=== PATIENT | female | born 1935 | race Caucasian/White ===

== ENCOUNTER 2016-10-17 11:52 | Inpatient (IN) | payer OTHER, MEDICARE ==
[2016-10-18] MEDS ORDERED: FLUTICASONE NASAL 120 SPRAYS/16 GM MDI NS PRN (14:14)
[2016-10-18] MEDS ORDERED: NON-FORMULARY NEW DRUG (Cyanocobalamin (Vitamin B-12) [Vitamin B-12] 1,000 MCG) INJ SCH (14:15)
[2016-10-18] MEDS: ONDANSETRON DISINTEGRATING 4 MG TAB PO PRN ×2 (16:17→21:10)
--- NOTE | 2016-10-18 16:28 | GHP ---
[f rep st] HISTORY AND PHYSICAL POST ADMISSION PHYSICIAN EVALUATION AND REHABILITATION TREATMENT PLAN DATE OF ADMISSION: 10/18/2016 Referring Physician: Rola Leal MD TIME OF EVALUATION: 1430. REFERRING FACILITY: [facility]. CONSULTING PHYSICIANS: She was seen in consultation by neurologist, Krystian Greene. REHABILITATION DIAGNOSIS: Debility status post right MCA, cerebrovascular accident. IMPAIRMENT GROUP: 1.1. ETIOLOGIC DIAGNOSIS: Left body involvement (right brain). DATE OF ONSET: 10/13/2016. HISTORY OF PRESENT ILLNESS: The patient was taken to [facility] on October 13 with slurred speech, aphasia, a left facial droop and a dense left hemiplegia. She had a CT of the head and neck which showed a right MCA M2 branch thrombus with collateral flow. She was medically stabilized there. Symptoms had been present for too long for her to be a candidate for thrombolysis. Per the patient and her 's request, she transferred to [facility] for continued care. At [facility], a head CT was done which showed a multifocal ischemic infarction in the right middle cerebral artery territory. she had the stroke while she had reversal of anticoagulation for the purposes of a colonoscopy. She initially had a dense left upper extremity hemiplegia and a pronounced right gaze preference as well as dysphagia and dysarthria. These have all improved. She now is able to have some movement at the left upper extremity, though not in the fingers of the hand, and her speech and gaze preference have improved considerably. She reports that she was walking in the acute care hospital. STUDIES AND LABS IN THE HOSPITAL: A basic metabolic profile was overall within normal limits on October 14, though she had a low creatinine of 0.5, and a low calcium of 8.10. Lipid panel on 10/15/2016 showed elevated triglycerides of 125 and elevated LDL at 128 and a total cholesterol of 204. Liver function tests done on 10/17/2016 were overall within normal limits, but for a slightly low albumin of 3.1. Hemoglobin A1c was 5.7 and a CBC without differential was overall within normal limits, but for a slightly high red cell distribution width of 21.4 with the upper limit of normal being 15.2. Head CT showed multifocal ischemic infarction in the right middle cerebral territory. PRECAUTIONS: She is a fall risk. She is an aspiration risk. ACTIVE COMORBIDITIES: She has the tier 3 comorbidity of hemiparesis and she has a tier 2 morbidity of dysphagia. Otherwise, she has no tier 1, tier 2 or tier 3 comorbidities. PAST MEDICAL HISTORY: 1. Thyroid cancer status post radiation. 2. 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 3. 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 4. Atrial fibrillation. 5. DVT in the setting of inguinal hematoma. 6. Breast cancer. 7. Glaucoma. 8. Hypertension. 9. Restless legs syndrome treated with ropinirole. PAST SURGICAL HISTORY: She has had pacemaker placement. PRE-HOSPITAL MEDICATIONS: I do not have a complete list. ADMISSION MEDICATIONS: 1. Acetaminophen 650 mg SC q.4 hours p.r.n. 2. Aspirin 325 mg p.o. daily. 3. Atorvastatin 10 mg p.o. daily. 4. Budesonide 2 puffs twice daily. 5. Cholecalciferol 4000 units p.o. daily. 6. Enoxaparin 40 mg subcutaneous daily. 7. Famotidine 20 mg twice daily. 8. Fluticasone one spray each naris daily p.r.n. congestion. 9. Levothyroxine 112 mcg p.o. daily. 10. Metoprolol succinate 25 mg p.o. daily. 11. Ondansetron 4 mg p.o. q.4 hours p.r.n. 12. Timolol. 0.5% 1 drop in each eye daily. 13. Vitamin D 1000 mcg IM Q 30 days. ALLERGIES: 1. Amlodipine. 2. Epinephrine which caused racing heart rate. 3. Piperacillin and tazobactam which caused hives. 4. Erythromycin, moxifloxacin, niacin which caused a rash. 5. Omeprazole, vancomycin and hallucinations on opioid antagonist. FAMILY HISTORY: Noncontributory. PSYCHOSOCIAL HISTORY: The patient lives with her . [place] [address] [place] approximately 3 months ago. She has a remote history of tobacco smoking. She is not an alcohol user. REVIEW OF SYSTEMS: She denies pain. She did have some neck pain but that has resolved. She reports some visual difficulties and says that she has macular degeneration and also was due for a cataract procedure. She denies cough or dyspnea. She feels somewhat thirsty. She denies nausea, vomiting, constipation or diarrhea. She denies dysuria or urinary frequency. She has weakness of the left upper extremity. She is not aware of loss of sensation. She reports she has been walking and that her left lower extremity is a little bit weaker than the right, but has minimal weakness. Otherwise, a 10-point review of systems is negative. PHYSICAL EXAM: VITAL SIGNS: Blood pressure is 148/98, heart rate is 69, respiratory rate is 16, oxygen saturation is 95% on room air. Temperature is 36.5 degrees centigrade. Her weight in the acute care hospital was 52.2, with a body mass index of 19.7. GENERAL: This is a well-nourished, well-developed, thin elderly woman who appears her chronologic age. Cooperative, and in no acute distress lying in bed. HEENT: Extraocular movements are intact, though she appears to have a right gaze preference and possibly to lose track of the examiner's finger in her left visual field. Pupils are equal, round and reactive to light. Mucous membranes are somewhat dry. Airway is not crowded. Dentition is in good condition. There are no oropharyngeal mucosal lesions noted. NECK: Supple. HEART: Regular rate and rhythm with no murmurs, rubs or gallops. LUNGS: Clear to auscultation bilaterally. ABDOMEN: Soft, nontender, nondistended with normoactive bowel sounds and no hepatosplenomegaly. EXTREMITIES: There is no cyanosis, clubbing or edema. Radial and dorsalis pedis pulses are 2+ bilaterally. NECK: Supple. HEART: There is a regular rate and rhythm with no murmurs, rubs or gallops. LUNGS: Clear to auscultation bilaterally. ABDOMEN: Soft, nontender, nondistended with normoactive bowel sounds and no hepatosplenomegaly. NEUROLOGIC: Cranial nerves 2-10 are grossly intact with the exception as mentioned above. She is alert and oriented x3. Her left upper extremity has 3/5 strength at the shoulder, elbow and wrist but minimal movement at the fingers. Otherwise, her strength appears to be 5+ overall. She arises to seated from supine with no assistance. Sensation is grossly intact to light touch. However, she has extinction of touch on the left to double simultaneous stimulation of her arms. Babinski's is indeterminate bilaterally. CURRENT LEVEL OF FUNCTION PER THE PREADMISSION SCREEN: Regarding diet, feeding and swallowing, she was on a dysphagia 1 diet with nectar thick liquids. Medications were crushed in applesauce. She was noted to have moderate dysphagia. For grooming, she required assistance. For bathing, she required assistance. For dressing, she required total assistance. For toileting, she required assistance. Bladder was continent. Bowel continent. Bed mobility was accomplished with contact guard. Transfers were accomplished with minimal assistance and voice cuing to encourage proper left hand placement during transitions. She used a right alma walker. Balance required contact guard to minimal assistance. Endurance was noted to be fair. Regarding gait, she was able to ambulate 150 feet with minimal to moderate assistance and voice cuing. For communication, she was noted to have dysarthria. Regarding cognition, she was noted to have slow processing. IMPRESSION: Mrs. Castro Castañeda is an 81-year-old woman who suffered a right M2 branch MCA cerebrovascular accident on 10/13/2016. Duration prior to presentation at the hospital was too long for thrombolysis. She was medically stabilized at [facility] and then transferred to [facility] per the patient and her 's preference. There, a head CT showed a multifocal right hemispheric cerebrovascular accident. Her anticoagulation for atrial fibrillation had been reversed for several days prior to the stroke because of the need for a colonoscopy. Given the size and extent of the stroke, full anticoagulation is currently being withheld. She is being treated with DVT prophylaxis with enoxaparin and stroke prophylaxis with aspirin. The plan per Neurology is to continue this anti-platelet/ anticoagulant regimen for 2 weeks following a stroke or through October 28, 2016. She also has hypertension and is being allowed permissive hypertension and blood pressure is within the appropriate range for permissive hypertension. She also has dyslipidemia and was begun on a statin. She is appropriate for inpatient rehabilitation, needing comprehensive services to optimize mobility, activities of daily living, swallowing and communication. She will need close nursing care due to fall risk, risk to her skin from relative immobility, bowel and bladder management and medication education. Additionally, she will require close medical care for comorbidities including risk for DVT versus risk for hemorrhage, hypertension, hypothyroidism and her other comorbidities. Her goal is to return home with family support and outpatient services for a safe discharge. It is anticipated that she will achieve independence with eating, bed mobility and grooming, modified independence for transfers and minimal assistance for bathing and dressing. It is hoped that she will ambulate for household distances using a quad cane with close supervision and that she will tolerate least restrictive diet. She will have therapy with physical therapy, occupational therapy, and speech and language pathology for 60 minutes per day for each discipline on 5-7 days of the week. Her expected duration of stay is 14-21 days. It is anticipated that upon discharge, she will continue to benefit from home health services, including nursing, speech and language pathology, a home health aide, occupational therapy and physical therapy. ASSESSMENT AND PLAN BY PROBLEM LIST: 1. Cerebrovascular accident in the right M2 distribution of the middle cerebral artery with left upper extremity hemiparesis, dysarthria, dysphagia and left hemineglect. Physical and occupational therapy to optimize mobility and activities of daily living. Permissive hypertension for the first 10 days after her stroke or through October 24, 2016. Anticoagulation only with aspirin through October 28 and then consideration of full anticoagulation. Will start fluoxetine per the FLAME trial to enhance neuro recovery in the setting of hemiplegic stroke. 2. Atrial fibrillation status post pacemaker placement. Anticoagulation as above. Continue metoprolol for rate control. 3. Dyslipidemia: She was begun on atorvastatin at low dose. This will be titrated as it is tolerated. 4. Hypothyroidism due to treatment of thyroid cancer. Continue levothyroxine. 5. Metastatic pulmonary nodules of thyroid cancer status post chest radiation with radiation pneumonitis: She is treated with budesonide/formoterol which will be continued. She will use oxygen as needed. 6. Restless legs syndrome: Continue ropinirole. 7. Insomnia in the hospital: It is hoped that she will sleep better in the less disruptive environment of the rehabilitation unit. If not, discussion will be initiated with the patient regarding medication approaches to improve sleep. 8. Glaucoma and cataracts: These may complicate therapy in terms of left hemineglect and possible visual processing issues. Continue eyedrops for glaucoma. 9. History of DVT: She is at elevated risk due to her age and relative immobility and history of cancer. She will be monitored for any signs or symptoms and if she does develop a DVT, then the risk of intracerebral hemorrhage versus benefit of treatment of DVT will be considered once again. /[id number]/MODL MTDD
[2016-10-18] MEDS ORDERED: BUDESONIDE/FORMOTEROL 160/4.5 60 PUFFS/MDI IH SCH (21:00)
[2016-10-18] MEDS ORDERED: TAFLUPROST EACHEYE SCH ×2 (21:00)
[2016-10-18] MEDS: BUDESONIDE/FORMOTEROL 160/4.5 60 PUFFS/MDI IH SCH (21:09)
[2016-10-18] MEDS: FAMOTIDINE 20 MG TAB PO SCH (21:10)
[2016-10-18] MEDS: Tafluprost/Pf [Zioptan 0.0015% Eye Drops] EACHEYE SCH (21:24)
[2016-10-18] MEDS: ACETAMINOPHEN 650 MG SUPP PR PRN (22:17)
[2016-10-19] MEDS: LEVOTHYROXINE 112 MCG TAB PO SCH (04:45)
[2016-10-19] MEDS: ACETAMINOPHEN 650 MG SUPP PR PRN ×2 (04:46→18:45)
[2016-10-19] MEDS: ONDANSETRON DISINTEGRATING 4 MG TAB PO PRN ×3 (04:47→14:19)
[2016-10-19] MEDS: CHOLECALCIFEROL VIT D3 2,000 UNITS TAB/CAP PO SCH (08:41)
[2016-10-19] MEDS: FLUoxetine 10 MG CAP PO SCH (08:47)
[2016-10-19] MEDS: METOPROLOL SUCCINATE XR 25 MG TAB PO SCH (08:53)
[2016-10-19] MEDS: FAMOTIDINE 20 MG TAB PO SCH ×2 (08:53→20:04)
[2016-10-19] MEDS ORDERED: TIMOLOL 0.5% 15 ML OPHT.BTL EACHEYE SCH (09:00)
[2016-10-19] MEDS ORDERED: ATORVASTATIN CALCIUM 10 MG TAB PO SCH (09:00)
[2016-10-19] MEDS ORDERED: Herbals/Supplements -Info Only PO SCH (09:00)
[2016-10-19] MEDS ORDERED: ASPIRIN 325 MG TAB PO SCH (09:00)
--- NOTE | 2016-10-19 09:50 | SOAPPROG ---
SOAP Progress Note Assessment/Plan: Assessment: 1. Cerebrovascular accident in the right M2 distribution of the middle cerebral artery with left upper extremity hemiparesis, dysarthria, dysphagia and left hemineglect. Physical and occupational therapy to optimize mobility and activities of daily living. Permissive hypertension for the first 10 days after her stroke or through October 24, 2016. Anticoagulation only with aspirin through October 28 and then consideration of full anticoagulation. Will start fluoxetine per the FLAME trial to enhance neuro recovery in the setting of hemiplegic stroke. 2. Atrial fibrillation status post pacemaker placement. Anticoagulation as above. Continue metoprolol for rate control. 3. Dyslipidemia: She was begun on atorvastatin at low dose. This will be titrated as it is tolerated. 4. Hypothyroidism due to treatment of thyroid cancer. Continue levothyroxine. 5. Metastatic pulmonary nodules of thyroid cancer status post chest radiation with radiation pneumonitis: She is treated with budesonide/formoterol which will be continued. She will use oxygen as needed. 6. Restless legs syndrome: Continue ropinirole. 7. Insomnia in the hospital: It is hoped that she will sleep better in the less disruptive environment of the rehabilitation unit. If not, discussion will be initiated with the patient regarding medication approaches to improve sleep. 8. Glaucoma and cataracts: These may complicate therapy in terms of left hemineglect and possible visual processing issues. Continue eyedrops for glaucoma. 9. History of DVT: She is at elevated risk due to her age and relative immobility and history of cancer. She will be monitored for any signs or symptoms and if she does develop a DVT, then the risk of intracerebral hemorrhage versus benefit of treatment of DVT will be considered once again. 10/19/16 09:50 Objective: Vital Signs Temp Pulse Resp BP Pulse Ox 36.9 C 70 18 142/92 H 95 10/18/16 20:00 10/19/16 08:53 10/18/16 20:00 10/19/16 08:53 10/18/16 20:00 10/18/16 10/19/16 10/20/16 05:59 05:59 05:59 Intake Total 160 Balance 160 ICD10 Worksheet Patient Problems: Problems Problem Status Diagnosed Chronic Disease Mgmt/Transitional Care Acute GI bleed Acute Hemoptysis Acute Melena Acute Radiation pneumonitis Acute Recurrent thyroid cancer Acute Status post cardiac pacemaker procedure Acute Afib - Atrial fibrillation Active Acute anterior epistaxis Acute CHF (congestive heart failure) Acute Pleural effusion Acute
[2016-10-19] MEDS: ENOXAPARIN 40 MG/0.4 ML SYR SC SCH (10:47)
[2016-10-19] MEDS: TIMOLOL 0.5% 15 ML OPHT.BTL EACHEYE SCH (10:49)
[2016-10-19] MEDS: BUDESONIDE/FORMOTEROL 160/4.5 60 PUFFS/MDI IH SCH ×2 (10:52→20:05)
--- NOTE | 2016-10-19 10:56 | SOAPPROG ---
SOAP Progress Note Assessment/Plan: Assessment: * Cerebrovascular accident in the right M2 distribution of the middle cerebral artery with left upper extremity hemiparesis, dysarthria, dysphagia and left hemineglect. Physical and occupational therapy to optimize mobility and activities of daily living. Permissive hypertension for the first 10 days after her stroke or through October 24, 2016. Anticoagulation only with aspirin through October 28 and then consideration of full anticoagulation. Started fluoxetine 10 mg QD per the FLAME trial to enhance neuro recovery in the setting of hemiplegic stroke. * Atrial fibrillation status post pacemaker placement. Anticoagulation as above. Continue metoprolol for rate control. * Dyslipidemia: She was begun on atorvastatin at low dose. This will be titrated as it is tolerated. * Hypothyroidism due to treatment of thyroid cancer. Continue levothyroxine. * Metastatic pulmonary nodules of thyroid cancer status post chest radiation with radiation pneumonitis: She is treated with budesonide/formoterol which will be continued. No O2 requirement. * Restless legs syndrome: D/C SCDs. Continue ropinirole; increase dose from 0.125 mg QHS to 0.25 mg starting 10/19/16. * Insomnia: D/C SCDs and increase ropinirole as abvoe. Continue to monitor. * Glaucoma and cataracts: These may complicate therapy in terms of left hemineglect and possible visual processing issues. Continue eyedrops for glaucoma. * History of DVT: She is at elevated risk due to her age, relative immobility and history of cancer. No S/Sx DVT currently. Encourage mobilization. 10/19/16 10:56 Subjective: C/O feeling spacey this morning. Did not sleep well; SCDs activated RLS symptoms. Nurse notes thrush in mouth. She says she rinses mouth well after using steroid inhaler but sometimes gets thrush anyway. Objective: Vital Signs Temp Pulse Resp BP Pulse Ox 36.9 C 70 18 142/92 H 95 10/18/16 20:00 10/19/16 08:53 10/18/16 20:00 10/19/16 08:53 10/18/16 20:00 10/18/16 10/19/16 10/20/16 05:59 05:59 05:59 Intake Total 160 Balance 160 Physical Exam - Physical Exam General Appearance: WD/WN, alert, no apparent distress Respiratory: normal breath sounds, No crackles, No rhonchi, No wheezing Cardiac/Chest: regular rate, rhythm, No edema Abdomen: normal bowel sounds, non-tender, soft, No distended Neuro/Psych: alert, normal mood/affect, oriented x 3, motor weakness (LUE) ICD10 Worksheet Patient Problems: Problems Problem Status Diagnosed Chronic Disease Mgmt/Transitional Care Acute GI bleed Acute Hemoptysis Acute Melena Acute Radiation pneumonitis Acute Recurrent thyroid cancer Acute Status post cardiac pacemaker procedure Acute Afib - Atrial fibrillation Active Acute anterior epistaxis Acute CHF (congestive heart failure) Acute Pleural effusion Acute
--- NOTE | 2016-10-19 11:37 | PDOREHIP ---
Admission [facility] - Admission - 3 Day Assessment Period Admission Date/Day 1: 10/18/16 Day 2: 10/19/16 Day 3: 10/20/16 - Active Diagnoses Comorbidities and Co-existing Conditions at Admission: 30105. None of the Above - Skin Conditions Unhealed Pressure Ulcer (1 or more/Stage 1 or >)-Admission: 0. No
[2016-10-19] MEDS: NYSTATIN SUSP 500000 UNIT/5 ML UDCUP PO SCH ×3 (14:20→20:05)
[2016-10-19] MEDS ORDERED: LORazepam 0.5 MG TAB PO PRN (19:48)
[2016-10-19] MEDS: Tafluprost/Pf [Zioptan 0.0015% Eye Drops] EACHEYE SCH (20:05)
[2016-10-20] MEDS: LEVOTHYROXINE 112 MCG TAB PO SCH (06:25)
[2016-10-20] MEDS: NYSTATIN SUSP 500000 UNIT/5 ML UDCUP PO SCH ×4 (06:25→21:29)
[2016-10-20] MEDS: ONDANSETRON DISINTEGRATING 4 MG TAB PO PRN ×2 (06:25→21:31)
[2016-10-20] MEDS: BUDESONIDE/FORMOTEROL 160/4.5 60 PUFFS/MDI IH SCH ×2 (09:08→21:31)
[2016-10-20] MEDS: CHOLECALCIFEROL VIT D3 2,000 UNITS TAB/CAP PO SCH (09:08)
[2016-10-20] MEDS: ENOXAPARIN 40 MG/0.4 ML SYR SC SCH (09:10)
[2016-10-20] MEDS: FAMOTIDINE 20 MG TAB PO SCH ×2 (09:10→21:30)
[2016-10-20] MEDS: ATORVASTATIN CALCIUM 10 MG TAB PO SCH (09:13)
[2016-10-20] MEDS: TIMOLOL 0.5% 15 ML OPHT.BTL EACHEYE SCH (09:13)
[2016-10-20] MEDS: ASPIRIN 325 MG TAB PO SCH (09:13)
--- NOTE | 2016-10-20 10:13 | SOAPPROG ---
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 Physical and occupational therapy to optimize mobility and activities of daily living. Permissive hypertension for the first 10 days after her stroke or through October 24, 2016. Anticoagulation only with aspirin through October 28 and then consideration of full anticoagulation. Started fluoxetine 10 mg QD on 10/19/16 per the FLAME trial to enhance neuro recovery in the setting of hemiplegic stroke; d/c 10/20/16 as she did not tolerate a low dose.. * Dysphagia: continue ROASTER HELPER. DD1, nectar thick liquids. Encourage hydration. * Cognitive impairment: dysexecutive per ROASTER HELPER, c/w stimulus-bound responses per nurse. Continue ROASTER HELPER. * Restless legs syndrome: D/C SCDs. Continue ropinirole; increase dose from 0.125 mg QHS to 0.25 mg starting 10/19/16. * Insomnia: D/C SCDs and increase ropinirole as above. Slept well overnight - 10/20; had lorazepam.. * Anxiety: discussed adverse effects of lorazepam; changed to lower dosing 0.25 - 0.5 mg rather than 0.5 mg Q 6 hr PRN. Encourage to not use. * Neck pain: chronic recurrent. Modalities per OT & PT. Hot and cold packs PRN. Massage therapy consult. * Atrial fibrillation status post pacemaker placement. Anticoagulation as above. Continue metoprolol for rate control. Change to tartrate from succinate as meds need to be crushed. * DVT prophylaxis with enoxaparin. Chronic stable issues: * Dyslipidemia: She was begun on atorvastatin at low dose. This will be titrated as it is tolerated. * Hypothyroidism due to treatment of thyroid cancer. Continue levothyroxine. * Metastatic pulmonary nodules of thyroid cancer status post chest radiation with radiation pneumonitis: She is treated with budesonide/formoterol which will be continued. No O2 requirement. * Glaucoma and cataracts: These may complicate therapy in terms of left hemineglect and possible visual processing issues. Continue eyedrops for glaucoma. * History of DVT: She is at elevated risk due to her age, relative immobility and history of cancer. No S/Sx DVT currently. Encourage mobilization. 10/20/16 10:13 Subjective: Asked for lorazepam last night for anxiety; Rx'd 0.5 mg. Slept very well. Feels more unsteady on feet this morning. Says fluoxetine made her feel dizzy all day yesterday. Has heck pain on L from exercises with L arm. No f/c, cough , dyspnea, urinary frequency, dysuria. Nurse notes that she's persevferative and stimulus bound, persistently answering questions directed at another patient during breakfast. Objective: Vital Signs Temp Pulse Resp BP Pulse Ox 36.9 C 70 16 125/83 H 94 10/20/16 06:23 10/20/16 06:23 10/20/16 06:23 10/20/16 06:23 10/20/16 06:23 10/19/16 10/20/16 10/21/16 05:59 05:59 05:59 Intake Total 160 530 Output Total 100 100 Balance 160 430 -100 Physical Exam - Physical Exam General Appearance: WD/WN, alert, no apparent distress, thin Respiratory: normal breath sounds, No crackles, No rhonchi, No wheezing Cardiac/Chest: regular rate, rhythm, No edema Skin: normal color, warm/dry Neuro/Psych: alert, normal mood/affect, oriented x 3, motor weakness (LUE with ataxia and slow movement; able to operate wheelchair brake on L but needed assistance to find it. Arises from wheelchair with assistance; needs CGA for standing balance.) ICD10 Worksheet Patient Problems: Problems Problem Status Diagnosed Chronic Disease Mgmt/Transitional Care Acute GI bleed Acute Hemoptysis Acute Melena Acute Radiation pneumonitis Acute Recurrent thyroid cancer Acute Status post cardiac pacemaker procedure Acute Afib - Atrial fibrillation Active Acute anterior epistaxis Acute CHF (congestive heart failure) Acute Pleural effusion Acute
[2016-10-20] MEDS: METOPROLOL TARTRATE 25 MG TAB PO SCH ×2 (10:14→21:30)
[2016-10-20] MEDS: FLUoxetine 10 MG CAP PO SCH (10:21)
[2016-10-20] MEDS: METOPROLOL SUCCINATE XR 25 MG TAB PO SCH (10:22)
[2016-10-20] MEDS ORDERED: METOPROLOL TARTRATE 25 MG TAB PO SCH (21:00)
[2016-10-20] MEDS: LORazepam 0.5 MG TAB PO PRN (21:29)
[2016-10-20] MEDS: Tafluprost/Pf [Zioptan 0.0015% Eye Drops] EACHEYE SCH (21:32)
[2016-10-21] MEDS: LEVOTHYROXINE 112 MCG TAB PO SCH (06:25)
[2016-10-21] MEDS: NYSTATIN SUSP 500000 UNIT/5 ML UDCUP PO SCH ×4 (06:25→21:19)
[2016-10-21] MEDS: ONDANSETRON DISINTEGRATING 4 MG TAB PO PRN ×4 (06:25→21:22)
[2016-10-21] MEDS: METOPROLOL TARTRATE 25 MG TAB PO SCH ×2 (09:03→21:20)
[2016-10-21] MEDS: BUDESONIDE/FORMOTEROL 160/4.5 60 PUFFS/MDI IH SCH ×2 (09:03→21:19)
[2016-10-21] MEDS: TIMOLOL 0.5% 15 ML OPHT.BTL EACHEYE SCH (09:03)
[2016-10-21] MEDS: CHOLECALCIFEROL VIT D3 2,000 UNITS TAB/CAP PO SCH (09:03)
[2016-10-21] MEDS: ENOXAPARIN 40 MG/0.4 ML SYR SC SCH (09:03)
[2016-10-21] MEDS: FAMOTIDINE 20 MG TAB PO SCH ×2 (09:04→21:19)
[2016-10-21] MEDS: ATORVASTATIN CALCIUM 10 MG TAB PO SCH (09:34)
[2016-10-21] MEDS: ASPIRIN 325 MG TAB PO SCH (09:34)
--- NOTE | 2016-10-21 14:13 | SOAPPROG ---
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 Functionally improving; walked 200' today 10/21/16. Continue PT & OT to optimize mobility and activities of daily living. Permissive hypertension for the first 10 days after her stroke or through October 24, 2016. Anticoagulation only with aspirin through October 28 and then consideration of full anticoagulation. Started fluoxetine 10 mg QD on 10/19/16 per the FLAME trial to enhance neuro recovery in the setting of hemiplegic stroke; d/c 10/20/16 as she did not tolerate a low dose.. * Dysphagia: continue DIRECTOR ENTERPRISE DATA ARCHITECTURE. DD1, nectar thick liquids. Encourage hydration. * Cognitive impairment: dysexecutive per DIRECTOR ENTERPRISE DATA ARCHITECTURE, c/w stimulus-bound responses per nurse. Continue DIRECTOR ENTERPRISE DATA ARCHITECTURE. * Restless legs syndrome: D/C SCDs. Continue ropinirole; increase dose from 0.125 mg QHS to 0.25 mg starting 10/19/16. * Insomnia: D/C SCDs and increase ropinirole as above. Slept well overnight - 10/20; had lorazepam 0.5 mg; took again 0.25 mg at HS 10/20/16. * Anxiety: discussed adverse effects of lorazepam; changed to lower dosing 0.25 - 0.5 mg rather than 0.5 mg Q 6 hr PRN. Encourage to not use. * Neck pain: chronic recurrent. Modalities per OT & PT. Hot and cold packs PRN. Massage therapy consult. * Atrial fibrillation status post pacemaker placement. Anticoagulation as above. Continue metoprolol for rate control. Change to tartrate from succinate as meds need to be crushed. * DVT prophylaxis with enoxaparin. Chronic stable issues: * Dyslipidemia: She was begun on atorvastatin at low dose. This will be titrated as it is tolerated. * Hypothyroidism due to treatment of thyroid cancer. Continue levothyroxine. * Metastatic pulmonary nodules of thyroid cancer status post chest radiation with radiation pneumonitis: She is treated with budesonide/formoterol which will be continued. No O2 requirement. * Glaucoma and cataracts: These may complicate therapy in terms of left hemineglect and possible visual processing issues. Continue eyedrops for glaucoma. * History of DVT: She is at elevated risk due to her age, relative immobility and history of cancer. No S/Sx DVT currently. Encourage mobilization. 10/21/16 14:13 Subjective: C/O stomach cramps this morning. No n/v/c/d, eationg meals. Improved somewhat after bowel movement. Slept well; RLS symptoms did not interfere. Has continued return of function to L hand but feels disappointed in herself at times. Denies depression. Objective: Vital Signs Temp Pulse Resp BP Pulse Ox 36.2 C 69 18 119/79 95 10/21/16 06:28 10/21/16 09:03 10/21/16 06:28 10/21/16 09:03 10/21/16 06:28 10/20/16 10/21/16 10/22/16 05:59 05:59 05:59 Intake Total 530 720 Output Total 100 600 Balance 430 120 Physical Exam - Physical Exam General Appearance: WD/WN, alert, no apparent distress, thin Respiratory: normal breath sounds, No crackles, No rhonchi, No wheezing Cardiac/Chest: regular rate, rhythm, No edema Skin: normal color, warm/dry Neuro/Psych: alert, normal mood/affect, oriented x 3, motor weakness (Ataxic L hand) ICD10 Worksheet Patient Problems: Problems Problem Status Diagnosed Chronic Disease Mgmt/Transitional Care Acute GI bleed Acute Hemoptysis Acute Melena Acute Radiation pneumonitis Acute Recurrent thyroid cancer Acute Status post cardiac pacemaker procedure Acute Afib - Atrial fibrillation Active Acute anterior epistaxis Acute CHF (congestive heart failure) Acute Pleural effusion Acute
[2016-10-21] MEDS: Tafluprost/Pf [Zioptan 0.0015% Eye Drops] EACHEYE SCH (21:15)
[2016-10-21] MEDS: LORazepam 0.5 MG TAB PO PRN (21:21)
[2016-10-22] MEDS: LEVOTHYROXINE 112 MCG TAB PO SCH (06:02)
[2016-10-22] MEDS: NYSTATIN SUSP 500000 UNIT/5 ML UDCUP PO SCH ×4 (06:02→20:02)
[2016-10-22] MEDS: ONDANSETRON DISINTEGRATING 4 MG TAB PO PRN (06:02)
[2016-10-22] MEDS: TIMOLOL 0.5% 15 ML OPHT.BTL EACHEYE SCH (09:02)
[2016-10-22] MEDS: ASPIRIN 325 MG TAB PO SCH (09:03)
[2016-10-22] MEDS: BUDESONIDE/FORMOTEROL 160/4.5 60 PUFFS/MDI IH SCH ×2 (09:03→20:01)
[2016-10-22] MEDS: ENOXAPARIN 40 MG/0.4 ML SYR SC SCH (09:03)
[2016-10-22] MEDS: CHOLECALCIFEROL VIT D3 2,000 UNITS TAB/CAP PO SCH (09:04)
[2016-10-22] MEDS: METOPROLOL TARTRATE 25 MG TAB PO SCH ×2 (09:04→20:02)
[2016-10-22] MEDS: ATORVASTATIN CALCIUM 10 MG TAB PO SCH (09:04)
[2016-10-22] MEDS: FAMOTIDINE 20 MG TAB PO SCH ×2 (09:04→20:02)
--- NOTE | 2016-10-22 10:00 | SOAPPROG ---
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 Initial FIM 75 on 10/22/16. Functionally improving; walked 200' on 10/21/16, hand-held assist. CGA - min A for mobility and ADLs. Cues to attend to L. Gets fatigued. Continue PT & OT to optimize mobility and activities of daily living. Permissive hypertension for the first 10 days after her stroke or through October 24, 2016. Anticoagulation only with aspirin through October 28 and then consideration of full anticoagulation. Started fluoxetine 10 mg QD on 10/19/16 per the FLAME trial to enhance neuro recovery in the setting of hemiplegic stroke; d/c 10/20/16 as she did not tolerate a low dose.. * Dysphagia: continue JUNCTION MAKER. DD1, nectar thick liquids. Encourage hydration. * Cognitive impairment: dysexecutive per JUNCTION MAKER, c/w stimulus-bound responses per nurse. Continue JUNCTION MAKER. * Lightheadedness: she says BP needs to stay considerably higher than 112/72. expressed concern to nurse re iron level. BMP 10/22/16 c/w dehydration. Will hydrate with 1 L NS with 20 mEq/L KCl. Hold IV if it interferes with sleep. * Restless legs syndrome: D/C SCDs. Continue ropinirole; increase dose from 0.125 mg QHS to 0.25 mg starting 10/19/16. * Insomnia: D/C SCDs and increase ropinirole as above. Slept well overnight - 10/20; had lorazepam 0.5 mg; took again 0.25 mg at HS 10/20/16 & . Trial of melatonin 10/22/16. * Anxiety: discussed adverse effects of lorazepam; changed to lower dosing 0.25 - 0.5 mg rather than 0.5 mg Q 6 hr PRN. Encourage to not use. * Neck pain: chronic recurrent. Modalities per OT & PT. Hot and cold packs PRN. Massage therapy consult. * Atrial fibrillation status post pacemaker placement. Anticoagulation as above. Continue metoprolol for rate control. Change to tartrate from succinate as meds need to be crushed. * DVT prophylaxis with enoxaparin. Chronic stable issues: * Dyslipidemia: She was begun on atorvastatin at low dose. This will be titrated as it is tolerated. * Hypothyroidism due to treatment of thyroid cancer. Continue levothyroxine. * Metastatic pulmonary nodules of thyroid cancer status post chest radiation with radiation pneumonitis: She is treated with budesonide/formoterol which will be continued. No O2 requirement. * Glaucoma and cataracts: These may complicate therapy in terms of left hemineglect and possible visual processing issues. Continue eyedrops for glaucoma. * History of DVT: She is at elevated risk due to her age, relative immobility and history of cancer. No S/Sx DVT currently. Encourage mobilization. Attended staffing, 15 min. D/W case mgmt, nursing, rv technician, PT, OT, JUNCTION MAKER. Lives in multi-level home; has good family support. Tentative discharge date of 11/08/16 set. 10/22/16 17:14 Subjective: C/O feeling dizzy after breakfast, and nurse found low BP of 112 systolic. Awoke feeling good. Went back to bed and feels better. No vertigo. Denies dyspnea; has coughing and sneezing. No f/c, no UTI Sx. Objective: Vital Signs Temp Pulse Resp BP Pulse Ox 36.9 C 70 16 112/72 97 10/22/16 06:05 10/22/16 09:04 10/22/16 06:05 10/22/16 09:04 10/22/16 06:05 10/21/16 10/22/16 10/23/16 05:59 05:59 05:59 Intake Total 720 920 Output Total 600 Balance 120 920 - Time Spent With Patient Time Spent With Patient: Greater than 35 minutes floor time today, including more than 50% of time in coordination of care during staffing, and counseling patient. Physical Exam - Physical Exam General Appearance: WD/WN, alert, no apparent distress, thin Respiratory: normal breath sounds, No crackles, No rhonchi, No wheezing Cardiac/Chest: regular rate, rhythm, No edema Skin: normal color, warm/dry Neuro/Psych: alert, normal mood/affect, oriented x 3, motor weakness (LUE ataxia ) ICD10 Worksheet Patient Problems: Problems Problem Status Diagnosed Chronic Disease Mgmt/Transitional Care Acute GI bleed Acute Hemoptysis Acute Melena Acute Radiation pneumonitis Acute Recurrent thyroid cancer Acute Status post cardiac pacemaker procedure Acute Afib - Atrial fibrillation Active Acute anterior epistaxis Acute CHF (congestive heart failure) Acute Pleural effusion Acute
[2016-10-22 12:30] LABS: % IMMATURE GRANULYOCYTES 0.4 % (0.0-1.1); ABSOLUTE IMMATURE GRANULOCYTES 0.03 10^3/uL (0.00-0.10); ADD DIFF? NO; ADD MORPH? YES; ADD SCAN? NO; ATYPICAL LYMPHOCYTE FLAG 10 (0-99); FRAGMENT RBC FLAG 20 (0-99); HEMATOCRIT 45.9 % (38.0-47.0); HEMOGLOBIN 15.3 g/dL (12.6-16.3); LEFT SHIFT FLG 0 (0-99); LIPEMIA HEMOLYSIS FLAG 80 (0-99); MEAN CELL HEMOGLOBIN 29.6 pg (27.9-34.1); MEAN CELL HEMOGLOBIN CONCENTR. 33.3 g/dL (32.4-36.7); MEAN CELL VOLUME 88.8 fL (81.5-99.8); MEAN PLATELET VOLUME 10.8 fL (8.7-11.7); PLATELET CLUMPS FLAG 0 (0-99); PLATELET COUNT 273 10^3/uL (150-400); RED BLOOD CELL COUNT 5.17 10^6/uL (4.18-5.33)
[2016-10-22 12:41] LABS: RED CELL DISTRIBUTION WIDTH 20.2 % (11.5-15.2)
[2016-10-22 12:57] LABS: ANION GAP 14 mEq/L (8-16); CARBON DIOXIDE 26 mEq/l (22-31); CHLORIDE 102 mEq/L (97-110); CREATININE 0.7 mg/dL (0.6-1.0); GLOMERULAR FILTRATION RATE > 60; GLUCOSE 113 mg/dL (70-100); POTASSIUM 3.2 mEq/L (3.5-5.2); SODIUM 142 mEq/L (134-144)
[2016-10-22 13:06] LABS: % SATURATION 25 % (20-55); TOTAL IRON BINDING CAPACITY 326 ug/dL (260-490)
[2016-10-22 13:20] LABS: ELLIPTOCYTES 1+; MACROCYTES 1+; MICROCYTES 1+; PLATELET ESTIMATE ADEQUATE (ADEQ)
[2016-10-22] MEDS ORDERED: NS W/ 20 KCl/L 1,000 ML IV SCH (17:15)
[2016-10-22] MEDS: MELATONIN 3 MG TAB PO SCH (20:01)
[2016-10-22] MEDS: Tafluprost/Pf [Zioptan 0.0015% Eye Drops] EACHEYE SCH (21:05)
[2016-10-22] MEDS: LORazepam 0.5 MG TAB PO PRN (22:19)
[2016-10-23] MEDS: NYSTATIN SUSP 500000 UNIT/5 ML UDCUP PO SCH ×4 (06:01→20:24)
[2016-10-23] MEDS: LEVOTHYROXINE 112 MCG TAB PO SCH (06:01)
[2016-10-23] MEDS: TIMOLOL 0.5% 15 ML OPHT.BTL EACHEYE SCH (09:10)
[2016-10-23] MEDS: BUDESONIDE/FORMOTEROL 160/4.5 60 PUFFS/MDI IH SCH ×2 (09:10→20:29)
[2016-10-23] MEDS: ENOXAPARIN 40 MG/0.4 ML SYR SC SCH (09:10)
[2016-10-23] MEDS: FAMOTIDINE 20 MG TAB PO SCH ×2 (09:11→20:24)
[2016-10-23] MEDS: METOPROLOL TARTRATE 25 MG TAB PO SCH ×2 (09:11→20:25)
[2016-10-23] MEDS: ATORVASTATIN CALCIUM 10 MG TAB PO SCH (09:11)
[2016-10-23] MEDS: CHOLECALCIFEROL VIT D3 2,000 UNITS TAB/CAP PO SCH (09:11)
[2016-10-23] MEDS: ASPIRIN 325 MG TAB PO SCH (09:11)
--- NOTE | 2016-10-23 11:27 | SOAPPROG ---
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 Initial FIM 75 on 10/22/16. Functionally improving; walked 200' on 10/21/16, hand-held assist. CGA - min A for mobility and ADLs. Cues to attend to L. Gets fatigued. Continue PT & OT to optimize mobility and activities of daily living. Permissive hypertension for the first 10 days after her stroke or through October 24, 2016. Anticoagulation only with aspirin through October 28 and then consideration of full anticoagulation. Started fluoxetine 10 mg QD on 10/19/16 per the FLAME trial to enhance neuro recovery in the setting of hemiplegic stroke; d/c 10/20/16 as she did not tolerate a low dose.. * Dysphagia: continue FIBER TECHNOLOGIST. DD1, nectar thick liquids. Advanced to water protocol 10/23/16. Encourage hydration. * Cognitive impairment: dysexecutive per FIBER TECHNOLOGIST, c/w stimulus-bound responses per nurse. Continue FIBER TECHNOLOGIST. * Lightheadedness: she says BP needs to stay considerably higher than 112/72. BMP 10/22/16 c/w dehydration, and hypokalemia with K 3.2. Received 1 L NS with 20 mEq/L KCl. D/C IV for now and encourage PO hydration. Repeat IV fluids if she is symptomatic or if BP < 120/80. * Restless legs syndrome: D/C SCDs. Continue ropinirole; increase dose from 0.125 mg QHS to 0.25 mg starting 10/19/16. * Insomnia: D/C SCDs and increase ropinirole as above. Slept well overnight - 10/20; had lorazepam 0.5 mg; took again 0.25 mg at HS 10/20/16 & . Trial of melatonin 10/22/16. * Anxiety: discussed adverse effects of lorazepam; changed to lower dosing 0.25 - 0.5 mg rather than 0.5 mg Q 6 hr PRN. Encourage to not use. * Neck pain: chronic recurrent. Modalities per OT & PT. Hot and cold packs PRN. Massage therapy consult. * Atrial fibrillation status post pacemaker placement. Anticoagulation as above. Continue metoprolol for rate control. Change to tartrate from succinate as meds need to be crushed. * DVT prophylaxis with enoxaparin. Chronic stable issues: * Dyslipidemia: She was begun on atorvastatin at low dose. This will be titrated as it is tolerated. * Hypothyroidism due to treatment of thyroid cancer. Continue levothyroxine. * Metastatic pulmonary nodules of thyroid cancer status post chest radiation with radiation pneumonitis: She is treated with budesonide/formoterol which will be continued. No O2 requirement. * CHF, pleural effusion: asymptomatic. * Glaucoma and cataracts: These may complicate therapy in terms of left hemineglect and possible visual processing issues. Continue eyedrops for glaucoma. * History of DVT: She is at elevated risk due to her age, relative immobility and history of cancer. No S/Sx DVT currently. Encourage mobilization. Lives in multi-level home; has good family support. Tentative discharge date of 11/08/16 set. 10/23/16 11:25 Subjective: Feels better this morning after hydration overnight. Not lightheaded. Objective: Vital Signs Temp Pulse Resp BP Pulse Ox 36.9 C 70 18 147/85 H 96 10/23/16 08:00 10/23/16 09:11 10/23/16 08:00 10/23/16 09:11 10/23/16 08:00 Laboratory Results 10/22/16 11:10 10/22/16 11:10 10/22/16 10/23/16 10/24/16 05:59 05:59 05:59 Intake Total 920 450 200 Output Total 150 Balance 920 300 200 Physical Exam - Physical Exam General Appearance: WD/WN, alert, no apparent distress Respiratory: normal breath sounds, No crackles, No rhonchi, No wheezing Cardiac/Chest: regular rate, rhythm, No edema Neuro/Psych: alert, normal mood/affect, oriented x 3, abnormal gait (Ambulating BACK TUFTER with OT), other (Right gaze preference.) ICD10 Worksheet Patient Problems: Problems Problem Status Diagnosed Chronic Disease Mgmt/Transitional Care Acute GI bleed Acute Hemoptysis Acute Melena Acute Radiation pneumonitis Acute Recurrent thyroid cancer Acute Status post cardiac pacemaker procedure Acute Afib - Atrial fibrillation Active Acute anterior epistaxis Acute CHF (congestive heart failure) Acute Pleural effusion Acute
[2016-10-23] MEDS: MELATONIN 3 MG TAB PO SCH (20:24)
[2016-10-23] MEDS: Tafluprost/Pf [Zioptan 0.0015% Eye Drops] EACHEYE SCH (20:29)
[2016-10-23] MEDS: LORazepam 0.5 MG TAB PO PRN (22:00)
[2016-10-23] MEDS: ONDANSETRON DISINTEGRATING 4 MG TAB PO PRN (22:04)
[2016-10-24] MEDS: LEVOTHYROXINE 112 MCG TAB PO SCH (05:39)
[2016-10-24] MEDS: NYSTATIN SUSP 500000 UNIT/5 ML UDCUP PO SCH ×4 (05:39→20:41)
[2016-10-24] MEDS: CHOLECALCIFEROL VIT D3 2,000 UNITS TAB/CAP PO SCH (09:04)
[2016-10-24] MEDS: METOPROLOL TARTRATE 25 MG TAB PO SCH ×2 (09:04→20:41)
[2016-10-24] MEDS: ASPIRIN 325 MG TAB PO SCH (09:05)
[2016-10-24] MEDS: FAMOTIDINE 20 MG TAB PO SCH ×2 (09:05→20:41)
[2016-10-24] MEDS: ATORVASTATIN CALCIUM 10 MG TAB PO SCH (09:05)
[2016-10-24] MEDS: ENOXAPARIN 40 MG/0.4 ML SYR SC SCH (09:05)
[2016-10-24] MEDS: BUDESONIDE/FORMOTEROL 160/4.5 60 PUFFS/MDI IH SCH ×2 (09:06→20:46)
[2016-10-24] MEDS: TIMOLOL 0.5% 15 ML OPHT.BTL EACHEYE SCH (09:06)
--- NOTE | 2016-10-24 09:44 | SOAPPROG ---
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 Initial FIM 75 on 10/22/16. Functionally improving; walked 200' on 10/21/16, hand-held assist. CGA - min A for mobility and ADLs. Cues to attend to L. Gets fatigued. Continue PT & OT to optimize mobility and activities of daily living. Permissive hypertension for the first 10 days after her stroke or through October 24, 2016. Anticoagulation only with aspirin through October 28 and then consideration of full anticoagulation. Started fluoxetine 10 mg QD on 10/19/16 per the FLAME trial to enhance neuro recovery in the setting of hemiplegic stroke; d/c 10/20/16 as she did not tolerate a low dose.. * Dysphagia: continue CANDY CUTTER HAND. DD1, nectar thick liquids. Advanced to water protocol 10/23/16. Encourage hydration. Repeat VFSS today 10/24/16. * Cognitive impairment: dysexecutive per CANDY CUTTER HAND, c/w stimulus-bound responses per nurse. Continue CANDY CUTTER HAND. * Dental pain: cracked root per her report. D/W her dental office (Dr. Farnsworth [phone]): has been treated with amoxicillin in the past; should have extraction done. D/W on-call oral surgeon Dr. Leonard ([phone] cell; office): can extract a tooth while on warfarin as long as INR < 3. Could see in office to assess this week or Thursday 10/25 or 10/26. D/W social work; will try to arrange. Meanwhile moore tart amoxicillin 500 mg TID. * Lightheadedness: she says BP needs to stay considerably higher than 112/72. BMP 10/22/16 c/w dehydration, and hypokalemia with K 3.2. Received 1 L NS with 20 mEq/L KCl. D/C IV for now and encourage PO hydration. Repeat IV fluids if she is symptomatic or if BP < 120/80. * HTN: BP elevated now s/p IV hydration 10/22/16 - 10/23/16. Resume metoprolol 25 mg BID starting 10/24/16. * Restless legs syndrome: D/C SCDs. Continue ropinirole; increase dose from 0.125 mg QHS to 0.25 mg starting 10/19/16. * Insomnia: D/C SCDs and increase ropinirole as above. Slept well overnight - 10/20; had lorazepam 0.5 mg; took again 0.25 mg at HS 10/20/16 & . Trial of melatonin 10/22/16; conitnuing to use lorazepam 1.2 hr after melatonin last night 10/23/16. * Anxiety: discussed adverse effects of lorazepam; changed to lower dosing 0.25 - 0.5 mg rather than 0.5 mg Q 6 hr PRN. Encourage to not use. * Neck pain: chronic recurrent. Modalities per OT & PT. Hot and cold packs PRN. Massage therapy consult. * Atrial fibrillation status post pacemaker placement. Anticoagulation as above. Continue metoprolol for rate control. Change to tartrate from succinate as meds need to be crushed. * DVT prophylaxis with enoxaparin. Chronic stable issues: * Dyslipidemia: She was begun on atorvastatin at low dose. This will be titrated as it is tolerated. * Hypothyroidism due to treatment of thyroid cancer. Continue levothyroxine. * Metastatic pulmonary nodules of thyroid cancer status post chest radiation with radiation pneumonitis: She is treated with budesonide/formoterol which will be continued. No O2 requirement. * CHF, pleural effusion: asymptomatic. * Glaucoma and cataracts: These may complicate therapy in terms of left hemineglect and possible visual processing issues. Continue eyedrops for glaucoma. * History of DVT: She is at elevated risk due to her age, relative immobility and history of cancer. No S/Sx DVT currently. Encourage mobilization. Lives in multi-level home; has good family support. Tentative discharge date of 11/08/16 set. 10/24/16 13:40 10/24/16 13:43 Subjective: C/O pain R upper maxilla. Says she has a tooth with a broken root that was to be extracted but was not done due to bleeding issues. She was up multiple times to urinate overnight. Otherwise without urinary symptoms. Objective: Vital Signs Temp Pulse Resp BP Pulse Ox 36.7 C 74 16 155/85 H 95 10/24/16 06:46 10/24/16 06:46 10/24/16 06:46 10/24/16 06:46 10/24/16 06:46 Laboratory Results 10/22/16 11:10 10/22/16 11:10 10/23/16 10/24/16 10/25/16 05:59 05:59 05:59 Intake Total 450 920 Output Total 150 650 200 Balance 300 270 -200 Physical Exam - Physical Exam General Appearance: WD/WN, alert, no apparent distress EENT: other (No oral mucosallesions noted. Teeth appear to be in good condition.) Respiratory: normal breath sounds, No crackles, No rhonchi, No wheezing Cardiac/Chest: regular rate, rhythm, No edema Skin: normal color, warm/dry Neuro/Psych: alert, normal mood/affect, oriented x 3, abnormal real estate loan officer II-XII (Mild L facial droop), speech abnormalities (Mild dysarthria) ICD10 Worksheet Patient Problems: Problems Problem Status Diagnosed Chronic Disease Mgmt/Transitional Care Acute GI bleed Acute Hemoptysis Acute Melena Acute Radiation pneumonitis Acute Recurrent thyroid cancer Acute Status post cardiac pacemaker procedure Acute Afib - Atrial fibrillation Active Acute anterior epistaxis Acute CHF (congestive heart failure) Acute Pleural effusion Acute
[2016-10-24 12:31] LABS: COLOR YELLOW; LEUKOCYTE ESTERASE,URINE NEGATIVE (NEGATIVE); NITRITE,URINE NEGATIVE (NEGATIVE)
--- NOTE | 2016-10-24 14:21 | DX ---
Video Esophagram With Speech Therapy History: Dysphagia. Recent stroke. Technique: With the patient in the sitting lateral position, the speech therapist administered barium -coated puree, thick liquids, thin liquids, solid, and barium pill while video fluoroscopic monitorin g was performed. Fluoroscopy time: 3.8 minutes. 6.4 mGy Findings: Supraglottic penetration predominantly with thin liquids. No aspiration. Pooling in the kwan lecula, predominantly with solids and thick liquids. Poor pharyngeal motility. Probable presbyesophag us in the upper esophagus with poor peristalsis. C4-C5 and C5-C6 degenerative grade 1 anterolisthesis . Impression: 1. 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 2. Supraglottic penetration with thin liquids, without aspiration. 3. Probable presbyesophagus. 4. Please see speech therapist report and recommendations.
[2016-10-24] MEDS ORDERED: CYANO/VITAMIN B12 1000 MCG/ML VIAL IM SCH (15:00)
[2016-10-24] MEDS: ONDANSETRON DISINTEGRATING 4 MG TAB PO PRN (20:12)
[2016-10-24] MEDS: MELATONIN 3 MG TAB PO SCH (20:41)
[2016-10-24] MEDS: Tafluprost/Pf [Zioptan 0.0015% Eye Drops] EACHEYE SCH (20:41)
[2016-10-24] MEDS: ACETAMINOPHEN 325 MG TAB PO PRN (20:59)
[2016-10-25] MEDS: ACETAMINOPHEN 325 MG TAB PO PRN ×3 (00:52→20:19)
[2016-10-25] MEDS: ONDANSETRON DISINTEGRATING 4 MG TAB PO PRN ×3 (00:52→15:04)
[2016-10-25] MEDS: NYSTATIN SUSP 500000 UNIT/5 ML UDCUP PO SCH ×3 (04:51→18:04)
[2016-10-25] MEDS: LEVOTHYROXINE 112 MCG TAB PO SCH (04:52)
[2016-10-25] MEDS: ATORVASTATIN CALCIUM 10 MG TAB PO SCH (09:08)
[2016-10-25] MEDS: METOPROLOL TARTRATE 25 MG TAB PO SCH ×2 (09:08→20:50)
[2016-10-25] MEDS: CHOLECALCIFEROL VIT D3 2,000 UNITS TAB/CAP PO SCH (09:08)
[2016-10-25] MEDS: ASPIRIN 325 MG TAB PO SCH (09:08)
[2016-10-25] MEDS: FAMOTIDINE 20 MG TAB PO SCH (09:09)
[2016-10-25] MEDS: ENOXAPARIN 40 MG/0.4 ML SYR SC SCH (09:09)
[2016-10-25] MEDS: BUDESONIDE/FORMOTEROL 160/4.5 60 PUFFS/MDI IH SCH ×2 (09:29→20:22)
[2016-10-25] MEDS: TIMOLOL 0.5% 15 ML OPHT.BTL EACHEYE SCH (09:29)
--- NOTE | 2016-10-25 13:40 | SOAPPROG ---
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 Initial FIM 75 on 10/22/16. Functionally improving; walked 200' on 10/21/16, hand-held assist. CGA - min A for mobility and ADLs. Cues to attend to L. Gets fatigued. Continue PT & OT to optimize mobility and activities of daily living. Permissive hypertension for the first 10 days after her stroke or through October 24, 2016. Anticoagulation only with aspirin through October 28 and then consideration of full anticoagulation. Started fluoxetine 10 mg QD on 10/19/16 per the FLAME trial to enhance neuro recovery in the setting of hemiplegic stroke; d/c 10/20/16 as she did not tolerate a low dose.. * Dysphagia: continue RUG HOOKER. DD1, nectar thick liquids. Advanced to water protocol 10/23/16. Encourage hydration. Repeat VFSS today 10/24/16. * Cognitive impairment: dysexecutive per RUG HOOKER, c/w stimulus-bound responses per nurse. Continue RUG HOOKER. * Dental pain: cracked root per her report. D/W her dental office (Dr. Farnsworth [phone]): has been treated with amoxicillin in the past; should have extraction done. D/W on-call oral surgeon Dr. Leonard ([phone] cell; office): can extract a tooth while on warfarin as long as INR < 3. Family will plan for extraction after discharge. Meanwhile will start amoxicillin 500 mg TID. * Lightheadedness: she says BP needs to stay considerably higher than 112/72. BMP 10/22/16 c/w dehydration, and hypokalemia with K 3.2. Received 1 L NS with 20 mEq/L KCl. D/C IV for now and encourage PO hydration. Repeat IV fluids if she is symptomatic or if BP < 120/80. * HTN: BP elevated now s/p IV hydration 10/22/16 - 10/23/16. Resume metoprolol 25 mg BID starting 10/24/16. * Restless legs syndrome: D/C SCDs. Continue ropinirole; increase dose from 0.125 mg QHS to 0.25 mg starting 10/19/16. * Insomnia: D/C SCDs and increase ropinirole as above. Slept well overnight - 10/20; had lorazepam 0.5 mg; took again 0.25 mg at HS 10/20/16 & . Trial of melatonin 10/22/16; conitnuing to use lorazepam 1.2 hr after melatonin last night 10/23/16. * Anxiety: discussed adverse effects of lorazepam; changed to lower dosing 0.25 - 0.5 mg rather than 0.5 mg Q 6 hr PRN. Encourage to not use. * Neck pain: chronic recurrent. Modalities per OT & PT. Hot and cold packs PRN. Massage therapy consult. * Atrial fibrillation status post pacemaker placement. Anticoagulation as above. Continue metoprolol for rate control. Change to tartrate from succinate as meds need to be crushed. * DVT prophylaxis with enoxaparin. Chronic stable issues: * Dyslipidemia: She was begun on atorvastatin at low dose. This will be titrated as it is tolerated. * Hypothyroidism due to treatment of thyroid cancer. Continue levothyroxine. * Metastatic pulmonary nodules of thyroid cancer status post chest radiation with radiation pneumonitis: She is treated with budesonide/formoterol which will be continued. No O2 requirement. * CHF, pleural effusion: asymptomatic. * Glaucoma and cataracts: These may complicate therapy in terms of left hemineglect and possible visual processing issues. Continue eyedrops for glaucoma. * History of DVT: She is at elevated risk due to her age, relative immobility and history of cancer. No S/Sx DVT currently. Encourage mobilization. Lives in multi-level home; has good family support. Tentative discharge date of 11/08/16 set. 10/25/16 13:40 Subjective: COncerned that she may be getting a URI. No cough or dyspnea, f/c. Slept well after neckpain relieved by massage per OT and acetaminophen. Objective: Vital Signs Temp Pulse Resp BP Pulse Ox 36.5 C 70 16 140/82 H 93 10/25/16 05:35 10/25/16 05:35 10/25/16 05:35 10/25/16 05:35 10/25/16 05:35 Laboratory Results 10/22/16 11:10 10/22/16 11:10 10/24/16 10/25/16 10/26/16 05:59 05:59 05:59 Intake Total 920 660 400 Output Total 650 925 Balance 270 -265 400 Physical Exam - Physical Exam General Appearance: WD/WN, alert, no apparent distress Respiratory: No respiratory distress, No accessory muscle use Skin: normal color, warm/dry Neuro/Psych: alert, normal mood/affect, oriented x 3 ICD10 Worksheet Patient Problems: Problems Problem Status Diagnosed Chronic Disease Mgmt/Transitional Care Acute GI bleed Acute Hemoptysis Acute Melena Acute Radiation pneumonitis Acute Recurrent thyroid cancer Acute Status post cardiac pacemaker procedure Acute Afib - Atrial fibrillation Active Acute anterior epistaxis Acute CHF (congestive heart failure) Acute Pleural effusion Acute
[2016-10-25] MEDS ORDERED: BISACODYL 10 MG SUPP PR PRN (18:52)
[2016-10-25] MEDS: SENNOSIDES 1 TAB PO PRN (20:31)
[2016-10-25] MEDS: MELATONIN 3 MG TAB PO SCH (20:31)
[2016-10-25] MEDS: Tafluprost/Pf [Zioptan 0.0015% Eye Drops] EACHEYE SCH (20:37)
[2016-10-26] MEDS: LEVOTHYROXINE 112 MCG TAB PO SCH (04:11)
[2016-10-26] MEDS: ACETAMINOPHEN 325 MG TAB PO PRN ×2 (04:12→22:40)
[2016-10-26] MEDS: ONDANSETRON DISINTEGRATING 4 MG TAB PO PRN ×2 (04:18→22:44)
[2016-10-26] MEDS: ENOXAPARIN 40 MG/0.4 ML SYR SC SCH (07:54)
[2016-10-26] MEDS: METOPROLOL TARTRATE 25 MG TAB PO SCH ×2 (08:09→21:31)
[2016-10-26] MEDS: POLYETHYLENE GLYCOL 3350 17 GM PKT PO PRN (08:12)
[2016-10-26] MEDS: SENNOSIDES 1 TAB PO PRN ×2 (08:23→20:20)
[2016-10-26] MEDS: CHOLECALCIFEROL VIT D3 2,000 UNITS TAB/CAP PO SCH (08:23)
[2016-10-26] MEDS: FAMOTIDINE 20 MG TAB PO SCH (08:24)
[2016-10-26] MEDS: BUDESONIDE/FORMOTEROL 160/4.5 60 PUFFS/MDI IH SCH ×2 (10:00→22:47)
[2016-10-26] MEDS: TIMOLOL 0.5% 15 ML OPHT.BTL EACHEYE SCH (10:01)
[2016-10-26] MEDS: ASPIRIN 325 MG TAB PO SCH (10:47)
[2016-10-26] MEDS: ATORVASTATIN CALCIUM 10 MG TAB PO SCH (10:56)
[2016-10-26] MEDS ORDERED: NS W/ 20 KCl/L 1,000 ML IV SCH ×2 (12:00→14:45)
--- NOTE | 2016-10-26 12:05 | SOAPPROG ---
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 Initial FIM 75 on 10/22/16. Functionally improving; walked 200' on 10/21/16, hand-held assist. CGA - min A for mobility and ADLs. Cues to attend to L. Gets fatigued. Continue PT & OT to optimize mobility and activities of daily living. Permissive hypertension for the first 10 days after her stroke or through October 24, 2016. Anticoagulation only with aspirin through October 28 and then consideration of full anticoagulation. Started fluoxetine 10 mg QD on 10/19/16 per the FLAME trial to enhance neuro recovery in the setting of hemiplegic stroke; d/c 10/20/16 as she did not tolerate a low dose.. * Dysphagia: continue TOOL AND DIE REPAIR. DD1, honey thick liquids. Advanced to water protocol 10/23/16. Encourage hydration. Repeat VFSS 10/24/16. Initiated water protocol and e-stim. * Cognitive impairment: dysexecutive per TOOL AND DIE REPAIR, c/w stimulus-bound responses per nurse. Continue TOOL AND DIE REPAIR. * Dental pain: cracked root per her report. D/W her dental office (Dr. Farnsworth [phone]): has been treated with amoxicillin in the past; should have extraction done. D/W on-call oral surgeon Dr. Leonard ([phone] cell; office): can extract a tooth while on warfarin as long as INR < 3. Family will plan for extraction after discharge. Meanwhile will start amoxicillin 500 mg TID. * Lightheadedness again today 10/26/16: administer IV fluids again; check orthostatics and stat BMP, CBC; not lcinically c/w infection, cardiovascular decompensation or extension of CVA. BMP 10/22/16 c/w dehydration, and hypokalemia with K 3.2. Received 1 L NS with 20 mEq/L KCl. D/C IV for now and encourage PO hydration. Repeat IV fluids if she is symptomatic or if BP < 120/ 80. * HTN: BP elevated now s/p IV hydration 10/22/16 - 10/23/16. Resume metoprolol 25 mg BID starting 10/24/16. * Restless legs syndrome: D/C SCDs. Continue ropinirole; increase dose from 0.125 mg QHS to 0.25 mg starting 10/19/16. * Insomnia: D/C SCDs and increase ropinirole as above. Slept well overnight - 10/20; had lorazepam 0.5 mg; took again 0.25 mg at HS 10/20/16 & . Trial of melatonin 10/22/16; conitnuing to use lorazepam 1.2 hr after melatonin last night 10/23/16. * Anxiety: discussed adverse effects of lorazepam; changed to lower dosing 0.25 - 0.5 mg rather than 0.5 mg Q 6 hr PRN. Encourage to not use. * Neck pain: chronic recurrent. Modalities per OT & PT. Hot and cold packs PRN. Massage therapy consult. * Atrial fibrillation status post pacemaker placement. Anticoagulation as above. Continue metoprolol for rate control. Change to tartrate from succinate as meds need to be crushed. * DVT prophylaxis with enoxaparin. Chronic stable issues: * Dyslipidemia: She was begun on atorvastatin at low dose. This will be titrated as it is tolerated. * Hypothyroidism due to treatment of thyroid cancer. Continue levothyroxine. * Metastatic pulmonary nodules of thyroid cancer status post chest radiation with radiation pneumonitis: She is treated with budesonide/formoterol which will be continued. No O2 requirement. * CHF, pleural effusion: asymptomatic. * Glaucoma and cataracts: These may complicate therapy in terms of left hemineglect and possible visual processing issues. Continue eyedrops for glaucoma. * History of DVT: She is at elevated risk due to her age, relative immobility and history of cancer. No S/Sx DVT currently. Encourage mobilization. Lives in multi-level home; has good family support. Tentative discharge date of 11/08/16 set. 10/26/16 12:07 Subjective: C/O feeling lightheaded this morning. Not tolerating therapies; in bed after breakfast. Metoprolol not given this morning or yesterday evening. Denies. cough, dyspnea, URI Sx, N/V/d, dysuria, urinary frequency, f/c. Objective: Vital Signs Temp Pulse Resp BP Pulse Ox 36.6 C 70 16 109/68 93 10/26/16 04:28 10/26/16 11:06 10/26/16 04:28 10/26/16 11:06 10/26/16 11:06 Laboratory Results 10/22/16 11:10 10/22/16 11:10 10/25/16 10/26/16 10/27/16 05:59 05:59 05:59 Intake Total 660 640 Output Total 925 Balance -265 640 Physical Exam - Physical Exam General Appearance: WD/WN, alert, no apparent distress, thin EENT: pharynx normal, other (MMs moist) Respiratory: normal breath sounds, No crackles, No rhonchi, No wheezing Cardiac/Chest: regular rate, rhythm, No edema Abdomen: normal bowel sounds, non-tender, soft, No distended Skin: normal color, warm/dry Neuro/Psych: alert, normal mood/affect, oriented x 3, motor weakness (LUE) ICD10 Worksheet Patient Problems: Problems Problem Status Diagnosed Chronic Disease Mgmt/Transitional Care Acute GI bleed Acute Hemoptysis Acute Melena Acute Radiation pneumonitis Acute Recurrent thyroid cancer Acute Status post cardiac pacemaker procedure Acute Afib - Atrial fibrillation Active Acute anterior epistaxis Acute CHF (congestive heart failure) Acute Pleural effusion Acute
[2016-10-26 14:32] LABS: % IMMATURE GRANULYOCYTES 0.2 % (0.0-1.1); ABSOLUTE IMMATURE GRANULOCYTES 0.01 10^3/uL (0.00-0.10); ADD DIFF? NO; ADD MORPH? NO; ADD SCAN? NO; ATYPICAL LYMPHOCYTE FLAG 0 (0-99); FRAGMENT RBC FLAG 20 (0-99); HEMATOCRIT 46.9 % (38.0-47.0); HEMOGLOBIN 16.1 g/dL (12.6-16.3); LEFT SHIFT FLG 0 (0-99); LIPEMIA HEMOLYSIS FLAG 90 (0-99); MEAN CELL HEMOGLOBIN 29.8 pg (27.9-34.1); MEAN CELL HEMOGLOBIN CONCENTR. 34.3 g/dL (32.4-36.7); MEAN CELL VOLUME 86.9 fL (81.5-99.8); MEAN PLATELET VOLUME 10.3 fL (8.7-11.7); PLATELET CLUMPS FLAG 10 (0-99); PLATELET COUNT 277 10^3/uL (150-400); RED CELL DISTRIBUTION WIDTH 19.5 % (11.5-15.2)
[2016-10-26 14:48] LABS: ANION GAP 15 mEq/L (8-16); CALCIUM 9.1 mg/dL (8.5-10.4); CARBON DIOXIDE 25 mEq/l (22-31); CHLORIDE 100 mEq/L (97-110); CREATININE 0.7 mg/dL (0.6-1.0); GLOMERULAR FILTRATION RATE > 60; GLUCOSE 156 mg/dL (70-100); POTASSIUM 3.6 mEq/L (3.5-5.2); SODIUM 140 mEq/L (134-144)
[2016-10-26] MEDS: MELATONIN 3 MG TAB PO SCH (21:39)
[2016-10-26] MEDS: Tafluprost/Pf [Zioptan 0.0015% Eye Drops] EACHEYE SCH (21:52)
[2016-10-27] MEDS: LEVOTHYROXINE 112 MCG TAB PO SCH (06:08)
[2016-10-27] MEDS: BUDESONIDE/FORMOTEROL 160/4.5 60 PUFFS/MDI IH SCH ×2 (07:45→20:47)
[2016-10-27] MEDS: TIMOLOL 0.5% 15 ML OPHT.BTL EACHEYE SCH (07:46)
[2016-10-27] MEDS: POLYETHYLENE GLYCOL 3350 17 GM PKT PO PRN (08:39)
[2016-10-27] MEDS: CHOLECALCIFEROL VIT D3 2,000 UNITS TAB/CAP PO SCH (08:40)
[2016-10-27] MEDS: SENNOSIDES 1 TAB PO PRN (08:40)
[2016-10-27] MEDS: METOPROLOL TARTRATE 25 MG TAB PO SCH ×2 (08:40→20:29)
[2016-10-27] MEDS: FAMOTIDINE 20 MG TAB PO SCH (09:14)
[2016-10-27] MEDS: ENOXAPARIN 40 MG/0.4 ML SYR SC SCH (09:16)
--- NOTE | 2016-10-27 10:24 | SOAPPROG ---
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 Initial FIM 75 on 10/22/16. Functionally improving; walked 200' on 10/21/16, hand-held assist. CGA - min A for mobility and ADLs. Cues to attend to L. Gets fatigued. Continue PT & OT to optimize mobility and activities of daily living. Permissive hypertension for the first 10 days after her stroke or through October 24, 2016. Anticoagulation only with aspirin through October 28 and then consideration of full anticoagulation. Started fluoxetine 10 mg QD on 10/19/16 per the FLAME trial to enhance neuro recovery in the setting of hemiplegic stroke; d/c 10/20/16 as she did not tolerate a low dose.. * Dysphagia: continue LEASING PROPERTY MANAGER. DD1, honey thick liquids. Advanced to water protocol 10/23/16. Encourage hydration. Repeat VFSS 10/24/16. Initiated water protocol and e-stim. * Cognitive impairment: dysexecutive per LEASING PROPERTY MANAGER, c/w stimulus-bound responses per nurse. Continue LEASING PROPERTY MANAGER. * Dental pain: cracked root per her report. D/W her dental office (Dr. Farnsworth [phone]): has been treated with amoxicillin in the past; should have extraction done. D/W on-call oral surgeon Dr. eLonard ([phone] cell; office): can extract a tooth while on warfarin as long as INR < 3. Family will plan for extraction after discharge. Meanwhile will start amoxicillin 500 mg TID. * Lightheadedness again today 10/26/16: administer IV fluids again; check orthostatics and stat BMP, CBC; not lcinically c/w infection, cardiovascular decompensation or extension of CVA. BMP 10/22/16 c/w dehydration, and hypokalemia with K 3.2. Received 1 L NS with 20 mEq/L KCl. D/C IV for now and encourage PO hydration. Repeat IV fluids if she is symptomatic or if BP < 120/ 80. * HTN: BP elevated now s/p IV hydration 10/22/16 - 10/23/16. Resume metoprolol 25 mg BID starting 10/24/16. * Restless legs syndrome: D/C SCDs. Continue ropinirole; increase dose from 0.125 mg QHS to 0.25 mg starting 10/19/16. * Insomnia: D/C SCDs and increase ropinirole as above. Slept well overnight - 10/20; had lorazepam 0.5 mg; took again 0.25 mg at HS 10/20/16 & . Trial of melatonin 10/22/16; conitnuing to use lorazepam 1.2 hr after melatonin last night 10/23/16. * Anxiety: discussed adverse effects of lorazepam; changed to lower dosing 0.25 - 0.5 mg rather than 0.5 mg Q 6 hr PRN. Encourage to not use. * Neck pain: chronic recurrent. Modalities per OT & PT. Hot and cold packs PRN. Massage therapy consult. * Atrial fibrillation status post pacemaker placement. Anticoagulation as above. Continue metoprolol for rate control. Change to tartrate from succinate as meds need to be crushed. * DVT prophylaxis with enoxaparin. Chronic stable issues: * Dyslipidemia: She was begun on atorvastatin at low dose. This will be titrated as it is tolerated. * Hypothyroidism due to treatment of thyroid cancer. Continue levothyroxine. * Metastatic pulmonary nodules of thyroid cancer status post chest radiation with radiation pneumonitis: She is treated with budesonide/formoterol which will be continued. No O2 requirement. * CHF, pleural effusion: asymptomatic. * Glaucoma and cataracts: These may complicate therapy in terms of left hemineglect and possible visual processing issues. Continue eyedrops for glaucoma. * History of DVT: She is at elevated risk due to her age, relative immobility and history of cancer. No S/Sx DVT currently. Encourage mobilization. Lives in multi-level home; has good family support. Tentative discharge date of 11/08/16 set. 10/26/16 12:07 10/27/16 10:24 Subjective: Feels much better after IV hydration. Slept well, no cough/dyspnea, f/c, n/v/c/ d. Objective: Vital Signs Temp Pulse Resp BP Pulse Ox 37.1 C 69 16 161/91 H 97 10/27/16 06:50 10/27/16 09:40 10/27/16 06:50 10/27/16 09:40 10/27/16 08:37 Laboratory Results 10/26/16 13:15 10/26/16 13:15 10/26/16 10/27/16 10/28/16 05:59 05:59 05:59 Intake Total 640 1179 Output Total 1200 Balance 640 -21 Physical Exam - Physical Exam General Appearance: WD/WN, alert, no apparent distress, thin Respiratory: normal breath sounds, No crackles, No rhonchi, No wheezing Cardiac/Chest: regular rate, rhythm, JVD (3 cm above clavicle), No edema Skin: normal color, warm/dry Neuro/Psych: alert, normal mood/affect, oriented x 3 ICD10 Worksheet Patient Problems: Problems Problem Status Diagnosed Chronic Disease Mgmt/Transitional Care Acute GI bleed Acute Hemoptysis Acute Melena Acute Radiation pneumonitis Acute Recurrent thyroid cancer Acute Status post cardiac pacemaker procedure Acute Afib - Atrial fibrillation Active Acute anterior epistaxis Acute CHF (congestive heart failure) Acute Pleural effusion Acute
[2016-10-27] MEDS: ATORVASTATIN CALCIUM 10 MG TAB PO SCH (10:42)
[2016-10-27] MEDS: ASPIRIN 325 MG TAB PO SCH (10:42)
[2016-10-27] MEDS: MELATONIN 3 MG TAB PO SCH (20:31)
[2016-10-27] MEDS: ACETAMINOPHEN 325 MG TAB PO PRN (20:33)
[2016-10-27] MEDS: ONDANSETRON DISINTEGRATING 4 MG TAB PO PRN (20:44)
[2016-10-27] MEDS: Tafluprost/Pf [Zioptan 0.0015% Eye Drops] EACHEYE SCH (20:45)
[2016-10-28] MEDS: LORazepam 0.5 MG TAB PO PRN ×2 (05:02→23:13)
[2016-10-28] MEDS: METOPROLOL TARTRATE 25 MG TAB PO SCH ×3 (05:02→20:05)
[2016-10-28] MEDS: LEVOTHYROXINE 112 MCG TAB PO SCH (05:17)
[2016-10-28 09:42] LABS: ANION GAP 15 mEq/L (8-16); CALCIUM 8.5 mg/dL (8.5-10.4); CARBON DIOXIDE 27 mEq/l (22-31); CHLORIDE 102 mEq/L (97-110); CREATININE 0.5 mg/dL (0.6-1.0); GLOMERULAR FILTRATION RATE > 60; GLUCOSE 73 mg/dL (70-100); POTASSIUM 3.6 mEq/L (3.5-5.2); SODIUM 144 mEq/L (134-144)
[2016-10-28] MEDS: FAMOTIDINE 20 MG TAB PO SCH (09:45)
[2016-10-28] MEDS: CHOLECALCIFEROL VIT D3 2,000 UNITS TAB/CAP PO SCH (09:50)
[2016-10-28] MEDS: ASPIRIN 325 MG TAB PO SCH (09:52)
[2016-10-28] MEDS: ENOXAPARIN 40 MG/0.4 ML SYR SC SCH (09:52)
[2016-10-28] MEDS: ATORVASTATIN CALCIUM 10 MG TAB PO SCH (09:53)
[2016-10-28] MEDS: TIMOLOL 0.5% 15 ML OPHT.BTL EACHEYE SCH (09:57)
[2016-10-28] MEDS: BUDESONIDE/FORMOTEROL 160/4.5 60 PUFFS/MDI IH SCH ×2 (09:59→20:10)
[2016-10-28 10:36] LABS: INR 0.96 (0.83-1.16); PROTIME(PATIENT) 12.7 SEC (12.0-15.0)
--- NOTE | 2016-10-28 12:17 | SOAPPROG ---
SOAP Progress Note Assessment/Plan: Assessment: 81 yo F with AFib s/p embolic CVA 10/14/16 (while anticoagulation was reversed for colonoscopy) * Cerebrovascular accident in the right M2 distribution of the middle cerebral artery with left upper extremity hemiparesis, dysarthria, dysphagia and left hemineglect. Initial FIM 75 on 10/22/16. Functionally improving; walked 200' on 10/21/16, hand-held assist. CGA - min A for mobility and ADLs. Cues to attend to L. Gets fatigued. Continue PT & OT to optimize mobility and activities of daily living. Permissive hypertension for the first 10 days after her stroke or through October 24, 2016. Anticoagulation only with aspirin through October 28. INR < 1 this am. Warfarin to resume today. Started fluoxetine 10 mg QD on 10/19/16 per the FLAME trial to enhance neuro recovery in the setting of hemiplegic stroke; d/c 10/20/16 as she did not tolerate a low dose.. * Dysphagia: continue STORAGE AND BACKUP ADMINISTRATOR. DD1, honey thick liquids. Advanced to water protocol 10/23/16. Encourage hydration. Repeat VFSS 10/24/16. Initiated water protocol and e-stim. * Cognitive impairment: dysexecutive per STORAGE AND BACKUP ADMINISTRATOR, c/w stimulus-bound responses per nurse. Continue STORAGE AND BACKUP ADMINISTRATOR. * Dental pain: cracked root per her report. D/W her dental office (Dr. Farnsworth [phone]): has been treated with amoxicillin in the past; should have extraction done. D/W on-call oral surgeon Dr. Leonard ([phone] cell; [phone] office): can extract a tooth while on warfarin as long as INR < 3. Family will plan for extraction after discharge. Meanwhile will start amoxicillin 500 mg TID. * Lightheadedness; daily experience which she attributes to high or low BP. Orthostatic check 10/26 was negative. BMP 10/22/16 c/w dehydration, and hypokalemia with K 3.2. Received 1 L NS with 20 mEq/L KCl. Attempting to encourage PO hydration. Repeat IV fluids if she is symptomatic or if BP < 120/ 80. Could Ropinirole be contributing to lightheadedness? * HTN: BP variable. She feels best if SBP>120, <140. Resumed metoprolol 25 mg BID starting 10/24/16, but patient titrating smaller doses to keep better BP control. Will monitor. * Restless legs syndrome: D/C SCDs. Continue ropinirole; increase dose from 0.125 mg QHS to 0.25 mg starting 10/19/16. Could this be contributing to lightheadedness? * Insomnia: D/C SCDs and increase ropinirole as above. Slept well overnight - 10/20; had lorazepam 0.5 mg; took again 0.25 mg at HS 10/20/16 & . Trial of melatonin 10/22/16; conitnuing to use lorazepam 1.2 hr after melatonin last night 10/23/16. * Anxiety: discussed adverse effects of lorazepam; changed to lower dosing 0.25 - 0.5 mg rather than 0.5 mg Q 6 hr PRN. Encourage to not use. * Neck pain: chronic recurrent. Modalities per OT & PT. Hot and cold packs PRN. Massage therapy consult. * Atrial fibrillation status post pacemaker placement. Anticoagulation as above. Continue metoprolol for rate control. Change to tartrate from succinate as meds need to be crushed. * DVT prophylaxis with enoxaparin. Chronic stable issues: * Dyslipidemia: She was begun on atorvastatin at low dose. This will be titrated as it is tolerated. * Hypothyroidism due to treatment of thyroid cancer. Continue levothyroxine. * Metastatic pulmonary nodules of thyroid cancer status post chest radiation with radiation pneumonitis: She is treated with budesonide/formoterol which will be continued. No O2 requirement. * CHF, pleural effusion: asymptomatic. * Glaucoma and cataracts: These may complicate therapy in terms of left hemineglect and possible visual processing issues. Continue eyedrops for glaucoma. * History of DVT: She is at elevated risk due to her age, relative immobility and history of cancer. No S/Sx DVT currently. Encourage mobilization. Plan: Cont Dr Scruggs rehab treatment plan. Lives in multi-level home; has good family support. Tentative discharge date of 11/08/16 set. 10/28/16 12:00 10/28/16 12:20 Subjective: C/O lightheadedness, headache No F/C/CP/SOB/N/V/D Objective: Vital Signs Temp Pulse Resp BP Pulse Ox 36.7 C 71 16 126/74 H 91 L 10/28/16 08:00 10/28/16 09:45 10/28/16 08:00 10/28/16 09:45 10/28/16 08:00 Laboratory Results 10/26/16 13:15 10/28/16 05:15 10/27/16 10/28/16 10/29/16 05:59 05:59 05:59 Intake Total 1179 1070 Output Total 1200 800 Balance -21 270 PT 12.7 SEC (12.0-15.0) 10/28/16 05:15 INR 0.96 (0.83-1.16) 10/28/16 05:15 Physical Exam - Physical Exam General Appearance: alert, no apparent distress Neck: supple Respiratory: lungs clear Cardiac/Chest: irregularly irregular Abdomen: soft Skin: normal color, warm/dry Extremities: No pedal edema, No calf tenderness Neuro/Psych: other (no acute changes, mobility improving) ICD10 Worksheet Patient Problems: Problems Problem Status Diagnosed Chronic Disease [facility]/Transitional Care Acute GI bleed Acute Hemoptysis Acute Melena Acute Radiation pneumonitis Acute Recurrent thyroid cancer Acute Status post cardiac pacemaker procedure Acute Afib - Atrial fibrillation Active Acute anterior epistaxis Acute CHF (congestive heart failure) Acute Pleural effusion Acute
[2016-10-28] MEDS: ONDANSETRON DISINTEGRATING 4 MG TAB PO PRN (16:00)
[2016-10-28] MEDS: WARFARIN SODIUM 5 MG TAB PO SCH (16:32)
[2016-10-28] MEDS: ACETAMINOPHEN 325 MG TAB PO PRN ×2 (17:17→20:03)
[2016-10-28] MEDS: MELATONIN 3 MG TAB PO SCH (20:06)
[2016-10-28] MEDS: Tafluprost/Pf [Zioptan 0.0015% Eye Drops] EACHEYE SCH (20:13)
[2016-10-29] MEDS: LEVOTHYROXINE 112 MCG TAB PO SCH (05:33)
[2016-10-29] MEDS: ATORVASTATIN CALCIUM 10 MG TAB PO SCH (09:32)
[2016-10-29] MEDS: ASPIRIN 325 MG TAB PO SCH (09:33)
[2016-10-29] MEDS: CHOLECALCIFEROL VIT D3 2,000 UNITS TAB/CAP PO SCH (09:34)
[2016-10-29] MEDS: FAMOTIDINE 20 MG TAB PO SCH (09:36)
[2016-10-29] MEDS: METOPROLOL TARTRATE 25 MG TAB PO SCH ×4 (09:43→21:07)
[2016-10-29] MEDS: ENOXAPARIN 40 MG/0.4 ML SYR SC SCH (09:48)
[2016-10-29] MEDS: TIMOLOL 0.5% 15 ML OPHT.BTL EACHEYE SCH (09:53)
[2016-10-29] MEDS: BUDESONIDE/FORMOTEROL 160/4.5 60 PUFFS/MDI IH SCH ×2 (09:54→21:05)
--- NOTE | 2016-10-29 11:30 | SOAPPROG ---
SOAP Progress Note Assessment/Plan: Assessment: 81 yo F with AFib s/p embolic CVA 10/14/16 (while anticoagulation was reversed for colonoscopy) * Cerebrovascular accident in the right M2 distribution of the middle cerebral artery with left upper extremity hemiparesis, dysarthria, dysphagia and left hemineglect. Initial FIM 75 on 10/22/16, improved to 88 on 10/29/16. Functionally improving; walked 200' on 10/21/16, hand-held assist. CGA - min A for mobility and ADLs , which is 2/2 level of neglect, and poor visual spatial skills, and may be permanent need 2/2 level of challenge. Cues to attend to L. Gets fatigued. Continue PT & OT to optimize mobility and activities of daily living. Permissive hypertension for the first 10 days after her stroke or through October 24, 2016. Coumadin restarted October 28. check INR 3. Started fluoxetine 10 mg QD on 10/19/16 per the FLAME trial to enhance neuro recovery in the setting of hemiplegic stroke; d/c 10/20/16 as she did not tolerate a low dose.. * Dysphagia: continue VICE PRESIDENT PAYER. DD1, honey thick liquids. Advanced to water protocol 10/23/16. Encourage hydration. Repeat VFSS 10/24/16. Initiated water protocol and e-stim. * Cognitive impairment: dysexecutive per VICE PRESIDENT PAYER, c/w stimulus-bound responses per nurse. Continue VICE PRESIDENT PAYER. * Dental pain: cracked root per her report. D/W her dental office (Dr. Farnsworth [phone]): has been treated with amoxicillin in the past; should have extraction done. D/W on-call oral surgeon Dr. Leonard ([phone] cell; office): can extract a tooth while on warfarin as long as INR < 3. Family will plan for extraction after discharge. Meanwhile will start amoxicillin 500 mg TID. * Lightheadedness; daily experience which she attributes to high or low BP. Orthostatic check 10/26 was negative. Repeat IV fluids if she is symptomatic or if BP < 120/80. Could Ropinirole be contributing to lightheadedness; per pt report the BP issues have been long standing, precedded the start of Ropinirole (which has been beneficial for the RLS). * HTN: BP variable. She feels best if SBP>120, <140. Taking metoprolol 12.5 - 25 mg BID as patient is self-titrating smaller doses to keep better BP control. Will monitor. * Restless legs syndrome: D/C SCDs. Continue ropinirole; increase dose from 0.125 mg QHS to 0.25 mg starting 10/19/16. Could this be contributing to lightheadedness? * Insomnia: D/C SCDs and increase ropinirole as above. Slept well overnight - 10/20; had lorazepam 0.5 mg; took again 0.25 mg at HS 10/20/16 & . Trial of melatonin 10/22/16; conitnuing to use lorazepam 1.2 hr after melatonin last night 10/23/16. * Anxiety: Changed to lower dose fo Lorazepam 0.25 - 0.5 mg rather than 0.5 mg Q 6 hr PRN. Encourage to not use. * Neck pain: chronic recurrent. Modalities per OT & PT. Hot and cold packs PRN. Massage therapy consult. * Atrial fibrillation status post pacemaker placement. Anticoagulation as above. Currently in NSR. Continue metoprolol for rate control. Change to tartrate from succinate as meds need to be crushed. * DVT prophylaxis with enoxaparin. Chronic stable issues: * Dyslipidemia: She was begun on atorvastatin at low dose. This will be titrated as it is tolerated. * Hypothyroidism due to treatment of thyroid cancer. Continue levothyroxine. * Metastatic pulmonary nodules of thyroid cancer status post chest radiation with radiation pneumonitis: She is treated with budesonide/formoterol which will be continued. No O2 requirement. * CHF, pleural effusion: asymptomatic. * Glaucoma and cataracts: These may complicate therapy in terms of left hemineglect and possible visual processing issues. Continue eyedrops for glaucoma. * History of DVT: She is at elevated risk due to her age, relative immobility and history of cancer. No S/Sx DVT currently. Encourage mobilization. Plan: Cont Dr Scruggs rehab treatment plan. Lives in multi-level home; has good family support. Tentative discharge date of 11/08/16 set. See staffing note this same date 10/29/16 10/29/16 11:33 Subjective: Still very anxious regarding BP Therapy participation limited by autonomic/vestibular C/O's which are BP related. Not clear if symptoms worse since incring the Roliprinole No F/C/CP/SOB/N/V/D/C Objective: Vital Signs Temp Pulse Resp BP Pulse Ox 36.8 C 70 16 113/66 94 10/29/16 06:31 10/29/16 09:42 10/29/16 06:31 10/29/16 09:42 10/29/16 06:31 Laboratory Results 10/26/16 13:15 10/28/16 05:15 10/28/16 10/29/16 10/30/16 05:59 05:59 05:59 Intake Total 1070 850 Output Total 800 150 Balance 270 700 PT 12.7 SEC (12.0-15.0) 10/28/16 05:15 INR 0.96 (0.83-1.16) 10/28/16 05:15 Physical Exam - Physical Exam General Appearance: alert Neck: limited range of motion Respiratory: lungs clear Cardiac/Chest: regular rate, rhythm Skin: normal color, warm/dry, No rash Extremities: No pedal edema, No calf tenderness Neuro/Psych: alert, normal mood/affect, oriented x 3, motor weakness, sensory deficit, cognition abnormalities, other (no acute changes) ICD10 Worksheet Patient Problems: Problems Problem Status Diagnosed Chronic Disease Mgmt/Transitional Care Acute GI bleed Acute Hemoptysis Acute Melena Acute Radiation pneumonitis Acute Recurrent thyroid cancer Acute Status post cardiac pacemaker procedure Acute Afib - Atrial fibrillation Active Acute anterior epistaxis Acute CHF (congestive heart failure) Acute Pleural effusion Acute
[2016-10-29] MEDS: WARFARIN SODIUM 5 MG TAB PO SCH (16:27)
[2016-10-29] MEDS: MELATONIN 3 MG TAB PO SCH (21:05)
[2016-10-29] MEDS: Tafluprost/Pf [Zioptan 0.0015% Eye Drops] EACHEYE SCH (21:05)
[2016-10-29] MEDS: ONDANSETRON DISINTEGRATING 4 MG TAB PO PRN (21:10)
[2016-10-29] MEDS: ACETAMINOPHEN 325 MG TAB PO PRN (21:10)
[2016-10-29] MEDS: LORazepam 0.5 MG TAB PO PRN (21:15)
[2016-10-30] MEDS: LEVOTHYROXINE 112 MCG TAB PO SCH (06:23)
[2016-10-30] MEDS: CHOLECALCIFEROL VIT D3 2,000 UNITS TAB/CAP PO SCH (08:48)
[2016-10-30] MEDS: FAMOTIDINE 20 MG TAB PO SCH (08:48)
[2016-10-30] MEDS: ENOXAPARIN 40 MG/0.4 ML SYR SC SCH (08:48)
[2016-10-30] MEDS: METOPROLOL TARTRATE 25 MG TAB PO SCH ×2 (08:49→20:41)
[2016-10-30 09:22] LABS: INR 1.23 (0.83-1.16); PROTIME(PATIENT) 15.5 SEC (12.0-15.0)
[2016-10-30] MEDS: BUDESONIDE/FORMOTEROL 160/4.5 60 PUFFS/MDI IH SCH ×2 (10:09→20:43)
[2016-10-30] MEDS: ASPIRIN 325 MG TAB PO SCH (10:10)
[2016-10-30] MEDS: ATORVASTATIN CALCIUM 10 MG TAB PO SCH (10:10)
[2016-10-30] MEDS: TIMOLOL 0.5% 15 ML OPHT.BTL EACHEYE SCH (10:12)
--- NOTE | 2016-10-30 16:23 | SOAPPROG ---
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 Initial FIM 75 on 10/22/16. Functionally improving; walked 200' on 10/21/16, hand-held assist. CGA - min A for mobility and ADLs. Cues to attend to L. Gets fatigued. Continue PT & OT to optimize mobility and activities of daily living. Anticoagulation only with aspirin through October 28; initiated warfarin at home dose of 5 mg QD on 10/28/16. Started fluoxetine 10 mg QD on 10/19/16 per the FLAME trial to enhance neuro recovery in the setting of hemiplegic stroke; d/c 10/20/16 as she did not tolerate a low dose.. * Dysphagia: continue BIOMETRICS HEAD. DD1, advanced to nectar thick liquids. Advanced to water protocol 10/23/16. Encourage hydration. Repeat VFSS 10/24/16. Initiated water protocol and e-stim. * Cognitive impairment: dysexecutive per BIOMETRICS HEAD, c/w stimulus-bound responses per nurse. Continue BIOMETRICS HEAD. * Dental pain: cracked root per her report. D/W her dental office (Dr. Farnsworth [phone]): has been treated with amoxicillin in the past; should have extraction done. D/W on-call oral surgeon Dr. Leonard ([phone] cell; office): can extract a tooth while on warfarin as long as INR < 3. Family will plan for extraction after discharge. Paion improved with amoxicillin 500 mg TID for 5 days. * Hypotension and orthostatic symptoms resolved after IV hydration 10/26/16 - . Appears to be adequately hydrating PO subsequently. * HTN: metoprolol 12.5 mg BID, with additional 12.5 mg BID PRN systolic > 140. * Restless legs syndrome: D/C SCDs. Continue ropinirole; increase dose from 0.125 mg QHS to 0.25 mg starting 10/19/16. * Insomnia: D/C SCDs and increase ropinirole as above. Slept well overnight - 10/20; had lorazepam 0.5 mg; took again 0.25 mg at HS 10/20/16 & . Trial of melatonin 10/22/16; continuing to use lorazepam 1/2 hr after melatonin last night 10/23/16. * Anxiety: discussed adverse effects of lorazepam; changed to lower dosing 0.25 - 0.5 mg rather than 0.5 mg Q 6 hr PRN. Encourage to not use. * Neck pain: chronic recurrent. Modalities per OT & PT. Hot and cold packs PRN. Massage therapy consult. * Atrial fibrillation status post pacemaker placement. Anticoagulation as above. Continue metoprolol for rate control. Change to tartrate from succinate as meds need to be crushed. * DVT prophylaxis with enoxaparin. Chronic stable issues: * Dyslipidemia: She was begun on atorvastatin at low dose. This will be titrated as it is tolerated. * Hypothyroidism due to treatment of thyroid cancer. Continue levothyroxine. * Metastatic pulmonary nodules of thyroid cancer status post chest radiation with radiation pneumonitis: She is treated with budesonide/formoterol which will be continued. No O2 requirement. * CHF, pleural effusion: asymptomatic. * Glaucoma and cataracts: These may complicate therapy in terms of left hemineglect and possible visual processing issues. Continue eyedrops for glaucoma. * History of DVT: She is at elevated risk due to her age, relative immobility and history of cancer. No S/Sx DVT currently. Encourage mobilization. Lives in multi-level home; has good family support. Tentative discharge date of 11/08/16 set. 10/30/16 16:18 Subjective: No complaints. Feels good today. No lightheadedness. Says she coughs sometimes on the [place]. No SOB, f/c, n/v/c/d. Objective: Vital Signs Temp Pulse Resp BP Pulse Ox 36.7 C 70 16 127/76 H 95 10/30/16 07:30 10/30/16 08:49 10/30/16 08:00 10/30/16 08:49 10/30/16 08:00 Laboratory Results 10/26/16 13:15 10/28/16 05:15 0110/30/16 10/31/16 05:59 05:59 05:59 Intake Total 850 480 Output Total 150 Balance 700 480 PT 15.5 SEC (12.0-15.0) H 10/30/16 06:30 INR 1.23 (0.83-1.16) H 10/30/16 06:30 Physical Exam - Physical Exam General Appearance: WD/WN, alert, no apparent distress, thin Respiratory: normal breath sounds, No crackles, No rhonchi, No wheezing Cardiac/Chest: regular rate, rhythm, No edema Skin: normal color, warm/dry Neuro/Psych: alert, normal mood/affect, oriented x 3 ICD10 Worksheet Patient Problems: Problems Problem Status Diagnosed Chronic Disease Mgmt/Transitional Care Acute GI bleed Acute Hemoptysis Acute Melena Acute Radiation pneumonitis Acute Recurrent thyroid cancer Acute Status post cardiac pacemaker procedure Acute Afib - Atrial fibrillation Active Acute anterior epistaxis Acute CHF (congestive heart failure) Acute Pleural effusion Acute
[2016-10-30] MEDS: WARFARIN SODIUM 5 MG TAB PO SCH (16:31)
[2016-10-30] MEDS: LORazepam 0.5 MG TAB PO PRN (20:40)
[2016-10-30] MEDS: MELATONIN 3 MG TAB PO SCH (20:41)
[2016-10-30] MEDS: Tafluprost/Pf [Zioptan 0.0015% Eye Drops] EACHEYE SCH (20:42)
[2016-10-31] MEDS: LEVOTHYROXINE 112 MCG TAB PO SCH (05:50)
[2016-10-31] MEDS: BUDESONIDE/FORMOTEROL 160/4.5 60 PUFFS/MDI IH SCH ×2 (08:04→21:10)
[2016-10-31] MEDS: TIMOLOL 0.5% 15 ML OPHT.BTL EACHEYE SCH (08:04)
[2016-10-31] MEDS: ENOXAPARIN 40 MG/0.4 ML SYR SC SCH (08:07)
[2016-10-31] MEDS: CHOLECALCIFEROL VIT D3 2,000 UNITS TAB/CAP PO SCH (09:04)
[2016-10-31] MEDS: FAMOTIDINE 20 MG TAB PO SCH (09:04)
[2016-10-31] MEDS: METOPROLOL TARTRATE 25 MG TAB PO SCH ×2 (09:06→21:09)
--- NOTE | 2016-10-31 10:29 | SOAPPROG ---
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 Initial FIM 75 on 10/22/16. Functionally improving; walked 200' on 10/21/16, hand-held assist. CGA - min A for mobility and ADLs. Cues to attend to L. Gets fatigued. Continue PT & OT to optimize mobility and activities of daily living. Anticoagulation only with aspirin through October 28; initiated warfarin at home dose of 5 mg QD on 10/28/16. Started fluoxetine 10 mg QD on 10/19/16 per the FLAME trial to enhance neuro recovery in the setting of hemiplegic stroke; d/c 10/20/16 as she did not tolerate a low dose.. * Dysphagia: continue FITTER'S ASSISTANT. DD1, advanced to nectar thick liquids. Advanced to water protocol 10/23/16. Encourage hydration. Repeat VFSS 10/24/16. Initiated water protocol and e-stim. * Cognitive impairment: dysexecutive per FITTER'S ASSISTANT, c/w stimulus-bound responses per nurse. Continue FITTER'S ASSISTANT. * Dental pain: cracked root per her report. D/W her dental office (Dr. Farnsworth [phone]): has been treated with amoxicillin in the past; should have extraction done. D/W on-call oral surgeon Dr. Leonard ([phone] cell; [phone] office): can extract a tooth while on warfarin as long as INR < 3. Family will plan for extraction after discharge. Pain improved with amoxicillin 500 mg TID for 5 days. * Hypotension and orthostatic symptoms resolved after IV hydration 10/26/16 - . Appears to be adequately hydrating PO subsequently. * HTN: metoprolol 12.5 mg BID, with additional 12.5 mg BID PRN systolic > 140. * Restless legs syndrome: D/C SCDs. Continue ropinirole; increase dose from 0.125 mg QHS to 0.25 mg starting 10/19/16. * Insomnia: D/C SCDs and increase ropinirole as above. Slept well overnight - 10/20; had lorazepam 0.5 mg; took again 0.25 mg at HS 10/20/16 & . Trial of melatonin 10/22/16; continuing to use lorazepam 1/2 hr after melatonin last night 10/23/16. * Anxiety: discussed adverse effects of lorazepam; changed to lower dosing 0.25 - 0.5 mg rather than 0.5 mg Q 6 hr PRN. Encourage to not use. * Neck pain: chronic recurrent. Modalities per OT & PT. Hot and cold packs PRN. Massage therapy consult. * Atrial fibrillation status post pacemaker placement. Anticoagulation as above. Continue metoprolol for rate control. Change to tartrate from succinate as meds need to be crushed. * DVT prophylaxis with enoxaparin. Chronic stable issues: * Dyslipidemia: She was begun on atorvastatin at low dose. This will be titrated as it is tolerated. * Hypothyroidism due to treatment of thyroid cancer. Continue levothyroxine. * Metastatic pulmonary nodules of thyroid cancer status post chest radiation with radiation pneumonitis: She is treated with budesonide/formoterol which will be continued. No O2 requirement. * CHF, pleural effusion: asymptomatic. * Glaucoma and cataracts: These may complicate therapy in terms of left hemineglect and possible visual processing issues. Continue eyedrops for glaucoma. * History of DVT: She is at elevated risk due to her age, relative immobility and history of cancer. No S/Sx DVT currently. Encourage mobilization. Lives in multi-level home; has good family support. Tentative discharge date of 11/08/16 set. 10/31/16 10:29 Subjective: No complaints. Feels good today. Has not had return of lightheadedness. Says she's tolerating V-stim for swallowing. No f/c, dyspnea, cough, n/v/c/d. Objective: Vital Signs Temp Pulse Resp BP Pulse Ox 36.8 C 69 16 142/88 H 96 10/31/16 05:57 10/31/16 09:06 10/31/16 05:57 10/31/16 09:06 10/31/16 05:57 Laboratory Results 10/26/16 13:15 10/28/16 05:15 10/30/16 10/31/16 11/01/16 05:59 05:59 05:59 Intake Total 820 118 Output Total 250 Balance 570 118 PT 15.5 SEC (12.0-15.0) H 10/30/16 06:30 INR 1.23 (0.83-1.16) H 10/30/16 06:30 Physical Exam - Physical Exam General Appearance: WD/WN, alert, no apparent distress, thin Respiratory: No respiratory distress, No accessory muscle use Skin: normal color, warm/dry Neuro/Psych: alert, normal mood/affect, oriented x 3, No abnormal gait ICD10 Worksheet Patient Problems: Problems Problem Status Diagnosed Chronic Disease Mgmt/Transitional Care Acute GI bleed Acute Hemoptysis Acute Melena Acute Radiation pneumonitis Acute Recurrent thyroid cancer Acute Status post cardiac pacemaker procedure Acute Afib - Atrial fibrillation Active Acute anterior epistaxis Acute CHF (congestive heart failure) Acute Pleural effusion Acute
[2016-10-31] MEDS: ASPIRIN 325 MG TAB PO SCH (11:06)
[2016-10-31] MEDS: ATORVASTATIN CALCIUM 10 MG TAB PO SCH (11:06)
[2016-10-31] MEDS: WARFARIN SODIUM 5 MG TAB PO SCH (17:41)
[2016-10-31] MEDS: MELATONIN 3 MG TAB PO SCH (21:09)
[2016-10-31] MEDS: Tafluprost/Pf [Zioptan 0.0015% Eye Drops] EACHEYE SCH (21:45)
[2016-11-01] MEDS: LEVOTHYROXINE 112 MCG TAB PO SCH (05:24)
[2016-11-01] MEDS: ACETAMINOPHEN 325 MG TAB PO PRN ×3 (05:47→21:17)
[2016-11-01] MEDS: CHOLECALCIFEROL VIT D3 2,000 UNITS TAB/CAP PO SCH (08:28)
[2016-11-01] MEDS: METOPROLOL TARTRATE 25 MG TAB PO SCH ×2 (08:34→21:16)
[2016-11-01] MEDS: FAMOTIDINE 20 MG TAB PO SCH (08:35)
[2016-11-01] MEDS: ENOXAPARIN 40 MG/0.4 ML SYR SC SCH (09:06)
[2016-11-01] MEDS: BUDESONIDE/FORMOTEROL 160/4.5 60 PUFFS/MDI IH SCH ×2 (09:07→21:18)
[2016-11-01] MEDS: TIMOLOL 0.5% 15 ML OPHT.BTL EACHEYE SCH (09:08)
[2016-11-01 09:28] LABS: INR 1.49 (0.83-1.16)
[2016-11-01] MEDS: ASPIRIN 325 MG TAB PO SCH (10:19)
[2016-11-01] MEDS: ATORVASTATIN CALCIUM 10 MG TAB PO SCH (10:19)
--- NOTE | 2016-11-01 13:43 | SOAPPROG ---
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 Initial FIM 75 on 10/22/16. Functionally improving; walked 200' on 10/21/16, hand-held assist. CGA - min A for mobility and ADLs. Cues to attend to L. Gets fatigued. Continue PT & OT to optimize mobility and activities of daily living. Anticoagulation only with aspirin through October 28; initiated warfarin at home dose of 5 mg QD on 10/28/16; INR 1.49 on 11/01/16 so will increase warfaring to 7.5 mg Q saturday, and saturday and 5 mg on other days. Started fluoxetine 10 mg QD on 10/19/16 per the FLAME trial to enhance neuro recovery in the setting of hemiplegic stroke; d/c 10/20/16 as she did not tolerate a low dose.. * Dysphagia: continue ADMINISTRATIVE COORDINATOR. DD1, advanced to nectar thick liquids. Advanced to water protocol 10/23/16. Encourage hydration. Repeat VFSS 10/24/16. Initiated water protocol and e-stim. * Cognitive impairment: dysexecutive per ADMINISTRATIVE COORDINATOR, c/w stimulus-bound responses per nurse. Continue ADMINISTRATIVE COORDINATOR. * Dental pain: cracked root per her report. D/W her dental office (Dr. Farnsworth [phone]): has been treated with amoxicillin in the past; should have extraction done. D/W on-call oral surgeon Dr. Leonard ([phone] cell; office): can extract a tooth while on warfarin as long as INR < 3. Family will plan for extraction after discharge. Pain improved with amoxicillin 500 mg TID for 5 days. * Hypotension and orthostatic symptoms resolved after IV hydration 10/26/16 - . Appears to be adequately hydrating PO subsequently. * HTN: metoprolol 12.5 mg BID, with additional 12.5 mg BID PRN systolic > 140. * Restless legs syndrome: D/C SCDs. Continue ropinirole; increase dose from 0.125 mg QHS to 0.25 mg starting 10/19/16. * Insomnia: D/C SCDs and increase ropinirole as above. Slept well overnight - 10/20; had lorazepam 0.5 mg; took again 0.25 mg at HS 10/20/16 & . Trial of melatonin 10/22/16; continuing to use lorazepam 1/2 hr after melatonin last night 10/23/16. * Anxiety: discussed adverse effects of lorazepam; changed to lower dosing 0.25 - 0.5 mg rather than 0.5 mg Q 6 hr PRN. Encourage to not use. * Neck pain: chronic recurrent. Modalities per OT & PT. Hot and cold packs PRN. Massage therapy consult. * Atrial fibrillation status post pacemaker placement. Anticoagulation as above. Continue metoprolol for rate control. Change to tartrate from succinate as meds need to be crushed. * DVT prophylaxis with enoxaparin until therapeutic on warfarin. Chronic stable issues: * Dyslipidemia: She was begun on atorvastatin at low dose. This will be titrated as it is tolerated. * Hypothyroidism due to treatment of thyroid cancer. Continue levothyroxine. * Metastatic pulmonary nodules of thyroid cancer status post chest radiation with radiation pneumonitis: She is treated with budesonide/formoterol which will be continued. No O2 requirement. * CHF, pleural effusion: asymptomatic. * Glaucoma and cataracts: These may complicate therapy in terms of left hemineglect and possible visual processing issues. Continue eyedrops for glaucoma. * History of DVT: She is at elevated risk due to her age, relative immobility and history of cancer. No S/Sx DVT currently. Encourage mobilization. Lives in multi-level home; has good family support. Tentative discharge date of 11/08/16 set. 11/01/16 13:43 Subjective: No complaints. Sleeping well, not in pain. Use of L hand improving. Gets some burning in L eye with timolol drops; thinks it might have to do with e- stim for swallowing also affecting lower eyelid. Objective: Vital Signs Temp Pulse Resp BP Pulse Ox 36.7 C 70 16 147/80 H 90 L 11/01/16 05:39 11/01/16 08:34 11/01/16 05:39 11/01/16 08:34 11/01/16 05:39 Laboratory Results 10/26/16 13:15 10/28/16 05:15 10/31/16 11/01/16 11/02/16 05:59 05:59 05:59 Intake Total 820 1081 200 Output Total 250 900 Balance 570 181 200 PT 18.0 SEC (12.0-15.0) H 11/01/16 05:30 INR 1.49 (0.83-1.16) H 11/01/16 05:30 Physical Exam - Physical Exam General Appearance: WD/WN, alert, no apparent distress, thin EENT: other (no conjunctival erythema), No photophobia Respiratory: No respiratory distress, No accessory muscle use Skin: normal color, warm/dry Neuro/Psych: alert, normal mood/affect, oriented x 3 ICD10 Worksheet Patient Problems: Problems Problem Status Diagnosed Chronic Disease Mgmt/Transitional Care Acute GI bleed Acute Hemoptysis Acute Melena Acute Radiation pneumonitis Acute Recurrent thyroid cancer Acute Status post cardiac pacemaker procedure Acute Afib - Atrial fibrillation Active Acute anterior epistaxis Acute CHF (congestive heart failure) Acute Pleural effusion Acute
[2016-11-01] MEDS ORDERED: WARFARIN SODIUM 7.5 MG TAB PO SCH (16:00)
[2016-11-01] MEDS: WARFARIN SODIUM 7.5 MG TAB PO SCH (16:53)
[2016-11-01] MEDS: ONDANSETRON DISINTEGRATING 4 MG TAB PO PRN (17:02)
[2016-11-01] MEDS: MELATONIN 3 MG TAB PO SCH (21:16)
[2016-11-01] MEDS: LORazepam 0.5 MG TAB PO PRN (21:16)
[2016-11-01] MEDS: Tafluprost/Pf [Zioptan 0.0015% Eye Drops] EACHEYE SCH (21:24)
[2016-11-02] MEDS: ONDANSETRON DISINTEGRATING 4 MG TAB PO PRN (00:26)
[2016-11-02] MEDS: LEVOTHYROXINE 112 MCG TAB PO SCH (06:33)
[2016-11-02 08:24] LABS: INR 1.93 (0.83-1.16); PROTIME(PATIENT) 22.2 SEC (12.0-15.0)
[2016-11-02] MEDS: ATORVASTATIN CALCIUM 10 MG TAB PO SCH (09:06)
[2016-11-02] MEDS: FAMOTIDINE 20 MG TAB PO SCH (09:06)
[2016-11-02] MEDS: CHOLECALCIFEROL VIT D3 2,000 UNITS TAB/CAP PO SCH (09:06)
[2016-11-02] MEDS: ASPIRIN 325 MG TAB PO SCH (09:07)
[2016-11-02] MEDS: METOPROLOL TARTRATE 25 MG TAB PO SCH ×2 (09:07→21:16)
[2016-11-02] MEDS: ENOXAPARIN 40 MG/0.4 ML SYR SC SCH (09:12)
[2016-11-02] MEDS: BUDESONIDE/FORMOTEROL 160/4.5 60 PUFFS/MDI IH SCH ×2 (09:22→21:14)
[2016-11-02] MEDS: TIMOLOL 0.5% 15 ML OPHT.BTL EACHEYE SCH (09:22)
--- NOTE | 2016-11-02 12:30 | SOAPPROG ---
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 Initial FIM 75 on 10/22/16; improved to 90 as of 11/02/16.. Walked 200' on 10/21/16, SBA to improve attention to L. SBA or supervision for mobility & ADLs, with cueing to attend to L side. Can forget about objects in L hand and then drop them. Gets fatigued. Continue PT & OT to optimize mobility and activities of daily living. Started fluoxetine 10 mg QD on per the FLAME trial to enhance neuro recovery in the setting of hemiplegic stroke; d/c 10/20/16 as she did not tolerate a low dose.. * Anticoagulated only with aspirin through October 28; initiated warfarin at home dose of 5 mg QD on 10/28/16; INR 1.49 on 11/01/16 increased warfarin to 7.5 mg Q Saturday, and Saturday and 5 mg on other days. INR 1.93 on 11/02/16; D/ C enoxaparin on 11/03/16. INR QD until stable. * Dysphagia: continue MEETING PLANNER. DD2, advanced to nectar thick liquids. Advanced to water protocol 10/23/16. Encourage hydration. Repeat VFSS 10/24/16. Initiated water protocol and e-stim. Goal to advance to thin liquids by discharge date. * Cognitive impairment: dysexecutive per MEETING PLANNER, c/w stimulus-bound responses per nurse. Improving. Does well with new learning. Continue MEETING PLANNER. * Dental pain: cracked root per her report. D/W her dental office (Dr. Farnsworth [phone]): has been treated with amoxicillin in the past; should have extraction done. D/W on-call oral surgeon Dr. Leonard ([phone] cell; [phone] office): can extract a tooth while on warfarin as long as INR < 3. Family will plan for extraction after discharge. Pain improved with amoxicillin 500 mg TID for 5 days. * Hypotension and orthostatic symptoms resolved after IV hydration 10/26/16 - . Appears to be adequately hydrating PO subsequently. * HTN: metoprolol 12.5 mg BID, with additional 12.5 mg BID PRN systolic > 140. * Restless legs syndrome: D/C SCDs. Continue ropinirole; increase dose from 0.125 mg QHS to 0.25 mg starting 10/19/16. * Insomnia: D/C SCDs and increase ropinirole as above. Using lorazepam intermittently at night for sleep. * Anxiety: discussed adverse effects of lorazepam; changed to lower dosing 0.25 - 0.5 mg rather than 0.5 mg Q 6 hr PRN. Encourage to not use. * Neck pain: chronic recurrent. Modalities per OT & PT. Hot and cold packs PRN. Massage therapy consult. * Atrial fibrillation status post pacemaker placement. Anticoagulation as above. Continue metoprolol for rate control. Change to tartrate from succinate as meds need to be crushed. * DVT prophylaxis with enoxaparin until therapeutic on warfarin. Chronic stable issues: * Dyslipidemia: She was begun on atorvastatin at low dose. This will be titrated as it is tolerated. * Hypothyroidism due to treatment of thyroid cancer. Continue levothyroxine. * Metastatic pulmonary nodules of thyroid cancer status post chest radiation with radiation pneumonitis: She is treated with budesonide/formoterol which will be continued. No O2 requirement. * CHF, pleural effusion: asymptomatic. * Glaucoma and cataracts: These may complicate therapy in terms of left hemineglect and possible visual processing issues. Continue eyedrops for glaucoma. * History of DVT: She is at elevated risk due to her age, relative immobility and history of cancer. No S/Sx DVT currently. Encourage mobilization. Attended staffing, 15 minutes. D/W case mgmt, nursing, cyber forensics analyst, PT, OT, MEETING PLANNER. Attended family meeting with and staff. Lives in multi-level home; has good family support. Discharge date of 11/08/16 - 11/09/16. Will continue PT , OT, MEETING PLANNER at home, and have RN visits for blood draws for INR. 11/02/16 12:09 Subjective: Had some dizziness today, and BP systolic 116. Was encouraged to participate in PT; dizziness improved with ambulation. O/W w/out complaint. No f/c, cough/ dyspnea, n/v/c/d. Objective: Vital Signs Temp Pulse Resp BP Pulse Ox 36.8 C 71 16 115/85 H 95 11/02/16 06:51 11/02/16 06:51 11/02/16 06:51 11/02/16 06:51 11/02/16 06:51 Laboratory Results 10/26/16 13:15 10/28/16 05:15 11/01/16 11/02/16 11/03/16 05:59 05:59 05:59 Intake Total 1081 550 360 Output Total 900 Balance 181 550 360 PT 22.2 SEC (12.0-15.0) H 11/02/16 06:45 INR 1.93 (0.83-1.16) H 11/02/16 06:45 - Time Spent With Patient Time Spent With Patient: Greater than 35 minutes floor time today, including more than 50% of time in coordination of care and counseling during staffing and family meetings. Physical Exam - Physical Exam General Appearance: WD/WN, alert, no apparent distress, thin Respiratory: normal breath sounds, No crackles, No rhonchi, No wheezing Cardiac/Chest: regular rate, rhythm, No edema Skin: normal color, warm/dry Neuro/Psych: alert, normal mood/affect, oriented x 3, No abnormal gait ICD10 Worksheet Patient Problems: Problems Problem Status Diagnosed Chronic Disease [facility]/Transitional Care Acute GI bleed Acute Hemoptysis Acute Melena Acute Radiation pneumonitis Acute Recurrent thyroid cancer Acute Status post cardiac pacemaker procedure Acute Afib - Atrial fibrillation Active Acute anterior epistaxis Acute CHF (congestive heart failure) Acute Pleural effusion Acute
[2016-11-02] MEDS: WARFARIN SODIUM 5 MG TAB PO SCH (17:29)
[2016-11-02] MEDS: LORazepam 0.5 MG TAB PO PRN (21:16)
[2016-11-02] MEDS: MELATONIN 3 MG TAB PO SCH (21:16)
[2016-11-02] MEDS: Tafluprost/Pf [Zioptan 0.0015% Eye Drops] EACHEYE SCH (21:17)
[2016-11-03] MEDS: LEVOTHYROXINE 112 MCG TAB PO SCH (05:36)
[2016-11-03] MEDS: BUDESONIDE/FORMOTEROL 160/4.5 60 PUFFS/MDI IH SCH ×2 (09:07→21:33)
[2016-11-03] MEDS: CHOLECALCIFEROL VIT D3 2,000 UNITS TAB/CAP PO SCH (09:08)
[2016-11-03] MEDS: METOPROLOL TARTRATE 25 MG TAB PO SCH ×2 (09:08→21:33)
[2016-11-03] MEDS: ENOXAPARIN 40 MG/0.4 ML SYR SC SCH (09:08)
[2016-11-03] MEDS: FAMOTIDINE 20 MG TAB PO SCH (09:08)
[2016-11-03] MEDS: TIMOLOL 0.5% 15 ML OPHT.BTL EACHEYE SCH (09:09)
[2016-11-03] MEDS: ASPIRIN 325 MG TAB PO SCH (09:10)
[2016-11-03] MEDS: ATORVASTATIN CALCIUM 10 MG TAB PO SCH (09:10)
[2016-11-03 09:54] LABS: INR 2.45 (0.83-1.16); PROTIME(PATIENT) 26.8 SEC (12.0-15.0)
--- NOTE | 2016-11-03 15:28 | SOAPPROG ---
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 Initial FIM 75 on 10/22/16; improved to 90 as of 11/02/16.. Walked 200' on 10/21/16, SBA to improve attention to L. SBA or supervision for mobility & ADLs, with cueing to attend to L side. Can forget about objects in L hand and then drop them. Gets fatigued. Continue PT & OT to optimize mobility and activities of daily living. Started fluoxetine 10 mg QD on per the FLAME trial to enhance neuro recovery in the setting of hemiplegic stroke; d/c 10/20/16 as she did not tolerate a low dose.. * Anticoagulated only with aspirin through October 28; initiated warfarin at home dose of 5 mg QD on 10/28/16; INR 1.49 on 11/01/16 increased warfarin to 7.5 mg Q Saturday, and Saturday and 5 mg on other days. INR 1.93 on 11/02/16; D/ C enoxaparin on 11/03/16. INR QD until stable. * Dysphagia: continue CHAIN MAKER. DD2, advanced to nectar thick liquids. Advanced to water protocol 10/23/16. Encourage hydration. Repeat VFSS 10/24/16. Initiated water protocol and e-stim. Goal to advance to thin liquids by discharge date. * Cognitive impairment: dysexecutive per CHAIN MAKER, c/w stimulus-bound responses per nurse. Improving. Does well with new learning. Continue CHAIN MAKER. * Dental pain: cracked root per her report. D/W her dental office (Dr. Farnsworth [phone]): has been treated with amoxicillin in the past; should have extraction done. D/W on-call oral surgeon Dr. Leonard ([phone] cell; office): can extract a tooth while on warfarin as long as INR < 3. Family will plan for extraction after discharge. Pain improved with amoxicillin 500 mg TID for 5 days. * Hypotension and orthostatic symptoms resolved after IV hydration 10/26/16 - . Appears to be adequately hydrating PO subsequently. * HTN: metoprolol 12.5 mg BID, with additional 12.5 mg BID PRN systolic > 140. * Restless legs syndrome: D/C SCDs. Continue ropinirole; increase dose from 0.125 mg QHS to 0.25 mg starting 10/19/16. * Insomnia: D/C SCDs and increase ropinirole as above. Using lorazepam intermittently at night for sleep. * Anxiety: discussed adverse effects of lorazepam; changed to lower dosing 0.25 - 0.5 mg rather than 0.5 mg Q 6 hr PRN. Encourage to not use. * Neck pain: chronic recurrent. Modalities per OT & PT. Hot and cold packs PRN. Massage therapy consult. * Atrial fibrillation status post pacemaker placement. Anticoagulation as above. Continue metoprolol for rate control. Change to tartrate from succinate as meds need to be crushed. * DVT prophylaxis on warfarin. Chronic stable issues: * Dyslipidemia: She was begun on atorvastatin at low dose. This will be titrated as it is tolerated. * Hypothyroidism due to treatment of thyroid cancer. Continue levothyroxine. * Metastatic pulmonary nodules of thyroid cancer status post chest radiation with radiation pneumonitis: She is treated with budesonide/formoterol which will be continued. No O2 requirement. * CHF, pleural effusion: asymptomatic. * Glaucoma and cataracts: These may complicate therapy in terms of left hemineglect and possible visual processing issues. Continue eyedrops for glaucoma. * History of DVT: She is at elevated risk due to her age, relative immobility and history of cancer. No S/Sx DVT currently. Encourage mobilization. Lives in multi-level home; has good family support. Discharge date of 11/08/16 - 11/09/16. Will continue PT, OT, CHAIN MAKER at home, and have RN visits for blood draws for INR. Subjective: No acute events. No complaints today. Denies pain or lightheadedness/ orthostasis. Objective: Vital Signs Temp Pulse Resp BP Pulse Ox 36.7 C 69 16 133/77 H 97 11/03/16 06:02 11/03/16 09:08 11/03/16 06:02 11/03/16 09:08 11/03/16 06:02 Laboratory Results 10/26/16 13:15 10/28/16 05:15 11/02/16 11/03/16 11/04/16 05:59 05:59 05:59 Intake Total 550 480 340 Output Total 300 Balance 550 480 40 PT 26.8 SEC (12.0-15.0) H 11/03/16 06:00 INR 2.45 (0.83-1.16) H 11/03/16 06:00 - Pending Discharge Pending Discharge Within 24 Hours: No Pending Discharge Within 48 Hours: No Physical Exam - Physical Exam General Appearance: alert, no apparent distress Neck: supple Respiratory: lungs clear, normal breath sounds Cardiac/Chest: regular rate, rhythm Abdomen: non-tender, soft Skin: normal color Neuro/Psych: alert, normal mood/affect ICD10 Worksheet Patient Problems: Problems Problem Status Diagnosed Chronic Disease Mgmt/Transitional Care Acute GI bleed Acute Hemoptysis Acute Melena Acute Radiation pneumonitis Acute Recurrent thyroid cancer Acute Status post cardiac pacemaker procedure Acute Afib - Atrial fibrillation Active Acute anterior epistaxis Acute CHF (congestive heart failure) Acute Pleural effusion Acute
[2016-11-03] MEDS: WARFARIN SODIUM 7.5 MG TAB PO SCH (17:25)
[2016-11-03] MEDS: LORazepam 0.5 MG TAB PO PRN ×2 (21:32→22:20)
[2016-11-03] MEDS: MELATONIN 3 MG TAB PO SCH (21:32)
[2016-11-03] MEDS: Tafluprost/Pf [Zioptan 0.0015% Eye Drops] EACHEYE SCH (22:08)
[2016-11-04] MEDS: LEVOTHYROXINE 112 MCG TAB PO SCH (06:36)
[2016-11-04] MEDS: BUDESONIDE/FORMOTEROL 160/4.5 60 PUFFS/MDI IH SCH ×2 (08:03→20:23)
[2016-11-04] MEDS: TIMOLOL 0.5% 15 ML OPHT.BTL EACHEYE SCH (08:03)
[2016-11-04] MEDS: FAMOTIDINE 20 MG TAB PO SCH (09:35)
[2016-11-04] MEDS: CHOLECALCIFEROL VIT D3 2,000 UNITS TAB/CAP PO SCH (09:35)
[2016-11-04] MEDS: ASPIRIN 325 MG TAB PO SCH (09:36)
[2016-11-04] MEDS: ATORVASTATIN CALCIUM 10 MG TAB PO SCH (09:36)
[2016-11-04] MEDS: METOPROLOL TARTRATE 25 MG TAB PO SCH ×2 (09:38→20:15)
[2016-11-04 11:44] LABS: INR 2.49 (0.83-1.16); PROTIME(PATIENT) 27.2 SEC (12.0-15.0)
--- NOTE | 2016-11-04 12:29 | SOAPPROG ---
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 Initial FIM 75 on 10/22/16; improved to 90 as of 11/02/16.. Walked 200' on 10/21/16, SBA to improve attention to L. SBA or supervision for mobility & ADLs, with cueing to attend to L side. Can forget about objects in L hand and then drop them. Gets fatigued. Continue PT & OT to optimize mobility and activities of daily living. Started fluoxetine 10 mg QD on per the FLAME trial to enhance neuro recovery in the setting of hemiplegic stroke; d/c 10/20/16 as she did not tolerate a low dose.. * Anticoagulated only with aspirin through October 28; initiated warfarin at home dose of 5 mg QD on 10/28/16; INR 1.49 on 11/01/16 increased warfarin to 7.5 mg Q Saturday, and Saturday and 5 mg on other days. INR 1.93 on 11/02/16; D/ C enoxaparin on 11/03/16. INR QD until stable. * Dysphagia: continue DATA SERVICES DEVELOPER. DD2, advanced to nectar thick liquids. Advanced to water protocol 10/23/16. Encourage hydration. Repeat VFSS 10/24/16. Initiated water protocol and e-stim. Goal to advance to thin liquids by discharge date. * Cognitive impairment: dysexecutive per DATA SERVICES DEVELOPER, c/w stimulus-bound responses per nurse. Improving. Does well with new learning. Continue DATA SERVICES DEVELOPER. * Dental pain: cracked root per her report. D/W her dental office (Dr. Farnsworth [phone]): has been treated with amoxicillin in the past; should have extraction done. D/W on-call oral surgeon Dr. Leonard ([phone] cell; office): can extract a tooth while on warfarin as long as INR < 3. Family will plan for extraction after discharge. Pain improved with amoxicillin 500 mg TID for 5 days. * Hypotension and orthostatic symptoms resolved after IV hydration 10/26/16 - . Appears to be adequately hydrating PO subsequently. * HTN: metoprolol 12.5 mg BID, with additional 12.5 mg BID PRN systolic > 140. * Restless legs syndrome: D/C SCDs. Continue ropinirole; increase dose from 0.125 mg QHS to 0.25 mg starting 10/19/16. * Insomnia: D/C SCDs and increase ropinirole as above. Using lorazepam intermittently at night for sleep. * Anxiety: discussed adverse effects of lorazepam; changed to lower dosing 0.25 - 0.5 mg rather than 0.5 mg Q 6 hr PRN. Encourage to not use. * Neck pain: chronic recurrent. Modalities per OT & PT. Hot and cold packs PRN. Massage therapy consult. * Atrial fibrillation status post pacemaker placement. Anticoagulation as above. Continue metoprolol for rate control. Change to tartrate from succinate as meds need to be crushed. * DVT prophylaxis on warfarin. Chronic stable issues: * Dyslipidemia: She was begun on atorvastatin at low dose. This will be titrated as it is tolerated. * Hypothyroidism due to treatment of thyroid cancer. Continue levothyroxine. * Metastatic pulmonary nodules of thyroid cancer status post chest radiation with radiation pneumonitis: She is treated with budesonide/formoterol which will be continued. No O2 requirement. * CHF, pleural effusion: asymptomatic. * Glaucoma and cataracts: These may complicate therapy in terms of left hemineglect and possible visual processing issues. Continue eyedrops for glaucoma. * History of DVT: She is at elevated risk due to her age, relative immobility and history of cancer. No S/Sx DVT currently. Encourage mobilization. Lives in multi-level home; has good family support. Discharge date of 11/08/16 - 11/09/16. Will continue PT, OT, DATA SERVICES DEVELOPER at home, and have RN visits for blood draws for INR. Subjective: No events, no complaints this a.m. Denies pain or SOB. Objective: Vital Signs Temp Pulse Resp BP Pulse Ox 36.4 C 70 16 140/78 H 95 11/04/16 07:51 11/04/16 09:38 11/04/16 07:51 11/04/16 09:38 11/04/16 07:51 Laboratory Results 10/26/16 13:15 10/28/16 05:15 11/03/16 11/04/16 11/05/16 05:59 05:59 05:59 Intake Total 480 580 Output Total 300 Balance 480 280 PT 27.2 SEC (12.0-15.0) H 11/04/16 06:40 INR 2.49 (0.83-1.16) H 11/04/16 06:40 - Pending Discharge Pending Discharge Within 24 Hours: No Pending Discharge Within 48 Hours: No Physical Exam - Physical Exam General Appearance: alert, no apparent distress Neck: supple Respiratory: lungs clear, normal breath sounds Cardiac/Chest: regular rate, rhythm Abdomen: non-tender, soft Skin: normal color, warm/dry Neuro/Psych: alert, normal mood/affect, oriented x 3 ICD10 Worksheet Patient Problems: Problems Problem Status Diagnosed Chronic Disease Mgmt/Transitional Care Acute GI bleed Acute Hemoptysis Acute Melena Acute Radiation pneumonitis Acute Recurrent thyroid cancer Acute Status post cardiac pacemaker procedure Acute Afib - Atrial fibrillation Active Acute anterior epistaxis Acute CHF (congestive heart failure) Acute Pleural effusion Acute
[2016-11-04] MEDS: ONDANSETRON DISINTEGRATING 4 MG TAB PO PRN ×2 (17:58→23:23)
[2016-11-04] MEDS: WARFARIN SODIUM 5 MG TAB PO SCH (18:04)
[2016-11-04] MEDS: METOPROLOL TARTRATE 25 MG TAB PO PRN (18:16)
[2016-11-04] MEDS: ACETAMINOPHEN 325 MG TAB PO PRN (18:25)
[2016-11-04] MEDS: LORazepam 0.5 MG TAB PO PRN (19:11)
[2016-11-04] MEDS: MELATONIN 3 MG TAB PO SCH (20:37)
[2016-11-04] MEDS: Tafluprost/Pf [Zioptan 0.0015% Eye Drops] EACHEYE SCH (20:38)
[2016-11-05] MEDS: LORazepam 0.5 MG TAB PO PRN ×2 (01:31→21:20)
[2016-11-05] MEDS: LEVOTHYROXINE 112 MCG TAB PO SCH (05:22)
[2016-11-05] MEDS: METOPROLOL TARTRATE 25 MG TAB PO PRN (05:27)
[2016-11-05 08:51] LABS: INR 2.69 (0.83-1.16); PROTIME(PATIENT) 28.9 SEC (12.0-15.0)
[2016-11-05] MEDS: FAMOTIDINE 20 MG TAB PO SCH (09:42)
[2016-11-05] MEDS: ASPIRIN 325 MG TAB PO SCH (09:42)
[2016-11-05] MEDS: CHOLECALCIFEROL VIT D3 2,000 UNITS TAB/CAP PO SCH (09:42)
[2016-11-05] MEDS: METOPROLOL TARTRATE 25 MG TAB PO SCH ×2 (09:45→21:20)
[2016-11-05] MEDS: BUDESONIDE/FORMOTEROL 160/4.5 60 PUFFS/MDI IH SCH ×2 (09:46→21:34)
[2016-11-05] MEDS: TIMOLOL 0.5% 15 ML OPHT.BTL EACHEYE SCH (09:49)
[2016-11-05] MEDS: ATORVASTATIN CALCIUM 10 MG TAB PO SCH (12:50)
--- NOTE | 2016-11-05 12:55 | SOAPPROG ---
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 Initial FIM 75 on 10/22/16; improved to 90 as of 11/02/16.. Walked 200' on 10/21/16, SBA to improve attention to L. SBA or supervision for mobility & ADLs, with cueing to attend to L side. Can forget about objects in L hand and then drop them. Gets fatigued. Continue PT & OT to optimize mobility and activities of daily living. Started fluoxetine 10 mg QD on per the FLAME trial to enhance neuro recovery in the setting of hemiplegic stroke; d/c 10/20/16 as she did not tolerate a low dose.. * Anticoagulated only with aspirin through October 28; initiated warfarin at home dose of 5 mg QD on 10/28/16; INR 1.49 on 11/01/16 increased warfarin to 7.5 mg Q Saturday, and Saturday and 5 mg on other days. INR 2.69 on 11/02/16; D/ C enoxaparin on 11/03/16. INR QD until stable. * Dysphagia: continue PRINTING MACHINIST. DD2, advanced to nectar thick liquids. Advanced to water protocol 10/23/16. Encourage hydration. Repeat VFSS 10/24/16. Initiated water protocol and e-stim. Goal to advance to thin liquids by discharge date. * Cognitive impairment: dysexecutive per PRINTING MACHINIST, c/w stimulus-bound responses per nurse. Improving. Does well with new learning. Continue PRINTING MACHINIST. * Dental pain: cracked root per her report. D/W her dental office (Dr. Farnsworth [phone]): has been treated with amoxicillin in the past; should have extraction done. D/W on-call oral surgeon Dr. Leonard ([phone] cell; [phone] office): can extract a tooth while on warfarin as long as INR < 3. Family will plan for extraction after discharge. Pain improved with amoxicillin 500 mg TID for 5 days. * Hypotension and orthostatic symptoms resolved after IV hydration 10/26/16 - . Appears to be adequately hydrating PO subsequently. * HTN: metoprolol 12.5 mg BID, with additional 12.5 mg BID PRN systolic > 140. BP elevated X several days. Add very low dose lisinopril at 2.5 mg QD starting 11/05/16. Continue to monitor. * Restless legs syndrome: D/C SCDs. Continue ropinirole; increase dose from 0.125 mg QHS to 0.25 mg starting 10/19/16. * Insomnia: D/C SCDs and increase ropinirole as above. Using lorazepam intermittently at night for sleep. * Anxiety: discussed adverse effects of lorazepam; changed to lower dosing 0.25 - 0.5 mg rather than 0.5 mg Q 6 hr PRN. Encourage to not use. * Neck pain: chronic recurrent. Modalities per OT & PT. Hot and cold packs PRN. Massage therapy consult. * Atrial fibrillation status post pacemaker placement. Anticoagulation as above. Continue metoprolol for rate control. Change to tartrate from succinate as meds need to be crushed. * DVT prophylaxis with enoxaparin until therapeutic on warfarin. Chronic stable issues: * Dyslipidemia: She was begun on atorvastatin at low dose. This will be titrated as it is tolerated. * Hypothyroidism due to treatment of thyroid cancer. Continue levothyroxine. * Metastatic pulmonary nodules of thyroid cancer status post chest radiation with radiation pneumonitis: She is treated with budesonide/formoterol which will be continued. No O2 requirement. * CHF, pleural effusion: asymptomatic. * Glaucoma and cataracts: These may complicate therapy in terms of left hemineglect and possible visual processing issues. Continue eyedrops for glaucoma. * History of DVT: She is at elevated risk due to her age, relative immobility and history of cancer. No S/Sx DVT currently. Encourage mobilization. Lives in multi-level home; has good family support. Discharge date of 11/08/16 - 11/09/16. Will continue PT, OT, PRINTING MACHINIST at home, and have RN visits for blood draws for INR. 11/05/16 12:50 Subjective: Had COLE, nausea and lethargy this AM; RN noted BP 160/100. Sent to ED to r/o ICH given recent restarting of warfarin. Head CT neg for hemorrhage. Now feeling better; did home visit. Objective: Vital Signs Temp Pulse Resp BP Pulse Ox 36.4 C 69 16 153/96 H 95 11/04/16 23:52 11/05/16 09:45 11/04/16 20:00 11/05/16 09:45 11/04/16 23:52 Laboratory Results 10/26/16 13:15 10/28/16 05:15 11/04/16 11/05/16 11/06/16 05:59 05:59 05:59 Intake Total 580 1300 200 Output Total 300 450 Balance 280 850 200 PT 28.9 SEC (12.0-15.0) H 11/05/16 05:20 INR 2.69 (0.83-1.16) H 11/05/16 05:20 Physical Exam - Physical Exam General Appearance: WD/WN, alert, no apparent distress, thin Respiratory: No respiratory distress, No accessory muscle use Skin: normal color, warm/dry Neuro/Psych: alert, normal mood/affect, oriented x 3 ICD10 Worksheet Patient Problems: Problems Problem Status Diagnosed Chronic Disease Mgmt/Transitional Care Acute GI bleed Acute Hemoptysis Acute Melena Acute Radiation pneumonitis Acute Recurrent thyroid cancer Acute Status post cardiac pacemaker procedure Acute Afib - Atrial fibrillation Active Acute anterior epistaxis Acute CHF (congestive heart failure) Acute Lightheadedness Acute Nausea Acute Pleural effusion Acute
[2016-11-05] MEDS: LISINOPRIL 2.5 MG TAB PO SCH (14:22)
[2016-11-05] MEDS: ACETAMINOPHEN 325 MG TAB PO PRN ×2 (14:25→21:30)
[2016-11-05] MEDS ORDERED: WARFARIN SODIUM 7.5 MG TAB PO SCH (17:00)
[2016-11-05] MEDS ORDERED: WARFARIN SODIUM 5 MG TAB PO SCH (17:00)
[2016-11-05] MEDS: ONDANSETRON DISINTEGRATING 4 MG TAB PO PRN ×2 (17:02→20:46)
[2016-11-05] MEDS: MELATONIN 3 MG TAB PO SCH (21:20)
[2016-11-05] MEDS: Tafluprost/Pf [Zioptan 0.0015% Eye Drops] EACHEYE SCH (21:20)
[2016-11-05] MEDS: SENNOSIDES 1 TAB PO PRN (21:28)
[2016-11-06] MEDS: ACETAMINOPHEN 325 MG TAB PO PRN (03:34)
[2016-11-06] MEDS: LORazepam 0.5 MG TAB PO PRN ×2 (03:41→20:52)
[2016-11-06] MEDS ORDERED: LORazepam 0.5 MG TAB ONE (03:41)
[2016-11-06] MEDS: ONDANSETRON DISINTEGRATING 4 MG TAB PO PRN ×2 (03:46→20:53)
[2016-11-06] MEDS: LEVOTHYROXINE 112 MCG TAB PO SCH (06:53)
[2016-11-06] MEDS: CHOLECALCIFEROL VIT D3 2,000 UNITS TAB/CAP PO SCH (08:37)
[2016-11-06] MEDS: FAMOTIDINE 20 MG TAB PO SCH (08:38)
[2016-11-06] MEDS: LISINOPRIL 2.5 MG TAB PO SCH (08:38)
[2016-11-06] MEDS: METOPROLOL TARTRATE 25 MG TAB PO SCH ×2 (08:38→20:54)
[2016-11-06] MEDS: ATORVASTATIN CALCIUM 10 MG TAB PO SCH (09:35)
[2016-11-06] MEDS: TIMOLOL 0.5% 15 ML OPHT.BTL EACHEYE SCH (09:35)
[2016-11-06] MEDS: ASPIRIN 325 MG TAB PO SCH (09:35)
[2016-11-06] MEDS: BUDESONIDE/FORMOTEROL 160/4.5 60 PUFFS/MDI IH SCH ×2 (09:36→20:52)
--- NOTE | 2016-11-06 12:54 | SOAPPROG ---
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 Initial FIM 75 on 10/22/16; improved to 90 as of 11/02/16.. Walked 200' on 10/21/16, SBA to improve attention to L. SBA or supervision for mobility & ADLs, with cueing to attend to L side. Can forget about objects in L hand and then drop them. Gets fatigued. Continue PT & OT to optimize mobility and activities of daily living. Started fluoxetine 10 mg QD on per the FLAME trial to enhance neuro recovery in the setting of hemiplegic stroke; d/c 10/20/16 as she did not tolerate a low dose.. * Anticoagulated only with aspirin through October 28; initiated warfarin at home dose of 5 mg QD on 10/28/16; INR 1.49 on 11/01/16 increased warfarin to 7.5 mg Q Saturday, and Saturday and 5 mg on other days. INR 2.69 on 11/02/16; D/ C enoxaparin on 11/03/16. INR QD until stable. * Dysphagia: continue DESIGN PRINTING MACHINE SET UP OPERATOR. DD2, advanced to nectar thick liquids. Advanced to water protocol 10/23/16. Encourage hydration. Repeat VFSS 10/24/16. Initiated water protocol and e-stim. Goal to advance to thin liquids by discharge date. * Cognitive impairment: dysexecutive per DESIGN PRINTING MACHINE SET UP OPERATOR, c/w stimulus-bound responses per nurse. Improving. Does well with new learning. Continue DESIGN PRINTING MACHINE SET UP OPERATOR. * Dental pain: cracked root per her report. D/W her dental office (Dr. Farnsworth [phone]): has been treated with amoxicillin in the past; should have extraction done. D/W on-call oral surgeon Dr. Leonard ([phone] cell; [phone] office): can extract a tooth while on warfarin as long as INR < 3. Family will plan for extraction after discharge. Pain improved with amoxicillin 500 mg TID for 5 days. * Hypotension and orthostatic symptoms resolved after IV hydration 10/26/16 - . Appears to be adequately hydrating PO subsequently. * HTN: metoprolol 12.5 mg BID, with additional 12.5 mg BID PRN systolic > 140. BP elevated X several days. Add very low dose lisinopril at 2.5 mg QD starting 11/05/16. Continue to monitor. * Restless legs syndrome: D/C SCDs. Continue ropinirole; increase dose from 0.125 mg QHS to 0.25 mg starting 10/19/16. * Insomnia: D/C SCDs and increase ropinirole as above. Using lorazepam intermittently at night for sleep. * Anxiety: discussed adverse effects of lorazepam; changed to lower dosing 0.25 - 0.5 mg rather than 0.5 mg Q 6 hr PRN. Encourage to not use. * Neck pain: chronic recurrent. Modalities per OT & PT. Hot and cold packs PRN. Massage therapy consult. * Atrial fibrillation status post pacemaker placement. Anticoagulation as above. Continue metoprolol for rate control. Change to tartrate from succinate as meds need to be crushed. * DVT prophylaxis with enoxaparin until therapeutic on warfarin. Chronic stable issues: * Dyslipidemia: She was begun on atorvastatin at low dose. This will be titrated as it is tolerated. * Hypothyroidism due to treatment of thyroid cancer. Continue levothyroxine. * Metastatic pulmonary nodules of thyroid cancer status post chest radiation with radiation pneumonitis: She is treated with budesonide/formoterol which will be continued. No O2 requirement. * CHF, pleural effusion: asymptomatic. * Glaucoma and cataracts: These may complicate therapy in terms of left hemineglect and possible visual processing issues. Continue eyedrops for glaucoma. * History of DVT: She is at elevated risk due to her age, relative immobility and history of cancer. No S/Sx DVT currently. Encourage mobilization. Lives in multi-level home; has good family support. Discharge date of 11/08/16 - 11/09/16. Will continue PT, OT, DESIGN PRINTING MACHINE SET UP OPERATOR at home, and have RN visits for blood draws for INR. 11/05/16 12:50 Objective: Vital Signs Temp Pulse Resp BP Pulse Ox 36.6 C 69 18 125/71 H 95 11/06/16 08:00 11/06/16 08:38 11/06/16 08:00 11/06/16 08:38 11/06/16 08:00 Laboratory Results 10/26/16 13:15 10/28/16 05:15 11/05/16 11/06/16 11/07/16 05:59 05:59 05:59 Intake Total 1300 1260 Output Total 450 Balance 850 1260 PT 28.9 SEC (12.0-15.0) H 11/05/16 05:20 INR 2.69 (0.83-1.16) H 11/05/16 05:20 ICD10 Worksheet Patient Problems: Problems Problem Status Diagnosed Chronic Disease [facility]/Transitional Care Acute GI bleed Acute Hemoptysis Acute Melena Acute Radiation pneumonitis Acute Recurrent thyroid cancer Acute Status post cardiac pacemaker procedure Acute Afib - Atrial fibrillation Active Acute anterior epistaxis Acute CHF (congestive heart failure) Acute Pleural effusion Acute
--- NOTE | 2016-11-06 14:53 | SOAPPROG ---
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 Initial FIM 75 on 10/22/16; improved to 90 as of 11/02/16. Walked 200' on 10/21/16, SBA to improve attention to L. SBA or supervision for mobility & ADLs, with cueing to attend to L side. Can forget about objects in L hand and then drop them. Gets fatigued. Continue PT & OT to optimize mobility and activities of daily living. Started fluoxetine 10 mg QD on per the FLAME trial to enhance neuro recovery in the setting of hemiplegic stroke; d/c 10/20/16 as she did not tolerate a low dose.. * Anticoagulated only with aspirin through October 28; initiated warfarin at home dose of 5 mg QD on 10/28/16; INR 1.49 on 11/01/16 increased warfarin to 7.5 mg Q Saturday, and Saturday and 5 mg on other days. INR 2.69 on 11/02/16; D/ C enoxaparin on 11/03/16. INR QD until stable. * Dysphagia: continue DOCUMENT REVIEWER. DD2, advanced to nectar thick liquids. Advanced to water protocol 10/23/16. Encourage hydration. Repeat VFSS 10/24/16. Initiated water protocol and e-stim. Goal to advance to thin liquids by discharge date. * Cognitive impairment: dysexecutive per DOCUMENT REVIEWER, c/w stimulus-bound responses per nurse. Improving. Does well with new learning. Continue DOCUMENT REVIEWER. * Dental pain: cracked root per her report. D/W her dental office (Dr. Farnsworth [phone]): has been treated with amoxicillin in the past; should have extraction done. D/W on-call oral surgeon Dr. Leonard ([phone] cell; office): can extract a tooth while on warfarin as long as INR < 3. Family will plan for extraction after discharge. Pain improved with amoxicillin 500 mg TID for 5 days. * Hypotension and orthostatic symptoms resolved after IV hydration 10/26/16 - . Appears to be adequately hydrating PO subsequently. * HTN: metoprolol 12.5 mg BID, with additional 12.5 mg BID PRN systolic > 140. BP elevated X several days. Add very low dose lisinopril at 2.5 mg QD starting 11/05/16. Continue to monitor. * Restless legs syndrome: D/C SCDs. Continue ropinirole; increase dose from 0.125 mg QHS to 0.25 mg starting 10/19/16. * Insomnia: D/C SCDs and increase ropinirole as above. Using lorazepam intermittently at night for sleep. * Anxiety: discussed adverse effects of lorazepam; changed to lower dosing 0.25 - 0.5 mg rather than 0.5 mg Q 6 hr PRN. Encourage to not use. * Neck pain: chronic recurrent. Modalities per OT & PT. Hot and cold packs PRN. Massage therapy consult. * Atrial fibrillation status post pacemaker placement. Anticoagulation as above. Continue metoprolol for rate control. Change to tartrate from succinate as meds need to be crushed. * DVT prophylaxis: therapeutic on warfarin. * H/O GI bleed: requests discontinuation of famotidine. 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 Unclear need for acid reduction. D/c famotidine starting 11/06/16. Chronic stable issues: * Dyslipidemia: She was begun on atorvastatin at low dose. This will be titrated as it is tolerated. * Hypothyroidism due to treatment of thyroid cancer. Continue levothyroxine. * Metastatic pulmonary nodules of thyroid cancer status post chest radiation with radiation pneumonitis: She is treated with budesonide/formoterol which will be continued. No O2 requirement. * CHF, pleural effusion: asymptomatic. * Glaucoma and cataracts: These may complicate therapy in terms of left hemineglect and possible visual processing issues. Continue eyedrops for glaucoma. * History of DVT: She is at elevated risk due to her age, relative immobility and history of cancer. No S/Sx DVT currently. Encourage mobilization. Lives in multi-level home; has good family support. Discharge date of 11/08/16 - 11/09/16. Will continue PT, OT, DOCUMENT REVIEWER at home, and have RN visits for blood draws for INR. 11/06/16 14:49 Subjective: Reports fatigue after interrupted slee and COLE 2 nights ago and full day yesterday including home visit. O/W w/out complaint. No COLE atpresent, no f/c, cough/dyspnea, n/v/c/d. Objective: Vital Signs Temp Pulse Resp BP Pulse Ox 36.6 C 69 18 125/71 H 95 11/06/16 08:00 11/06/16 08:38 11/06/16 08:00 11/06/16 08:38 11/06/16 08:00 Laboratory Results 10/26/16 13:15 10/28/16 05:15 11/05/16 11/06/16 11/07/16 05:59 05:59 05:59 Intake Total 1300 1260 Output Total 450 Balance 850 1260 PT 28.9 SEC (12.0-15.0) H 11/05/16 05:20 INR 2.69 (0.83-1.16) H 11/05/16 05:20 Physical Exam - Physical Exam General Appearance: WD/WN, alert, no apparent distress, thin Respiratory: normal breath sounds, No crackles, No rhonchi, No wheezing Cardiac/Chest: regular rate, rhythm, No edema Skin: normal color, warm/dry Neuro/Psych: alert, normal mood/affect, oriented x 3 ICD10 Worksheet Patient Problems: Problems Problem Status Diagnosed Chronic Disease Mgmt/Transitional Care Acute GI bleed Acute Hemoptysis Acute Melena Acute Radiation pneumonitis Acute Recurrent thyroid cancer Acute Status post cardiac pacemaker procedure Acute Afib - Atrial fibrillation Active Acute anterior epistaxis Acute CHF (congestive heart failure) Acute Pleural effusion Acute
[2016-11-06] MEDS ORDERED: WARFARIN SODIUM 5 MG TAB PO SCH ×2 (17:00→21:00)
[2016-11-06] MEDS: MELATONIN 3 MG TAB PO SCH (20:51)
[2016-11-06] MEDS: Tafluprost/Pf [Zioptan 0.0015% Eye Drops] EACHEYE SCH (20:55)
[2016-11-07] MEDS: LORazepam 0.5 MG TAB PO PRN ×2 (01:47→21:00)
[2016-11-07] MEDS: ONDANSETRON DISINTEGRATING 4 MG TAB PO PRN ×2 (01:49→20:28)
[2016-11-07] MEDS: LEVOTHYROXINE 112 MCG TAB PO SCH (06:25)
[2016-11-07] MEDS: METOPROLOL TARTRATE 25 MG TAB PO SCH ×2 (08:39→20:55)
[2016-11-07] MEDS: LISINOPRIL 2.5 MG TAB PO SCH (08:39)
[2016-11-07] MEDS: CHOLECALCIFEROL VIT D3 2,000 UNITS TAB/CAP PO SCH (08:40)
[2016-11-07] MEDS: BUDESONIDE/FORMOTEROL 160/4.5 60 PUFFS/MDI IH SCH ×2 (09:06→20:29)
[2016-11-07] MEDS: TIMOLOL 0.5% 15 ML OPHT.BTL EACHEYE SCH (09:06)
[2016-11-07] MEDS: ATORVASTATIN CALCIUM 10 MG TAB PO SCH (09:06)
[2016-11-07] MEDS: ASPIRIN 325 MG TAB PO SCH (09:06)
[2016-11-07 09:30] LABS: INR 3.61 (0.83-1.16); PROTIME(PATIENT) 36.6 SEC (12.0-15.0)
[2016-11-07 11:14] VITALS: RESP 16
--- NOTE | 2016-11-07 11:58 | SOAPPROG ---
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 Initial FIM 75 on 10/22/16; improved to 90 as of 11/02/16. Walked 200' on 10/21/16, SBA to improve attention to L. SBA or supervision for mobility & ADLs, with cueing to attend to L side. Can forget about objects in L hand and then drop them. Gets fatigued. Continue PT & OT to optimize mobility and activities of daily living. Started fluoxetine 10 mg QD on per the FLAME trial to enhance neuro recovery in the setting of hemiplegic stroke; d/c 10/20/16 as she did not tolerate a low dose.. * Anticoagulated only with aspirin through October 28; initiated warfarin at home dose of 5 mg QD on 10/28/16; INR 1.49 on 11/01/16 increased warfarin to 7.5 mg Q Saturday, and Saturday and 5 mg on other days. INR 2.69 on 11/02/16; 3/ 61 on 11/07/16. Warfarin 4 mg today 11/07/16, then 5 mg QD. Daily INR until stable. D/C'd enoxaparin on 11/03/16. * Dysphagia: continue TECHNICAL SPECIALIST CYTOGENETICS. DD2, advanced to nectar thick liquids. Encourage hydration. Repeat VFSS 10/24/16. Initiated water protocol and e-stim. Goal to advance to thin liquids by discharge date. * Cognitive impairment: dysexecutive per TECHNICAL SPECIALIST CYTOGENETICS, c/w stimulus-bound responses per nurse. Improving. Does well with new learning. Continue TECHNICAL SPECIALIST CYTOGENETICS. * Dental pain: cracked root per her report. D/W her dental office (Dr. Farnsworth [phone]): has been treated with amoxicillin in the past; should have extraction done. D/W on-call oral surgeon Dr. Leonard ([phone] cell; office): can extract a tooth while on warfarin as long as INR < 3. Family will plan for extraction after discharge. Pain improved with amoxicillin 500 mg TID for 5 days. * Hypotension and orthostatic symptoms resolved after IV hydration 10/26/16 - . Appears to be adequately hydrating PO subsequently. * HTN: metoprolol 12.5 mg BID, with additional 12.5 mg BID PRN systolic > 140. BP elevated X several days. Add very low dose lisinopril at 2.5 mg QD starting 11/05/16. Continue to monitor. * Restless legs syndrome: D/C SCDs. Continue ropinirole; increase dose from 0.125 mg QHS to 0.25 mg starting 10/19/16. * Insomnia: D/C SCDs and increase ropinirole as above. Using lorazepam intermittently at night for sleep. * Anxiety: discussed adverse effects of lorazepam; changed to lower dosing 0.25 - 0.5 mg rather than 0.5 mg Q 6 hr PRN. Encourage to not use. * Neck pain: chronic recurrent. Modalities per OT & PT. Hot and cold packs PRN. Massage therapy consult. * Atrial fibrillation status post pacemaker placement. Anticoagulation as above. Continue metoprolol for rate control. Change to tartrate from succinate as meds need to be crushed. * DVT prophylaxis: therapeutic on warfarin. * H/O GI bleed: requests discontinuation of famotidine. 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 Unclear need for acid reduction. D/c famotidine starting 11/06/16. Chronic stable issues: * Dyslipidemia: She was begun on atorvastatin at low dose. This will be titrated as it is tolerated. * Hypothyroidism due to treatment of thyroid cancer. Continue levothyroxine. * Metastatic pulmonary nodules of thyroid cancer status post chest radiation with radiation pneumonitis: She is treated with budesonide/formoterol which will be continued. No O2 requirement. * CHF, pleural effusion: asymptomatic. * Glaucoma and cataracts: These may complicate therapy in terms of left hemineglect and possible visual processing issues. Continue eyedrops for glaucoma. * History of DVT: She is at elevated risk due to her age, relative immobility and history of cancer. No S/Sx DVT currently. Encourage mobilization. Lives in multi-level home; has good family support. Discharge date of 11/08/16 - 11/09/16. Will continue PT, OT, TECHNICAL SPECIALIST CYTOGENETICS at home, and have RN visits for blood draws for INR. 11/07/16 11:53 Subjective: Poor sleep last night, but feeling good now. No COLE, f/c, cough/dyspnea, n/v/c/ d. Objective: Vital Signs Temp Pulse Resp BP Pulse Ox 36.4 C 68 16 129/82 H 95 11/07/16 08:00 11/07/16 08:39 11/07/16 08:00 11/07/16 08:39 11/07/16 08:00 Laboratory Results 10/26/16 13:15 10/28/16 05:15 11/06/16 11/07/16 11/08/16 05:59 05:59 05:59 Intake Total 1260 200 Balance 1260 200 PT 36.6 SEC (12.0-15.0) H D 11/07/16 06:40 INR 3.61 (0.83-1.16) H 11/07/16 06:40 Physical Exam - Physical Exam General Appearance: WD/WN, alert, no apparent distress, thin Respiratory: No respiratory distress, No accessory muscle use Skin: normal color, warm/dry Neuro/Psych: alert, normal mood/affect, oriented x 3 ICD10 Worksheet Patient Problems: Problems Problem Status Diagnosed Chronic Disease [facility]/Transitional Care Acute GI bleed Acute Hemoptysis Acute Melena Acute Radiation pneumonitis Acute Recurrent thyroid cancer Acute Status post cardiac pacemaker procedure Acute Afib - Atrial fibrillation Active Acute anterior epistaxis Acute CHF (congestive heart failure) Acute Pleural effusion Acute
[2016-11-07] MEDS: Tafluprost/Pf [Zioptan 0.0015% Eye Drops] EACHEYE SCH (20:56)
[2016-11-07] MEDS ORDERED: WARFARIN SODIUM 4 MG TAB PO ONE (21:00)
[2016-11-07] MEDS: MELATONIN 3 MG TAB PO SCH (22:10)
[2016-11-08] MEDS: ACETAMINOPHEN 325 MG TAB PO PRN (01:02)
[2016-11-08] MEDS: ONDANSETRON DISINTEGRATING 4 MG TAB PO PRN ×2 (01:04→21:03)
[2016-11-08] MEDS: LEVOTHYROXINE 112 MCG TAB PO SCH (04:08)
[2016-11-08 08:43] LABS: INR 3.27 (0.83-1.16); PROTIME(PATIENT) 33.8 SEC (12.0-15.0)
[2016-11-08] MEDS: CHOLECALCIFEROL VIT D3 2,000 UNITS TAB/CAP PO SCH (11:00)
[2016-11-08] MEDS: BUDESONIDE/FORMOTEROL 160/4.5 60 PUFFS/MDI IH SCH ×2 (11:01→20:59)
[2016-11-08] MEDS: TIMOLOL 0.5% 15 ML OPHT.BTL EACHEYE SCH (11:02)
[2016-11-08] MEDS: METOPROLOL TARTRATE 25 MG TAB PO SCH ×2 (11:06→20:58)
[2016-11-08] MEDS: LISINOPRIL 2.5 MG TAB PO SCH (11:06)
[2016-11-08] MEDS: ATORVASTATIN CALCIUM 10 MG TAB PO SCH (11:21)
[2016-11-08] MEDS: ASPIRIN 325 MG TAB PO SCH (11:21)
--- NOTE | 2016-11-08 14:18 | SOAPPROG ---
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 Initial FIM 75 on 10/22/16; improved to 90 as of 11/02/16. Walked 200' on 10/21/16, SBA to improve attention to L. SBA or supervision for mobility & ADLs, with cueing to attend to L side. Can forget about objects in L hand and then drop them. Gets fatigued. Continue PT & OT to optimize mobility and activities of daily living. Started fluoxetine 10 mg QD on per the FLAME trial to enhance neuro recovery in the setting of hemiplegic stroke; d/c 10/20/16 as she did not tolerate a low dose.. * Anticoagulated only with aspirin through October 28; initiated warfarin at home dose of 5 mg QD on 10/28/16; INR 1.49 on 11/01/16 increased warfarin to 7.5 mg Q Saturday, and Saturday and 5 mg on other days. INR 2.69 on 11/02/16; 3/ 61 on 11/07/16. Warfarin 4 mg11/07/16, then 5 mg QD. Daily INR until stable; 3.27 today 11/08/16. D/C'd enoxaparin on 11/03/16. * Dysphagia: continue MARKETING [employer]ENT. DD2, advanced to nectar thick liquids. Encourage hydration. Repeat VFSS 10/24/16. Initiated water protocol and e-stim. Goal to advance to thin liquids by discharge date. * Cognitive impairment: dysexecutive per MARKETING AGENT, c/w stimulus-bound responses per nurse. Improving. Does well with new learning. Continue MARKETING [employer]ENT. * Dental pain: cracked root per her report. D/W her dental office (Dr. Farnsworth [phone]): has been treated with amoxicillin in the past; should have extraction done. D/W on-call oral surgeon Dr. Leonard ([phone] cell; office): can extract a tooth while on warfarin as long as INR < 3. Family will plan for extraction after discharge. Pain improved with amoxicillin 500 mg TID for 5 days. * Hypotension and orthostatic symptoms resolved after IV hydration 10/26/16 - . Appears to be adequately hydrating PO subsequently. * HTN: metoprolol 12.5 mg BID, with additional 12.5 mg BID PRN systolic > 140. BP elevated X several days. Add very low dose lisinopril at 2.5 mg QD starting 11/05/16. Continue to monitor. * Restless legs syndrome: D/C SCDs. Continue ropinirole; increase dose from 0.125 mg QHS to 0.25 mg starting 10/19/16; increase further to 0.5 mg QHS starting 11/08/16. * Insomnia: D/C SCDs and increase ropinirole as above. Using lorazepam intermittently at night for sleep. * Anxiety: discussed adverse effects of lorazepam; changed to lower dosing 0.25 - 0.5 mg rather than 0.5 mg Q 6 hr PRN. Encourage to not use. * Neck pain: chronic recurrent. Modalities per OT & PT. Hot and cold packs PRN. Massage therapy consult. * Atrial fibrillation status post pacemaker placement. Anticoagulation as above. Continue metoprolol for rate control. Change to tartrate from succinate as meds need to be crushed. * DVT prophylaxis: therapeutic on warfarin. * H/O GI bleed: requests discontinuation of famotidine. 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 Unclear need for acid reduction. D/c famotidine starting 11/06/16. Chronic stable issues: * Dyslipidemia: She was begun on atorvastatin at low dose. This will be titrated as it is tolerated. * Hypothyroidism due to treatment of thyroid cancer. Continue levothyroxine. * Metastatic pulmonary nodules of thyroid cancer status post chest radiation with radiation pneumonitis: She is treated with budesonide/formoterol which will be continued. No O2 requirement. * CHF, pleural effusion: asymptomatic. * Glaucoma and cataracts: These may complicate therapy in terms of left hemineglect and possible visual processing issues. Continue eyedrops for glaucoma. * History of DVT: She is at elevated risk due to her age, relative immobility and history of cancer. No S/Sx DVT currently. Encourage mobilization. Lives in multi-level home; has good family support. Discharge 11/09/16. Will continue PT, OT, MARKETING AGENT at home, and have RN visits for blood draws for INR. Old PCP is Dr. Ponce; will continue warfarin management until establishes with new PCP Dr. Stacy Arellano on 11/16/16, Follow-up Oncology Dr. Gutierrez on 11/14/16. 11/08/16 14:18 Subjective: No complaints. Slept well but daughter reported to nurse increased RLS symptoms. No f/c, cough, dyspnea, n.v.c.d. Objective: Vital Signs Temp Pulse Resp BP Pulse Ox 36.6 C 75 16 113/68 94 11/08/16 08:00 11/08/16 11:06 11/08/16 08:00 11/08/16 11:06 11/08/16 08:00 Laboratory Results 10/26/16 13:15 10/28/16 05:15 11/07/16 11/08/16 11/09/16 05:59 05:59 05:59 Intake Total 200 560 Balance 200 560 PT 33.8 SEC (12.0-15.0) H 11/08/16 04:30 INR 3.27 (0.83-1.16) H 11/08/16 04:30 Physical Exam - Physical Exam General Appearance: WD/WN, alert, no apparent distress Respiratory: normal breath sounds, No crackles, No rhonchi, No wheezing Cardiac/Chest: regular rate, rhythm, No edema Neuro/Psych: no motor/sensory deficits, alert, normal mood/affect, oriented x 3 , other (Ambulating over agility ladder with PT, no assistive device or assistance.) ICD10 Worksheet Patient Problems: Problems Problem Status Diagnosed Chronic Disease Mgmt/Transitional Care Acute GI bleed Acute Hemoptysis Acute Melena Acute Radiation pneumonitis Acute Recurrent thyroid cancer Acute Status post cardiac pacemaker procedure Acute Afib - Atrial fibrillation Active Acute anterior epistaxis Acute CHF (congestive heart failure) Acute Pleural effusion Acute
[2016-11-08 18:52] VITALS: O2SAT 97
[2016-11-08] MEDS: MELATONIN 3 MG TAB PO SCH (20:56)
[2016-11-08] MEDS: Tafluprost/Pf [Zioptan 0.0015% Eye Drops] EACHEYE SCH (20:56)
[2016-11-08] MEDS ORDERED: WARFARIN SODIUM 5 MG TAB PO SCH (21:00)
[2016-11-08] MEDS ORDERED: WARFARIN SODIUM 7.5 MG TAB PO SCH (21:00)
[2016-11-08] MEDS: SENNOSIDES 1 TAB PO PRN (21:03)
[2016-11-08] MEDS: LORazepam 0.5 MG TAB PO PRN (21:03)
[2016-11-09] MEDS: ACETAMINOPHEN 325 MG TAB PO PRN (01:20)
[2016-11-09] MEDS: ONDANSETRON DISINTEGRATING 4 MG TAB PO PRN (01:20)
[2016-11-09 05:19] VITALS: TEMP 97.5
[2016-11-09] MEDS: LEVOTHYROXINE 112 MCG TAB PO SCH (05:29)
[2016-11-09] MEDS: BUDESONIDE/FORMOTEROL 160/4.5 60 PUFFS/MDI IH SCH (08:02)
[2016-11-09] MEDS: TIMOLOL 0.5% 15 ML OPHT.BTL EACHEYE SCH (08:03)
[2016-11-09] MEDS: CHOLECALCIFEROL VIT D3 2,000 UNITS TAB/CAP PO SCH (08:21)
[2016-11-09] MEDS: METOPROLOL TARTRATE 25 MG TAB PO SCH (08:22)
[2016-11-09] MEDS: LISINOPRIL 2.5 MG TAB PO SCH (08:22)
[2016-11-09 08:25] VITALS: BP 133/89; PULSE 72
[2016-11-09] MEDS: ATORVASTATIN CALCIUM 10 MG TAB PO SCH (10:16)
[2016-11-09] MEDS: ASPIRIN 325 MG TAB PO SCH (10:16)
--- NOTE | 2016-11-09 13:04 | PDOREHIP ---
Admission [facility] - Admission - 3 Day Assessment Period Admission Date/Day 1: 10/18/16 Day 2: 10/19/16 Day 3: 10/20/16 Discharge [facility] - Discharge - 3 Day Assessment Period 2 Days Prior to Anticipated Discharge Date: 11/07/16 1 Day Prior to Anticipated Discharge Date: 11/08/16 Anticipated Discharge Date: 11/09/16 - Discharge Skin Conditions Unhealed Pressure Ulcer (1 or more/Stage 1 or >)-Discharge: 0. No
--- NOTE | 2016-11-09 14:29 | GDS ---
[f rep st] DISCHARGE SUMMARY ADMISSION DIAGNOSIS: Debility status post right middle cerebral artery cerebrovascular accident with left upper extremity hemiparesis and left hemineglect. DISCHARGE DIAGNOSIS: Debility status post right middle cerebral artery cerebrovascular accident with left upper extremity hemiparesis and left hemineglect. OTHER DISCHARGE DIAGNOSES: Orthostatic hypotension, atrial fibrillation, dysphagia, hypertension, re stless legs syndrome. CONSULTATIONS: There were none. PROCEDURES: There was a repeat head CT, chest x-ray, and EKG done in a brief Emergency Department vi sit on 11/05/2016. Head CT showed the right MCA infarct, but there were no other new findings. EKG showed atrial fibrillation, but no ischemia. Chest x-ray showed her known pulmonary metastases from thyroid cancer, and cardiomegaly, but otherwise was unchanged from prior. HISTORY AND HOSPITAL COURSE: The patient was admitted to [facility] on 10/13/20 16 with slurred speech, aphasia, left facial droop, and a dense hemiplegia. She was found to have a right MCA M2 branch thrombus. Symptoms had been present for too long for her to be a candidate for t hrombolysis. Per her and her 's preference, she was transferred to [facility] . She had had this cerebrovascular accident while her anticoagulation for atrial fibrillation had be en reversed for the purpose of a colonoscopy. She had steady improvement in rehabilitation. Her initial functional independence measure (FIM) was 75 on 10/22/2016. This is consistent with alf level of care. Her FIM improved to 90 as of 11/02/2016 which is consistent with independent living level of care. She had walked 200 feet with s tandby assist to improve attention to the left and no assistive device. She required supervision or standby assist for other mobility and ADL tasks with some cuing to attend to the left side. With her left upper extremity hemiplegia, she had been started on fluoxetine to improve motor recovery, but s he did not tolerate this medication, so was discontinued. Due to the size of her stroke anticoagulation initially was only with aspirin to reduce the risk of h emorrhagic transformation. She initiated warfarin on 10/28/2016 at 5 mg and it was increased to 7.5 mg 3 days a week and 5 mg 4 days a week, as her INR was not approaching therapeutic as expected. How ever, she became overcorrected with an INR of 3.61 on 11/07/2016. Her warfarin was lowered, receivin g 4 mg on 11/07/2016 and otherwise prescribed as 5 mg a day. On 11/08/2016, her INR had improved to 3.27, and at the time of dictation her INR on 11/09/2016 is still pending. It is thought likely that 5 mg per day (which was her dose prior to her cerebrovascular accident) should be in the appropriate dose for her. She had dysphagia. Initially she was on honey-thick liquids and a dysphagia 1 diet. She was advance d eventually to a dysphagia 2 diet and nectar-thick liquids. On her initial diet, she had difficulty with hydration and needed IV fluids twice, but not since 10/27/2016. She had a history of hypertension and she had significant orthostatic symptoms and orthostatic hypote nsion. During her stay, metoprolol was adjusted up and down. She received IV hydration twice. Even tually, she was stabilized on a blood pressure regimen of lisinopril at 2.5 mg daily (which was start ed 11/05/2016) and metoprolol to 12.5 mg b.i.d. with an additional 12.5 mg available b.i.d. daily on a p.r.n. basis should her systolic pressure be greater than 140. She was noted to have cognitive impairment with reduced executive function. However, she did well wi th new learning and was able to learn new strategies to compensate for her deficits resulting from he r stroke. She had a history of a gastrointestinal bleed in April of 2016. EGD revealed a duodenal AV malformati on which was treated with cautery. She requested discontinuation of famotidine, as she was wanting t o reduce her polypharmacy and it was discontinued on 11/06/2016. She had an episode of dental pain. She reported that she had a cracked root in 1 of her teeth. She was treated with amoxicillin for 5 days and her pain resolved. She has a plan for a tooth extraction after her discharge. Chronic conditions of restless legs syndrome, insomnia, and neck pain remained stable. She had titra tion of her ropinirole for the restless legs syndrome from 0.125 eventually to 0.5 mg q.h.s. Regardi ng insomnia, this responded to low-dose lorazepam which she used most nights at 0.25 mg. LABORATORY DATA: Other labs and studies during her hospitalization: 1. CBC on 11/05/2016 was normal. 2. Serum chemistry on 11/05/2015 revealed normal renal function and electrolytes, though her creatin ine was low at 0.5. 3. Liver function tests were overall within normal limits. She had a mild elevation of AST at 47. This was not evaluated further. 4. Troponin I was less than 0.012. Lipase was normal at 102. 5. A urinalysis was done on 11/05/2015. It was without abnormalities, other than a slightly elevate d pH at 8.0. DISCHARGE CONDITION: Good. ACTIVITY: Ad viky, but she needs supervision or standby assistance for safety regarding her left alma neglect with ambulation and activities of daily living. DIET: Regular. DATE OF NEXT APPOINTMENT: 1. She has followup scheduled with her primary care provider, Dr. Stacy Arellano, on 11/16/2016. 2. She has followup with Oncology regarding her thyroid cancer with Dr. Gutierrez on 11/14/2016. DISCHARGE MEDICATIONS: 1. Aspirin 325 mg p.o. daily. 2. Cholecalciferol 4000 units p.o. daily. 3. Cyanocobalamin 1000 mg injection q.30 days. 4. Warfarin 5 mg p.o. daily at 9:00 p.m. 5. Timolol 0.5% 1 drop each eye daily. 6. Tafluprost 0.0015% 1 drop each q.h.s. 7. Ropinirole 0.5 mg p.o. q.h.s. 8. Ondansetron 4 mg p.o. q.4 hours p.r.n. 9. Metoprolol 12.5 mg p.o. twice daily. 10. Lisinopril 2.5 mg p.o. daily. 11. Levothyroxine 112 mcg p.o. daily. 12. Lorazepam 0.25 to 0.5 mg q.6 hours p.r.n. 13. Fluticasone 1 spray each naris daily p.r.n. 14. Budesonide/formoterol 2 puffs b.i.d. 15. Atorvastatin 10 mg p.o. daily. 16. Acetaminophen 650 mg p.o. q.4 hours p.r.n. ISSUES TO BE ADDRESSED AT FOLLOWUP: 1. Functional status with left hemineglect: She will continue physical and occupational therapies, as well as speech and language pathology at home. 2. Atrial fibrillation: She will have an RN visit at home for a blood draw for an INR. This will i nitially be continued to be managed by her primary care provider, Dr. Ponce, and subsequently by Dr. Arellano, her new primary care provider. 3. Dysphagia: She will continue to work with speech and language pathology at home. 4. Cracked tooth root: She plans to follow up for an extraction after discharge. 5. Hypotension and orthostatic hypertension: These seem to have stabilized with her current medicat ion regimen. She can follow up with her primary care provider. 6. Insomnia: It is hoped that when she is home she will no longer need lorazepam as a sleep aid. /[id number]/MODL
[2016-11-09 20:52] LABS: INR 3.72 (0.83-1.16); PROTIME(PATIENT) 37.5 SEC (12.0-15.0)
== END 2016-11-09 11:55 | disposition home health service (06) | DRG 57 ==
LOC: BREH 10-18 12:23
PROVIDERS: ADMIT Internal Medicine; ATTEND Internal Medicine
PROC: F08Z4ZZ Home Management Treatment (ICD-10-PCS; principal; 2016-10-18)
PROC: F0636ZZ Communicative/Cognitive Integration Skills Treatment of Neurological System - Whole Body (ICD-10-PCS; principal; 2016-10-18)
PROC: F07M3ZZ Motor Function Treatment of Musculoskeletal System - Whole Body (ICD-10-PCS; principal; 2016-10-18)
PROC: F08Z7ZZ Vocational Activities and Functional Community or Work Reintegration Skills Treatment (ICD-10-PCS; principal; 2016-10-18)
DX: I69.354 Hemiplegia and hemiparesis following cerebral infarction affecting left non-dominant side (principal); C78.00 Secondary malignant neoplasm of unspecified lung; J70.0 Acute pulmonary manifestations due to radiation; I69.391 Dysphagia following cerebral infarction; I69.322 Dysarthria following cerebral infarction; I69.114 Frontal lobe and executive function deficit following nontraumatic intracerebral hemorrhage; I10 Essential (primary) hypertension; E89.0 Postprocedural hypothyroidism; E78.5 Hyperlipidemia, unspecified; G25.81 Restless legs syndrome; G47.00 Insomnia, unspecified; H40.9 Unspecified glaucoma; H26.9 Unspecified cataract; I95.1 Orthostatic hypotension; K03.81 Cracked tooth; Z85.3 Personal history of malignant neoplasm of breast; Z85.850 Personal history of malignant neoplasm of thyroid; Z86.718 Personal history of other venous thrombosis and embolism; Z79.01 Long term (current) use of anticoagulants; Z95.0 Presence of cardiac pacemaker
CPT/HCPCS: 92507-GN; 92522-GN; 92526; 92610; 97001-GP; 97003-GO; 97110-GO; 97110-GP; 97112-GO; 97112-GP; 97116-GP; 97140-GO; 97530-GO; 97530-GP; 97532-GO; 97535-GO; 99366-GO; J1650

== ENCOUNTER 2016-11-05 06:30 | Emergency (ER) | payer OTHER, MEDICARE ==
[2016-11-05] MEDS ORDERED: NS 1,000 ML IV ONE (06:37)
[2016-11-05 06:44] LABS: % IMMATURE GRANULYOCYTES 0.5 % (0.0-1.1); ABSOLUTE IMMATURE GRANULOCYTES 0.02 10^3/uL (0.00-0.10); ADD DIFF? NO; ADD MORPH? NO; ADD SCAN? NO; ATYPICAL LYMPHOCYTE FLAG 10 (0-99); FRAGMENT RBC FLAG 20 (0-99); HEMATOCRIT 46.8 % (38.0-47.0); HEMOGLOBIN 15.8 g/dL (12.6-16.3); LEFT SHIFT FLG 0 (0-99); LIPEMIA HEMOLYSIS FLAG 90 (0-99); MEAN CELL HEMOGLOBIN 29.8 pg (27.9-34.1); MEAN CELL HEMOGLOBIN CONCENTR. 33.8 g/dL (32.4-36.7); MEAN CELL VOLUME 88.3 fL (81.5-99.8); PLATELET CLUMPS FLAG 10 (0-99); PLATELET COUNT 234 10^3/uL (150-400); RED CELL DISTRIBUTION WIDTH 18.2 % (11.5-15.2)
[2016-11-05] MEDS ORDERED: ONDANSETRON 4 MG/2 ML VIAL IVP ONE (06:45)
--- NOTE | 2016-11-05 06:45 | EDPHY ---
H & P Source: Patient, EMS - Personal History Tetanus Vaccine Date: 2006 - Medical/Surgical History Hx Asthma: No Hx Chronic Respiratory Disease: Yes Hx Diabetes: No Hx Cardiac Disease: Yes Hx Renal Disease: No Hx Cirrhosis: No Hx Alcoholism: No Hx HIV/AIDS: No Hx Splenectomy or Spleen Trauma: No Other PMH: Afib, Ca:Right breastwith lumpectomy and radiation: 2009, thyroid CA with thyroidectomy 2004, cataracts, macular degeneraion, lung nodules with steriotactic radiotherapy. bowel obstruction, vitrectomy Right.eye, hysterectomy, ortho, pacemaker 08/19/2014. surgery, thyroidectomy, abd surgery. - Social History Smoking Status: Former smoker HPI/ROS: HPI CHIEF COMPLAINT: headache, lightheadedness, nausea HISTORY OF PRESENT ILLNESS: This patient very pleasant 81-year-old female she has significant past medical history for atrial fibrillation, hypertension, and a recent right MCA stroke that she was hospitalized for in September. She is now in inpatient rehab across [facility]. She presents emergency room at 6:35 a.m. in the morning for lightheadedness that started yesterday mild nausea without vomiting and hypertension noted by staff inpatient rehab. Nursing staff became concerned because last night approximately 3-4 hours ago she developed a headache they became concerned of her constellation of symptoms of lightheadedness, nausea, headache and recent right MCA infarct and now on Coumadin. Dr. Ganesh Guillen at the rehab facility called me to to me that they will be sending this patient over to the headache, nausea, lightheadedness and recent right MCA infarct now on Coumadin their concern is for hemorrhagic conversion. Upon arrival here in the emergency room this patient is resting comfortably her neurological exam is at her baseline it is noted her blood pressure is 150 systolic. Her last INR in our system is 2.4. She tells me yesterday after doing physical therapy she did have an episode of lightheadedness with nausea however no vomiting. She denies chest pain or shortness of breath. She does tell me that she gets headaches in the back of her head that she contributes to sinus headaches when the weather changes she tells me that this feels very similar to her sinus headache. She denies new onset of weakness, numbness or tingling, chest pain, shortness of breath, fever or feeling ill. She does tell me when she arrived here at her only complaint is a very mild posterior headache /. Past Medical History: Hypertension, thyroid disease, recent right MCA infarct, with left-sided residual deficit, AFib now on Coumadin Past surgical history: Pacemaker Social History: lives in [place], denies drugs alcohol tobacco products, is now in inpatient rehab due to her recent right MCA infarct Family History: noncontributory ROS REVIEW OF SYSTEMS: A comprehensive 10 point review of systems is otherwise negative aside from elements mentioned in the history of present illness. Exam Constitutional appears well nontoxic triage nursing summary reviewed, vital signs reviewed, awake/alert. (see vital signs noted to be hypertensive 159/70 Eyes normal conjunctivae and sclera, EOMI, PERRLA. HENT normal inspection, atraumatic, moist mucus membranes, no epistaxis, neck supple/ no meningismus, no raccoon eyes. Respiratory clear to auscultation bilaterally, normal breath sounds, no respiratory distress, no wheezing. Cardiovascular rate normal, regular rhythm, no murmur, no edema, distal pulses normal. Gastrointestinal soft, non-tender, no rebound, no guarding, normal bowel sounds, no distension, no pulsatile mass. Genitourinary no CVA tenderness. Musculoskeletal no midline vertebral tenderness, full range of motion, no calf swelling, no tenderness of extremities, no meningismus, good pulses, neurovascularly intact. Skin pink, warm, & dry, no rash, skin atraumatic. Neurologic Baseline neurological exam, her pupil on the left is greater than on the right this is normal for her 4 mm on the left, 3 mm on the right, both react like, she does have subtle weak spar finisher strength on the left, and is weak in her left upper extremity left lower extremity more than her right at baseline awake, alert and oriented x 3, AAOx3, moves all 4 extremities equally, motor intact, sensory intact, CN II-XII intact, normal cerebellar, normal vision, normal speech. Psychiatric normal mood/affect. Heme/Lymph/Immune no lymphadenopathy. Differential Diagnosis: includes but is not limited to in a particular order hemorrhagic conversion on Coumadin of right MCA infarct, hypertension, dehydration, electrolyte abnormality, electrolyte abnormality, ACS. Medical Decision Making: This patient had an IV established placed on full monitor she will have a CT scan of her head without contrast to make sure she does not have hemorrhagic conversion of her right MCA infarct given that she is on Coumadin will obtain EKG, blood work she will be gently hydrated Zofran for nausea and will re-evaluate her. Will check EKG and troponin Re-evaluation: 0700: this patient has been signed over to Dr. Neri Marks at 7:00 a.m. shift change to follow up lab results, CT scan. ED x-ray chest one view: negative for acute cardiopulmonary disease pacemaker in left chest. Image interpreted by myself. EKG interpretation by me on record in [employer] system. Impression good morning time of EKG 6:55 a.m. this is a paced rhythm ventricularly paced. Rate of 70, EKG is very similar to previous EKG (Stanislav Corey) Constitutional: Initial Vital Signs Temperature (C) 36.3 C 11/05/16 06:44 Heart Rate 72 11/05/16 06:44 Respiratory Rate 16 11/05/16 06:44 Blood Pressure 158/99 H 11/05/16 06:44 O2 Sat (%) 91 L 11/05/16 06:44 O2 Delivery Mode Room Air Allergies/Adverse Reactions: amlodipine [Amlodipine] Allergy (Intermediate, Verified 11/05/16 06:41) Other-Enter Comments epinephrine [Epinephrine] Allergy (Intermediate, Verified 11/05/16 06:41) HEART RACES piperacillin sodium [From Zosyn] Allergy (Intermediate, Verified 11/05/16 06:41) Hives tazobactam sodium [From Zosyn] Allergy (Intermediate, Verified 11/05/16 06:41) Hives clarithromycin [From Biaxin] Allergy (Mild, Verified 11/05/16 06:41) moxifloxacin HCl [From Avelox] Allergy (Mild, Verified 11/05/16 06:41) niacin [From Niaspan] Allergy (Mild, Verified 11/05/16 06:41) Rash omeprazole Allergy (Verified 11/05/16 06:41) vancomycin Allergy (Verified 11/05/16 06:41) ENVIRONMENTAL Allergy (Intermediate, Uncoded 11/05/16 06:41) EYES BURN AND SWELL/NASAL CONGESTION OPIOID ANTAGONIST Allergy (Intermediate, Uncoded 11/05/16 06:41) HALLUNCINATES ADHESIVES Allergy (Mild, Uncoded 11/05/16 06:41) Rash Home Medications: Medication Instructions Recorded Budesonide/Formoterol 160/4.5 2 puffs IH BID #1 mdi 09/18/14 [Symbicort 160-4.5 Mcg Inh (*)] Cyanocobalamin (Vitamin B-12) 1,000 mcg INJ Q30D 12/10/14 [Vitamin B-12] Levothyroxine [Synthroid 112 mcg 112 mcg PO DAILY06 12/10/14 (*)] Tafluprost/Pf [Zioptan 0.0015% Eye 1 drop EACHEYE HS 03/28/15 Drops] Herbals/Supplements -Info Only 1 ea PO DAILY 05/10/16 Timolol 0.5% [TIMOPTIC 0.5% (*)] 1 drops EACHEYE DAILY 07/31/16 rOPINIRole HCL [Requip 0.25mg (RX)] 0.125 mg PO HS 07/31/16 Famotidine [Pepcid] 20 mg PO BID #60 tablet 08/02/16 Cholecalciferol Vit D3 [Vitamin D3 4,000 units PO DAILY 10/14/16 2000 units tab (OTC)] Fluticasone Nasal [Flonase Nasal 1 sprays NASAL DAILY PRN 10/14/16 [place]] Metoprolol Succinate Xr [Toprol Xl 25 mg PO DAILY 10/15/16 25 mg (*)] Acetaminophen [Tylenol Rectal] 650 mg ID Q4HRS PRN #0 supp 10/18/16 Aspirin [Aspirin 325 mg (*)] 325 mg PO DAILY #0 tab 10/18/16 Atorvastatin Calcium [Lipitor 10 10 mg PO DAILY #0 tab 10/18/16 mg (*)] Enoxaparin [Lovenox 40 MG (*)] 40 mg SC DAILY #0 syr 10/18/16 Ondansetron Odt [Zofran Odt 4 mg 4 mg PO Q4HRS PRN #0 tab 10/18/16 (*)] Warfarin Sodium 11/05/16 Medical Decision Making ED Course/Re-evaluation: The patient was seen by me at 7:15 a.m. after sign-out from Dr. Corey. She had been nauseated earlier but received Zofran is no longer nauseated. She does still complain of her mild sinus headache. She and I agreed to give her some Tylenol. She would like some milk to drink. Otherwise feels well and is alert and conversational. She is anxious to go back to rehab as today is her 1st home visit since her CVA. Re-evaluation again by me at 7:50 a.m.. Patient has been ambulatory to the bathroom. Her headache is better. No nausea. She feels well. She would like to go back to rehab. (Neri Marks) Differential Diagnosis: I considered CVA, hypertensive urgency in crisis. I also considered conversion of ischemic CVA to hemorrhagic CVA. (Neri Marks) - Data Points Laboratory Results: Laboratory Results 11/05/16 06:30 11/05/16 06:30 11/05/16 11/05/16 07:10 06:30 WBC 4.31 10^3/uL (3.80-9.50) RBC 5.30 10^6/uL (4.18-5.33) Hgb 15.8 g/dL (12.6-16.3) Hct 46.8 % (38.0-47.0) MCV 88.3 fL (81.5-99.8) MCH 29.8 pg (27.9-34.1) MCHC 33.8 g/dL (32.4-36.7) RDW 18.2 H % (11.5-15.2) Plt Count 234 10^3/uL (150-400) MPV 10.0 fL (8.7-11.7) Neut % (Auto) 60.1 % (39.3-74.2) Lymph % (Auto) 26.2 % (15.0-45.0) [place] % (Auto) 11.4 % (4.5-13.0) Eos % (Auto) 1.6 % (0.6-7.6) Baso % (Auto) 0.2 L % (0.3-1.7) Nucleat RBC Rel Count 0.0 % (0.0-0.2) Absolute Neuts (auto) 2.59 10^3/uL (1.70-6.50) Absolute Lymphs (auto) 1.13 10^3/uL (1.00-3.00) Absolute Monos (auto) 0.49 10^3/uL (0.30-0.80) Absolute Eos (auto) 0.07 10^3/uL (0.03-0.40) Absolute Basos (auto) 0.01 L 10^3/uL (0.02-0.10) Absolute Nucleated RBC 0.00 10^3/uL (0-0.01) Immature Gran % 0.5 % (0.0-1.1) Immature Gran # 0.02 10^3/uL (0.00-0.10) PT 27.4 H SEC (12.0-15.0) INR 2.52 H (0.83-1.16) APTT 37.5 SEC (23.0-38.0) Sodium 144 mEq/L (134-144) Potassium 3.8 mEq/L (3.5-5.2) Chloride 103 mEq/L (97-110) Carbon Dioxide 28 mEq/l (22-31) Anion Gap 13 mEq/L (8-16) BUN 10 mg/dL (7-23) Creatinine 0.5 L mg/dL (0.6-1.0) Estimated GFR > 60 Glucose 86 mg/dL (70-100) Calcium 8.8 mg/dL (8.5-10.4) Magnesium 2.1 mg/dL (1.6-2.3) Total Bilirubin 0.9 mg/dL (0.1-1.4) Conjugated Bilirubin 0.1 mg/dL (0.0-0.5) Unconjugated Bilirubin 0.8 mg/dL (0.0-1.1) AST 47 H IU/L (14-46) ALT 43 IU/L (9-52) Alkaline Phosphatase 74 IU/L (38-126) Troponin I < 0.012 ng/mL (0-0.034) Total Protein 7.2 g/dL (6.3-8.2) Albumin 3.9 g/dL (3.5-5.0) Lipase 102.0 IU/L (23-300) Urine Color YELLOW Urine Appearance MODERATELY TURBID Urine pH 8.0 H (5.0-7.5) Ur Specific [place] 1.006 (1.002-1.030) Urine Protein NEGATIVE (NEGATIVE) Urine Ketones NEGATIVE (NEGATIVE) Urine Blood NEGATIVE (NEGATIVE) Urine Nitrate NEGATIVE (NEGATIVE) Urine Bilirubin NEGATIVE (NEGATIVE) Urine Urobilinogen NEGATIVE EU (0.2-1.0) Ur Leukocyte Esterase NEGATIVE (NEGATIVE) Ur Culture Indicated? NOT INDICATED (NI) Urine Glucose NEGATIVE (NEGATIVE) Medications Given: Discontinued Medications Acetaminophen (Tylenol) 650 mg PO EDNOW ONE Stop: 11/05/16 07:26 Last Admin: 11/05/16 07:40 Dose: 325 mg Ondansetron HCl (Zofran) 4 mg IVP EDNOW ONE Stop: 11/05/16 06:46 Last Admin: 11/05/16 07:41 Dose: 4 mg Departure - Departure Disposition: Home, Routine, Self-Care Clinical Impression: Lightheadedness, Nausea Condition: Good Instructions: Acute Headache (ED) Additional Instructions: Tylenol as needed for headache. Your blood pressure is high in you may require further adjustment of medication of better control your blood pressure. Activity as tolerated today. Return for worsening symptoms including worsening headache, vomiting, chest discomfort Referrals: Halle Parra MD [Primary Care Provider] - 2-3 days, call for appt.
[2016-11-05 06:57] LABS: ALANINE AMINOTRANSFERASE 43 IU/L (9-52); ALBUMIN 3.9 g/dL (3.5-5.0); ALKALINE PHOSPHATASE 74 IU/L (38-126); ANION GAP 13 mEq/L (8-16); ASPARTATE AMINOTRANSFERASE 47 IU/L (14-46); BILIRUBIN,TOTAL 0.9 mg/dL (0.1-1.4); BILIRUBIN-CONJUGATED 0.1 mg/dL (0.0-0.5); BILIRUBIN-UNCONJUGATED 0.8 mg/dL (0.0-1.1); CALCIUM 8.8 mg/dL (8.5-10.4); CARBON DIOXIDE 28 mEq/l (22-31); CHLORIDE 103 mEq/L (97-110); CREATININE 0.5 mg/dL (0.6-1.0); GLOMERULAR FILTRATION RATE > 60; GLUCOSE 86 mg/dL (70-100); MAGNESIUM 2.1 mg/dL (1.6-2.3); POTASSIUM 3.8 mEq/L (3.5-5.2); SODIUM 144 mEq/L (134-144); TOTAL PROTEIN 7.2 g/dL (6.3-8.2)
[2016-11-05 06:58] LABS: INR 2.52 (0.83-1.16); PROTIME(PATIENT) 27.4 SEC (12.0-15.0)
[2016-11-05 06:59] LABS: APTT 37.5 SEC (23.0-38.0)
--- NOTE | 2016-11-05 06:59 | CPEKG ---
Heart Rate: 70 RR Interval: 857 QRSD Interval: 144 QT Interval: 452 QTC Interval: 488 QRS Topaz: -77 T Wave Topaz: 103 EKG Severity - ABNORMAL ECG - EKG Impression: AFIB/FLUTTER AND VENTRICULAR-PACED RHYTHM Electronically Signed By: Neri Marks 05-Nov-2016 09:12:38
[2016-11-05 07:08] LABS: TROPONIN I < 0.012 ng/mL (0-0.034)
[2016-11-05] MEDS ORDERED: ACETAMINOPHEN 325 MG TAB PO ONE (07:25)
[2016-11-05 07:37] LABS: COLOR YELLOW; LEUKOCYTE ESTERASE,URINE NEGATIVE (NEGATIVE); NITRITE,URINE NEGATIVE (NEGATIVE)
[2016-11-05 08:28] VITALS: BP 149/91; PULSE 73; RESP 18; TEMP 98.1; O2SAT 93
--- NOTE | 2016-11-05 08:38 | DX ---
Portable Chest November 05, 2016 0651 hours Clinical Indications: Acute mental status change. Comparison: September 07, 2016, August 27, 2016. Findings: Frontal view (only) shows clear lungs. Heart size is enlarged. A dual-lead pacer is again present. No evidence of pleural effusion. Multiple pulmonary nodules are again present. It appears sl ightly more prominent compared to August 27, 2016 and September 07, 2016. Impression: 1. Multiple pulmonary metastases. There may be slight progression compared to the prior two chest x-r ays. 2. No focal infiltrate or acute cardiopulmonary process. 3. Cardiomegaly, unchanged. e:sfg
--- NOTE | 2016-11-05 09:18 | CT ---
CT Brain (Without Contrast) 0648 hours History: Headache, Prior right MCA infarct. Comparison: October 15, 2016. Technique: Axial computed tomographic images of the brain without contrast. Dose reduction techniques were utilized. Findings: Old infarct in the right posterior frontal lobe region is again noted without associated h emorrhage. Minimal diffuse cortical calcification in the right frontal, temporal and parietal lobes from prior infarct without associated hemorrhage. Asymmetric prominence of the right frontal extraaxi al space representing asymmetric atrophy. No subdural or epidural hematoma. Ventricles, cisterns, and sulci are widened consistent with atrophy. No hydrocephalus, midline shift/ herniation, or epidural/subdural hematomas. No acute intraparenchymal hemorrhage or mass effect. Cere brovascular atherosclerosis. Hypodensities in the white matter of bilateral cerebral hemispheres. Sandeep ne windows demonstrate no displaced fractures. Paranasal sinuses and mastoid air cells are clear. Impression: 1. Prior right MCA infarct without acute hemorrhage or mass effect. 2. No acute hemorrhage, hydrocephalus, or mass effect. 3. Cerebrovascular atherosclerosis. 4. No definite acute infarct. 5. Severe microvascular ischemic gliosis. 6. Moderate diffuse atrophy. Findings and recommendations discussed with Emergency Department physician, Dr. Corey, at 0710 hour s today. Final report concurs with initial preliminary interpretation. Cosign Dr. Riley Stanley
== END 2016-11-05 08:50 | disposition home or self-care (01) ==
LOC: EDBD → EDUNIT#
DX: R42 Dizziness and giddiness (principal); R11.0 Nausea; I10 Essential (primary) hypertension; Z79.01 Long term (current) use of anticoagulants; Z79.82 Long term (current) use of aspirin; Z85.850 Personal history of malignant neoplasm of thyroid; Z87.891 Personal history of nicotine dependence; Z95.0 Presence of cardiac pacemaker
CPT/HCPCS: 70450; 71010; 93005; 96361; 96374; 99285; J2405

== ENCOUNTER 2016-12-02 07:27 | Emergency (ER) | payer OTHER, MEDICARE ==
[2016-12-02 07:36] VITALS: RESP 16; TEMP 97.7
[2016-12-02 08:03] VITALS: O2SAT 94
--- NOTE | 2016-12-02 08:04 | EDPHY ---
[id number] PRESENT ILLNESS: This patient is an 81 year old woman, with a history of right-sided MCA CVA, permanent atrial fibrillation, and hypertension , presenting after hypertensive episode. The patient woke up at 5:30am (three hours ago) with the sensation of flushing and warmth in her head, which is consistent with hypertensive episodes. She took her blood pressure and found it to be over 200 systolic. She called the on-call provider for Dr. Arellano, who advised she take 5mg Lisinopril and 12.5mg Metoprolol and to present to the emergency department if blood pressure remained above 150 systolic. Her blood pressure is 145/88 at the time of taking this history. She notes her blood pressure has been elevated the last several days. She takes lisinopril and Metoprolol daily. Symptoms are associated with four days of sinus pressure and congestion. She has been using Afrin, Tylenol, and a estefany pot for symptom relief. Clear rhinorrhea. Denies fever. REVIEW OF SYSTEMS: Constitutional: Hypertensive episode. No fever, no chills Eyes: No visual changes, pupils unequal chronically ENT: Congestion and sinus pressure. No sore throat Respiratory: No cough, no shortness of breath Cardiac: No chest pain Gastrointestinal: No nausea, no vomiting, no abdominal pain Genitourinary: No hematuria, no dysuria Musculoskeletal: No leg pain or swelling Skin: No rash Neurological: No numbness, left-sided residual weakness from CVA Psychiatric: No depression Past Medical/Surgical History: Right-sided MCA CVA, permanent atrial fibrillation, hypertension, hypothyroidism , h/o DVT, GI bleed secondary to duodenal AVM s/p cautery, breast cancer, thyroid cancer with metastatic nodules s/p radiation therapy Social History: Former smoker, , PCP is Dr. Arellano Smoking Status: Former smoker Physical Exam: General Appearance: Alert, no distress Eyes: Pupils unequal which is not a new finding, no conjunctival pallor or injection ENT, Mouth: Mucous membranes moist Neck: Normal inspection Respiratory: Lungs are clear to auscultation Cardiovascular: Regular rate and rhythm Gastrointestinal: Abdomen is soft and non- tender Neurological: A&O, chronic deficit secondary to CVA: mild left upper extremity weakness compared to right, small facial droop Skin: Warm and dry, no rash Extremities: Nontender, no pedal edema Psychiatric: Mood and affect normal Constitutional: Initial Vital Signs Temperature (C) 36.5 C 12/02/16 07:34 Heart Rate 73 12/02/16 07:34 Respiratory Rate 16 12/02/16 07:34 Blood Pressure 160/90 H 12/02/16 07:34 O2 Sat (%) 96 12/02/16 07:34 O2 Delivery Mode Room Air Allergies/Adverse Reactions: amlodipine [Amlodipine] Allergy (Intermediate, Verified 11/05/16 06:41) Other-Enter Comments epinephrine [Epinephrine] Allergy (Intermediate, Verified 11/05/16 06:41) HEART RACES piperacillin sodium [From Zosyn] Allergy (Intermediate, Verified 11/05/16 06:41) Hives tazobactam sodium [From Zosyn] Allergy (Intermediate, Verified 11/05/16 06:41) Hives clarithromycin [From Biaxin] Allergy (Mild, Verified 11/05/16 06:41) moxifloxacin HCl [From Avelox] Allergy (Mild, Verified 11/05/16 06:41) niacin [From Niaspan] Allergy (Mild, Verified 11/05/16 06:41) Rash omeprazole Allergy (Verified 11/05/16 06:41) vancomycin Allergy (Verified 11/05/16 06:41) ENVIRONMENTAL Allergy (Intermediate, Uncoded 11/05/16 06:41) EYES BURN AND SWELL/NASAL CONGESTION OPIOID ANTAGONIST Allergy (Intermediate, Uncoded 11/05/16 06:41) HALLUNCINATES ADHESIVES Allergy (Mild, Uncoded 11/05/16 06:41) Rash Home Medications: Medication Instructions Recorded Cyanocobalamin (Vitamin B-12) 1,000 mcg INJ Q30D 12/10/14 [Vitamin B-12] Herbals/Supplements -Info Only 1 ea PO DAILY 05/10/16 Cholecalciferol Vit D3 [Vitamin D3 4,000 units PO DAILY 10/14/16 2000 units tab (OTC)] Aspirin [Aspirin 325 mg (*)] 325 mg PO DAILY #0 tab 10/18/16 Acetaminophen [Tylenol 325mg (*)] 650 mg PO Q4HRS PRN #0 tab 11/08/16 Budesonide/Formoterol 160/4.5 2 puffs IH BID #1 mdi 11/08/16 [Symbicort 160-4.5 Mcg Inh (*)] Fluticasone Nasal [Flonase Nasal 1 sprays NASAL DAILY PRN #1 mdi 11/08/16 [place]] LORazepam [Ativan (*)] 0.25 - 0.5 mg PO Q6H PRN #14 tab 11/08/16 Levothyroxine [Synthroid 112 mcg 112 mcg PO DAILY06 #30 tab 11/08/16 (*)] Lisinopril [Zestril 2.5 mg (*)] 2.5 mg PO DAILY #30 tab 11/08/16 Metoprolol Tartrate [Lopressor 25 12.5 mg PO BID #30 tab 11/08/16 mg (*)] Ondansetron Odt [Zofran Odt 4 mg 4 mg PO Q4HRS PRN #14 tab 11/08/16 (*)] Ropinirole HCl 0.5 mg PO HS #30 tablet 11/08/16 Tafluprost/Pf [Zioptan 0.0015% Eye 1 drop EACHEYE HS #60 droperette 11/08/16 Drops] Timolol 0.5% [TIMOPTIC 0.5% (*)] 1 drops EACHEYE DAILY #1 opht.btl 11/08/16 Warfarin Sodium [Coumadin 5MG (*)] 5 mg PO DAILY AT 9PM #30 tab 11/08/16 Medical Decision Making ED Course/Re-evaluation: The patient's blood pressure is 145/88 in the emergency department. There are no acute neurologic findings on exam. I discussed that Afrin can elevate her blood pressure. She feels safe to return home. Patient will follow up with Dr. Adan muir this week about recent sinus pressure and difficulty controlling blood pressure. Differential Diagnosis: Differential diagnosis includes though is not limited to hypertensive urgency, intracranial hemorrhage, acute coronary syndrome, acute renal failure. - Data Points Laboratory Results: Laboratory Results 12/02/16 08:00 12/02/16 08:00 Departure - Departure Disposition: Home, Routine, Self-Care Clinical Impression: Hypertension Qualifiers: Hypertension type: essential hypertension Qualifier Code: (I10) Essential ( primary) hypertension Condition: Good Instructions: Hypertension (ED) Additional Instructions: Your INR today was 2.1. Follow up with Dr. Adan muir this week. Call her office tomorrow to set an appointment. Return to the Emergency Department for fever, chest pain, shortness of breath, severe headache, or other worsening of condition. Referrals: Stacy Arellano MD [Primary Care Provider] - As per Instructions Report Scribed for: [place] Garcia Report Scribed by: Brianna Barron Date of Report: 12/02/16 Time of Report: 08:01 Physician Review and Approval Statement: 12/02/16 08:01 Portions of this note were transcribed by a health care / medical job titles. I personally performed a history, physical exam, medical decision making, and confirmed accuracy of information the transcribed note.
[2016-12-02 08:14] LABS: % IMMATURE GRANULYOCYTES 0.8 % (0.0-1.1); ABSOLUTE IMMATURE GRANULOCYTES 0.04 10^3/uL (0.00-0.10); ADD DIFF? NO; ADD MORPH? NO; ADD SCAN? NO; ATYPICAL LYMPHOCYTE FLAG 0 (0-99); FRAGMENT RBC FLAG 0 (0-99); HEMATOCRIT 44.5 % (38.0-47.0); LEFT SHIFT FLG 0 (0-99); LIPEMIA HEMOLYSIS FLAG 80 (0-99); MEAN CELL HEMOGLOBIN 31.5 pg (27.9-34.1); MEAN CELL HEMOGLOBIN CONCENTR. 33.7 g/dL (32.4-36.7); MEAN CELL VOLUME 93.5 fL (81.5-99.8); MEAN PLATELET VOLUME 9.4 fL (8.7-11.7); PLATELET CLUMPS FLAG 0 (0-99); PLATELET COUNT 222 10^3/uL (150-400); RED BLOOD CELL COUNT 4.76 10^6/uL (4.18-5.33); RED CELL DISTRIBUTION WIDTH 14.6 % (11.5-15.2)
[2016-12-02 08:19] LABS: APTT 33.1 SEC (23.0-38.0); INR 2.08 (0.83-1.16); PROTIME(PATIENT) 23.5 SEC (12.0-15.0)
[2016-12-02 08:36] LABS: ANION GAP 14 mEq/L (8-16); CALCIUM 8.9 mg/dL (8.5-10.4); CARBON DIOXIDE 27 mEq/l (22-31); CHLORIDE 106 mEq/L (97-110); CREATININE 0.5 mg/dL (0.6-1.0); GLOMERULAR FILTRATION RATE > 60; GLUCOSE 76 mg/dL (70-100); POTASSIUM 3.9 mEq/L (3.5-5.2); SODIUM 147 mEq/L (134-144)
[2016-12-02 09:30] VITALS: BP 129/83; PULSE 78
== END 2016-12-02 09:28 | disposition home or self-care (01) ==
DX: I10 Essential (primary) hypertension (principal); Z79.01 Long term (current) use of anticoagulants; Z79.82 Long term (current) use of aspirin; Z85.3 Personal history of malignant neoplasm of breast; Z85.850 Personal history of malignant neoplasm of thyroid; Z86.73 Personal history of transient ischemic attack (TIA), and cerebral infarction without residual deficits; Z87.891 Personal history of nicotine dependence

== ENCOUNTER 2016-12-22 03:56 | Emergency (ER) | payer OTHER, MEDICARE ==
[2016-12-22 04:12] VITALS: RESP 16; O2SAT 96
[2016-12-22] MEDS ORDERED: NS 1,000 ML IV ONE (04:23)
[2016-12-22] MEDS ORDERED: ONDANSETRON 4 MG/2 ML VIAL IVP ONE ×2 (04:23→05:50)
[2016-12-22 04:35] LABS: % IMMATURE GRANULYOCYTES 0.3 % (0.0-1.1); ABSOLUTE IMMATURE GRANULOCYTES 0.02 10^3/uL (0.00-0.10); ADD DIFF? NO; ADD MORPH? NO; ADD SCAN? NO; ATYPICAL LYMPHOCYTE FLAG 10 (0-99); FRAGMENT RBC FLAG 0 (0-99); HEMATOCRIT 42.2 % (38.0-47.0); HEMOGLOBIN 14.4 g/dL (12.6-16.3); LEFT SHIFT FLG 0 (0-99); LIPEMIA HEMOLYSIS FLAG 90 (0-99); MEAN CELL HEMOGLOBIN CONCENTR. 34.1 g/dL (32.4-36.7); MEAN CELL VOLUME 93.8 fL (81.5-99.8); MEAN PLATELET VOLUME 9.7 fL (8.7-11.7); PLATELET CLUMPS FLAG 10 (0-99); PLATELET COUNT 225 10^3/uL (150-400); RED CELL DISTRIBUTION WIDTH 13.3 % (11.5-15.2)
[2016-12-22 04:44] LABS: INR 2.32 (0.83-1.16); PROTIME(PATIENT) 25.7 SEC (12.0-15.0)
[2016-12-22 04:45] LABS: APTT 33.7 SEC (23.0-38.0)
--- NOTE | 2016-12-22 04:49 | EDPHY ---
H & P Stated Complaint: HTN, burning in chest, nausea Time Seen by Provider: 12/22/16 04:11 HPI/ROS: Chief complaint: Headache, burning in chest, hypertension HPI: 81-year-old female with past medical history of a CVA September, began having a headache after dinner yesterday evening.. Is in the occipital region, worse to 4/10. This Invanz associated with some nausea. Shortly after this the patient developed a burning sensation in her central chest going up toward her throat. It to was a 4/10. She did take some Tylenol and Zofran and some Tums without any relief. He has not had any shortness of breath. Checked her blood pressure at home it was 177/103. She took her lisinopril 5 mg and metoprolol to 50 mg at 9 o'clock per usual. Call spoke with the on-call doctor who told her to take additional 12.5 mg of metoprolol. She denies recent illness. No fevers or chills. No abdominal pain. Does have a history of atrial fibrillation and is on warfarin. Had her INR checked yesterday was 2.3. ROS: 10 point Review of Systems is negative except as noted in the HPI. Past medical history: Atrial fibrillation Hypothyroidism Hypertension Thyroid cancer with pulmonary metastasis Medications: Seen a fan Aspirin 325 Timolol Famotidine Fluticasone nasal spray Lasix Lisinopril Lorazepam p.r.n. Metoprolol Pre Inderal Levothyroxine Warfarin Dancer Vitamin D3 Ropinirole Zioptan Allergies: Vancomycin Niacin Clarithromycin Zosyn Physical exam: Gen: Awake, Alert, No Distress HEENT: Nose: no rhinorrhea Eyes: PERRLA, EOMI Mouth: Moist mucosa Neck: Supple, no JVD Chest: nontender, lungs clear to auscultation Heart: S1, S2 normal, no murmur Abd: Soft, non-tender, no guarding Back: no CVA tenderness, no midline tenderness Ext: no edema, non-tender Skin: no rash Neuro: CN II-XII intact, Sensation grossly intact, Strength 5/5 in bilateral upper and lower extremities - Personal History Current Tetanus/Diphtheria Vaccine: Yes Current Tetanus Diphtheria and Acellular Pertussis (TDAP): Yes Tetanus Vaccine Date: 2006 - Medical/Surgical History Hx Asthma: No Hx Chronic Respiratory Disease: Yes Hx Diabetes: No Hx Cardiac Disease: Yes Hx Renal Disease: No Hx Cirrhosis: No Hx Alcoholism: No Hx HIV/AIDS: No Hx Splenectomy or Spleen Trauma: No Other PMH: Afib, Ca:Right breastwith lumpectomy and radiation: 2009, thyroid CA with thyroidectomy 2004, cataracts, macular degeneraion, lung nodules with steriotactic radiotherapy. bowel obstruction, vitrectomy Right.eye, hysterectomy, ortho, pacemaker 08/19/2014, CVA 09/2016. surgery, thyroidectomy , abd surgery. - Social History Smoking Status: Former smoker Constitutional: Initial Vital Signs Temperature (C) 36.6 C 12/22/16 04:04 Heart Rate 73 12/22/16 04:04 Respiratory Rate 16 12/22/16 04:04 Blood Pressure 177/102 H 12/22/16 04:04 O2 Sat (%) 96 12/22/16 04:04 O2 Delivery Mode Room Air Allergies/Adverse Reactions: amlodipine [Amlodipine] Allergy (Intermediate, Verified 12/22/16 04:14) Other-Enter Comments epinephrine [Epinephrine] Allergy (Intermediate, Verified 12/22/16 04:14) HEART RACES piperacillin sodium [From Zosyn] Allergy (Intermediate, Verified 12/22/16 04:14) Hives tazobactam sodium [From Zosyn] Allergy (Intermediate, Verified 12/22/16 04:14) Hives clarithromycin [From Biaxin] Allergy (Mild, Verified 12/22/16 04:14) moxifloxacin HCl [From Avelox] Allergy (Mild, Verified 12/22/16 04:14) niacin [From Niaspan] Allergy (Mild, Verified 12/22/16 04:14) Rash omeprazole Allergy (Verified 12/22/16 04:14) vancomycin Allergy (Verified 12/22/16 04:14) ENVIRONMENTAL Allergy (Intermediate, Uncoded 12/22/16 04:14) EYES BURN AND SWELL/NASAL CONGESTION OPIOID ANTAGONIST Allergy (Intermediate, Uncoded 12/22/16 04:14) HALLUNCINATES ADHESIVES Allergy (Mild, Uncoded 12/22/16 04:14) Rash Home Medications: Medication Instructions Recorded Cyanocobalamin (Vitamin B-12) 1,000 mcg INJ Q30D 12/10/14 [Vitamin B-12] Herbals/Supplements -Info Only 1 ea PO DAILY 05/10/16 Cholecalciferol Vit D3 [Vitamin D3 4,000 units PO DAILY 10/14/16 2000 units tab (OTC)] Aspirin [Aspirin 325 mg (*)] 325 mg PO DAILY #0 tab 10/18/16 Acetaminophen [Tylenol 325mg (*)] 650 mg PO Q4HRS PRN #0 tab 11/08/16 Budesonide/Formoterol 160/4.5 2 puffs IH BID #1 mdi 11/08/16 [Symbicort 160-4.5 Mcg Inh (*)] Fluticasone Nasal [Flonase Nasal 1 sprays NASAL DAILY PRN #1 mdi 11/08/16 [place]] LORazepam [Ativan (*)] 0.25 - 0.5 mg PO Q6H PRN #14 tab 11/08/16 Levothyroxine [Synthroid 112 mcg 112 mcg PO DAILY06 #30 tab 11/08/16 (*)] Lisinopril [Zestril 2.5 mg (*)] 2.5 mg PO DAILY #30 tab 11/08/16 Metoprolol Tartrate [Lopressor 25 12.5 mg PO BID #30 tab 11/08/16 mg (*)] Ondansetron Odt [Zofran Odt 4 mg 4 mg PO Q4HRS PRN #14 tab 11/08/16 (*)] Ropinirole HCl 0.5 mg PO HS #30 tablet 11/08/16 Tafluprost/Pf [Zioptan 0.0015% Eye 1 drop EACHEYE HS #60 droperette 11/08/16 Drops] Timolol 0.5% [TIMOPTIC 0.5% (*)] 1 drops EACHEYE DAILY #1 opht.btl 11/08/16 Warfarin Sodium [Coumadin 5MG (*)] 5 mg PO DAILY AT 9PM #30 tab 11/08/16 Medical Decision Making - Diagnostics EKG Interpretation: EC. Atrial ventricular paced rhythm. Imaging: CT head, interpreted by Dr. Lundberg. Progression of encephalomalacia, no bleed Chest x-ray: No acute process. ED Course/Re-evaluation: CT scan of the brain is negative here chest x-ray is negative. Blood work is entirely normal including an undetectable troponin. Patient is feeling much better after medications here. Headache is gone. After Maalox and Pepcid her epigastric burning is gone. Given that her symptoms began shortly after dinner last night she is well up to approaching 12 hours now after onset of symptoms with a normal troponin I think that this adequately rules out an acute coronary syndrome. Blood pressures improved. Plan will be to discharge to home with follow-up with primary care doctor. She continue with [id number] antacid medications. Continue to monitor blood pressure and return for any concerns. - Data Points Laboratory Results: Laboratory Results 12/22/16 04:25 12/22/16 04:25 12/22/16 12/22/16 12/22/16 04:25 04:25 04:25 WBC 5.82 10^3/uL 10^3/uL (3.80-9.50) RBC 4.50 10^6/uL 10^6/uL (4.18-5.33) Hgb 14.4 g/dL g/dL (12.6-16.3) Hct 42.2 % % (38.0-47.0) MCV 93.8 fL fL (81.5-99.8) MCH 32.0 pg pg (27.9-34.1) MCHC 34.1 g/dL g/dL (32.4-36.7) RDW 13.3 % % (11.5-15.2) Plt Count 225 10^3/uL 10^3/uL (150-400) MPV 9.7 fL fL (8.7-11.7) Neut % (Auto) 66.2 % % (39.3-74.2) Lymph % (Auto) 19.6 % % (15.0-45.0) [place] % (Auto) 11.9 % % (4.5-13.0) Eos % (Auto) 1.7 % % (0.6-7.6) Baso % (Auto) 0.3 % % (0.3-1.7) Nucleat RBC Rel Count 0.0 % % (0.0-0.2) Absolute Neuts (auto) 3.85 10^3/uL 10^3/uL (1.70-6.50) Absolute Lymphs (auto) 1.14 10^3/uL 10^3/uL (1.00-3.00) Absolute Monos (auto) 0.69 10^3/uL 10^3/uL (0.30-0.80) Absolute Eos (auto) 0.10 10^3/uL 10^3/uL (0.03-0.40) Absolute Basos (auto) 0.02 10^3/uL 10^3/uL (0.02-0.10) Absolute Nucleated RBC 0.00 10^3/uL 10^3/uL (0-0.01) Immature Gran % 0.3 % % (0.0-1.1) Immature Gran # 0.02 10^3/uL 10^3/uL (0.00-0.10) PT 25.7 SEC H SEC (12.0-15.0) INR 2.32 H (0.83-1.16) APTT 33.7 SEC SEC (23.0-38.0) Sodium 142 mEq/L mEq/L (134-144) Potassium 3.6 mEq/L mEq/L (3.5-5.2) Chloride 103 mEq/L mEq/L (97-110) Carbon Dioxide 28 mEq/l mEq/l (22-31) Anion Gap 11 mEq/L mEq/L (8-16) BUN 14 mg/dL mg/dL (7-23) Creatinine 0.6 mg/dL mg/dL (0.6-1.0) Estimated GFR > 60 Glucose 91 mg/dL mg/dL (70-100) Calcium 9.5 mg/dL mg/dL (8.5-10.4) Troponin I < 0.012 ng/mL ng/mL (0-0.034) Medications Given: Discontinued Medications Al Hydroxide/Mg Hydroxide (Maalox Susp) 30 ml PO EDNOW ONE Stop: 12/22/16 05:50 Last Admin: 12/22/16 05:56 Dose: 30 ml Famotidine (Pepcid) 20 mg IVP EDNOW ONE Stop: 12/22/16 05:50 Last Admin: 12/22/16 05:55 Dose: 20 mg Sodium Chloride (Ns) 1,000 mls @ 0 mls/hr IV ONCE ONE PRN Reason: Wide Open Stop: 12/22/16 04:24 Last Admin: 12/22/16 04:40 Dose: 1,000 mls Morphine Sulfate (Morphine) 4 mg IVP ONCE ONE Stop: 12/22/16 04:24 Last Admin: 12/22/16 04:40 Dose: 1 mg Ondansetron HCl (Zofran) 4 mg IVP EDNOW ONE Stop: 12/22/16 04:24 Last Admin: 12/22/16 04:41 Dose: 4 mg Ondansetron HCl (Zofran) 4 mg IVP EDNOW ONE Stop: 12/22/16 05:51 Last Admin: 12/22/16 05:50 Dose: 4 mg Departure - Departure Disposition: Home, Routine, Self-Care Clinical Impression: GERD (gastroesophageal reflux disease), Hypertension Condition: Good Instructions: Gastroesophageal Reflux Disease (ED), Hypertension (ED) Additional Instructions: Follow up with her primary care doctor on Saturday for further evaluation. Return for worsening chest pain, headache, nausea, vomiting, or any other concerns. Referrals: Stacy Arellano MD [Primary Care Provider] - As per Instructions
[2016-12-22] MEDS ORDERED: ONDANSETRON 4 MG/2 ML VIAL ONE (05:37)
[2016-12-22] MEDS ORDERED: MAALOX/LIDO/HYOSC GI COCKTAIL 55 ML BOTTLE ONE (05:37)
[2016-12-22] MEDS ORDERED: FAMOTIDINE 20 MG/2 ML SDV ONE (05:45)
[2016-12-22] MEDS ORDERED: MAG HYDROX/AL HYDROX/SIMETH 30 ML UDCUP ONE (05:45)
[2016-12-22 05:48] LABS: ANION GAP 11 mEq/L (8-16); CALCIUM 9.5 mg/dL (8.5-10.4); CARBON DIOXIDE 28 mEq/l (22-31); CHLORIDE 103 mEq/L (97-110); CREATININE 0.6 mg/dL (0.6-1.0); GLOMERULAR FILTRATION RATE > 60; GLUCOSE 91 mg/dL (70-100); POTASSIUM 3.6 mEq/L (3.5-5.2); SODIUM 142 mEq/L (134-144)
[2016-12-22] MEDS ORDERED: MAG HYDROX/AL HYDROX/SIMETH 30 ML UDCUP PO ONE (05:49)
[2016-12-22] MEDS ORDERED: FAMOTIDINE 20 MG/2 ML SDV IVP ONE (05:49)
[2016-12-22 06:00] LABS: TROPONIN I < 0.012 ng/mL (0-0.034)
[2016-12-22 06:54] VITALS: BP 158/83; PULSE 71; TEMP 97.7
--- NOTE | 2016-12-22 08:15 | CPEKG ---
Heart Rate: 70 RR Interval: 857 P-R Interval: 183 QRSD Interval: 142 QT Interval: 440 QTC Interval: 475 P Fletcher: 0 QRS Fletcher: -72 T Wave Fletcher: 102 EKG Severity - ABNORMAL ECG - EKG Impression: ATRIAL-VENTRICULAR DUAL-PACED RHYTHM Electronically Signed By: Sachin Hudson 24-Dec-2016 02:23:29
== END 2016-12-22 06:54 | disposition home or self-care (01) ==
DX: I10 Essential (primary) hypertension (principal); K21.9 Gastro-esophageal reflux disease without esophagitis; Z85.118 Personal history of other malignant neoplasm of bronchus and lung; Z79.82 Long term (current) use of aspirin; Z79.01 Long term (current) use of anticoagulants; Z85.850 Personal history of malignant neoplasm of thyroid; Z87.891 Personal history of nicotine dependence
CPT/HCPCS: 70450; 71020; 93005; 96361; 96374; 96375; 96376; 99285; J2405

== ENCOUNTER → 2017-03-06 | Outpatient (CLI) | payer OTHER, MEDICARE | LOC: BMCIMAGING 12:17 | PROVIDERS: ATTEND Internal Medicine | DX: R06.2 Wheezing (principal); R91.1 Solitary pulmonary nodule ==

== ENCOUNTER 2017-04-15 18:46 | Inpatient (IN) | payer OTHER, MEDICARE ==
[2017-04-15] MEDS ORDERED: NS 1,000 ML IV ONE ×2 (19:17→23:08)
[2017-04-15] MEDS ORDERED: ONDANSETRON 4 MG/2 ML VIAL IVP ONE ×2 (19:17→20:47)
--- NOTE | 2017-04-15 19:38 | EDPHY ---
H & P Stated Complaint: abdominal cramping since after lunch today-denies N/V/D/fevers /urinary s/ Time Seen by Provider: 04/15/17 19:04 HPI/ROS: CHIEF COMPLAINT: Abdominal cramping HISTORY OF PRESENT ILLNESS: 82-year-old female presents to the emergency department reporting that she developed abdominal crampy discomfort after lunch today. She has had nausea but no vomiting. No diarrhea. Patient is concerned that she may have eaten some egg rolls which were spoiled. She does not have any abdominal distension. She denies any fevers. Patient denies any urinary complaints. She does have remote history of a small-bowel obstruction. No history of melena. No blood noted in the stool. No history of GI hemorrhage. No history of diverticulitis or diverticulosis. REVIEW OF SYSTEMS: Aside from elements discussed in the HPI, a comprehensive 10-point review of systems was reviewed and is negative. PAST MEDICAL HISTORY: History of thyroid cancer with pulmonary nodules, currently undergoing no active treatment. AV ablation secondary to atrial fibrillation and now with with pacemaker. History of DVTs. History of stroke. SOCIAL HISTORY: . VITAL SIGNS Reviewed by me. GENERAL: Pleasant, elderly female, seems mildly uncomfortable secondary to crampy abdominal pain. HEENT: Atraumatic. Eyes: No icterus, no injection. Mouth: moist mucous membranes. No erythema or lesions. Neck: supple with no adenopathy. LUNGS: Clear to auscultation bilaterally, no wheezes, rhonchi or rales. CARDIAC: Regular rate and rhythm, no rubs, murmurs or gallops. ABDOMEN: Soft, mildly tender throughout, no guarding or rebound. Bowel sounds diminished. BACK: No CVA tenderness. EXTREMITIES: No trauma. No edema. Range of motion is normal throughout. NEURO: Alert and oriented, grossly nonfocal. SKIN: Warm and dry, no rash. PSYCHIATRIC: Normal mentation, no agitation. - Personal History Current Tetanus Diphtheria and Acellular Pertussis (TDAP): Yes Tetanus Vaccine Date: 2006 - Medical/Surgical History Hx Asthma: No Hx Chronic Respiratory Disease: Yes Hx Diabetes: No Hx Cardiac Disease: Yes Hx Renal Disease: No Hx Cirrhosis: No Hx Alcoholism: No Hx HIV/AIDS: No Hx Splenectomy or Spleen Trauma: No Other PMH: hypothyroidism/thyroid CA with mets, GERD with esophagitis, odynophagia, DVT hx, COPD mixed type, HTN, paroxysmal Afib, chronically anticoagulated, breast CA 2010, carpal tunnel, hysterectomy, viral pneumonia, bowel obstruction, ovarian cyst, cataract R eye, rotator cuff repair L. - Social History Smoking Status: Former smoker Constitutional: Initial Vital Signs Temperature (C) 36.6 C 04/15/17 19:11 Heart Rate 71 04/15/17 19:11 Respiratory Rate 18 04/15/17 19:11 Blood Pressure 173/106 H 04/15/17 19:11 O2 Sat (%) 96 04/15/17 19:11 O2 Delivery Mode Room Air O2 (L/minute) 2 Allergies/Adverse Reactions: amlodipine [Amlodipine] Allergy (Intermediate, Verified 04/15/17 19:14) Other-Enter Comments epinephrine [Epinephrine] Allergy (Intermediate, Verified 04/15/17 19:14) HEART RACES piperacillin sodium [From Zosyn] Allergy (Intermediate, Verified 04/15/17 19:14) Hives tazobactam sodium [From Zosyn] Allergy (Intermediate, Verified 04/15/17 19:14) Hives clarithromycin [From Biaxin] Allergy (Mild, Verified 04/15/17 19:14) moxifloxacin HCl [From Avelox] Allergy (Mild, Verified 04/15/17 19:14) niacin [From Niaspan] Allergy (Mild, Verified 04/15/17 19:14) Rash morphine Allergy (Verified 04/15/17 22:21) hallucinates omeprazole Allergy (Verified 04/15/17 19:14) vancomycin Allergy (Verified 04/15/17 19:14) ENVIRONMENTAL Allergy (Intermediate, Uncoded 04/15/17 19:14) EYES BURN AND SWELL/NASAL CONGESTION ADHESIVES Allergy (Mild, Uncoded 12/22/16 04:14) Rash Home Medications: Medication Instructions Recorded RX: Cyanocobalamin (Vitamin B-12) 1,000 mcg INJ Q30D 12/10/14 [Vitamin B-12] RX: Cholecalciferol Vit D3 4,000 units PO DAILY 10/14/16 [Vitamin D3 2000 units tab (OTC)] RX: Acetaminophen [Tylenol 325mg 650 mg PO Q4HRS PRN #0 tab 11/08/16 (*)] RX: Budesonide/Formoterol 160/4.5 2 puffs IH BID #1 mdi 11/08/16 [Symbicort 160-4.5 Mcg Inh (*)] RX: Fluticasone Nasal [Flonase 1 sprays NASAL DAILY PRN #1 mdi 11/08/16 Nasal [place]] RX: LORazepam [Ativan (*)] 0.25 - 0.5 mg PO Q6H PRN #14 tab 11/08/16 RX: Ondansetron Odt [Zofran Odt 4 4 mg PO Q4HRS PRN #14 tab 11/08/16 mg (*)] RX: Tafluprost/Pf [Zioptan 0.0015% 1 drop EACHEYE HS #60 droperette 11/08/16 Eye Drops] RX: Timolol 0.5% [TIMOPTIC 0.5% 1 drops EACHEYE DAILY #1 opht.btl 11/08/16 (*)] RX: Warfarin Sodium [Coumadin 5MG 5 mg PO DAILY AT 9PM #30 tab 11/08/16 (*)] RX: rOPINIRole HCL [Ropinirole HCl] 0.5 mg PO HS #30 tablet 11/08/16 Furosemide [Lasix 20 MG (*)] 04/15/17 Levothyroxine [Synthroid 100 mcg 100 mcg PO DAILY06 04/15/17 (*)] RX: Azelastine HCl 205.5 mcg NS 04/15/17 RX: Lisinopril 5 mg PO 04/15/17 RX: Metoprolol Succinate 04/15/17 RX: Ranitidine HCl 04/15/17 Tafluprost/Pf [Zioptan 0.0015% Eye 1 each OP 04/15/17 Drops] Medical Decision Making - Diagnostics Imaging Results: Imaging Impressions Abdomen X-Ray 04/15/17 19:18 Impression: 1. Dilated small bowel loops in the left midabdomen suggestive of early mechanical obstruction. 2. Pulmonary metastases. Abdomen CT 04/15/17 20:00 Impression: 1. Moderate mechanical small bowel obstruction, with a transition zone identified in the right lower quadrant/upper right hemipelvis. 2. Multiple pulmonary metastases. Results called to Dr. Sanford at 8:50 p.m. Xray: Two view x-ray of the abdomen was obtained. I viewed the images myself on the PACS system. My interpretation of the images is: Significant amount of constipation, scattered air-fluid levels in the left upper quadrant. The radiology interpretation is: [ ]. I discussed the results with the patient. Imaging: Discussed imaging studies w/ outbound call center representative Radiologist ED Course/Re-evaluation: IV was placed and patient received normal saline as well as Zofran for nausea. Two view x-ray was obtained and is concerning for significant constipation as well as the presence of scattered air-fluid levels, concerning for bowel obstruction. CT scan demonstrates a small bowel obstruction with the area of transition in the right lower quadrant. No mass is seen. Patient had ongoing nausea while in the emergency department. She received 2 doses of Zofran. She also complained of abdominal pain. She received fentanyl 12.5 mcg ( low dose was per her request) which provided relief. Patient's course was discussed with Dr. Brianna Pantoja, on-call for Dr. Kim. Patient will be admitted to the hospitalist service and Dr. Medel and Dr. Kim will follow. Patient's course was then discussed with Dr. Danilo Patel. She will be admitted to the hospitalist service. Patient developed vomiting in the emergency department. An NG-tube was placed. She received an additional dose of fentanyl prior to transfer. Differential Diagnosis: After obtaining the patient's history and performing an examination, differential diagnosis considered included but was not limited to constipation, bowel obstruction, intra-abdominal abscesses, diverticulitis, volvulus, gastritis, pancreatitis, kidney stones, urinary tract infections and other causes. Consult/Admit Bed Type: Dr. Danilo Patel, [facility] surg - Data Points Laboratory Results: Laboratory Results 04/15/17 19:50 04/15/17 19:50 04/15/17 04/15/17 04/15/17 20:15 19:50 19:50 WBC 9.86 10^3/uL H 10^3/uL (3.80-9.50) RBC 4.69 10^6/uL 10^6/uL (4.18-5.33) Hgb 15.4 g/dL g/dL (12.6-16.3) Hct 44.4 % % (38.0-47.0) MCV 94.7 fL fL (81.5-99.8) MCH 32.8 pg pg (27.9-34.1) MCHC 34.7 g/dL g/dL (32.4-36.7) RDW 12.3 % % (11.5-15.2) Plt Count 224 10^3/uL 10^3/uL (150-400) MPV 9.8 fL fL (8.7-11.7) Neut % (Auto) 76.7 % H % (39.3-74.2) Lymph % (Auto) 12.2 % L % (15.0-45.0) [place] % (Auto) 9.7 % % (4.5-13.0) Eos % (Auto) 0.7 % % (0.6-7.6) Baso % (Auto) 0.3 % % (0.3-1.7) Nucleat RBC Rel Count 0.0 % % (0.0-0.2) Absolute Neuts (auto) 7.56 10^3/uL H 10^3/uL (1.70-6.50) Absolute Lymphs (auto) 1.20 10^3/uL 10^3/uL (1.00-3.00) Absolute Monos (auto) 0.96 10^3/uL H 10^3/uL (0.30-0.80) Absolute Eos (auto) 0.07 10^3/uL 10^3/uL (0.03-0.40) Absolute Basos (auto) 0.03 10^3/uL 10^3/uL (0.02-0.10) Absolute Nucleated RBC 0.00 10^3/uL 10^3/uL (0-0.01) Immature Gran % 0.4 % % (0.0-1.1) Immature Gran # 0.04 10^3/uL 10^3/uL (0.00-0.10) PT INR Sodium 141 mEq/L mEq/L (134-144) Potassium 3.8 mEq/L mEq/L (3.5-5.2) Chloride 100 mEq/L mEq/L (97-110) Carbon Dioxide 24 mEq/l mEq/l (22-31) Anion Gap 17 mEq/L H mEq/L (8-16) BUN 16 mg/dL mg/dL (7-23) Creatinine 0.6 mg/dL mg/dL (0.6-1.0) Estimated GFR > 60 Glucose 104 mg/dL H mg/dL (70-100) Calcium 8.6 mg/dL mg/dL (8.5-10.4) Magnesium Total Bilirubin 1.6 mg/dL H mg/dL (0.1-1.4) Conjugated Bilirubin 0.3 mg/dL mg/dL (0.0-0.5) Unconjugated Bilirubin 1.3 mg/dL H mg/dL (0.0-1.1) AST 25 IU/L IU/L (14-46) ALT 31 IU/L IU/L (9-52) Alkaline Phosphatase 66 IU/L IU/L (38-126) Troponin I Total Protein 7.1 g/dL g/dL (6.3-8.2) Albumin 3.9 g/dL g/dL (3.5-5.0) Lipase 91.0 IU/L IU/L (23-300) Urine Color YELLOW Urine Appearance CLEAR Urine pH 7.0 (5.0-7.5) Ur Specific [place] 1.010 (1.002-1.030) Urine Protein NEGATIVE (NEGATIVE) Urine Ketones NEGATIVE (NEGATIVE) Urine Blood NEGATIVE (NEGATIVE) Urine Nitrate NEGATIVE (NEGATIVE) Urine Bilirubin NEGATIVE (NEGATIVE) Urine Urobilinogen 0.2 EU EU (0.2-1.0) Ur Leukocyte Esterase NEGATIVE (NEGATIVE) Urine RBC NONE SEEN /hpf /hpf (0-3) Urine WBC NONE SEEN /hpf /hpf (0-3) Ur Epithelial Cells TRACE /lpf /lpf (NONE-1+) Urine Glucose NEGATIVE (NEGATIVE) 04/15/17 04/15/17 04/15/17 19:42 19:42 19:42 WBC RBC Hgb Hct MCV MCH MCHC RDW Plt Count MPV Neut % (Auto) Lymph % (Auto) [place] % (Auto) Eos % (Auto) Baso % (Auto) Nucleat RBC Rel Count Absolute Neuts (auto) Absolute Lymphs (auto) Absolute Monos (auto) Absolute Eos (auto) Absolute Basos (auto) Absolute Nucleated RBC Immature Gran % Immature Gran # PT 21.2 SEC H SEC (12.0-15.0) INR 1.86 H (0.83-1.16) Sodium Potassium Chloride Carbon Dioxide Anion Gap BUN Creatinine Estimated GFR Glucose Calcium Magnesium 2.4 mg/dL H mg/dL (1.6-2.3) Total Bilirubin Conjugated Bilirubin Unconjugated Bilirubin AST ALT Alkaline Phosphatase Troponin I < 0.012 ng/mL ng/mL (0-0.034) Total Protein Albumin Lipase Urine Color Urine Appearance Urine pH Ur Specific [place] Urine Protein Urine Ketones Urine Blood Urine Nitrate Urine Bilirubin Urine Urobilinogen Ur Leukocyte Esterase Urine RBC Urine WBC Ur Epithelial Cells Urine Glucose Medications Given: Discontinued Medications Fentanyl (Sublimaze) 12.5 mcg IVP EDNOW ONE Stop: 04/15/17 21:00 Last Admin: 04/15/17 21:16 Dose: 12.5 mcg Fentanyl (Sublimaze) 12.5 mcg IVP EDNOW ONE Stop: 04/15/17 21:56 Last Admin: 04/15/17 22:18 Dose: 12.5 mcg Sodium Chloride (Ns) 1,000 mls @ 0 mls/hr IV ONCE ONE; Wide Open PRN Reason: Protocol Stop: 04/15/17 19:18 Last Admin: 04/15/17 19:42 Dose: 1,000 mls Ondansetron HCl (Zofran) 4 mg IVP EDNOW ONE Stop: 04/15/17 19:18 Last Admin: 04/15/17 19:43 Dose: 4 mg Ondansetron HCl (Zofran) 4 mg IVP EDNOW ONE Stop: 04/15/17 20:48 Last Admin: 04/15/17 20:55 Dose: 4 mg Warfarin Sodium (Coumadin) 5 mg PO ONCE ONE Stop: 04/15/17 22:07 Last Admin: 04/15/17 22:19 Dose: Not Given Departure - Departure Disposition: [facility] Inpatient Acute Clinical Impression: Small bowel obstruction Abdominal pain Qualifiers: Abdominal location: generalized Qualified Code(s): R10.84 - Generalized abdominal pain Vomiting Qualifiers: Vomiting type: unspecified Vomiting Intractability: unspecified Nausea presence : with nausea Qualified Code(s): R11.2 - Nausea with vomiting, unspecified Condition: Fair
[2017-04-15 19:56] LABS: % IMMATURE GRANULYOCYTES 0.4 % (0.0-1.1); ABSOLUTE IMMATURE GRANULOCYTES 0.04 10^3/uL (0.00-0.10); ADD DIFF? NO; ADD MORPH? NO; ADD SCAN? NO; ATYPICAL LYMPHOCYTE FLAG 10 (0-99); FRAGMENT RBC FLAG 0 (0-99); HEMATOCRIT 44.4 % (38.0-47.0); HEMOGLOBIN 15.4 g/dL (12.6-16.3); LEFT SHIFT FLG 0 (0-99); LIPEMIA HEMOLYSIS FLAG 90 (0-99); MEAN CELL HEMOGLOBIN 32.8 pg (27.9-34.1); MEAN CELL HEMOGLOBIN CONCENTR. 34.7 g/dL (32.4-36.7); MEAN CELL VOLUME 94.7 fL (81.5-99.8); MEAN PLATELET VOLUME 9.8 fL (8.7-11.7); PLATELET CLUMPS FLAG 10 (0-99); PLATELET COUNT 224 10^3/uL (150-400); RED BLOOD CELL COUNT 4.69 10^6/uL (4.18-5.33); RED CELL DISTRIBUTION WIDTH 12.3 % (11.5-15.2)
[2017-04-15 20:08] LABS: ALANINE AMINOTRANSFERASE 31 IU/L (9-52); ALBUMIN 3.9 g/dL (3.5-5.0); ALKALINE PHOSPHATASE 66 IU/L (38-126); ANION GAP 17 mEq/L (8-16); ASPARTATE AMINOTRANSFERASE 25 IU/L (14-46); BILIRUBIN,TOTAL 1.6 mg/dL (0.1-1.4); BILIRUBIN-CONJUGATED 0.3 mg/dL (0.0-0.5); BILIRUBIN-UNCONJUGATED 1.3 mg/dL (0.0-1.1); CALCIUM 8.6 mg/dL (8.5-10.4); CARBON DIOXIDE 24 mEq/l (22-31); CHLORIDE 100 mEq/L (97-110); CREATININE 0.6 mg/dL (0.6-1.0); GLOMERULAR FILTRATION RATE > 60; GLUCOSE 104 mg/dL (70-100); POTASSIUM 3.8 mEq/L (3.5-5.2); SODIUM 141 mEq/L (134-144); TOTAL PROTEIN 7.1 g/dL (6.3-8.2)
[2017-04-15 20:23] LABS: COLOR YELLOW; LEUKOCYTE ESTERASE,URINE NEGATIVE (NEGATIVE); NITRITE,URINE NEGATIVE (NEGATIVE)
[2017-04-15] MEDS ORDERED: IOPAMIDOL (ISOVUE-300) 100 ML BTL ONE (20:26)
[2017-04-15 20:30] LABS: RBC,URINE NONE SEEN /hpf (0-3); WBC,URINE NONE SEEN /hpf (0-3)
[2017-04-15] MEDS ORDERED: fentaNYL 100 MCG/2 ML INJ IVP ONE ×2 (20:59→21:55)
[2017-04-15] MEDS ORDERED: WARFARIN SODIUM 5 MG TAB PO ONE (22:06)
[2017-04-15] MEDS ORDERED: WARFARIN SODIUM 5 MG TAB ONE (22:07)
[2017-04-15 22:12] LABS: INR 1.86 (0.83-1.16); PROTIME(PATIENT) 21.2 SEC (12.0-15.0)
--- NOTE | 2017-04-15 22:23 | CPEKG ---
Heart Rate: 70 RR Interval: 857 QRSD Interval: 160 QT Interval: 488 QTC Interval: 527 QRS [place]: -73 T Wave [place]: 90 EKG Severity - ABNORMAL ECG - EKG Impression: AFIB/FLUT AND V-PACED COMPLEXES EKG Impression: LEFT BUNDLE BRANCH BLOCK Electronically Signed By: Sanam Sanford 16-Apr-2017 01:23:35
[2017-04-15] MEDS ORDERED: HYDROmorphONE/DILAUDID 1 MG/ML SYR IVP PRN (23:08)
[2017-04-16] MEDS: ONDANSETRON 4 MG/2 ML VIAL IVP PRN ×3 (00:53→16:03)
[2017-04-16] MEDS ORDERED: METOPROLOL TARTRATE 5 MG/5 ML INJ IVP PRN (01:11)
[2017-04-16] MEDS ORDERED: FLUTICASONE NASAL 120 SPRAYS/16 GM MDI EACHNARE PRN (01:13)
[2017-04-16] MEDS ORDERED: ENOXAPARIN 40 MG/0.4 ML SYR SC ONE (01:30)
[2017-04-16] MEDS ORDERED: ENOXAPARIN 60 MG/0.6 ML SYR SC ONE (01:30)
--- NOTE | 2017-04-16 02:00 | GHP ---
[f rep st] HISTORY AND PHYSICAL DATE OF ADMISSION: 04/15/2017 CHIEF COMPLAINT: Abdominal pain. HISTORY OF PRESENT ILLNESS: This is an 82-year-old female with complicated medical history, includi ng her recent MCA stroke with left-sided deficits; history of atrial fibrillation, on full-dose anti coagulation; just recently discharged from rehabilitation; who presents with sudden onset abdominal pain at noon today. The patient reports being in her post rehab state of health with attentive inta ke of fluids and food when she developed sudden onset abdominal pain that originated in the left low er quadrant and radiated up into her epigastric area. The patient has had 2 bowel obstructions in t he past, 1 that was medically treated and 1 that required surgical intervention. She recognized the type of abdominal pain and called for medical attention. The patient reports she has been mildly c onstipated in the last few days. She is not actively taking chronic opiate medications. Denies any diarrhea, any blood in her stool, any hematemesis. Did have some nausea and vomiting in the acute care clinic, was described as nonbloody. She denies chest pain, shortness of breath, palpitations. Has been making excellent effort and improvement related to her left-sided weaknesses and neglect f rom her MCA stroke. She denies any dysuria, hematuria. Has had chronic recent sciatic pain of the left lower extremity as well as neck pain. PAST MEDICAL HISTORY: 1. 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 2. Permanent atrial fibrillation. 3. Hypertension. 4. Orthostatic hypotension. 5. Hypothyroidism. 6. History of small bowel obstruction x2. 7. History of a large DVT in the setting of an inguinal hematoma, status post tPA. 8. 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 9. Breast cancer. 10. Thyroid cancer with metastatic nodules, status post radiation therapy and pulmonary pneumonitis . 11. Glaucoma. SOCIAL HISTORY: Negative for active tobacco. No alcohol or illicit drugs. FAMILY HISTORY: Positive for stroke in her mother. ADVANCED DIRECTIVES: Patient is Full Cor, Full Tube. Her , Patel, would be her medical decis ion-maker. REVIEW OF SYSTEMS: A 10-point review of systems is negative with the exception of that reported in the HPI. PHYSICAL EXAMINATION: VITAL SIGNS: Blood pressure 176/100, heart rate 80, respiratory rate 16, 91% on room air, 36.1. GENERAL: This is a thin-appearing elderly female in mild distress. HEENT: No table for nasogastric tube and dry mucous membranes. CARDIAC: Patient has regular rate and rhythm. PULMONARY: Good respiratory effort. Clear to auscultation. GASTROINTESTINAL: Abdomen is disten ded. There are bowel sounds but quite tender to palpation in all 4 quadrants. Voluntary guarding. MUSCULOSKELETAL: Negative for lower extremity edema. SKIN: Negative for any rashes. NEUROLOGIC: The patient is alert and oriented x3. PSYCHIATRIC: She is pleasant and cooperative on interview and examination. DATA: Radiology: Abdominal CT which I personally reviewed and interpreted, does show small bowel o bstruction with a transition zone described by the radiologist in the right hemipelvis. Laboratory: White count 9.8, hematocrit 44, platelets 224. Creatinine 0.6, INR 1.8, total bilirubi n 1.6. ASSESSMENT AND PLAN: This is an 82-year-old female presenting with abdominal pain. 1. Acute small-bowel obstruction. The patient has had 2 in the past. There is a transition zone c oncerning for possible adhesion or mechanical obstruction. We will begin with medical management. There is an NG tube in place to suction. Keep the patient n.p.o., give her IV fluids. Check and ba akilah electrolytes where appropriate. Dr. Pantoja from General Surgery is aware, in case we need surg ical assistance. We will recheck plain films in the morning. 2. Hypertension. Patient's blood pressures at the clinic were in the 130s, now in the 170s. I wou ld like to watch her pain get better controlled before we give too many medications, as she is known to be quite sensitive. Can use very small pushes of IV metoprolol. 3. Permanent atrial fibrillation. Patient is on chronic anticoagulation. We will bridge with Love nox as her INR is low. We are avoiding oral intake at this time with an NG tube to suction. 4. Right middle cerebral artery stroke. The patient has been making excellent rehabilitation. We will continue her medical management as well as PT, OT while she is inpatient. 5. Prophylaxis with Lovenox. We will give a single dose of Lovenox this evening in case the patien t needs to be taken to the OR tomorrow. 6. Diet: N.p.o. with IV fluids. DISPOSITION: I expect greater than 2 midnights. The patient is presenting with small-bowel obstruc tion requiring medical and potentially surgical management. I have discussed the case with the [facility] e care physician as well as the nurse on the floor. Patient will be triaged and medically treated f or SBO overnight. /[id number]/MODL
[2017-04-16] MEDS: NS 1,000 ML IV SCH ×3 (02:59→17:47)
[2017-04-16] MEDS ORDERED: HEPARIN 5,000 UNIT/0.5 ML SYR SC SCH (06:00)
[2017-04-16] MEDS: ACETAMINOPHEN 325 MG TAB PO PRN ×2 (09:02→22:10)
[2017-04-16] MEDS: TIMOLOL 0.5% 15 ML OPHT.BTL EACHEYE SCH (09:07)
--- NOTE | 2017-04-16 09:24 | PDGENHP ---
History and Physical - Chief Complaint Abdominal pain - History of Present Illness 82-year-old female with complicated past medical history including recent MCA stroke currently on anticoagulation recently discharged from rehab. The patient has had 2 small bowel obstructions in the past, 1 treated conservatively , the other requiring surgery. Both of these occurring very remotely in the past. Briefly, the patient states that the pain began in her left lower quadrant and has radiated up to her epigastric area. She states that this pain was very similar to her past to obstructions and decided to present to the emergency department for evaluation. In addition to the pain which she describes as crampy, colicky, and radiating she did have nausea and vomiting but denies having any diarrhea, shortness of breath, or palpitations. Her last bowel movement was yesterday and was reportedly normal, she denies passing any flatus. History Information - Allergies/Home Medication List Allergies/Adverse Reactions: amlodipine [Amlodipine] Allergy (Intermediate, Verified 04/15/17 19:14) Other-Enter Comments epinephrine [Epinephrine] Allergy (Intermediate, Verified 04/15/17 19:14) HEART RACES piperacillin sodium [From Zosyn] Allergy (Intermediate, Verified 04/15/17 19:14) Hives tazobactam sodium [From Zosyn] Allergy (Intermediate, Verified 04/15/17 19:14) Hives clarithromycin [From Biaxin] Allergy (Mild, Verified 04/15/17 19:14) moxifloxacin HCl [From Avelox] Allergy (Mild, Verified 04/15/17 19:14) niacin [From Niaspan] Allergy (Mild, Verified 04/15/17 19:14) Rash morphine Allergy (Verified 04/15/17 22:21) hallucinates omeprazole Allergy (Verified 04/15/17 19:14) vancomycin Allergy (Verified 04/15/17 19:14) ENVIRONMENTAL Allergy (Intermediate, Uncoded 04/15/17 19:14) EYES BURN AND SWELL/NASAL CONGESTION ADHESIVES Allergy (Mild, Uncoded 12/22/16 04:14) Rash Home Medications: Cyanocobalamin (Vitamin B-12) [Vitamin B-12] 1,000 mcg INJ Q30D 12/10/14 [Last Taken 09/24/16] Cholecalciferol Vit D3 [Vitamin D3 2000 units tab (OTC)] 4,000 units PO DAILY [Last Taken Unknown] Azelastine HCl 205.5 mcg NS 04/15/17 [Last Taken Unknown] Furosemide [Lasix 20 MG (*)] 04/15/17 [Last Taken Unknown] Levothyroxine [Synthroid 100 mcg (*)] 100 mcg PO DAILY06 04/15/17 [Last Taken Unknown] Lisinopril 5 mg PO 04/15/17 [Last Taken Unknown] Metoprolol Succinate 04/15/17 [Last Taken Unknown] Ranitidine HCl 04/15/17 [Last Taken Unknown] Tafluprost/Pf [Zioptan 0.0015% Eye Drops] 1 each OP 04/15/17 [Last Taken Unknown ] I have personally reviewed and updated: medical history, surgical history Past Medical History: Atrial fibrillation, DVT, GI bleed, pneumonia, breast CA, metastatic thyroid CA, glaucoma, hypertension, ovarian cyst, bowel obstruction, carpal tunnel syndrome - Surgical History Additional surgical history: pacemaker, ablation, hysterectomy, left rotator cuff repair, exploratory laparotomy for small bowel obstruction. - Social History Smoking Status: Former smoker Review of Systems ROS: 10pt was reviewed & negative except for what was stated in HPI & below Physical Exam Temp Pulse Resp BP Pulse Ox 36.8 C 72 16 124/92 H 93 04/16/17 07:47 04/16/17 07:47 04/16/17 07:47 04/16/17 07:47 04/16/17 07:47 O2 (L/minute) 2 Constitutional: no apparent distress Eyes: PERRL Ears, Nose, Mouth, Throat: moist mucous membranes Cardiovascular: irregularly irregular Respiratory: no respiratory distress Gastrointestinal: other (Soft, nontender, nondistended, no rebound tenderness or guarding. Minimally active bowel sounds) Skin: warm Musculoskeletal: full muscle strength Neurologic: AAOx3, sensation intact bilaterally Psychiatric: interacting appropriately, not anxious Lymph, Heme, Immunologic: No lymphadenopathy Lab Data & Imaging Review 04/15/17 19:50 04/15/17 19:50 WBC 9.86 10^3/uL (3.80-9.50) H 04/15/17 19:50 RBC 4.69 10^6/uL (4.18-5.33) 04/15/17 19:50 Hgb 15.4 g/dL (12.6-16.3) 04/15/17 19:50 Hct 44.4 % (38.0-47.0) 04/15/17 19:50 MCV 94.7 fL (81.5-99.8) 04/15/17 19:50 MCH 32.8 pg (27.9-34.1) 04/15/17 19:50 MCHC 34.7 g/dL (32.4-36.7) 04/15/17 19:50 RDW 12.3 % (11.5-15.2) 04/15/17 19:50 Plt Count 224 10^3/uL (150-400) 04/15/17 19:50 MPV 9.8 fL (8.7-11.7) 04/15/17 19:50 Neut % (Auto) 76.7 % (39.3-74.2) H 04/15/17 19:50 Lymph % (Auto) 12.2 % (15.0-45.0) L 04/15/17 19:50 Trigg % (Auto) 9.7 % (4.5-13.0) 04/15/17 19:50 Eos % (Auto) 0.7 % (0.6-7.6) 04/15/17 19:50 Baso % (Auto) 0.3 % (0.3-1.7) 04/15/17 19:50 Nucleat RBC Rel Count 0.0 % (0.0-0.2) 04/15/17 19:50 Absolute Neuts (auto) 7.56 10^3/uL (1.70-6.50) H 04/15/17 19:50 Absolute Lymphs (auto) 1.20 10^3/uL (1.00-3.00) 04/15/17 19:50 Absolute Monos (auto) 0.96 10^3/uL (0.30-0.80) H 04/15/17 19:50 Absolute Eos (auto) 0.07 10^3/uL (0.03-0.40) 04/15/17 19:50 Absolute Basos (auto) 0.03 10^3/uL (0.02-0.10) 04/15/17 19:50 Absolute Nucleated RBC 0.00 10^3/uL (0-0.01) 04/15/17 19:50 Immature Gran % 0.4 % (0.0-1.1) 04/15/17 19:50 Immature Gran # 0.04 10^3/uL (0.00-0.10) 04/15/17 19:50 PT 21.2 SEC (12.0-15.0) H 04/15/17 19:42 INR 1.86 (0.83-1.16) H 04/15/17 19:42 Sodium 141 mEq/L (134-144) 04/15/17 19:50 Potassium 3.8 mEq/L (3.5-5.2) 04/15/17 19:50 Chloride 100 mEq/L (97-110) 04/15/17 19:50 Carbon Dioxide 24 mEq/l (22-31) 04/15/17 19:50 Anion Gap 17 mEq/L (8-16) H 04/15/17 19:50 BUN 16 mg/dL (7-23) 04/15/17 19:50 Creatinine 0.6 mg/dL (0.6-1.0) 04/15/17 19:50 Estimated GFR > 60 04/15/17 19:50 Glucose 104 mg/dL (70-100) H 04/15/17 19:50 Calcium 8.6 mg/dL (8.5-10.4) 04/15/17 19:50 Magnesium 2.4 mg/dL (1.6-2.3) H 04/15/17 19:42 Total Bilirubin 1.6 mg/dL (0.1-1.4) H 04/15/17 19:50 Conjugated Bilirubin 0.3 mg/dL (0.0-0.5) 04/15/17 19:50 Unconjugated Bilirubin 1.3 mg/dL (0.0-1.1) H 04/15/17 19:50 AST 25 IU/L (14-46) 04/15/17 19:50 ALT 31 IU/L (9-52) 04/15/17 19:50 Alkaline Phosphatase 66 IU/L (38-126) 04/15/17 19:50 Troponin I < 0.012 ng/mL (0-0.034) 04/15/17 19:42 Total Protein 7.1 g/dL (6.3-8.2) 04/15/17 19:50 Albumin 3.9 g/dL (3.5-5.0) 04/15/17 19:50 Lipase 91.0 IU/L (23-300) 04/15/17 19:50 Urine Color YELLOW 04/15/17 20:15 Urine Appearance CLEAR 04/15/17 20:15 Urine pH 7.0 (5.0-7.5) 04/15/17 20:15 Ur Specific Gordon 1.010 (1.002-1.030) 04/15/17 20:15 Urine Protein NEGATIVE (NEGATIVE) 04/15/17 20:15 Urine Ketones NEGATIVE (NEGATIVE) 04/15/17 20:15 Urine Blood NEGATIVE (NEGATIVE) 04/15/17 20:15 Urine Nitrate NEGATIVE (NEGATIVE) 04/15/17 20:15 Urine Bilirubin NEGATIVE (NEGATIVE) 04/15/17 20:15 Urine Urobilinogen 0.2 EU (0.2-1.0) 04/15/17 20:15 Ur Leukocyte Esterase NEGATIVE (NEGATIVE) 04/15/17 20:15 Urine RBC NONE SEEN /hpf (0-3) 04/15/17 20:15 Urine WBC NONE SEEN /hpf (0-3) 04/15/17 20:15 Ur Epithelial Cells TRACE /lpf (NONE-1+) 04/15/17 20:15 Urine Glucose NEGATIVE (NEGATIVE) 04/15/17 20:15 Visualized and Interpreted imaging results: Yes Interpretation: CT scan of the abdomen and pelvis with transition point in the lower abdomen no free fluid or free air Assessment & Plan Assessment: 82-year-old female with complex past medical history now with what appears to be partial small bowel obstruction, resolving Plan: Since her admission last night, and nasogastric tube has been placed with approximately 400 cc out in the suction canister. Clinically, the patient appears to be improving and is actually had bowel function since her admission. She denies having any nausea or vomiting and states that she overall feels well, and that the pain she had previously has essentially resolved. Her abdomen is reassuring she does have some minimally active bowel sounds. Agree with holding her oral anticoagulants and bridging with Lovenox especially in the light that she is subtherapeutic anyway. Would plan for at least 24 hours of nasogastric tube decompression to ensure full clinical resolution but anticipate given the fact that she has done so well in the past 12 hours that she will continue to improve with conservative management not require operation. Will continue to follow.
[2017-04-16 09:29] LABS: INR 1.65 (0.83-1.16); PROTIME(PATIENT) 19.6 SEC (12.0-15.0)
[2017-04-16] MEDS: BUDESONIDE/FORMOTEROL 160/4.5 60 PUFFS/MDI IH SCH ×2 (09:32→21:42)
--- NOTE | 2017-04-16 10:03 | HOSPPROG ---
Hospitalist Progress Note Assessment/Plan: Patient is an 82-year-old female who has a recent MCA stroke with left-sided deficits, history of atrial fibrillation who presents with sudden onset of abdominal pain. She had a CT of the abdomen which shows a small bowel obstruction with a transition zone in the right hemipelvis. Today is my 1st encounter with the patient chart reviewed. *Small bowel obstruction Treat conservatively with NG Appreciate surgery seeing her this morning hx of sbo x 2 * recent middle cerebral artery stroke family concerned about not getting Coumadin explained to them about the treatment dose of LMWH * permanent atrial fibrillation Warfarin on hold. On bridge treatment w LMWH ordered scheduled metoprolol IV w parameters *restless leg syndrome family requesting Requip be restarted explained she is npo and has a sbo they would like it cont *HTN: resumed metoprolol/ may need IV dose increased/ will follow *DVT prophylaxis: on LMWH *Plan: cont supportive care/ appreciate surgical team seeing her Subjective: Castro has no c/o abdominal pain. Objective: Vital Signs Temp Pulse Resp BP Pulse Ox 36.8 C 72 20 124/92 H 90 L 04/16/17 07:47 04/16/17 07:47 04/16/17 09:34 04/16/17 07:47 04/16/17 09:34 Laboratory Results 04/16/17 08:54 04/15/17 04/16/17 04/17/17 05:59 05:59 05:59 Intake Total 2000 812 Output Total 900 Balance 1100 812 PT 19.6 SEC (12.0-15.0) H 04/16/17 08:54 INR 1.65 (0.83-1.16) H 04/16/17 08:54 - Physical Exam Constitutional: not in pain, other (thin) Eyes: PERRL Ears, Nose, Mouth, Throat: hearing normal Cardiovascular: regular rate and rhythym Respiratory: no respiratory distress Gastrointestinal: normoactive bowel sounds, soft, non-tender abdomen Skin: warm Musculoskeletal: full muscle strength Neurologic: AAOx3 Psychiatric: interacting appropriately ICD10 Worksheet Patient Problems: Problems Problem Status Onset Abdominal pain Acute Small bowel obstruction Acute Vomiting Acute Afib - Atrial fibrillation Active Acute anterior epistaxis Acute CHF (congestive heart failure) Acute Chronic Disease Mgmt/Transitional Care Acute GI bleed Acute Hemoptysis Acute Melena Acute Pleural effusion Acute Radiation pneumonitis Acute Recurrent thyroid cancer Acute Status post cardiac pacemaker procedure Acute
[2017-04-16 10:05] LABS: % IMMATURE GRANULYOCYTES 0.4 % (0.0-1.1); ABSOLUTE IMMATURE GRANULOCYTES 0.04 10^3/uL (0.00-0.10); ADD DIFF? NO; ADD MORPH? NO; ADD SCAN? NO; ATYPICAL LYMPHOCYTE FLAG 0 (0-99); FRAGMENT RBC FLAG 0 (0-99); HEMATOCRIT 46.1 % (38.0-47.0); HEMOGLOBIN 15.5 g/dL (12.6-16.3); LEFT SHIFT FLG 0 (0-99); LIPEMIA HEMOLYSIS FLAG 80 (0-99); MEAN CELL HEMOGLOBIN CONCENTR. 33.6 g/dL (32.4-36.7); MEAN CELL VOLUME 98.1 fL (81.5-99.8); MEAN PLATELET VOLUME 10.3 fL (8.7-11.7); PLATELET CLUMPS FLAG 0 (0-99); PLATELET COUNT 216 10^3/uL (150-400); RED CELL DISTRIBUTION WIDTH 12.4 % (11.5-15.2)
[2017-04-16] MEDS: ENOXAPARIN 60 MG/0.6 ML SYR SC SCH ×2 (11:24→21:21)
[2017-04-16 13:41] LABS: ANION GAP 13 mEq/L (8-16); CALCIUM 8.1 mg/dL (8.5-10.4); CARBON DIOXIDE 16 mEq/l (22-31); CHLORIDE 110 mEq/L (97-110); CREATININE 0.5 mg/dL (0.6-1.0); GLOMERULAR FILTRATION RATE > 60; GLUCOSE 87 mg/dL (70-100); POTASSIUM 3.7 mEq/L (3.5-5.2); SODIUM 139 mEq/L (134-144)
[2017-04-16] MEDS: LORazepam 2 MG/ML INJ IVP PRN ×2 (17:40→22:10)
[2017-04-16] MEDS: METOPROLOL TARTRATE 5 MG/5 ML INJ IVP SCH (18:33)
[2017-04-16] MEDS ORDERED: ROPINIROLE HCL PO SCH (21:00)
[2017-04-16] MEDS: TAFLUPROST EACHEYE SCH (21:23)
[2017-04-17] MEDS: METOPROLOL TARTRATE 5 MG/5 ML INJ IVP SCH ×5 (00:19→20:42)
[2017-04-17 05:10] LABS: % IMMATURE GRANULYOCYTES 0.4 % (0.0-1.1); ABSOLUTE IMMATURE GRANULOCYTES 0.02 10^3/uL (0.00-0.10); ADD DIFF? NO; ADD MORPH? NO; ADD SCAN? NO; ATYPICAL LYMPHOCYTE FLAG 0 (0-99); FRAGMENT RBC FLAG 0 (0-99); HEMATOCRIT 38.7 % (38.0-47.0); HEMOGLOBIN 13.3 g/dL (12.6-16.3); LEFT SHIFT FLG 0 (0-99); LIPEMIA HEMOLYSIS FLAG 90 (0-99); MEAN CELL HEMOGLOBIN 33.2 pg (27.9-34.1); MEAN CELL HEMOGLOBIN CONCENTR. 34.4 g/dL (32.4-36.7); MEAN CELL VOLUME 96.5 fL (81.5-99.8); MEAN PLATELET VOLUME 9.8 fL (8.7-11.7); PLATELET CLUMPS FLAG 0 (0-99); PLATELET COUNT 182 10^3/uL (150-400); RED BLOOD CELL COUNT 4.01 10^6/uL (4.18-5.33); RED CELL DISTRIBUTION WIDTH 12.1 % (11.5-15.2)
[2017-04-17 05:31] LABS: ANION GAP 7 mEq/L (8-16); CALCIUM 7.8 mg/dL (8.5-10.4); CARBON DIOXIDE 23 mEq/l (22-31); CHLORIDE 107 mEq/L (97-110); CREATININE 0.6 mg/dL (0.6-1.0); GLOMERULAR FILTRATION RATE > 60; GLUCOSE 74 mg/dL (70-100); POTASSIUM 2.9 mEq/L (3.5-5.2); SODIUM 137 mEq/L (134-144)
[2017-04-17] MEDS ORDERED: PROTOCOL POTASSIUM 1 DOSE MISC PRN (08:02)
--- NOTE | 2017-04-17 08:43 | HOSPPROG ---
Hospitalist Progress Note Assessment/Plan: Patient is an 82-year-old female who has a recent MCA stroke with left-sided deficits, history of atrial fibrillation who presents with sudden onset of abdominal pain. She had a CT of the abdomen which shows a small bowel obstruction with a transition zone in the right hemipelvis. *Small bowel obstruction Treat conservatively with NG Appreciate surgery seeing her this morning hx of sbo x 2 KUB pending very quiet bowel sounds * recent middle cerebral artery stroke family concerned about not getting Coumadin explained to them about the treatment dose of LMWH * permanent atrial fibrillation Warfarin on hold. On bridge treatment w LMWH ordered scheduled metoprolol IV w parameters * hypokalemia Added electrolyte protocol *restless leg syndrome family requesting Requip be restarted explained she is npo and has a sbo they would like it cont *Underweight w a BMI of 17.9 *HTN: resumed metoprolol IV/ may need IV dose increased/ will follow *DVT prophylaxis: on LMWH *Plan: f/u with KUB, repeat labs in a.m. Subjective: Castro said she is feeling much better today. No complaints. Objective: Vital Signs Temp Pulse Resp BP Pulse Ox 36.6 C 70 16 144/91 H 95 04/17/17 07:32 04/17/17 07:32 04/17/17 07:32 04/17/17 07:32 04/17/17 07:32 Laboratory Results 04/17/17 05:00 04/17/17 05:00 04/16/17 04/17/17 04/18/17 05:59 05:59 05:59 Intake Total 2000 3008 Output Total 900 1150 Balance 1100 1858 PT 19.6 SEC (12.0-15.0) H 04/16/17 08:54 INR 1.65 (0.83-1.16) H 04/16/17 08:54 - Physical Exam Constitutional: other (thin) Eyes: PERRL Ears, Nose, Mouth, Throat: hearing normal Cardiovascular: regular rate and rhythym Respiratory: no respiratory distress Gastrointestinal: soft, non-tender abdomen, No normoactive bowel sounds ( hypoactive) Skin: warm Musculoskeletal: full muscle strength, no muscle tenderness Neurologic: AAOx3 Psychiatric: interacting appropriately ICD10 Worksheet Patient Problems: Problems Problem Status Onset Abdominal pain Acute Small bowel obstruction Acute Vomiting Acute Afib - Atrial fibrillation Active Acute anterior epistaxis Acute CHF (congestive heart failure) Acute Chronic Disease Mgmt/Transitional Care Acute GI bleed Acute Hemoptysis Acute Melena Acute Pleural effusion Acute Radiation pneumonitis Acute Recurrent thyroid cancer Acute Status post cardiac pacemaker procedure Acute
[2017-04-17] MEDS: TIMOLOL 0.5% 15 ML OPHT.BTL EACHEYE SCH (10:00)
[2017-04-17] MEDS: POTASSIUM Cl (KCl) 100 ML IV SCH ×4 (10:24→17:05)
[2017-04-17] MEDS: ENOXAPARIN 60 MG/0.6 ML SYR SC SCH ×2 (10:25→20:42)
[2017-04-17] MEDS: BUDESONIDE/FORMOTEROL 160/4.5 60 PUFFS/MDI IH SCH ×2 (10:36→21:37)
[2017-04-17] MEDS: NS 1,000 ML IV SCH (11:32)
[2017-04-17] MEDS: ACETAMINOPHEN 325 MG TAB PO PRN ×2 (12:01→20:54)
[2017-04-17] MEDS: NS W/ 20 KCl/L 1,000 ML IV SCH (17:00)
--- NOTE | 2017-04-17 17:56 | SOAPPROG ---
JOSE Progress Note Assessment/Plan: Assessment/Plan: 82 Y F SBO. Hx surgery for SBO in 20's, recurrence in 40's resolved conservatively. Improving. AXR ok today, although some mildly dilated loops of bowel in rlq. SBFT shows passage of contrast. Clear liquids and clamp NGT. Suspect this will resolve. NG out if does ok with clears. Seen with Dr. Kim. S: BM yesterday, sore but not painful. no n/v. O: alert, nad, mobile ng in place rare BS abd soft 04/17/17 17:54 Objective: Vital Signs Temp Pulse Resp BP Pulse Ox 36.3 C 75 18 137/85 H 94 04/17/17 11:11 04/17/17 17:03 04/17/17 11:11 04/17/17 17:03 04/17/17 11:11 Laboratory Results 04/17/17 05:00 04/17/17 05:00 04/16/17 04/17/17 04/18/17 05:59 05:59 05:59 Intake Total 1999 3008 Output Total 900 1150 900 Balance 1100 1858 -900 PT 19.6 SEC (12.0-15.0) H 04/16/17 08:54 INR 1.65 (0.83-1.16) H 04/16/17 08:54 ICD10 Worksheet Patient Problems: Problems Problem Status Onset Abdominal pain Acute Small bowel obstruction Acute Vomiting Acute Afib - Atrial fibrillation Active Acute anterior epistaxis Acute CHF (congestive heart failure) Acute Chronic Disease Mgmt/Transitional Care Acute GI bleed Acute Hemoptysis Acute Melena Acute Pleural effusion Acute Radiation pneumonitis Acute Recurrent thyroid cancer Acute Status post cardiac pacemaker procedure Acute
[2017-04-17 20:46] LABS: POTASSIUM 3.5 mEq/L (3.5-5.2)
[2017-04-17] MEDS: LORazepam 2 MG/ML INJ IVP PRN (20:55)
[2017-04-17] MEDS: TAFLUPROST EACHEYE SCH (21:20)
[2017-04-17] MEDS ORDERED: POTASSIUM CL 20 MEQ TAB PO ONE (22:36)
[2017-04-18] MEDS: ACETAMINOPHEN 325 MG TAB PO PRN ×2 (04:31→21:29)
[2017-04-18] MEDS: METOPROLOL TARTRATE 5 MG/5 ML INJ IVP SCH ×3 (05:06→18:19)
[2017-04-18] MEDS: NS W/ 20 KCl/L 1,000 ML IV SCH (05:07)
[2017-04-18 05:22] LABS: ANION GAP 11 mEq/L (8-16); CALCIUM 8.4 mg/dL (8.5-10.4); CARBON DIOXIDE 22 mEq/l (22-31); CHLORIDE 106 mEq/L (97-110); CREATININE 0.6 mg/dL (0.6-1.0); GLOMERULAR FILTRATION RATE > 60; GLUCOSE 79 mg/dL (70-100); POTASSIUM 3.3 mEq/L (3.5-5.2); SODIUM 139 mEq/L (134-144)
[2017-04-18] MEDS: ENOXAPARIN 60 MG/0.6 ML SYR SC SCH ×2 (07:58→21:28)
[2017-04-18] MEDS: TIMOLOL 0.5% 15 ML OPHT.BTL EACHEYE SCH (07:59)
--- NOTE | 2017-04-18 08:02 | SOAPPROG ---
SOAP Progress Note Assessment/Plan: Assessment: vs stable/ afebrile/ sbft ok/ +bm/ tolerating clears and ng clamped Plan:ADVANCE DIET/ HOME SOON 04/18/17 08:02 04/18/17 16:28 Objective: Vital Signs Temp Pulse Resp BP Pulse Ox 36.3 C 72 16 151/90 H 95 04/18/17 07:36 04/18/17 07:36 04/18/17 07:36 04/18/17 07:36 04/18/17 07:36 Laboratory Results 04/17/17 05:00 04/18/17 04:58 04/17/17 04/18/17 04/19/17 05:59 05:59 05:59 Intake Total 3008 200 Output Total 1150 1500 450 Balance 1858 -1300 -450 PT 19.6 SEC (12.0-15.0) H 04/16/17 08:54 INR 1.65 (0.83-1.16) H 04/16/17 08:54 ICD10 Worksheet Patient Problems: Problems Problem Status Onset Abdominal pain Acute Small bowel obstruction Acute Vomiting Acute Afib - Atrial fibrillation Active Acute anterior epistaxis Acute CHF (congestive heart failure) Acute Chronic Disease Mgmt/Transitional Care Acute GI bleed Acute Hemoptysis Acute Melena Acute Pleural effusion Acute Radiation pneumonitis Acute Recurrent thyroid cancer Acute Status post cardiac pacemaker procedure Acute
[2017-04-18] MEDS: BUDESONIDE/FORMOTEROL 160/4.5 60 PUFFS/MDI IH SCH ×2 (10:42→21:23)
[2017-04-18] MEDS ORDERED: POTASSIUM CL 10 MEQ TAB PO ONE (11:13)
[2017-04-18] MEDS ORDERED: FUROSEMIDE 20 MG TAB PO PRN (15:02)
[2017-04-18] MEDS ORDERED: ONDANSETRON DISINTEGRATING 4 MG TAB PO PRN (15:02)
[2017-04-18] MEDS ORDERED: ACETAMINOPHEN 325 MG TAB PO PRN (15:02)
--- NOTE | 2017-04-18 15:04 | HOSPPROG ---
Hospitalist Progress Note Assessment/Plan: Patient is an 82-year-old female who has a recent MCA stroke with left-sided deficits, history of atrial fibrillation who presents with sudden onset of abdominal pain. She had a CT of the abdomen which shows a small bowel obstruction with a transition zone in the right hemipelvis. This is my first encounter with the pt. Chart reviewed. D/W Marcelina Shepherdroy. *Small bowel obstruction NG removed, tolerating hx of sbo x 2 + bowel sounds * recent middle cerebral artery stroke restart coumadin * permanent atrial fibrillation restart home meds * hypokalemia electrolyte protocol *restless leg syndrome family requesting Requip be restarted *Underweight w a BMI of 17.9 *HTN: restart meds will follow *DVT prophylaxis: on LMWH *Plan: possible home in am if doing well Subjective: Up to the bathroom. Feeling well. Wants NGT out. Objective: Vital Signs Temp Pulse Resp BP Pulse Ox 36.3 C 69 14 152/86 H 95 04/18/17 11:34 04/18/17 11:34 04/18/17 11:34 04/18/17 11:34 04/18/17 11:34 Laboratory Results 04/17/17 05:00 04/18/17 04:58 04/17/17 04/18/17 04/19/17 05:59 05:59 05:59 Intake Total 3008 200 100 Output Total 1150 1500 750 Balance 1858 -1300 -650 PT 19.6 SEC (12.0-15.0) H 04/16/17 08:54 INR 1.65 (0.83-1.16) H 04/16/17 08:54 - Physical Exam Constitutional: no apparent distress, appears nourished, not in pain Eyes: PERRL, anicteric sclera, EOMI Ears, Nose, Mouth, Throat: moist mucous membranes, hearing normal, ears appear normal Cardiovascular: No systolic murmur, No JVD, No tachycardia Respiratory: no respiratory distress, no rales or rhonchi, reduced air movement Gastrointestinal: No tenderness, No ascites, No guarding Skin: warm, normal color, No mottled Musculoskeletal: normal joint ROM, no joint effusions, generalized weakness Neurologic: AAOx3 Psychiatric: not anxious, not encephalopathic, thought process linear ICD10 Worksheet Patient Problems: Problems Problem Status Onset Afib - Atrial fibrillation Active Recurrent thyroid cancer Acute Radiation pneumonitis Acute Status post cardiac pacemaker procedure Acute Acute anterior epistaxis Acute GI bleed Acute Melena Acute CHF (congestive heart failure) Acute Pleural effusion Acute Chronic Disease Mgmt/Transitional Care Acute Hemoptysis Acute Small bowel obstruction Acute Abdominal pain Acute Vomiting Acute
[2017-04-18] MEDS ORDERED: NON-FORMULARY NEW DRUG (Cyanocobalamin (Vitamin B-12) [Vitamin B-12] 1,000 MCG) INJ SCH (15:15)
[2017-04-18] MEDS ORDERED: CYANO/VITAMIN B12 1000 MCG/ML VIAL IM SCH (15:15)
--- NOTE | 2017-04-18 15:15 | SOAPPROG ---
SOGORGE Progress Note Assessment/Plan: Assessment/Plan: 82 Y F SBO. Hx surgery for SBO in 20's, recurrence in 40's resolved conservatively. D/c NGT. Start light diet. Ok to restart coumadin and bridge. Probably d/c in am if does well. S: Tolerating clears with tube clamped. +flatus today. O: alert, nad, mobile ng in place abd soft 04/18/17 15:13 Objective: Vital Signs Temp Pulse Resp BP Pulse Ox 36.3 C 69 14 152/86 H 95 04/18/17 11:34 04/18/17 11:34 04/18/17 11:34 04/18/17 11:34 04/18/17 11:34 Laboratory Results 04/17/17 05:00 04/18/17 04:58 04/17/17 04/18/17 04/19/17 05:59 05:59 05:59 Intake Total 3008 200 100 Output Total 1150 1500 750 Balance 1858 -1300 -650 PT 19.6 SEC (12.0-15.0) H 04/16/17 08:54 INR 1.65 (0.83-1.16) H 04/16/17 08:54 ICD10 Worksheet Patient Problems: Problems Problem Status Onset Abdominal pain Acute Small bowel obstruction Acute Vomiting Acute Afib - Atrial fibrillation Active Acute anterior epistaxis Acute CHF (congestive heart failure) Acute Chronic Disease Mgmt/Transitional Care Acute GI bleed Acute Hemoptysis Acute Melena Acute Pleural effusion Acute Radiation pneumonitis Acute Recurrent thyroid cancer Acute Status post cardiac pacemaker procedure Acute
[2017-04-18] MEDS: WARFARIN SODIUM 5 MG TAB PO SCH (21:29)
[2017-04-18] MEDS: LORazepam 0.5 MG TAB PO PRN (21:29)
[2017-04-18] MEDS: LISINOPRIL 5 MG TAB PO SCH (21:29)
[2017-04-18] MEDS: METOPROLOL TARTRATE 50 MG TAB PO SCH (21:29)
[2017-04-18] MEDS: TAFLUPROST EACHEYE SCH (21:37)
[2017-04-19] MEDS: METOPROLOL TARTRATE 5 MG/5 ML INJ IVP SCH ×3 (00:32→11:50)
[2017-04-19] MEDS: LEVOTHYROXINE 112 MCG TAB PO SCH (05:12)
[2017-04-19 05:29] LABS: POTASSIUM 3.5 mEq/L (3.5-5.2)
[2017-04-19] MEDS ORDERED: POTASSIUM CL 10 MEQ TAB PO ONE (08:31)
[2017-04-19] MEDS ORDERED: POTASSIUM CL 20 MEQ/15 ML UDCUP PO ONE (08:45)
[2017-04-19] MEDS: CHOLECALCIFEROL VIT D3 2,000 UNITS TAB/CAP PO SCH (09:31)
[2017-04-19] MEDS: ENOXAPARIN 60 MG/0.6 ML SYR SC SCH ×2 (09:31→21:46)
[2017-04-19] MEDS: METOPROLOL TARTRATE 25 MG TAB PO SCH (09:32)
[2017-04-19] MEDS: LISINOPRIL 5 MG TAB PO SCH ×2 (09:32→21:46)
[2017-04-19] MEDS: TIMOLOL 0.5% 15 ML OPHT.BTL EACHEYE SCH (09:34)
[2017-04-19] MEDS: BUDESONIDE/FORMOTEROL 160/4.5 60 PUFFS/MDI IH SCH ×2 (10:10→21:03)
--- NOTE | 2017-04-19 10:22 | SOAPPROG ---
SOAP Progress Note Assessment/Plan: Assessment: vs stable/ afebrile/ sbft ok/ +bm/ tolerating clears and ng clamped Plan:ADVANCE DIET/ HOME SOON 04/18/17 08:02 04/18/17 16:28 04/19/17 10:21 CONTINUES TO IMPROVE/POSITIVE FLATUS/POSITIVE BM/ABDOMEN SOFT NONTENDER/ POSSIBLY HOME TODAY Objective: Vital Signs Temp Pulse Resp BP Pulse Ox 36.6 C 70 16 123/80 H 93 04/19/17 07:39 04/19/17 09:32 04/19/17 07:39 04/19/17 09:32 04/19/17 07:39 Laboratory Results 04/17/17 05:00 04/19/17 05:02 04/18/17 04/19/17 04/20/17 05:59 05:59 05:59 Intake Total 200 800 Output Total 1500 750 Balance -1300 50 PT 19.6 SEC (12.0-15.0) H 04/16/17 08:54 INR 1.65 (0.83-1.16) H 04/16/17 08:54 ICD10 Worksheet Patient Problems: Problems Problem Status Onset Abdominal pain Acute Small bowel obstruction Acute Vomiting Acute Afib - Atrial fibrillation Active Acute anterior epistaxis Acute CHF (congestive heart failure) Acute Chronic Disease Mgmt/Transitional Care Acute GI bleed Acute Hemoptysis Acute Melena Acute Pleural effusion Acute Radiation pneumonitis Acute Recurrent thyroid cancer Acute Status post cardiac pacemaker procedure Acute
[2017-04-19] MEDS: ONDANSETRON 4 MG/2 ML VIAL IVP PRN (11:51)
--- NOTE | 2017-04-19 13:01 | HOSPPROG ---
Hospitalist Progress Note Assessment/Plan: Patient is an 82-year-old female who has a recent MCA stroke with left-sided deficits, history of atrial fibrillation who presents with sudden onset of abdominal pain. She had a CT of the abdomen which shows a small bowel obstruction with a transition zone in the right hemipelvis. *Small bowel obstruction NG removed, tolerating hx of sbo x 2 + bowel sounds still distended * recent middle cerebral artery stroke coumadin check INR in am cont bridge * permanent atrial fibrillation home meds * hypokalemia stable *restless leg syndrome family requesting Requip *Underweight w a BMI of 17.9 *HTN: restart meds will follow *DVT prophylaxis: on LMWH *Plan: possible home in am if doing well D/W Dr Kim Check labs in am Subjective: Feeling better but not hungry. Still some abd pain. Minimal gas. Objective: Vital Signs Temp Pulse Resp BP Pulse Ox 36.6 C 70 16 125/87 H 93 04/19/17 07:39 04/19/17 09:32 04/19/17 07:39 04/19/17 11:50 04/19/17 07:39 Laboratory Results 04/17/17 05:00 04/19/17 05:02 04/18/17 04/19/17 04/20/17 05:59 05:59 05:59 Intake Total 200 800 Output Total 1500 750 Balance -1300 50 PT 19.6 SEC (12.0-15.0) H 04/16/17 08:54 INR 1.65 (0.83-1.16) H 04/16/17 08:54 - Physical Exam Constitutional: not in pain, chronically ill appearing, cachectic Eyes: PERRL, anicteric sclera, EOMI Ears, Nose, Mouth, Throat: moist mucous membranes, hearing normal, ears appear normal Cardiovascular: No JVD, No tachycardia, No edema Respiratory: no respiratory distress, no rales or rhonchi, reduced air movement Gastrointestinal: tenderness, distension, No ascites, No guarding Skin: warm, normal color, No erythema Musculoskeletal: normal joint ROM, no joint effusions, generalized weakness Psychiatric: not anxious, poor insight, poor judgement, poor memory ICD10 Worksheet Patient Problems: Problems Problem Status Onset Afib - Atrial fibrillation Active Recurrent thyroid cancer Acute Radiation pneumonitis Acute Status post cardiac pacemaker procedure Acute Acute anterior epistaxis Acute GI bleed Acute Melena Acute CHF (congestive heart failure) Acute Pleural effusion Acute Chronic Disease Mgmt/Transitional Care Acute Hemoptysis Acute Small bowel obstruction Acute Abdominal pain Acute Vomiting Acute
[2017-04-19] MEDS ORDERED: PROMETHAZINE HCL 25 MG/ML INJ IVP PRN (15:56)
[2017-04-19] MEDS: LORazepam 0.5 MG TAB PO PRN (21:46)
[2017-04-19] MEDS: METOPROLOL TARTRATE 50 MG TAB PO SCH (21:46)
[2017-04-19] MEDS: ACETAMINOPHEN 325 MG TAB PO PRN (21:46)
[2017-04-19] MEDS: WARFARIN SODIUM 5 MG TAB PO SCH (21:47)
[2017-04-19] MEDS: TAFLUPROST EACHEYE SCH (23:10)
[2017-04-20] MEDS: LEVOTHYROXINE 112 MCG TAB PO SCH (05:33)
[2017-04-20 05:34] LABS: INR 1.18 (0.83-1.16)
[2017-04-20] MEDS: CHOLECALCIFEROL VIT D3 2,000 UNITS TAB/CAP PO SCH (08:38)
[2017-04-20] MEDS: LISINOPRIL 5 MG TAB PO SCH (08:39)
[2017-04-20] MEDS: METOPROLOL TARTRATE 25 MG TAB PO SCH (08:39)
[2017-04-20] MEDS: ENOXAPARIN 60 MG/0.6 ML SYR SC SCH (08:44)
[2017-04-20] MEDS: TIMOLOL 0.5% 15 ML OPHT.BTL EACHEYE SCH (08:46)
[2017-04-20 08:59] VITALS: BP 164/83; PULSE 71; RESP 16; TEMP 97.7; O2SAT 95
[2017-04-20] MEDS: BUDESONIDE/FORMOTEROL 160/4.5 60 PUFFS/MDI IH SCH (09:47)
--- NOTE | 2017-04-20 12:05 | SOAPPROG ---
SOAP Progress Note Assessment/Plan: Assessment: Tolerating a regular diet, having bowel function, KUB this morning shows no persistent obstruction. Agree with discharge home Plan: 04/20/17 12:05 Objective: Vital Signs Temp Pulse Resp BP Pulse Ox 36.5 C 71 16 164/83 H 95 04/20/17 08:00 04/20/17 08:00 04/20/17 08:00 04/20/17 08:00 04/20/17 08:00 Laboratory Results 04/17/17 05:00 04/19/17 05:02 04/19/17 04/20/17 04/21/17 05:59 05:59 05:59 Intake Total 800 Output Total 750 Balance 50 PT 15.0 SEC (12.0-15.0) 04/20/17 05:03 INR 1.18 (0.83-1.16) H 04/20/17 05:03 ICD10 Worksheet Patient Problems: Problems Problem Status Onset Abdominal pain Acute Small bowel obstruction Acute Vomiting Acute Afib - Atrial fibrillation Active Acute anterior epistaxis Acute CHF (congestive heart failure) Acute Chronic Disease [facility] [place]/Transitional Care Acute GI bleed Acute Hemoptysis Acute Melena Acute Pleural effusion Acute Radiation pneumonitis Acute Recurrent thyroid cancer Acute Status post cardiac pacemaker procedure Acute
--- NOTE | 2017-04-20 21:18 | GDS ---
[f rep st] DISCHARGE SUMMARY DISCHARGE DIAGNOSES: 1. Small-bowel obstruction. 2. Permanent atrial fibrillation, on anticoagulation. 3. Hypokalemia. 4. Restless leg syndrome. 5. Hypertension. CONSULTATIONS: General Surgery. PHYSICAL EXAM: GENERAL: The patient is alert. VITAL SIGNS: Afebrile at 36.5, pulse is 71, respir atory rate 16, blood pressure is 164/83. She is saturating 95% on room air. I have seen and evalua gurmeet the patient on the day of discharge. HOSPITAL COURSE: The patient is an 82-year-old female, who presents to the hospital with complaints of abdominal pain. She was evaluated and diagnosed with: 1. A small-bowel obstruction. During this hospitalization, NG tube was placed, and the patient was placed on bowel rest. She has responded appropriately. Abdominal x-ray this morning shows no resi dual obstruction left. She is tolerating liquids, and having positive bowel sounds. I reviewed her care with Dr. Maciel of Surgery, who agrees with her plan for disposition. 2. Permanent atrial fibrillation. We have re-initiated the patient's previously prescribed home me dications. She does require bridge therapy with Lovenox, secondary to being off her oral Coumadin. She will follow up with the INR clinic in the outpatient setting, as previously ordered, and we melissa l continue Lovenox injections at the time of disposition. A prescription has been provided for the patient. 3. Restless leg syndrome. We will continue the previously prescribed home medications. 4. Hypertension. This is stable, and she will follow up with her primary needle loom operator. DISPOSITION: The patient will be discharged home independently. There are no pending studies. DISCHARGE MEDICATIONS: Please refer to EMR form. I have provided her a prescription for Lovenox at the time of disposition. FOLLOWUP: Followup will be with her primary care physician, Dr. Stacy Arellano, as well as the INR Cl in for further evaluations and laboratory workup. I spent greater than 35 minutes in the care, coordination, and management of the patient's dispositi on. /[id number]/MODL
== END 2017-04-20 13:19 | disposition home or self-care (01) | DRG 389 ==
LOC: CED 18:46 → CEDHOLD 21:37 → F3E 04-16 00:15
PROVIDERS: ADMIT Hospitalist; ATTEND Hospitalist
DX: K56.60 Unspecified intestinal obstruction (principal); E87.6 Hypokalemia; G25.81 Restless legs syndrome; R63.6 Underweight; Z68.1 Body mass index [BMI] 19.9 or less, adult; I48.0 Paroxysmal atrial fibrillation; C78.00 Secondary malignant neoplasm of unspecified lung; K21.9 Gastro-esophageal reflux disease without esophagitis; J44.9 Chronic obstructive pulmonary disease, unspecified; I69.398 Other sequelae of cerebral infarction; I10 Essential (primary) hypertension; Z79.01 Long term (current) use of anticoagulants; Z95.0 Presence of cardiac pacemaker; Z86.718 Personal history of other venous thrombosis and embolism; Z85.850 Personal history of malignant neoplasm of thyroid; Z85.3 Personal history of malignant neoplasm of breast; Z87.891 Personal history of nicotine dependence
CPT/HCPCS: 74020-PO; 74177-PO; 80048-PO; 80076-PO; 81003-PO; 81015-PO; 83690-PO; 83735-PO; 84484-PO; 85025-PO; 85610-PO; 96374; 97116-GP; 97161-GP; 97166-GO; 97535-GO; G8978-GP-CI; G8979-GP-CI; G8987-GO-CI; G8988-GO-CH; J1650; J2060; J2405; J3010; Q9967

== ENCOUNTER → 2017-04-26 | Outpatient (CLI) | payer OTHER, MEDICARE | LOC: FIMAGING 13:07 | PROVIDERS: ATTEND Internal Medicine Hematology & Oncology | DX: Z12.31 Encounter for screening mammogram for malignant neoplasm of breast (principal); Z85.3 Personal history of malignant neoplasm of breast | CPT/HCPCS: G0202 ==

== ENCOUNTER 2017-04-29 17:18 | Emergency (ER) | payer OTHER, MEDICARE ==
[2017-04-29 17:33] VITALS: RESP 16
[2017-04-29 17:50] LABS: % IMMATURE GRANULYOCYTES 0.4 % (0.0-1.1); ABSOLUTE IMMATURE GRANULOCYTES 0.03 10^3/uL (0.00-0.10); ADD DIFF? NO; ADD MORPH? NO; ADD SCAN? NO; ATYPICAL LYMPHOCYTE FLAG 0 (0-99); FRAGMENT RBC FLAG 0 (0-99); HEMATOCRIT 42.2 % (38.0-47.0); HEMOGLOBIN 14.8 g/dL (12.6-16.3); LEFT SHIFT FLG 0 (0-99); LIPEMIA HEMOLYSIS FLAG 90 (0-99); MEAN CELL HEMOGLOBIN 33.2 pg (27.9-34.1); MEAN CELL HEMOGLOBIN CONCENTR. 35.1 g/dL (32.4-36.7); MEAN CELL VOLUME 94.6 fL (81.5-99.8); MEAN PLATELET VOLUME 9.9 fL (8.7-11.7); PLATELET CLUMPS FLAG 0 (0-99); PLATELET COUNT 271 10^3/uL (150-400); RED BLOOD CELL COUNT 4.46 10^6/uL (4.18-5.33); RED CELL DISTRIBUTION WIDTH 12.3 % (11.5-15.2)
--- NOTE | 2017-04-29 17:50 | EDPHY ---
H & P Time Seen by Provider: 04/29/17 17:34 HPI/ROS: CHIEF COMPLAINT: Low INR HISTORY OF PRESENT ILLNESS: Patient is an 80-year-old female on Coumadin for previous DVT, paroxysmal AFib and CVA who presents emergency department with low INR 1.6. A few weeks ago the patient had a small bowel obstruction and the Coumadin was discontinued while she was NPO in the hospital. She was started on a Lovenox bridge. Last dose of Lovenox was on 04/23/2017. At that time she had an INR of 1.9. She currently takes 5 mg of Coumadin daily except on Saturday and when she takes 7.5 mg. Her has been treating her with ensure. He noted that this had the recommended dose of vitamin K. He was concerned that this could be affecting her INR. He states that she had a stroke when her INR was 1.34. Patient has no other complaints at this time. REVIEW OF SYSTEMS: My complete review of systems is negative except as mentioned in the HPI. Past Medical/Surgical History: Includes DVT, paroxysmal atrial fibrillation, CVA, hypertension, GERD, thyroid cancer, esophagitis, COPD, breast cancer, pneumonia, ovarian cyst, cataract Past surgical history: Includes carpal tunnel, hysterectomy, cataract surgery rotator cuff repair Social history: The patient is . She does not smoke. Smoking Status: Former smoker Physical Exam: 36.6, 110/67, 70, 16, 95% on room air GENERAL: Well-appearing, in no acute distress, alert. HEENT: Eyes normal to inspection, normal pharynx, no signs of dehydration. NECK: No thyromegaly, no lymphadenopathy, supple. RESPIRATORY: Clear to auscultation bilaterally, no rales, rhonchi or wheezing. CVS: Regular rate and rhythm, no rubs, murmurs, or gallops. ABDOMEN: Soft, nontender, nondistended, no organomegaly. BACK: Normal to inspection, no CVA tenderness. SKIN: Normal color, no rash, warm, dry. No pallor. EXTREMITIES: No pedal edema, no calf tenderness, no Homans sign or cords, no joint swelling. NEURO/PSYCH: Alert and oriented, normal mood and affect. No obvious deficits Constitutional: Initial Vital Signs Temperature (C) 36.6 C 04/29/17 17:29 Heart Rate 70 04/29/17 17:29 Respiratory Rate 16 04/29/17 17:29 Blood Pressure 110/67 04/29/17 17:29 O2 Sat (%) 95 04/29/17 17:29 O2 Delivery Mode Room Air Allergies/Adverse Reactions: amlodipine [Amlodipine] Allergy (Intermediate, Verified 04/15/17 19:14) Other-Enter Comments epinephrine [Epinephrine] Allergy (Intermediate, Verified 04/15/17 19:14) HEART RACES piperacillin sodium [From Zosyn] Allergy (Intermediate, Verified 04/15/17 19:14) Hives tazobactam sodium [From Zosyn] Allergy (Intermediate, Verified 04/15/17 19:14) Hives clarithromycin [From Biaxin] Allergy (Mild, Verified 04/15/17 19:14) moxifloxacin HCl [From Avelox] Allergy (Mild, Verified 04/15/17 19:14) niacin [From Niaspan] Allergy (Mild, Verified 04/15/17 19:14) Rash morphine Allergy (Verified 04/15/17 22:21) hallucinates omeprazole Allergy (Verified 04/15/17 19:14) vancomycin Allergy (Verified 04/15/17 19:14) ENVIRONMENTAL Allergy (Intermediate, Uncoded 04/15/17 19:14) EYES BURN AND SWELL/NASAL CONGESTION ADHESIVES Allergy (Mild, Uncoded 12/22/16 04:14) Rash Home Medications: Medication Instructions Recorded Cyanocobalamin (Vitamin B-12) 1,000 mcg INJ Q30D 12/10/14 [Vitamin B-12] Cholecalciferol Vit D3 [Vitamin D3 4,000 units PO DAILY 10/14/16 2000 units tab (OTC)] Acetaminophen [Tylenol 325mg (*)] 650 mg PO Q4HRS PRN #0 tab 11/08/16 Budesonide/Formoterol 160/4.5 2 puffs IH BID #1 mdi 11/08/16 [Symbicort 160-4.5 Mcg Inh (*)] Fluticasone Nasal [Flonase Nasal 1 sprays NASAL DAILY PRN #1 mdi 11/08/16 [place]] Ondansetron Odt [Zofran Odt 4 mg 4 mg PO Q4HRS PRN #14 tab 11/08/16 (*)] Tafluprost/Pf [Zioptan 0.0015% Eye 1 drop EACHEYE HS #60 droperette 11/08/16 Drops] Timolol 0.5% [TIMOPTIC 0.5% (*)] 1 drops EACHEYE DAILY #1 opht.btl 11/08/16 Warfarin Sodium [Coumadin 5MG (*)] 5 mg PO DAILY AT 9PM #30 tab 11/08/16 Furosemide [Lasix 20 MG (*)] 20 mg PO DAILY PRN 04/15/17 Lisinopril 5 mg PO BID 04/15/17 LORazepam [Ativan (*)] 1 - 2 tab PO HS PRN 04/16/17 Levothyroxine [Synthroid 112 mcg 112 mcg PO DAILY06 04/16/17 (*)] Metoprolol Tartrate [Lopressor 25 25 mg PO DAILY 04/16/17 mg (*)] Metoprolol Tartrate [Lopressor 50 50 mg PO HS 04/16/17 mg (*)] Enoxaparin [Lovenox 60 MG (*)] 50 mg SC BID #10 syr 04/20/17 rOPINIRole HCL [Requip 1mg (*)] 1 mg PO BID tab 04/20/17 Medical Decision Making ED Course/Re-evaluation: In the emergency department answered all the patient's questions. Laboratory studies were ordered. Patient's INR was low at 1.5. I discussed this with Dr. Espino. Based on our discussion the patient will be given Coumadin 10 mg orally tonight. She will take 7.5 mg tomorrow as regularly scheduled. She will follow up with Dr. Arellano on Saturday for her Saturday dosing. I discussed this plan with the patient and her . I answered all her questions. Patient was given warnings prior to leaving. She will return with worsening symptoms. Differential Diagnosis: Differential includes but is not limited to coagulopathy, medication error, laboratory error - Data Points Laboratory Results: Laboratory Results 04/29/17 17:45 04/29/17 17:45 04/29/17 04/29/17 04/29/17 17:45 17:45 17:45 WBC 6.77 10^3/uL 10^3/uL (3.80-9.50) RBC 4.46 10^6/uL 10^6/uL (4.18-5.33) Hgb 14.8 g/dL g/dL (12.6-16.3) Hct 42.2 % % (38.0-47.0) MCV 94.6 fL fL (81.5-99.8) MCH 33.2 pg pg (27.9-34.1) MCHC 35.1 g/dL g/dL (32.4-36.7) RDW 12.3 % % (11.5-15.2) Plt Count 271 10^3/uL 10^3/uL (150-400) MPV 9.9 fL fL (8.7-11.7) Neut % (Auto) 67.9 % % (39.3-74.2) Lymph % (Auto) 18.9 % % (15.0-45.0) [place] % (Auto) 10.9 % % (4.5-13.0) Eos % (Auto) 1.5 % % (0.6-7.6) Baso % (Auto) 0.4 % % (0.3-1.7) Nucleat RBC Rel Count 0.0 % % (0.0-0.2) Absolute Neuts (auto) 4.59 10^3/uL 10^3/uL (1.70-6.50) Absolute Lymphs (auto) 1.28 10^3/uL 10^3/uL (1.00-3.00) Absolute Monos (auto) 0.74 10^3/uL 10^3/uL (0.30-0.80) Absolute Eos (auto) 0.10 10^3/uL 10^3/uL (0.03-0.40) Absolute Basos (auto) 0.03 10^3/uL 10^3/uL (0.02-0.10) Absolute Nucleated RBC 0.00 10^3/uL 10^3/uL (0-0.01) Immature Gran % 0.4 % % (0.0-1.1) Immature Gran # 0.03 10^3/uL 10^3/uL (0.00-0.10) PT 18.0 SEC H SEC (12.0-15.0) INR 1.52 H (0.83-1.16) APTT 32.2 SEC SEC (23.0-38.0) Sodium 138 mEq/L mEq/L (134-144) Potassium 3.9 mEq/L mEq/L (3.5-5.2) Chloride 105 mEq/L mEq/L (97-110) Carbon Dioxide 19 mEq/l L mEq/l (22-31) Anion Gap 14 mEq/L mEq/L (8-16) BUN 28 mg/dL H mg/dL (7-23) Creatinine 0.7 mg/dL mg/dL (0.6-1.0) Estimated GFR > 60 Glucose 159 mg/dL H mg/dL (70-100) Calcium 8.7 mg/dL mg/dL (8.5-10.4) Medications Given: Discontinued Medications Warfarin Sodium (Coumadin) 10 mg PO EDNOW ONE Stop: 04/29/17 18:30 Last Admin: 04/29/17 18:40 Dose: 10 mg Departure - Departure Disposition: Home, Routine, Self-Care Clinical Impression: Abnormal INR Condition: Good Instructions: Elevated INR (ED), Blood Thinners (ED) Additional Instructions: Your given 10 mg of Coumadin in the emergency department. Take your normal dose tomorrow of 7.[address] Arellano on Saturday determine when she wants your INR drawn. Referrals: Stacy Arellano MD [Primary Care Provider] - 05/01/17
[2017-04-29 17:59] LABS: INR 1.52 (0.83-1.16)
[2017-04-29 18:00] LABS: APTT 32.2 SEC (23.0-38.0)
[2017-04-29 18:07] LABS: ANION GAP 14 mEq/L (8-16); CALCIUM 8.7 mg/dL (8.5-10.4); CARBON DIOXIDE 19 mEq/l (22-31); CHLORIDE 105 mEq/L (97-110); CREATININE 0.7 mg/dL (0.6-1.0); GLOMERULAR FILTRATION RATE > 60; GLUCOSE 159 mg/dL (70-100); POTASSIUM 3.9 mEq/L (3.5-5.2); SODIUM 138 mEq/L (134-144)
[2017-04-29] MEDS ORDERED: WARFARIN SODIUM 5 MG TAB PO ONE (18:29)
[2017-04-29 19:00] VITALS: BP 136/72; PULSE 73; TEMP 99; O2SAT 94
== END 2017-04-29 18:58 | disposition home or self-care (01) ==
LOC: CED 17:18
DX: R79.1 Abnormal coagulation profile (principal); I10 Essential (primary) hypertension; Z79.01 Long term (current) use of anticoagulants; Z85.3 Personal history of malignant neoplasm of breast; Z85.850 Personal history of malignant neoplasm of thyroid; Z86.73 Personal history of transient ischemic attack (TIA), and cerebral infarction without residual deficits; Z87.891 Personal history of nicotine dependence
CPT/HCPCS: 80048-PO; 85025-PO; 85610-PO; 85730-PO

== ENCOUNTER 2017-06-16 08:30 | Observation (INO) | payer OTHER, MEDICARE ==
--- NOTE | 2017-06-16 08:49 | EDPHY ---
HPI/HX/ROS/PE/MDM Narrative: CHIEF COMPLAINT: Hypertension, headache HPI: The patient is an anticoagulated 82 y/o female with a complicated medical history arriving with her complaining of recurrent hypertensive episodes with headaches. Her medical history includes hypertension, atrial fibrillation, and CVA with persistent left-sided deficits. She's had multiple episodes of acute hypertension that seem to spike while sleeping. She saw her PCP 5 days ago for these symptoms and Dr. Arellano ordered a sleep study to rule out nocturnal hypoxemia as a cause for her symptoms. Dr. Arellano also recommended taking an additional dose of metoprolol before bed, which the patient has been doing for a few days. Around 03:30 this morning, about 5.5 hours ago, she woke with a severe headache and measured her blood pressure at 194/117. She then took 50mg of metoprolol, 5mg of lisinopril, Tylenol, and Ativan, with only mild improvement in her headache. She called [facility] this morning and they recommended evaluation at the ED for further care. Her most recent INR was 3.1. REVIEW OF SYSTEMS: Aside from elements discussed in the HPI, a comprehensive 10-point review of systems was reviewed and is negative. 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 Prior medical records reviewed including admission 04/15/17 for abdominal pain. SOCIAL HISTORY: No tobacco. at bedside. Retired. Lives in [place]. PHYSICAL EXAM: General:Patient is alert, in no acute distress. ENT:Eyes are normal to inspection. ENT inspection normal. Neck: Normal inspection. Full range of motion. Respiratory:No respiratory distress. Breath sounds normal bilaterally. Cardiovascular: Regular rate and rhythm. Strong peripheral pulses. Normal cap refill. Abdomen:The abdomen is nontender to palpation. There are no peritoneal signs. Back: Normal to inspection. No tenderness to palpation. Skin: Normal color. No rash. Warm and dry. Extremities: Normal appearance. Full range of motion. Neuro: Oriented x3. Left-sided weakness at baseline, otherwise normal motor and sensory function. ED Course: This is an anticoagulated 82 y/o female with multiple comorbidities who presents with a generalized headache and hypertension. She's had several similar episodes recently and her PCP has adjusted her antihypertensive medication to help treat her symptoms. Her headache woke her from sleep today and did not resolve after medication. Plan for IV, labs, EKG. 500mL IV NS administered. The 12 lead EKG was interpreted by myself. Paced AV rhythm, rate 71. See hard copy and/or "tracemaster" electronic copy for interpretation. Spoke with hospitalist service. Dr. Hyman accepts admission for hypertension and headache. MDM: This patient presents with labile SBP, particularly at night. She is currently asymptomatic other than mild headache, and her SBP has come down spontaneously to approximately 150, so I do not think antihypertensives as indicated in the ED. Normally we would treat these patients as an outpatient, but patient has already undergone doubling of her medications this week, and she is very high risk for complication secondary to history of CVA and coumadin use. Her SBPs are spiking quite high overnight and I think she would benefit from close monitoring during adjustment. - Data Points Laboratory Results: Laboratory Results 06/16/17 09:05 06/16/17 09:05 06/16/17 06/16/17 06/16/17 09:05 09:05 09:05 WBC 7.80 10^3/uL 10^3/uL (3.80-9.50) RBC 4.78 10^6/uL 10^6/uL (4.18-5.33) Hgb 15.5 g/dL g/dL (12.6-16.3) Hct 45.6 % % (38.0-47.0) MCV 95.4 fL fL (81.5-99.8) MCH 32.4 pg pg (27.9-34.1) MCHC 34.0 g/dL g/dL (32.4-36.7) RDW 12.4 % % (11.5-15.2) Plt Count 207 10^3/uL 10^3/uL (150-400) MPV 9.8 fL fL (8.7-11.7) Neut % (Auto) 74.6 % H % (39.3-74.2) Lymph % (Auto) 14.1 % L % (15.0-45.0) [place] % (Auto) 9.4 % % (4.5-13.0) Eos % (Auto) 1.2 % % (0.6-7.6) Baso % (Auto) 0.3 % % (0.3-1.7) Nucleat RBC Rel Count 0.0 % % (0.0-0.2) Absolute Neuts (auto) 5.83 10^3/uL 10^3/uL (1.70-6.50) Absolute Lymphs (auto) 1.10 10^3/uL 10^3/uL (1.00-3.00) Absolute Monos (auto) 0.73 10^3/uL 10^3/uL (0.30-0.80) Absolute Eos (auto) 0.09 10^3/uL 10^3/uL (0.03-0.40) Absolute Basos (auto) 0.02 10^3/uL 10^3/uL (0.02-0.10) Absolute Nucleated RBC 0.00 10^3/uL 10^3/uL (0-0.01) Immature Gran % 0.4 % % (0.0-1.1) Immature Gran # 0.03 10^3/uL 10^3/uL (0.00-0.10) PT 25.4 SEC H SEC (12.0-15.0) INR 2.29 H (0.83-1.16) APTT 35.3 SEC SEC (23.0-38.0) Sodium 140 mEq/L mEq/L (134-144) Potassium 3.7 mEq/L mEq/L (3.5-5.2) Chloride 103 mEq/L mEq/L (97-110) Carbon Dioxide 24 mEq/l mEq/l (22-31) Anion Gap 13 mEq/L mEq/L (8-16) BUN 16 mg/dL mg/dL (7-23) Creatinine 0.5 mg/dL L mg/dL (0.6-1.0) Estimated GFR > 60 Glucose 87 mg/dL mg/dL (70-100) Calcium 9.1 mg/dL mg/dL (8.5-10.4) Troponin I < 0.012 ng/mL ng/mL (0.000-0.034) Medications Given: Discontinued Medications Sodium Chloride (Ns) 500 mls @ 0 mls/hr IV EDNOW ONE; Wide Open PRN Reason: Protocol Stop: 06/16/17 09:03 Last Admin: 06/16/17 09:21 Dose: 500 mls General Time Seen by Provider: 06/16/17 08:38 Initial Vital Signs: Initial Vital Signs Temperature (C) 36.7 C 06/16/17 08:32 Heart Rate 71 06/16/17 08:32 Respiratory Rate 18 06/16/17 08:32 Blood Pressure 178/95 H 06/16/17 08:32 O2 Sat (%) 96 06/16/17 08:32 O2 Delivery Mode Room Air Allergies/Adverse Reactions: amlodipine [Amlodipine] Allergy (Intermediate, Verified 06/16/17 08:31) Other-Enter Comments epinephrine [Epinephrine] Allergy (Intermediate, Verified 06/16/17 08:31) HEART RACES piperacillin sodium [From Zosyn] Allergy (Intermediate, Verified 06/16/17 08:31) Hives tazobactam sodium [From Zosyn] Allergy (Intermediate, Verified 06/16/17 08:31) Hives clarithromycin [From Biaxin] Allergy (Mild, Verified 06/16/17 08:31) moxifloxacin HCl [From Avelox] Allergy (Mild, Verified 06/16/17 08:31) niacin [From Niaspan] Allergy (Mild, Verified 06/16/17 08:31) Rash morphine Allergy (Verified 06/16/17 08:31) hallucinates omeprazole Allergy (Verified 06/16/17 08:31) vancomycin Allergy (Verified 06/16/17 08:31) ENVIRONMENTAL Allergy (Intermediate, Uncoded 04/15/17 19:14) EYES BURN AND SWELL/NASAL CONGESTION ADHESIVES Allergy (Mild, Uncoded 12/22/16 04:14) Rash Home Medications: Medication Instructions Recorded Cyanocobalamin (Vitamin B-12) 1,000 mcg IM Q30D 12/10/14 [Vitamin B-12] Budesonide/Formoterol 160/4.5 2 puffs IH BID #1 mdi 11/08/16 [Symbicort 160-4.5 Mcg Inh (*)] Ondansetron Odt [Zofran Odt 4 mg 4 mg PO Q4HRS PRN #14 tab 11/08/16 (*)] Tafluprost/Pf [Zioptan 0.0015% Eye 1 drop EACHEYE HS #60 droperette 11/08/16 Drops] Timolol 0.5% [TIMOPTIC 0.5% (*)] 1 drops EACHEYE DAILY #1 opht.btl 11/08/16 Furosemide [Lasix 20 MG (*)] 20 mg PO DAILY PRN 04/15/17 Lisinopril 5 mg PO BID 04/15/17 Levothyroxine [Synthroid 112 mcg 112 mcg PO DAILY06 04/16/17 (*)] Acetaminophen [Tylenol 325mg (*)] 162.5 mg PO Q4HRS PRN 06/16/17 Albuterol [Proventil Inhaler HFA 2 puffs IH Q4 PRN 06/16/17 (*)] Sodium Cl Nasal [[place] (*)] 1 spray [place] PRN PRN 06/16/17 Warfarin Sodium [Coumadin 5MG (*)] 5 mg PO SUMOTUWEFRSA@16 06/16/17 Warfarin Sodium [Coumadin 7.5MG 7.5 mg PO TH@16 06/16/17 (*)] LORazepam [Ativan (*)] 0.25 mg PO DAILY PRN #0 06/17/17 Metoprolol Tartrate [Lopressor 50 50 mg PO BID #60 tab 06/17/17 mg (*)] Temazepam [Restoril 15 MG (*)] 15 mg PO HS PRN #10 cap 06/17/17 Departure - Departure Disposition: [facility] Inpatient Acute Clinical Impression: Headache Qualifiers: Headache type: other headache syndrome Qualified Code(s): G44.89 - Other headache syndrome Hypertension Qualifiers: Hypertension type: other secondary hypertension Qualified Code(s): I15.8 - Other secondary hypertension Condition: Good Report Scribed for: Jayro Manning Report Scribed by: Shawna Kuhn Date of Report: 06/16/17 Time of Report: 08:49 Physician Review and Approval Statement: Portions of this note were transcribed by an ED scribe. I personally performed the history, physical exam, and medical decision making; and confirm the accuracy of the information in the transcribed note.
[2017-06-16] MEDS ORDERED: NS 500 ML IV ONE (09:02)
[2017-06-16 09:14] LABS: % IMMATURE GRANULYOCYTES 0.4 % (0.0-1.1); ABSOLUTE IMMATURE GRANULOCYTES 0.03 10^3/uL (0.00-0.10); ADD DIFF? NO; ADD MORPH? NO; ADD SCAN? NO; ATYPICAL LYMPHOCYTE FLAG 0 (0-99); FRAGMENT RBC FLAG 0 (0-99); HEMATOCRIT 45.6 % (38.0-47.0); HEMOGLOBIN 15.5 g/dL (12.6-16.3); LEFT SHIFT FLG 0 (0-99); LIPEMIA HEMOLYSIS FLAG 90 (0-99); MEAN CELL HEMOGLOBIN 32.4 pg (27.9-34.1); MEAN CELL VOLUME 95.4 fL (81.5-99.8); MEAN PLATELET VOLUME 9.8 fL (8.7-11.7); PLATELET CLUMPS FLAG 10 (0-99); PLATELET COUNT 207 10^3/uL (150-400); RED BLOOD CELL COUNT 4.78 10^6/uL (4.18-5.33); RED CELL DISTRIBUTION WIDTH 12.4 % (11.5-15.2)
--- NOTE | 2017-06-16 09:14 | CPEKG ---
Heart Rate: 71 RR Interval: 845 P-R Interval: 204 QRSD Interval: 152 QT Interval: 460 QTC Interval: 500 QRS Myra: -87 T Wave Myra: -21 EKG Severity - ABNORMAL ECG - EKG Impression: ATRIAL-VENTRICULAR DUAL-PACED COMPLEXES EKG Impression: PREVIOUS ECG WITH UNDERLYING ATRIAL FIBRILLATION AND VENTRICULAR PACING ONLY Electronically Signed By: Patel Abdalla 17-Jun-2017 15:54:46
[2017-06-16 09:24] LABS: APTT 35.3 SEC (23.0-38.0); INR 2.29 (0.83-1.16); PROTIME(PATIENT) 25.4 SEC (12.0-15.0)
[2017-06-16 09:28] LABS: ANION GAP 13 mEq/L (8-16); CALCIUM 9.1 mg/dL (8.5-10.4); CARBON DIOXIDE 24 mEq/l (22-31); CHLORIDE 103 mEq/L (97-110); CREATININE 0.5 mg/dL (0.6-1.0); GLOMERULAR FILTRATION RATE > 60; GLUCOSE 87 mg/dL (70-100); POTASSIUM 3.7 mEq/L (3.5-5.2); SODIUM 140 mEq/L (134-144)
[2017-06-16 09:40] LABS: TROPONIN I < 0.012 ng/mL (0.000-0.034)
[2017-06-16] MEDS ORDERED: ONDANSETRON DISINTEGRATING 4 MG TAB PO PRN (10:20)
[2017-06-16] MEDS ORDERED: TEMAZEPAM 15 MG CAP PO PRN (10:20)
[2017-06-16] MEDS ORDERED: ONDANSETRON 4 MG/2 ML VIAL IVP PRN (10:20)
[2017-06-16] MEDS ORDERED: HYDROCODONE/APAP 5/325 TAB PO PRN (10:20)
[2017-06-16] MEDS: ACETAMINOPHEN 325 MG TAB PO PRN ×2 (12:42→21:41)
[2017-06-16] MEDS ORDERED: NON-FORMULARY NEW DRUG (Albuterol [Proventil Inhaler Hfa (*)] 2 PUFFS) IH PRN (15:41)
[2017-06-16] MEDS ORDERED: SODIUM CL NASAL 45 ML BTL EACHNARE PRN (15:41)
[2017-06-16] MEDS ORDERED: ALBUTEROL 200 PUFFS/18 GM MDI IH PRN (15:55)
[2017-06-16] MEDS ORDERED: WARFARIN SODIUM 5 MG TAB PO SCH ×2 (16:00)
[2017-06-16] MEDS: LEVOTHYROXINE 112 MCG TAB PO SCH (17:14)
--- NOTE | 2017-06-16 18:38 | GHP ---
[f rep st] HISTORY AND PHYSICAL DATE OF ADMISSION: 06/16/2017 CHIEF COMPLAINT: Very high blood pressure. HISTORY OF PRESENT ILLNESS: The patient is a very pleasant 82-year-old female, who came to the emergency department today because of unmanageable blood pressure at home. She says that for approximately the last 6 months, she has been noticing that in the evening time, her blood pressure will often be very high, sometimes waking her up from sleep. It seems to be increasingly more problematic in the last few weeks. She saw her primary care physician, Dr. Stacy Arellano, at [facility] about 5 days prior to this admission because of this issue. At that time, Dr. Arellano had recommended using some as- needed doses of metoprolol. The patient says that she woke up this morning at about 2 or 3 o'clock in the morning and had a very bad headache. She noticed that her blood pressure was very high and tried taking the extra doses. This did not resolve her symptoms, so she called her primary care provider and was then referred to the emergency department today for evaluation. She has had a complicated medical year, which included an MCA stroke with left- sided deficits, atrial fibrillation, a rehabilitation stay, and small bowel obstructions. She denies any fever, vomiting, diarrhea, cough, congestion, or shortness of breath. She does have some occasional sticking sensation when trying to swallow foods, which she relates to her previous radiation therapy for thyroid cancer. She denies that this symptom is any worse than normal for her. She wakes up frequently at night to urinate. She denies any focal numbness , tingling, or weakness. She denies any change in her speech or vision. She had a home sleep apnea test done in January of 2017, which showed a few abnormalities but nothing significant enough to cause any further evaluation. However, Dr. Arellano did suggest that she have a full sleep apnea evaluation at her last office visit. She had a CT head 11/2016- no mass. She is followed by the [facility], Dr. Gutierrez. She is followed by Dr. Sutton of endocrinology. She is followed by Dr. Munoz of cardiology. PCP Dr Stacy Arellano. 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 SOCIAL HISTORY: Very distant use of tobacco. No regular alcohol use. She is a , but remarried, and lives independently with her second . She does have children in the area also. MEDICATIONS: Tylenol as needed, B12 shots every month, Lasix 20 mg daily p.r.n. (the p.r.n. reason is if her weight increases or she feels short of breath per cardiology instructions), lorazepam 0.25 mg daily p.r.n., metoprolol 25-50 mg daily and then 50-100 mg nightly (recently changed by Dr. Arellano as above), Zofran 4 mg every 4 hours as needed, ropinirole 0.5 mg nightly (she says she started taking this medicine about 6-8 months ago and it has helped a lot with her restless legs syndrome; she does admit that this might coincide with when her blood pressure symptoms seem to change also), albuterol as needed , Symbicort 160/4.5 twice a day, levothyroxine 112 mcg once a day, lisinopril 5 mg twice a day, [place] nasal spray as needed, Zioptan 0.0015% eye drops nightly, timolol 0.5% one drop into the eyes nightly, Coumadin 5 mg on Saturday, Saturday, Saturday, Saturday, Saturday and Saturday, and 7.5 mg on ( managed in the outpatient Coumadin clinic). ALLERGIES: Amlodipine, epinephrine, Zosyn, Biaxin, Avelox, Niaspan, morphine, omeprazole, and vancomycin. CODE STATUS: Full code. This was confirmed with her and her (who is her medical power of real estate associate attorney). Encouraged her to fill out a MOST form with Dr Arellano. REVIEW OF SYSTEMS: A 10-point review of systems was negative except as noted above. OBJECTIVE: VITAL SIGNS: Her blood pressure was initially 178/95, with a pulse of 71, but when I evaluated her, her blood pressure was 159/93, with a pulse of 70. She was 94% on room air. Temperature was 97.7. GENERAL: She is a very pleasant, thin, elderly female, in no apparent distress. HEENT: Normocephalic, atraumatic. Pupils are equal and reactive to light. Extraocular movements are intact. No exophthalmos noted. Oral cavity and pharynx are moist. No lesions noted. NECK: Supple, with irregular thyroid. No bruits or JVD noted. CARDIOVASCULAR: Regular rate and rhythm. LUNGS: Clear to auscultation bilaterally. GI: Normoactive bowel sounds. Nontender. Nondistended. No hepatosplenomegaly or masses appreciated. : Deferred. BREASTS: Exam was deferred. MUSCULOSKELETAL: Moves all extremities. No cyanosis, clubbing, or edema noted. SKIN: No obvious rashes. NEUROLOGIC: Cranial nerves 2-12 are grossly intact. She is awake, alert, and fluent in speech and cognition. PSYCHIATRIC: No obvious symptoms/signs of depression or anxiety. LABORATORY DATA: White blood cell count 7.8, with a hemoglobin of 15.5, a hematocrit of 45.6, and a platelet count of 207. INR is 2.29. Sodium 140, potassium 3.7, chloride 103, CO2 24, BUN 16, creatinine 0.5, glucose 87, calcium 9.1. Troponin is less than 0.12. TSH was done in November of 2016 according to [facility] and was in the normal range of 1.33 (she also reports seeing Dr. Sutton within the last few weeks). EKG showed a right bundle branch block, sinus rhythm, and normal axis. Personally reviewed by myself. ASSESSMENT AND PLAN: 1. Labile hypertension. I discussed with her and her family members the different causes of labile hypertension, including possible medication side effects from ropinirole, cardiovascular disease, renal disease, hypoglycemia, pheochromocytoma, anxiety, brain mass, and undiagnosed sleep disorder. Will check frequent blood pressures while she is staying overnight. I have also asked the nurses to check her blood sugar if any noted high blood pressures or headache. She is being monitored on telemetry. Echocardiogram and renal ultrasound were ordered. I will also order a plasma metanephrine. I agree with Dr. Arellano plan for a full sleep evaluation as an outpatient. Will re- evaluate in the morning and determine if okay to discharge to home. No change to her chronic medications was done other than will not include the p.r.n. dose of beta-blockers and a prn restoril ordered. Will consider an inpt cardiology consult depending on how her vital signs are overnight and any telemetry events. 2. Hypothyroidism. Per Dr. Sutton as an outpatient, continue with home dose. 3. Thyroid cancer that she reports has metastasized to the lungs, so she is followed routinely by Dr. Gutierrez, and they are debating further chemotherapy evaluation per her report. For now, will not involve Hematology/Oncology in her care, but consider a consult to them in the future if needed. 4. DVT prophylaxis. She is chronically anticoagulated with Coumadin, which is therapeutic in range. I have asked Pharmacy to continue to monitor. 5. Code status. Confirmed that she would like to be full code. 6. PCP: Dr. Stacy Arellano. The patient was placed on observation status, as hopefully, I anticipate that she will be able to discharge to home tomorrow. /[id number]/MODL MTDD
[2017-06-16] MEDS: METOPROLOL TARTRATE 50 MG TAB PO SCH (20:15)
[2017-06-16] MEDS: LISINOPRIL 5 MG TAB PO SCH (20:15)
[2017-06-16] MEDS: BUDESONIDE/FORMOTEROL 160/4.5 60 PUFFS/MDI IH SCH (20:22)
[2017-06-16] MEDS ORDERED: BUDESONIDE IH SCH (21:00)
[2017-06-16] MEDS ORDERED: [UNRECOGNIZED DRUG - OTHER] IH SCH (21:00)
[2017-06-16] MEDS ORDERED: Tafluprost/Pf [Zioptan 0.0015% Eye Drops] EACHEYE SCH (21:00)
[2017-06-16] MEDS ORDERED: TAFLUPROST EACHEYE SCH (21:00)
[2017-06-16] MEDS ORDERED: FORMOTEROL IH SCH (21:00)
[2017-06-17] MEDS: ACETAMINOPHEN 325 MG TAB PO PRN (04:41)
[2017-06-17] MEDS: LEVOTHYROXINE 112 MCG TAB PO SCH (04:43)
[2017-06-17 04:59] LABS: INR 2.27 (0.83-1.16); PROTIME(PATIENT) 25.2 SEC (12.0-15.0)
[2017-06-17 05:05] LABS: ANION GAP 11 mEq/L (8-16); CALCIUM 8.6 mg/dL (8.5-10.4); CARBON DIOXIDE 24 mEq/l (22-31); CHLORIDE 104 mEq/L (97-110); CREATININE 0.6 mg/dL (0.6-1.0); GLOMERULAR FILTRATION RATE > 60; GLUCOSE 86 mg/dL (70-100); POTASSIUM 3.4 mEq/L (3.5-5.2); SODIUM 139 mEq/L (134-144)
[2017-06-17 06:43] LABS: HEMOGLOBIN A1C 5.7 % (4.0-6.0)
[2017-06-17 07:38] VITALS: BP 156/96; RESP 18; TEMP 97.4; O2SAT 92
[2017-06-17] MEDS: BUDESONIDE/FORMOTEROL 160/4.5 60 PUFFS/MDI IH SCH (08:43)
[2017-06-17] MEDS ORDERED: TIMOLOL 0.5% EACHEYE SCH (09:00)
[2017-06-17] MEDS: LISINOPRIL 5 MG TAB PO SCH (10:03)
[2017-06-17] MEDS: METOPROLOL TARTRATE 50 MG TAB PO SCH (10:03)
[2017-06-17 10:05] VITALS: PULSE 74
--- NOTE | 2017-06-17 10:30 | GDS ---
[f rep st] DISCHARGE SUMMARY SERVICE: [facility] hospitalist. CONSULTS: None. PROCEDURE: 1. Renal ultrasound, no noted abnormality. 2. Echocardiogram, no report available at discharge. HISTORY AND PHYSICAL: Please see previously dictated note by myself. ADMISSION DIAGNOSES: 1. Labile hypertension. 2. Hypothyroidism. 3. Thyroid cancer, metastatic per her report. 4. Restless legs syndrome. 5. Atrial fibrillation with chronic anticoagulation. DISCHARGE DIAGNOSES: 1. Labile hypertension. 2. Hypothyroidism. 3. Thyroid cancer, metastatic per her report. 4. Restless legs syndrome. 5. Anxiety. 6. Atrial fibrillation with chronic anticoagulation. HOSPITAL COURSE BY PROBLEM LIST: 1. Labile hypertension. She was observed overnight and had frequent blood pressure measurements. Her metoprolol dose was continued at 50 mg twice a day. Her overnight blood pressures remained less than 160/100, and no spike was noted during her stay here. The rest of her vital signs were stable . She reports that she "slept great." She did have some restless legs symptoms but she took a Tyle nol and Restoril and says she slept all night (also noting she did not wake up to go to urinate). S he has a positive metanephrine that is pending at time of discharge. Hemoglobin A1c was done and no rmal at 5.7. An echocardiogram is pending at discharge. I have advised her to follow up with her [facility] doctor, Dr. Arellano, to review echocardiogram results and continue with sleep medicine r eferral as discussed previously. Okay to continue with Restoril as needed and a prescription was pr ovided. Should stop Requip for now as hyper and hypotension are both listed as potential side effec ts of this medication. If at any time she has chest pain, shortness of breath, recurrent labile hyp ertension or other concerns, she is to return immediately to the hospital. Otherwise she should fol low up with her primary care provider as noted above. 2. Hypothyroidism. Continue with home medication. Follow up with Dr. Sutton as previously advised. 3. Thyroid cancer with metastasis to the lungs. She should follow up with Dr. Gutierrez as previously advised. Would consider MRI imaging of her brain if any further hypertensive symptoms continue. A CT scan was done in November of 2016, that was negative for mass effect. 4. Atrial fibrillation with chronic anticoagulation. Home Coumadin dose was continued and she was noted to be in a therapeutic range. She should follow up with outpatient Coumadin Clinic as renata thomas previously. 5. Restless legs syndrome. See above, hold Requip and okay to use Restoril p.r.n. with Tylenol. C an discuss other options for restless legs syndrome with her primary care provider and also sleep me marc consult that is planned for the future. 6. Anxiety. As I am speaking with her on the day of discharge, she wonders if some of this is rela gurmeet to anxiety and maybe that is why Restoril helped. I agreed with her that this can be a contribu ting factor and she should discuss further with her primary care provider. DISCHARGE INSTRUCTIONS: She should follow up with Dr. Arellano within a few days of discharge. Shoranjith gallagher continue with the sleep medicine evaluation as recommended by Dr. Arellano. Follow up with Dr. Emanuel gonzalez, Dr. Gutierrez, Dr. Sutton as previously advised. DISCHARGE MEDICATIONS: Cyanocobalamin 1000 mcg IM every 30 days, Zofran 4 mg as needed, Symbicort 1 60/4.5 twice a day, timolol drops daily, Zioptan drops daily, Lasix 20 mg daily p.r.n., lisinopril 5 mg twice a day, Synthroid 112 mcg once a day, Coumadin as directed by Coumadin Clinic, albuterol as needed, Tylenol as needed, ocean spray as needed, lorazepam as needed. New prescription: Metoprolol 50 mg twice a day and Restoril 15 mg at bedtime p.r.n. /[id number]/MODL
--- NOTE | 2017-06-17 13:56 | ECHO ---
[id number] + + [address] : : [place] [address] : : [phone] + Adult Echocardiographic Report + ------+ :Name: KEYA BYRNE Estrellagavino Date: 06/17/2017 08:56 AM : : Hospital Admission Number: [id number] Locatio n: 391: :: 1935 Gender: Female Height: 64 in : :Age: 82 yrs Race: WH Weight: 108 lb : :Reason For Study: Labile blood pressure especially at night : : BSA: 1.5 meters 2 : :History: Pacer : + ------+ MMode/2D Measurements \T\ Calculations IVSd: 0.96 cm LVIDd: 4.0 cm FS: 37.0 % Ao root diam: LVPWd: 0.95 cm LVIDs: 2.5 cm EDV(Teich): 68.0 ml 3.0 cm ESV(Teich): 22.1 ml LA dimension: EF(Teich): 67.5 % 3.1 cm LVOT diam: 1.8 cmLVLd ap4: 6.3 cm SV(MOD-sp4): LVOT area: EDV(MOD-sp4): 24.0 ml 2.6 cm2 39.0 ml LVLs ap4: 5.4 cm ESV(MOD-sp4): 15.0 ml EF(MOD-sp4): 61.5 % Normal Measurement Values: + + :LVIDd (3.5-5.7cm) IVSd (0.6-1.1cm) LVPWd (0.6-1.1cm) Aortic Root (2.0-3.7cm)Left Atrium (1.5-4.0cm): :LV Vol(d) (76-115ml) LV Vol(s) (29-48ml) Ejec Fraction (50-65%)PV Chandler (0.6- 1.2m/s) TV Chandler (0.4-1.0m/s) : :MV E Chandler (0.8-1.0m/s)MV A Chandler (0.3-1.0m/s)LVOT Chandler (0.7-1.2m/s) Asc Ao Chandler ( 0.9-1.8m/s) : + + Doppler Measurements \T\ Calculations MV E max chandler: Ao mean PG: LV V1 max: SV(LVOT): 39.0 cm/sec 2.6 mmHg 67.1 cm/sec 36.9 ml MV A max chandler: Ao V2 mean: LV V1 max P.9 cm/sec 77.6 cm/sec 1.8 mmHg MV E/A: 0.85 Ao V2 VTI: 20.2 cm LV V1 mean PG: SAMY(I,D): 1.8 cm2 1.0 mmHg LV V1 mean: 46.5 cm/sec LV V1 VTI: 14.4 cm TR max chandler: 255.2 cm/sec TR max P.0 mmHg RAP systole: 10.0 mmHg RVSP(TR): 36.0 mmHg Left Ventricle The left ventricle is normal in size. There is mild concentric left ventricular hypertrophy. Left ventricular systolic function is normal. Ejection Fraction = 60-65%. Septal motion consistent with pacemaker. Right Ventricle The right ventricle is normal in size and function. There is a pacemaker lead in the right ventricle. Atria The left atrium is mildly dilated. The right atrium is mildly dilated. Mitral Valve Calcified mitral apparatus. There is no evidence of mitral valve prolapse. There is no mitral valve stenosis. There is mild mitral regurgitation. Tricuspid Valve Normal tricuspid valve. There is mild tricuspid regurgitation. Right ventricular systolic pressure is normal. Aortic Valve The aortic valve is not well visualized. There is no aortic stenosis. Trace aortic regurgitation. Pulmonic Valve The pulmonic valve is not well visualized. There is no pulmonic valvular regurgitation. Great Vessels The aortic root is normal size. Pericardium/Pleural There is no pericardial effusion. Conclusion A complete two-dimensional transthoracic echocardiogram was performed (2D, M-mode, Doppler and color flow Doppler). The study was technically difficult. 1. This is a technically limited study. 2. The left ventricle is normal in size. There is mild concentric left ventricular hypertrophy. Septal motion consistent with pacemaker. Ejection Fraction = 60-65%. 3. There is mild biatrial enlargement. 4. Calcified mitral apparatus. There is mild mitral regurgitation. 5. The aortic valve is not well visualized. There is no aortic stenosis. Trace aortic regurgitation. 6. Right ventricular systolic pressure is normal. 7. Compared to the (08/01/16) study The degree of mitral regurgitation has decreased from mild/moderate to mild. The pulmonary artery pressure estimate has decreased from 49 to 36 mmHg. Final Reading Physician: Patel Painting MD electronically signed on 06/17/2017 01:54 PM Ordering Physician: NICHOLAS ZELAYA Performed By: Mary Nayak RD
[2017-06-20 08:34] LABS: METANEPHRINES PLASMA METAP <0.20 nmol/L (<0.50); NORMETANEPHRINE PLASMA METAP 0.28 nmol/L (<0.90)
[2017-06-20] MEDS ORDERED: WARFARIN SODIUM 7.5 MG TAB PO SCH ×2 (16:00)
== END 2017-06-17 13:15 | disposition home or self-care (01) ==
LOC: F3E 10:54
PROVIDERS: ADMIT Family Medicine; ATTEND Family Medicine
DX: R09.89 Other specified symptoms and signs involving the circulatory and respiratory systems (principal); E03.9 Hypothyroidism, unspecified; C73 Malignant neoplasm of thyroid gland; G25.81 Restless legs syndrome; F41.9 Anxiety disorder, unspecified; I48.91 Unspecified atrial fibrillation; Z79.01 Long term (current) use of anticoagulants; C78.00 Secondary malignant neoplasm of unspecified lung
CPT/HCPCS: 76770; 93005; 93306; G0378; 83835-90

== ENCOUNTER → 2017-07-29 | Outpatient (CLI) | payer OTHER, MEDICARE | LOC: CIMAGING 09:15 | PROVIDERS: ATTEND Internal Medicine Endocrinology, Diabetes & Metabolism | DX: G93.89 Other specified disorders of brain (principal); G31.9 Degenerative disease of nervous system, unspecified; R91.1 Solitary pulmonary nodule; C73 Malignant neoplasm of thyroid gland; E20.9 Hypoparathyroidism, unspecified | CPT/HCPCS: 70470-PO; 70491-PO; 71260-PO; 74177-PO ==

== ENCOUNTER → 2017-08-02 | Outpatient (CLI) | payer OTHER, MEDICARE | LOC: FIMAGING 09:55 | PROVIDERS: ATTEND Internal Medicine Endocrinology, Diabetes & Metabolism | DX: Z12.89 Encounter for screening for malignant neoplasm of other sites (principal); C73 Malignant neoplasm of thyroid gland; E20.9 Hypoparathyroidism, unspecified | CPT/HCPCS: 78306; A9503 ==

== ENCOUNTER 2017-08-04 03:19 | Emergency (ER) | payer OTHER, MEDICARE ==
[2017-08-04 03:24] VITALS: RESP 16; TEMP 97.9
--- NOTE | 2017-08-04 03:36 | EDPHY ---
H & P Stated Complaint: BP concerns HPI/ROS: HPI CHIEF COMPLAINT: I am concerned about high blood pressure. HISTORY OF PRESENT ILLNESS: Patient is a 82-year-old female significant past medical history hypertension, thyroid disease, restless leg syndrome AFib on Coumadin she presents emergency room stating that her blood pressure is high. Today she reports that she was tired. She went to bed check her blood pressure around 8:00 p.m. and was 160s systolic over 100 diastolic. She is on losartan and metoprolol 50 mg. she called the physician hotline about her high blood pressure was told to take HCTZ however she repeated blood pressure around 9 o' clock noticed is 150 systolic. Around 1:30 a.m. she woke up feeling restless. Noticed that her blood pressure was 180s over 100s. Had a light headache. No chest pain. Due the high blood pressure light headache feeling rest that she came to the emergency room. Past Medical History: Thyroid disease, hypertension, thyroid cancer, AFib on Coumadin Past Surgical History: No recent surgery Social History: Denies daily use drugs alcohol tobacco products. Family History: Noncontributory ROS REVIEW OF SYSTEMS: A comprehensive 10 point review of systems is otherwise negative aside from elements mentioned in the history of present illness. Exam Constitutional appears well nontoxic, somewhat anxious, triage nursing summary reviewed, vital signs reviewed, awake/alert. Eyes normal conjunctivae and sclera, EOMI, PERRLA. HENT normal inspection, atraumatic, moist mucus membranes, no epistaxis, neck supple/ no meningismus, no raccoon eyes. Respiratory clear to auscultation bilaterally, normal breath sounds, no respiratory distress, no wheezing. Cardiovascular rate normal, regular rhythm, no murmur, no edema, distal pulses normal. Gastrointestinal soft, non-tender, no rebound, no guarding, normal bowel sounds, no distension, no pulsatile mass. Genitourinary no CVA tenderness. Musculoskeletal no midline vertebral tenderness, full range of motion, no calf swelling, no tenderness of extremities, no meningismus, good pulses, neurovascularly intact. Skin pink, warm, & dry, no rash, skin atraumatic. Neurologic awake, alert and oriented x 3, AAOx3, moves all 4 extremities equally, motor intact, sensory intact, CN II-XII intact, normal cerebellar, normal vision, normal speech. Psychiatric normal mood/affect. Heme/Lymph/Immune no lymphadenopathy. Differential Diagnosis: Includes but is not limited to in a particular order, hypertensive urgency, doubt hypertensive emergency, acute anxiety renal failure Medical Decision Making: Plan for this patient EKG, blood draw, electronic device monitor , IV Ativan for relaxation. Monitor for worsening blood pressure. Re-evaluation: EKG interpretation by me on record in [employer] system. Impression time of EKG 3:59 a.m., this is paced rhythm ventricularly paced. Otherwise unremarkable EKG. ED x-ray chest one view negative for acute cardiopulmonary disease. Pacemaker. 0520AM: This patient's current blood pressure 143/91. She is resting comfortably. 92% room air sat. Heart rate 70. In no acute distress. Feels much better. Her workup is unremarkable here in emergency room. I do recommend she closely monitored her blood pressure over the next few days. Take her blood pressure twice a day. 9:00 a.m. 9:00 p.m. keep a log. And has appropriate follow-up with her primary care doctor. If she develops chest pain , shortness of breath, headache high blood pressure return emergency room she understands. Source: Patient - Personal History Current Tetanus/Diphtheria Vaccine: Unsure Current Tetanus Diphtheria and Acellular Pertussis (TDAP): Unsure Tetanus Vaccine Date: 2006 - Medical/Surgical History Hx Asthma: No Hx Chronic Respiratory Disease: Yes Hx Diabetes: No Hx Cardiac Disease: Yes Hx Renal Disease: No Hx Cirrhosis: No Hx Alcoholism: No Hx HIV/AIDS: No Hx Splenectomy or Spleen Trauma: No Other PMH: hypothyroidism/thyroid CA with mets, GERD with esophagitis, odynophagia, DVT hx, COPD mixed type, HTN, paroxysmal Afib, chronically anticoagulated, breast CA 2009, carpal tunnel, hysterectomy, viral pneumonia, bowel obstruction, ovarian cyst, cataract R eye, rotator cuff repair L. - Social History Smoking Status: Former smoker Constitutional: Initial Vital Signs Temperature (C) 36.6 C 08/04/17 03:20 Heart Rate 71 08/04/17 03:20 Respiratory Rate 16 08/04/17 03:20 Blood Pressure 168/104 H 08/04/17 03:20 O2 Sat (%) 95 08/04/17 03:20 O2 Delivery Mode Room Air Allergies/Adverse Reactions: amlodipine [Amlodipine] Allergy (Intermediate, Verified 06/16/17 08:31) Other-Enter Comments epinephrine [Epinephrine] Allergy (Intermediate, Verified 06/16/17 08:31) HEART RACES piperacillin sodium [From Zosyn] Allergy (Intermediate, Verified 06/16/17 08:31) Hives tazobactam sodium [From Zosyn] Allergy (Intermediate, Verified 06/16/17 08:31) Hives clarithromycin [From Biaxin] Allergy (Mild, Verified 06/16/17 08:31) moxifloxacin HCl [From Avelox] Allergy (Mild, Verified 06/16/17 08:31) niacin [From Niaspan] Allergy (Mild, Verified 06/16/17 08:31) Rash morphine Allergy (Verified 06/16/17 08:31) hallucinates omeprazole Allergy (Verified 06/16/17 08:31) vancomycin Allergy (Verified 06/16/17 08:31) ENVIRONMENTAL Allergy (Intermediate, Uncoded 04/15/17 19:14) EYES BURN AND SWELL/NASAL CONGESTION ADHESIVES Allergy (Mild, Uncoded 12/22/16 04:14) Rash Home Medications: Medication Instructions Recorded Cyanocobalamin (Vitamin B-12) 1,000 mcg IM Q30D 12/10/14 [Vitamin B-12] Budesonide/Formoterol 160/4.5 2 puffs IH BID #1 mdi 11/08/16 [Symbicort 160-4.5 Mcg Inh (*)] Ondansetron Odt [Zofran Odt 4 mg 4 mg PO Q4HRS PRN #14 tab 11/08/16 (*)] Tafluprost/Pf [Zioptan 0.0015% Eye 1 drop EACHEYE HS #60 droperette 11/08/16 Drops] Timolol 0.5% [TIMOPTIC 0.5% (*)] 1 drops EACHEYE DAILY #1 opht.btl 11/08/16 Furosemide [Lasix 20 MG (*)] 20 mg PO DAILY PRN 04/15/17 Lisinopril 5 mg PO BID 04/15/17 Levothyroxine [Synthroid 112 mcg 112 mcg PO DAILY06 04/16/17 (*)] Acetaminophen [Tylenol 325mg (*)] 162.5 mg PO Q4HRS PRN 06/16/17 Albuterol [Proventil Inhaler HFA 2 puffs IH Q4 PRN 06/16/17 (*)] Sodium Cl Nasal [Gamaliel [place] (*)] 1 spray EACHNARE PRN PRN 06/16/17 Warfarin Sodium [Coumadin 5MG (*)] 5 mg PO SUMOTUWEFRSA@16 06/16/17 Warfarin Sodium [Coumadin 7.5MG 7.5 mg PO TH@16 06/16/17 (*)] LORazepam [Ativan (*)] 0.25 mg PO DAILY PRN #0 06/17/17 Metoprolol Tartrate [Lopressor 50 50 mg PO BID #60 tab 06/17/17 mg (*)] Temazepam [Restoril 15 MG (*)] 15 mg PO HS PRN #10 cap 06/17/17 Medical Decision Making - Data Points Laboratory Results: Laboratory Results 08/04/17 04:00 08/04/17 04:00 08/04/17 08/04/17 04:00 04:00 WBC 4.80 10^3/uL 10^3/uL (3.80-9.50) RBC 4.31 10^6/uL 10^6/uL (4.18-5.33) Hgb 14.0 g/dL g/dL (12.6-16.3) Hct 40.8 % % (38.0-47.0) MCV 94.7 fL fL (81.5-99.8) MCH 32.5 pg pg (27.9-34.1) MCHC 34.3 g/dL g/dL (32.4-36.7) RDW 12.6 % % (11.5-15.2) Plt Count 213 10^3/uL 10^3/uL (150-400) MPV 9.7 fL fL (8.7-11.7) Neut % (Auto) 64.4 % % (39.3-74.2) Lymph % (Auto) 19.6 % % (15.0-45.0) [place] % (Auto) 13.5 % H % (4.5-13.0) Eos % (Auto) 1.9 % % (0.6-7.6) Baso % (Auto) 0.4 % % (0.3-1.7) Nucleat RBC Rel Count 0.0 % % (0.0-0.2) Absolute Neuts (auto) 3.09 10^3/uL 10^3/uL (1.70-6.50) Absolute Lymphs (auto) 0.94 10^3/uL L 10^3/uL (1.00-3.00) Absolute Monos (auto) 0.65 10^3/uL 10^3/uL (0.30-0.80) Absolute Eos (auto) 0.09 10^3/uL 10^3/uL (0.03-0.40) Absolute Basos (auto) 0.02 10^3/uL 10^3/uL (0.02-0.10) Absolute Nucleated RBC 0.00 10^3/uL 10^3/uL (0-0.01) Immature Gran % 0.2 % % (0.0-1.1) Immature Gran # 0.01 10^3/uL 10^3/uL (0.00-0.10) Sodium 140 mEq/L mEq/L (134-144) Potassium 3.6 mEq/L mEq/L (3.5-5.2) Chloride 104 mEq/L mEq/L (97-110) Carbon Dioxide 25 mEq/l mEq/l (22-31) Anion Gap 11 mEq/L mEq/L (8-16) BUN 15 mg/dL mg/dL (7-23) Creatinine 0.7 mg/dL mg/dL (0.6-1.0) Estimated GFR > 60 Glucose 84 mg/dL mg/dL (70-100) Calcium 8.8 mg/dL mg/dL (8.5-10.4) Troponin I < 0.012 ng/mL ng/mL (0.000-0.034) Medications Given: Discontinued Medications Lorazepam (Ativan Injection) 0.5 mg IVP EDNOW ONE Stop: 08/04/17 03:44 Last Admin: 08/04/17 04:14 Dose: 0.5 mg Departure - Departure Disposition: Home, Routine, Self-Care Clinical Impression: Hypertension Qualifiers: Hypertension type: unspecified Qualified Code(s): I10 - Essential (primary) hypertension Condition: Good Instructions: Hypertension (ED) Additional Instructions: 1.Return emergency room if he develops worsening symptoms questions or concerns includes very high blood pressure chest pain headache shortness of breath. 2. I do recommend that you keep a log of her blood pressures twice a day 9:00 a.m. Nine p.m.. Follow up with her primary care doctor. Return to the ER for worsening symptoms. Referrals: Stacy Arellano MD [Primary Care Provider] - As per Instructions
[2017-08-04 04:14] LABS: % IMMATURE GRANULYOCYTES 0.2 % (0.0-1.1); ABSOLUTE IMMATURE GRANULOCYTES 0.01 10^3/uL (0.00-0.10); ADD DIFF? NO; ADD MORPH? NO; ADD SCAN? NO; ATYPICAL LYMPHOCYTE FLAG 0 (0-99); FRAGMENT RBC FLAG 0 (0-99); HEMATOCRIT 40.8 % (38.0-47.0); LEFT SHIFT FLG 0 (0-99); LIPEMIA HEMOLYSIS FLAG 90 (0-99); MEAN CELL HEMOGLOBIN 32.5 pg (27.9-34.1); MEAN CELL HEMOGLOBIN CONCENTR. 34.3 g/dL (32.4-36.7); MEAN CELL VOLUME 94.7 fL (81.5-99.8); MEAN PLATELET VOLUME 9.7 fL (8.7-11.7); PLATELET CLUMPS FLAG 0 (0-99); PLATELET COUNT 213 10^3/uL (150-400); RED BLOOD CELL COUNT 4.31 10^6/uL (4.18-5.33); RED CELL DISTRIBUTION WIDTH 12.6 % (11.5-15.2)
[2017-08-04] MEDS: LORazepam 2 MG/ML INJ IVP ONE (04:14)
[2017-08-04 04:26] LABS: ANION GAP 11 mEq/L (8-16); CALCIUM 8.8 mg/dL (8.5-10.4); CARBON DIOXIDE 25 mEq/l (22-31); CHLORIDE 104 mEq/L (97-110); CREATININE 0.7 mg/dL (0.6-1.0); GLOMERULAR FILTRATION RATE > 60; GLUCOSE 84 mg/dL (70-100); POTASSIUM 3.6 mEq/L (3.5-5.2); SODIUM 140 mEq/L (134-144)
[2017-08-04 04:38] LABS: TROPONIN I < 0.012 ng/mL (0.000-0.034)
--- NOTE | 2017-08-04 04:45 | CPEKG ---
Heart Rate: 71 RR Interval: 845 QRSD Interval: 146 QT Interval: 492 QTC Interval: 535 QRS Clayton: -72 T Wave Clayton: 110 EKG Severity - ABNORMAL ECG - EKG Impression: AFIB/FLUTTER AND VENTRICULAR-PACED RHYTHM Electronically Signed By: Cade Tavares 06-Aug-2017 20:16:03
[2017-08-04 05:32] VITALS: BP 133/88; PULSE 76; O2SAT 96
== END 2017-08-04 05:33 | disposition home or self-care (01) ==
DX: I10 Essential (primary) hypertension (principal); J44.9 Chronic obstructive pulmonary disease, unspecified; Z79.01 Long term (current) use of anticoagulants; Z85.3 Personal history of malignant neoplasm of breast; Z85.850 Personal history of malignant neoplasm of thyroid; Z87.891 Personal history of nicotine dependence
CPT/HCPCS: 71010; 93005; 96374; 99285; J2060

== ENCOUNTER 2017-09-02 19:51 | Emergency (ER) | payer OTHER, MEDICARE ==
[2017-09-02 19:55] VITALS: RESP 16; TEMP 98.2
--- NOTE | 2017-09-02 20:01 | EDPHY ---
H & P Stated Complaint: recent blood thinner change/tooth extraction, bleeding Source: Patient Exam Limitations: No limitations - Personal History Current Tetanus/Diphtheria Vaccine: No Tetanus Vaccine Date: 2006 - Medical/Surgical History Hx Asthma: No Hx Chronic Respiratory Disease: Yes Hx Diabetes: No Hx Cardiac Disease: Yes Hx Renal Disease: No Hx Cirrhosis: No Hx Alcoholism: No Hx HIV/AIDS: No Hx Splenectomy or Spleen Trauma: No Other PMH: hypothyroidism/thyroid CA with mets, GERD with esophagitis, odynophagia, DVT hx, COPD mixed type, HTN, paroxysmal Afib, chronically anticoagulated, breast CA 2010, carpal tunnel, hysterectomy, viral pneumonia, bowel obstruction, ovarian cyst, cataract R eye, rotator cuff repair L. - Social History Smoking Status: Former smoker Time Seen by Provider: 09/02/17 19:59 HPI/ROS: HPI: This is an 82-year-old female who presents with Chief Complaint: recent blood thinner change/tooth extraction, bleeding Location: Right upper molar Quality: Bleeding Duration: 30 minutes to 1 hour prior to arrival Signs and Symptoms: No difficulty swallowing, no difficulty talking, no easy bruising Timing: Sudden Severity: Mild Context: Patient has a history of DVT and paroxysmal atrial fibrillation on Coumadin. She has been on a Lovenox bridge approximately 5 days prior to her right upper molar tooth extraction by Oral surgery this morning. She reports prior to dinner which consisted of soup the tooth started to bleed and she became concerned so she came to the emergency room. She denies any easy bruising/difficulty speaking/difficulty swallowing. Modifying Factors: None Comment: ROS: see HPI Constitutional: No fever, no chills, no weight loss Eyes: No blurred vision Respiratory: No shortness of breath, no cough Cardiovascular: No chest pain Gastrointestinal: No nausea, no vomiting, no diarrhea Genitourinary: No dysuria Extremities: No myalgias Neurologic: No weakness, no numbness Skin: No rashes Hematologic: No bruising, no bleeding MEDICAL/SURGICAL/SOCIAL HISTORY: Medical/Surgical history: hypothyroidism/thyroid CA with mets, GERD with esophagitis, odynophagia, DVT hx, COPD mixed type, HTN, paroxysmal Afib, chronically anticoagulated, breast CA 2009, carpal tunnel, hysterectomy, viral pneumonia, bowel obstruction, ovarian cyst, cataract R eye, rotator cuff repair left Social history: CONSTITUTIONAL: Elderly pleasant well-appearing female, awake and alert, no obvious distress HEENT: Atraumatic and normocephalic, PERRL, EOMI. Tympanic membranes clear. Oropharynx clear, no malocclusion, right upper molar #1 shows no active bleeding /erythema/discharge. no exudate and moist pink mucosa. Airway patent. No lymphadenopathy. No meningismus. Cardiovascular: Normal S1/S2, regular rate, regular rhythm, without murmur rub or gallop. PULMONARY/CHEST: Symmetrical and nontender. Clear to auscultation bilaterally. Good air movement. No accessory muscle usage. ABDOMEN: Soft, nondistended, nontender, no rebound, no guarding, no peritoneal signs, no masses or organomegaly. No CVAT. EXTREMITIES: 2/2 pulses, strength 5/5, no deformities, no clubbing, no cyanosis or edema. NEUROLOGICAL: no focal neuro deficits. GCS 15. SKIN: Warm and dry, no erythema. no rash. Good capillary refill. (Lisa Agustin) Constitutional: Initial Vital Signs Temperature (C) 36.8 C 09/02/17 19:52 Heart Rate 77 09/02/17 19:52 Respiratory Rate 16 09/02/17 19:52 Blood Pressure 163/90 H 09/02/17 19:52 O2 Sat (%) 92 09/02/17 19:52 O2 Delivery Mode Room Air Allergies/Adverse Reactions: amlodipine [Amlodipine] Allergy (Intermediate, Verified 06/16/17 08:31) Other-Enter Comments epinephrine [Epinephrine] Allergy (Intermediate, Verified 06/16/17 08:31) HEART RACES piperacillin sodium [From Zosyn] Allergy (Intermediate, Verified 06/16/17 08:31) Hives tazobactam sodium [From Zosyn] Allergy (Intermediate, Verified 06/16/17 08:31) Hives clarithromycin [From Biaxin] Allergy (Mild, Verified 06/16/17 08:31) moxifloxacin HCl [From Avelox] Allergy (Mild, Verified 06/16/17 08:31) niacin [From Niaspan] Allergy (Mild, Verified 06/16/17 08:31) Rash morphine Allergy (Verified 06/16/17 08:31) hallucinates omeprazole Allergy (Verified 06/16/17 08:31) vancomycin Allergy (Verified 06/16/17 08:31) ENVIRONMENTAL Allergy (Intermediate, Uncoded 04/15/17 19:14) EYES BURN AND SWELL/NASAL CONGESTION ADHESIVES Allergy (Mild, Uncoded 12/22/16 04:14) Rash Home Medications: Medication Instructions Recorded Cyanocobalamin (Vitamin B-12) 1,000 mcg IM Q30D 12/10/14 [Vitamin B-12] Budesonide/Formoterol 160/4.5 2 puffs IH BID #1 mdi 11/08/16 [Symbicort 160-4.5 Mcg Inh (*)] Ondansetron Odt [Zofran Odt 4 mg 4 mg PO Q4HRS PRN #14 tab 11/08/16 (*)] Tafluprost/Pf [Zioptan 0.0015% Eye 1 drop EACHEYE HS #60 droperette 11/08/16 Drops] Timolol 0.5% [TIMOPTIC 0.5% (*)] 1 drops EACHEYE DAILY #1 opht.btl 11/08/16 Furosemide [Lasix 20 MG (*)] 20 mg PO DAILY PRN 04/15/17 Lisinopril 5 mg PO BID 04/15/17 Levothyroxine [Synthroid 112 mcg 112 mcg PO DAILY06 04/16/17 (*)] Acetaminophen [Tylenol 325mg (*)] 162.5 mg PO Q4HRS PRN 06/16/17 Albuterol [Proventil Inhaler HFA 2 puffs IH Q4 PRN 06/16/17 (*)] Sodium Cl Nasal [[place] (*)] 1 spray EACHNARE PRN PRN 06/16/17 Warfarin Sodium [Coumadin 5MG (*)] 5 mg PO SUMOTUWEFRSA@16 06/16/17 Warfarin Sodium [Coumadin 7.5MG 7.5 mg PO TH@16 06/16/17 (*)] LORazepam [Ativan (*)] 0.25 mg PO DAILY PRN #0 06/17/17 Metoprolol Tartrate [Lopressor 50 50 mg PO BID #60 tab 06/17/17 mg (*)] Temazepam [Restoril 15 MG (*)] 15 mg PO HS PRN #10 cap 06/17/17 Medical Decision Making ED Course/Re-evaluation: Labs including coags reviewed and show stable H&H and no coagulopathy Surgifoam placed for 30 minutes with good hemostasis. (Lisa Agustin) Differential Diagnosis: Differential diagnosis includes hypercoagulability, dry socket syndrome, infection, uncontrolled bleeding. (Lisa Agustin) Other Provider: The patient was evaluated and managed by the Physician Office Manager Executive Assistant/ Nurse Practitioner. My co-signature indicates that I have reviewed this chart and I agree with the findings and plan of care as documented. I am the secondary supervising physician. (Sanam Sanford) - Data Points Laboratory Results: Laboratory Results 09/02/17 20:35 Medications Given: Discontinued Medications Acetaminophen (Tylenol) 325 mg PO EDNOW ONE Stop: 09/02/17 21:48 Last Admin: 09/02/17 21:53 Dose: 325 mg Departure - Departure Disposition: Home, Routine, Self-Care Clinical Impression: Oral bleeding, Anticoagulated on Coumadin Condition: Good Instructions: Postoperative Bleeding (ED) Additional Instructions: Please hold Coumadin starting tonight. You may start Coumadin tomorrow. You may place surgery foam on the area if bleeding reoccurs for 15-20 minutes to stop bleeding. If bleeding persists past several hours, please call your surgeon or return to the emergency room immediately. Referrals: Stacy Arellano MD [Primary Care Provider] - As per Instructions
[2017-09-02 20:41] LABS: PLATELET COUNT 181 10^3/uL (150-400)
[2017-09-02 20:49] LABS: INR 0.94 (0.83-1.16); PROTIME(PATIENT) 12.5 SEC (12.0-15.0)
[2017-09-02] MEDS ORDERED: ACETAMINOPHEN 500 MG TAB PO ONE (21:47)
[2017-09-02] MEDS ORDERED: ACETAMINOPHEN 325 MG TAB ONE (21:51)
[2017-09-02 22:15] VITALS: BP 155/79; PULSE 71; O2SAT 95
== END 2017-09-02 22:00 | disposition home or self-care (01) ==
DX: K13.79 Other lesions of oral mucosa (principal); I10 Essential (primary) hypertension; J44.9 Chronic obstructive pulmonary disease, unspecified; Z79.01 Long term (current) use of anticoagulants; Z85.3 Personal history of malignant neoplasm of breast; Z85.850 Personal history of malignant neoplasm of thyroid; Z87.891 Personal history of nicotine dependence

== ENCOUNTER 2017-09-03 04:51 | Emergency (ER) | payer OTHER, MEDICARE ==
[2017-09-03 05:11] VITALS: PULSE 70
--- NOTE | 2017-09-03 05:39 | EDPHY ---
H & P Stated Complaint: Seen 09/03 at [facility], now has groin pain, Hx DVT, Stroke Source: Patient, Family () Exam Limitations: No limitations - Personal History Current Tetanus/Diphtheria Vaccine: No Current Tetanus Diphtheria and Acellular Pertussis (TDAP): No Tetanus Vaccine Date: 2006 - Medical/Surgical History Hx Asthma: No Hx Chronic Respiratory Disease: Yes Hx Diabetes: No Hx Cardiac Disease: Yes Hx Renal Disease: No Hx Cirrhosis: No Hx Alcoholism: No Hx HIV/AIDS: No Hx Splenectomy or Spleen Trauma: No Other PMH: Pacemaker, AFIB, HTN, DVT, STROKE, hypothyroidism/thyroid CA with mets, GERD with esophagitis, odynophagia, DVT hx, COPD mixed type, chronically anticoagulated, breast CA 2009, carpal tunnel, hysterectomy, viral pneumonia, bowel obstruction, ovarian cyst, cataract R eye, rotator cuff repair L. - Family History Significant Family History: No pertinent family hx - Social History Smoking Status: Former smoker Alcohol Use: None Drug Use: None Time Seen by Provider: 09/03/17 05:11 HPI/ROS: CC: Right groin pain HPI: This 82-year-old female with extensive past medical history including atrial fibrillation, stroke, cancer of the thyroid and breast, DVT presents to the emergency department tonight with her for complaints of right groin pain. She had a tooth extracted recently and is on a Lovenox bridge. She was seen in the [facility] ER yesterday for bleeding at the site of the extraction. A topical anticoagulant was used to stop the bleeding. They advised her to not resume the Coumadin last evening as previously advised. She has had no further bleeding from the tooth site. She states while she was in the ER she started having some cramping in her right lower extremity (in the groin area). She also had some discomfort in her low back area and thought this discomfort was all from lying in the dentist's chair for a couple of hours during the dental procedure. She also complains of pain in her right upper back and right posterior neck. Again she thought this was musculoskeletal. She took one 325 mg Tylenol tablet last night with no significant relief. She was hesitant to try the tramadol that was prescribed. She is concerned because the pain in her groin feels just like when she had the deep vein thrombosis in her right lower extremity. She has no swelling in the right lower extremity and no calf pain. She has no swelling in her neck. She denies chest pain, increased shortness of breath, cough, fever, abdominal pain, hematuria or dysuria. REVIEW OF SYSTEMS: Constitutional: No fever, no chills. Eyes: No discharge. ENT: No sore throat. Respiratory: No cough, no shortness of breath. Cardiac: No chest pain, no palpitations. Gastrointestinal: No abdominal pain, no vomiting. Genitourinary: No hematuria. Musculoskeletal: See HPI. Skin: No rashes. Neurological: No headache. (Fidelina Elizabeth) - Medical/Surgical History PMH: PMH: Includes atrial fibrillation, stroke, thyroid cancer, breast cancer, bowel obstruction, GI bleed, COPD, pulmonary nodules thought to be metastatic lesions, right pleural effusion, viral pneumonia, cataracts PSH: Includes ovarian cyst, hysterectomy, carpal tunnel, rotator cuff, vitrectomy, lumpectomy, AV ablation, pacemaker FH: (Fidelina Elizabeth) - Social History Additional Social History: (Fidelina Elizabeth) - Physical Exam Exam: General Appearance: Alert, mod distress. Eyes: Pupils equal and round no pallor or injection. ENT, Mouth: Mucous membranes are moist. Respiratory: There are no retractions, lungs bilateral wheezing on auscultation right greater than left. Cardiovascular: Regular rate and rhythm. Gastrointestinal: Abdomen is soft and nontender, no masses, bowel sounds normal. Neurological: Awake and alert, sensory and motor exams grossly normal. Skin: Warm and dry, no rashes. Musculoskeletal: Neck is supple nontender. Extremities are symmetrical, full range of motion. No calf pain, swelling, warmth, cords or erythema. No palpable abnormalities in the right groin. Psychiatric: Patient is oriented X 3, there is no agitation. DIFFERENTIAL DIAGNOSIS: After history and physical exam differential diagnosis was considered for musculoskeletal pain, DVT, sciatica, neck and upper back pain /musculoskeletal, COPD, pneumonia, cardiac, biliary, UTI. (Fidelina Elizabeth) Constitutional: Initial Vital Signs Temperature (C) 98.4 F 09/03/17 05:06 Heart Rate 70 09/03/17 05:06 Respiratory Rate 18 09/03/17 05:06 Blood Pressure 154/88 H 09/03/17 05:06 O2 Sat (%) 96 09/03/17 05:06 O2 Delivery Mode Room Air O2 (L/minute) 3 Allergies/Adverse Reactions: amlodipine [Amlodipine] Allergy (Intermediate, Verified 06/16/17 08:31) Other-Enter Comments epinephrine [Epinephrine] Allergy (Intermediate, Verified 06/16/17 08:31) HEART RACES piperacillin sodium [From Zosyn] Allergy (Intermediate, Verified 06/16/17 08:31) Hives tazobactam sodium [From Zosyn] Allergy (Intermediate, Verified 06/16/17 08:31) Hives clarithromycin [From Biaxin] Allergy (Mild, Verified 06/16/17 08:31) moxifloxacin HCl [From Avelox] Allergy (Mild, Verified 06/16/17 08:31) niacin [From Niaspan] Allergy (Mild, Verified 06/16/17 08:31) Rash morphine Allergy (Verified 06/16/17 08:31) hallucinates omeprazole Allergy (Verified 06/16/17 08:31) vancomycin Allergy (Verified 06/16/17 08:31) ENVIRONMENTAL Allergy (Intermediate, Uncoded 04/15/17 19:14) EYES BURN AND SWELL/NASAL CONGESTION ADHESIVES Allergy (Mild, Uncoded 12/22/16 04:14) Rash Home Medications: Medication Instructions Recorded Cyanocobalamin (Vitamin B-12) 1,000 mcg IM Q30D 12/10/14 [Vitamin B-12] Budesonide/Formoterol 160/4.5 2 puffs IH BID #1 mdi 11/08/16 [Symbicort 160-4.5 Mcg Inh (*)] Ondansetron Odt [Zofran Odt 4 mg 4 mg PO Q4HRS PRN #14 tab 11/08/16 (*)] Tafluprost/Pf [Zioptan 0.0015% Eye 1 drop EACHEYE HS #60 droperette 11/08/16 Drops] Timolol 0.5% [TIMOPTIC 0.5% (*)] 1 drops EACHEYE DAILY #1 opht.btl 11/08/16 Furosemide [Lasix 20 MG (*)] 20 mg PO DAILY PRN 04/15/17 Lisinopril 5 mg PO BID 04/15/17 Levothyroxine [Synthroid 112 mcg 112 mcg PO DAILY06 04/16/17 (*)] Acetaminophen [Tylenol 325mg (*)] 162.5 mg PO Q4HRS PRN 06/16/17 Albuterol [Proventil Inhaler HFA 2 puffs IH Q4 PRN 06/16/17 (*)] Sodium Cl Nasal [[facility] (*)] 1 spray EACHNARE PRN PRN 06/16/17 Warfarin Sodium [Coumadin 5MG (*)] 5 mg PO SUMOTUWEFRSA@16 06/16/17 Warfarin Sodium [Coumadin 7.5MG 7.5 mg PO TH@16 06/16/17 (*)] LORazepam [Ativan (*)] 0.25 mg PO DAILY PRN #0 06/17/17 Metoprolol Tartrate [Lopressor 50 50 mg PO BID #60 tab 06/17/17 mg (*)] Temazepam [Restoril 15 MG (*)] 15 mg PO HS PRN #10 cap 06/17/17 Medical Decision Making - Diagnostics EKG Interpretation: A-fib/flutter with ventricular paced complexes. LVH with IVCD, LAD with secondary repolarization abnormality. (Fidelina Elizabeth) ED Course/Re-evaluation: I assumed care of this patient awaiting results of an ultrasound. Patient presented complaining of right groin and upper leg and hip pain similar to both her sciatica and her prior DVTs. Ultrasound showed no evidence of DVT per the radiologist. Patient was given additional dose of Tylenol emerged department was feeling comfortable. She has an appointment at the antico[place] clinic [place]. As she will be discharged to her anticoagulation appointment and follow up with her primary care physician as necessary. (Eva Fountain) Patient care signed out to Dr. Eva Fountain at 0700 for further evaluation and disposition. Awaiting LE Ultrasound to r/o DVT. CXR shows COPD and known pulmonary nodules by my read. Right pleural effusion seen on prior chest x-ray from records brought by from [facility] has resolved. No pneumonia or pneumothorax. Patient's EKG shows a-fib/flutter with ventricular paced complexes, LVH with IVCD and secondary repolarization abnormality, CBC with normal WBC and slight left shift, Chemistry significant for elevated Bilirubin but normal transaminases, normal kidney function and electrolytes including magnesium. INR yesterday was 0.94. Patient still on Lovenox. Has appointment with anticoagulation clinic this morning. (Fidelina Elizabeth) - Data Points Laboratory Results: Laboratory Results 09/03/17 05:49 09/03/17 05:49 Medications Given: Discontinued Medications Acetaminophen (Tylenol) 325 mg PO EDNOW ONE Stop: 09/03/17 07:30 Last Admin: 09/03/17 07:37 Dose: 325 mg Morphine Sulfate (Morphine) 1 mg IVP EDNOW ONE Stop: 09/03/17 06:10 Last Admin: 09/03/17 06:17 Dose: 1 mg Departure - Departure Disposition: Home, Routine, Self-Care Clinical Impression: Right hip pain Condition: Fair Instructions: Hip Pain (ED) Additional Instructions: You were seen by Dr. Eva Fountain today. Ultrasound showed no evidence of DVT today. Take your usual medicines as prescribed including the Lovenox. Please go to the anticoagulation clinic this morning as previously scheduled. Please take 500 mg of amoxicillin this morning and then continue as previously prescribed. Return for any worsening or new concerns. Referrals: George Sutton MD [Primary Care Provider] - As per Instructions
[2017-09-03 06:00] LABS: % IMMATURE GRANULYOCYTES 0.3 % (0.0-1.1); ABSOLUTE IMMATURE GRANULOCYTES 0.02 10^3/uL (0.00-0.10); ADD DIFF? NO; ADD MORPH? NO; ADD SCAN? NO; ATYPICAL LYMPHOCYTE FLAG 0 (0-99); FRAGMENT RBC FLAG 0 (0-99); HEMOGLOBIN 13.8 g/dL (12.6-16.3); LEFT SHIFT FLG 0 (0-99); LIPEMIA HEMOLYSIS FLAG 90 (0-99); MEAN CELL HEMOGLOBIN 32.9 pg (27.9-34.1); MEAN CELL HEMOGLOBIN CONCENTR. 34.5 g/dL (32.4-36.7); MEAN CELL VOLUME 95.5 fL (81.5-99.8); MEAN PLATELET VOLUME 9.5 fL (8.7-11.7); PLATELET CLUMPS FLAG 10 (0-99); PLATELET COUNT 173 10^3/uL (150-400); RED BLOOD CELL COUNT 4.19 10^6/uL (4.18-5.33); RED CELL DISTRIBUTION WIDTH 12.9 % (11.5-15.2)
[2017-09-03 06:11] LABS: ALANINE AMINOTRANSFERASE 40 IU/L (9-52); ALBUMIN 4.1 g/dL (3.5-5.0); ALKALINE PHOSPHATASE 57 IU/L (38-126); ANION GAP 12 mEq/L (8-16); ASPARTATE AMINOTRANSFERASE 27 IU/L (14-46); BILIRUBIN,TOTAL 2.4 mg/dL (0.1-1.4); BILIRUBIN-CONJUGATED 0.4 mg/dL (0.0-0.5); CALCIUM 8.8 mg/dL (8.5-10.4); CARBON DIOXIDE 25 mEq/l (22-31); CHLORIDE 100 mEq/L (97-110); CREATININE 0.6 mg/dL (0.6-1.0); GLOMERULAR FILTRATION RATE > 60; GLUCOSE 95 mg/dL (70-100); POTASSIUM 3.6 mEq/L (3.5-5.2); SODIUM 137 mEq/L (134-144); TOTAL PROTEIN 6.9 g/dL (6.3-8.2)
--- NOTE | 2017-09-03 06:17 | CPEKG ---
Heart Rate: 71 RR Interval: 845 QRSD Interval: 174 QT Interval: 480 QTC Interval: 522 QRS Haw[place]: -71 T Wave [place]: 111 EKG Severity - ABNORMAL ECG - EKG Impression: AFIB/FLUT AND V-PACED COMPLEXES EKG Impression: LVH WITH IVCD, LAD AND SECONDARY REPOL ABNRM Electronically Signed By: Fidelina Elizabeth 03-Sep-2017 23:56:40
[2017-09-03] MEDS ORDERED: ACETAMINOPHEN 325 MG TAB PO ONE (07:29)
[2017-09-03 07:51] LABS: COLOR YELLOW; LEUKOCYTE ESTERASE,URINE NEGATIVE (NEGATIVE); NITRITE,URINE NEGATIVE (NEGATIVE); PH,URINE 6.5 (5.0-7.5)
[2017-09-03 08:23] VITALS: BP 138/84; RESP 14; TEMP 97.5; O2SAT 95
== END 2017-09-03 08:28 | disposition home or self-care (01) ==
LOC: CED 04:51
DX: M25.551 Pain in right hip (principal); I10 Essential (primary) hypertension; J44.9 Chronic obstructive pulmonary disease, unspecified; Z79.01 Long term (current) use of anticoagulants; Z85.3 Personal history of malignant neoplasm of breast; Z85.850 Personal history of malignant neoplasm of thyroid; Z87.891 Personal history of nicotine dependence; Z95.0 Presence of cardiac pacemaker
CPT/HCPCS: 71020-PO; 80048-PO; 80076-PO; 81003-PO; 83735-PO; 85025-PO; 93971-PO; 96374

== ENCOUNTER → 2017-09-05 | Outpatient (CLI) | payer OTHER, MEDICARE | LOC: BMCIMAGING 11:56 | PROVIDERS: ATTEND Internal Medicine | DX: J90 Pleural effusion, not elsewhere classified (principal); R91.8 Other nonspecific abnormal finding of lung field; I51.7 Cardiomegaly ==

== ENCOUNTER 2017-09-07 08:12 | Emergency (ER) | payer OTHER, MEDICARE ==
[2017-09-07 08:17] VITALS: RESP 16; TEMP 97.9
--- NOTE | 2017-09-07 08:28 | EDPHY ---
H & P Stated Complaint: Tooth extraction on Saturday and on blood thinners, con't to bleed Time Seen by Provider: 09/07/17 08:21 HPI/ROS: CHIEF COMPLAINT: Dental bleeding HISTORY OF PRESENT ILLNESS: The patient is an 82-year-old female who had her tooth #3 extracted on Saturday. She takes Coumadin for history of AFib and stroke. Her Coumadin was held for the procedure and she was bridged with Lovenox which she is currently taking. Her INR yesterday was 1.3 and her Coumadin was increased last night to 7.5 mg. This morning she woke up with bleeding in her mouth. It is now resolving. She was seen here on Saturday for the same and treated with Surgi foam. She tolerated this well. She denies any trauma or injury. No fever. Mild swelling. REVIEW OF SYSTEMS: Constitutional: denies: chills, fever, recent illness, recent injury EENTM: See HPI Respiratory: denies: cough, shortness of breath Cardiac: denies: chest pain, irregular heart rate, lightheadedness, palpitations Gastrointestinal/Abdominal: denies: abdominal pain, diarrhea, nausea, vomiting, blood streaked stools Genitourinary: denies: dysuria, frequency, hematuria, pain Musculoskeletal: denies: joint pain, muscle pain Skin: denies: lesions, rash, jaundice, bruising Neurological: denies: headache, numbness, paresthesia, tingling, dizziness, weakness Hematologic/Lymphatic: denies: blood clots, easy bleeding, easy bruising Immunologic/allergic: denies: HIV/AIDS, transplant EXAM: GENERAL: Well-appearing, well-nourished and in no acute distress. HEAD: Atraumatic, normocephalic. EYES: Pupils equal round and reactive to light, extraocular movements intact, sclera anicteric, conjunctiva are normal. ENT: TMs normal, nares patent, clotted blood tooth region 3., not actively bleeding . Moist mucous membranes. NECK: Normal range of motion, supple without lymphadenopathy or JVD. LUNGS: Breath sounds clear to auscultation bilaterally and equal. No wheezes rales or rhonchi. HEART: Regular rate and rhythm without murmurs, rubs or gallops. ABDOMEN: Soft, nontender, normoactive bowel sounds. No guarding, no rebound. No masses appreciated. BACK: No CVA tenderness, no spinal tenderness, step-offs or deformities EXTREMITIES: Normal range of motion, no pitting or edema. No clubbing or cyanosis. NEUROLOGICAL: Cranial nerves II through XII grossly intact. Normal speech, normal gait. 5/5 strength, normal movement in all extremities, normal sensation PSYCH: Normal mood, normal affect. SKIN: Warm, dry, normal turgor, no visible rashes or lesions. Source: Patient Exam Limitations: No limitations - Personal History Current Tetanus/Diphtheria Vaccine: Unsure Current Tetanus Diphtheria and Acellular Pertussis (TDAP): Unsure Tetanus Vaccine Date: 2006 - Medical/Surgical History Hx Asthma: No Hx Chronic Respiratory Disease: Yes Hx Diabetes: No Hx Cardiac Disease: Yes Hx Renal Disease: No Hx Cirrhosis: No Hx Alcoholism: No Hx HIV/AIDS: No Hx Splenectomy or Spleen Trauma: No Other PMH: Pacemaker, AFIB, HTN, DVT, STROKE, hypothyroidism/thyroid CA with mets, GERD with esophagitis, odynophagia, DVT hx, COPD mixed type, chronically anticoagulated, breast CA 2009, carpal tunnel, hysterectomy, viral pneumonia, bowel obstruction, ovarian cyst, cataract R eye, rotator cuff repair L. - Family History Significant Family History: No pertinent family hx - Social History Smoking Status: Former smoker Alcohol Use: Sober Drug Use: None Constitutional: Initial Vital Signs Temperature (C) 36.6 C 09/07/17 08:14 Heart Rate 75 09/07/17 08:14 Respiratory Rate 16 09/07/17 08:14 Blood Pressure 167/94 H 09/07/17 08:14 O2 Sat (%) 96 09/07/17 08:14 O2 Delivery Mode Room Air Allergies/Adverse Reactions: amlodipine [Amlodipine] Allergy (Intermediate, Verified 06/16/17 08:31) Other-Enter Comments epinephrine [Epinephrine] Allergy (Intermediate, Verified 06/16/17 08:31) HEART RACES piperacillin sodium [From Zosyn] Allergy (Intermediate, Verified 06/16/17 08:31) Hives tazobactam sodium [From Zosyn] Allergy (Intermediate, Verified 06/16/17 08:31) Hives clarithromycin [From Biaxin] Allergy (Mild, Verified 06/16/17 08:31) moxifloxacin HCl [From Avelox] Allergy (Mild, Verified 06/16/17 08:31) niacin [From Niaspan] Allergy (Mild, Verified 06/16/17 08:31) Rash morphine Allergy (Verified 06/16/17 08:31) hallucinates omeprazole Allergy (Verified 06/16/17 08:31) vancomycin Allergy (Verified 06/16/17 08:31) ENVIRONMENTAL Allergy (Intermediate, Uncoded 04/15/17 19:14) EYES BURN AND SWELL/NASAL CONGESTION ADHESIVES Allergy (Mild, Uncoded 12/22/16 04:14) Rash Home Medications: Medication Instructions Recorded Cyanocobalamin (Vitamin B-12) 1,000 mcg IM Q30D 12/10/14 [Vitamin B-12] Budesonide/Formoterol 160/4.5 2 puffs IH BID #1 mdi 11/08/16 [Symbicort 160-4.5 Mcg Inh (*)] Ondansetron Odt [Zofran Odt 4 mg 4 mg PO Q4HRS PRN #14 tab 11/08/16 (*)] Tafluprost/Pf [Zioptan 0.0015% Eye 1 drop EACHEYE HS #60 droperette 11/08/16 Drops] Timolol 0.5% [TIMOPTIC 0.5% (*)] 1 drops EACHEYE DAILY #1 opht.btl 11/08/16 Furosemide [Lasix 20 MG (*)] 20 mg PO DAILY PRN 04/15/17 Lisinopril 5 mg PO BID 04/15/17 Levothyroxine [Synthroid 112 mcg 112 mcg PO DAILY06 04/16/17 (*)] Acetaminophen [Tylenol 325mg (*)] 162.5 mg PO Q4HRS PRN 06/16/17 Albuterol [Proventil Inhaler HFA 2 puffs IH Q4 PRN 06/16/17 (*)] Sodium Cl Nasal [[place] (*)] 1 spray EACHNARE PRN PRN 06/16/17 Warfarin Sodium [Coumadin 5MG (*)] 5 mg PO SUMOTUWEFRSA@06/16/17 Warfarin Sodium [Coumadin 7.5MG 7.5 mg PO TH@06/16/17 (*)] LORazepam [Ativan (*)] 0.25 mg PO DAILY PRN #0 08/21/17 Metoprolol Tartrate [Lopressor 50 50 mg PO BID #60 tab 06/17/17 mg (*)] Temazepam [Restoril 15 MG (*)] 15 mg PO HS PRN #10 cap 06/17/17 Medical Decision Making ED Course/Re-evaluation: Will treat the patient with surgery foam as was successful on Saturday. She is currently not having active bleeding. She has minimal swelling. No fever. Patient also asked about her Lovenox initiation take her injection today. I encouraged her to do so because this is not life-threatening bleeding and she had a stroke last time her INR was low. 9:10 p.m. the patient's bleeding has stopped. She is asking for some surgery phone to take home. We discussed follow-up with dentist. She is happy with this and declines further testing at this time. Differential Diagnosis: Partial list of the Differential diagnosis considered include but were not limited to; dental extraction, dry socket, Coumadin toxicity, postoperative bleeding and although unlikely based on the history and physical exam, I also considered infection, abscess. I discussed these differential diagnoses and the plan with the patient as well as the usual and expected course. The patient understands that the diagnosis is provisional and that in medicine we are not always correct and that further workup is often warranted. Usual and customary warnings were given. All of the patient's questions were answered. The patient was instructed to return to the emergency department should the symptoms at all worsen or return, otherwise to followup with the physician as we discussed. Departure - Departure Disposition: Home, Routine, Self-Care Clinical Impression: Surgical wound hemorrhage after dental procedure Condition: Fair Instructions: Tooth Extraction (ED) Referrals: Stacy Arellano MD [Primary Care Provider] - As per Instructions
[2017-09-07 09:23] VITALS: BP 139/87; PULSE 72; O2SAT 94
== END 2017-09-07 09:22 | disposition home or self-care (01) ==
DX: K91.840 Postprocedural hemorrhage of a digestive system organ or structure following a digestive system procedure (principal); I10 Essential (primary) hypertension; J44.9 Chronic obstructive pulmonary disease, unspecified; Z79.01 Long term (current) use of anticoagulants; Z85.3 Personal history of malignant neoplasm of breast; Z85.850 Personal history of malignant neoplasm of thyroid; Z86.73 Personal history of transient ischemic attack (TIA), and cerebral infarction without residual deficits; Z95.0 Presence of cardiac pacemaker; Z87.891 Personal history of nicotine dependence

== ENCOUNTER 2017-09-07 22:01 | Emergency (ER) | payer OTHER, MEDICARE ==
--- NOTE | 2017-09-07 22:25 | EDPHY ---
H & P Time Seen by Provider: 09/07/17 22:13 HPI/ROS: CHIEF COMPLAINT: Continued dental bleeding HISTORY OF PRESENT ILLNESS: 82-year-old female history of tooth 3. Extraction on Saturday (today is Saturday). History of daily Coumadin use for atrial fibrillation and stroke history. Coumadin was held for the procedure and she was bridged with Lovenox which she is currently taking. Her INR yesterday was 1.3 and Coumadin was increased last night 7.5 mg. This morning she woke with bleeding in her mouth. She was seen in the ER has Surgicel placed. She returns to the ER noting that she has had mild continued bleeding from the dental extraction site. She denies: Syncope, near syncope, dizziness, headache , nausea, vomiting. PHYSICAL EXAM (Prior to examination, patient consented to physical exam, hands were washed and my usual and customary physical exam procedures followed) 1) GENERAL: Well-developed, well-nourished, alert and oriented. Appears to be in no acute distress. 2) HEAD: Normocephalic 3) HEENT: sclera anicteric. Clotted blood tooth socket 3. With no slow active bleeding. 4) LUNGS: Breathing comfortably. Smoking Status: Former smoker Constitutional: Initial Vital Signs Heart Rate 74 09/07/17 22:06 Respiratory Rate 20 09/07/17 22:06 Blood Pressure 154/93 H 09/07/17 22:06 O2 Sat (%) 96 09/07/17 22:06 O2 Delivery Mode Room Air Allergies/Adverse Reactions: amlodipine [Amlodipine] Allergy (Intermediate, Verified 06/16/17 08:31) Other-Enter Comments epinephrine [Epinephrine] Allergy (Intermediate, Verified 06/16/17 08:31) HEART RACES piperacillin sodium [From Zosyn] Allergy (Intermediate, Verified 06/16/17 08:31) Hives tazobactam sodium [From Zosyn] Allergy (Intermediate, Verified 06/16/17 08:31) Hives clarithromycin [From Biaxin] Allergy (Mild, Verified 06/16/17 08:31) moxifloxacin HCl [From Avelox] Allergy (Mild, Verified 06/16/17 08:31) niacin [From Niaspan] Allergy (Mild, Verified 06/16/17 08:31) Rash morphine Allergy (Verified 06/16/17 08:31) hallucinates omeprazole Allergy (Verified 06/16/17 08:31) vancomycin Allergy (Verified 06/16/17 08:31) ENVIRONMENTAL Allergy (Intermediate, Uncoded 04/15/17 19:14) EYES BURN AND SWELL/NASAL CONGESTION ADHESIVES Allergy (Mild, Uncoded 12/22/16 04:14) Rash Home Medications: Medication Instructions Recorded Cyanocobalamin (Vitamin B-12) 1,000 mcg IM Q30D 12/10/14 [Vitamin B-12] Budesonide/Formoterol 160/4.5 2 puffs IH BID #1 mdi 11/08/16 [Symbicort 160-4.5 Mcg Inh (*)] Ondansetron Odt [Zofran Odt 4 mg 4 mg PO Q4HRS PRN #14 tab 11/08/16 (*)] Tafluprost/Pf [Zioptan 0.0015% Eye 1 drop EACHEYE HS #60 droperette 11/08/16 Drops] Timolol 0.5% [TIMOPTIC 0.5% (*)] 1 drops EACHEYE DAILY #1 opht.btl 11/08/16 Furosemide [Lasix 20 MG (*)] 20 mg PO DAILY PRN 04/15/17 Lisinopril 5 mg PO BID 04/15/17 Levothyroxine [Synthroid 112 mcg 112 mcg PO DAILY06 04/16/17 (*)] Acetaminophen [Tylenol 325mg (*)] 162.5 mg PO Q4HRS PRN 06/16/17 Albuterol [Proventil Inhaler HFA 2 puffs IH Q4 PRN 06/16/17 (*)] Sodium Cl Nasal [[place] (*)] 1 spray EACHNARE PRN PRN 06/16/17 Warfarin Sodium [Coumadin 5MG (*)] 5 mg PO SUMOTUWEFRSA@06/16/17 Warfarin Sodium [Coumadin 7.5MG 7.5 mg PO TH@16 06/16/17 (*)] LORazepam [Ativan (*)] 0.25 mg PO DAILY PRN #0 06/17/17 Metoprolol Tartrate [Lopressor 50 50 mg PO BID #60 tab 06/17/17 mg (*)] Temazepam [Restoril 15 MG (*)] 15 mg PO HS PRN #10 cap 06/17/17 MDM/Departure - MDM Medications Given: Discontinued Medications Tranexamic Acid (Cyklokapron) 500 mg TP EDNOW ONE Stop: 09/07/17 22:17 Last Admin: 09/07/17 22:29 Dose: 500 mg ED Course/Re-evaluation: 10:25 p.m.: Topical TXA applied and will re-evaluate 11:30 p.m. Patient was observed for a period of time. I reviewed her laboratory results with her. She is concurrently hemostatic after application of topical TXA. Recommend she follow up with her oral surgeon Dr. Garcia on Saturday (today is Saturday). - Depart Disposition: Home, Routine, Self-Care Clinical Impression: Gingival bleeding Condition: Good Instructions: Tooth Extraction (ED) Referrals: Juanito Garcia DDS [Doctor of Dental Surgery] - 09/09/17
[2017-09-07] MEDS: TRANEXAMIC ACID 1,000 MG/10 ML VIAL TP ONE (22:29)
[2017-09-07 22:33] LABS: % IMMATURE GRANULYOCYTES 0.4 % (0.0-1.1); ABSOLUTE IMMATURE GRANULOCYTES 0.02 10^3/uL (0.00-0.10); ADD DIFF? NO; ADD MORPH? NO; ADD SCAN? NO; ATYPICAL LYMPHOCYTE FLAG 0 (0-99); FRAGMENT RBC FLAG 0 (0-99); HEMATOCRIT 37.6 % (38.0-47.0); HEMOGLOBIN 13.1 g/dL (12.6-16.3); LEFT SHIFT FLG 0 (0-99); LIPEMIA HEMOLYSIS FLAG 90 (0-99); MEAN CELL HEMOGLOBIN 33.9 pg (27.9-34.1); MEAN CELL HEMOGLOBIN CONCENTR. 34.8 g/dL (32.4-36.7); MEAN CELL VOLUME 97.4 fL (81.5-99.8); MEAN PLATELET VOLUME 9.5 fL (8.7-11.7); PLATELET CLUMPS FLAG 0 (0-99); PLATELET COUNT 199 10^3/uL (150-400); RED BLOOD CELL COUNT 3.86 10^6/uL (4.18-5.33); RED CELL DISTRIBUTION WIDTH 13.3 % (11.5-15.2)
[2017-09-07 22:56] LABS: INR 1.37 (0.83-1.16); PROTIME(PATIENT) 16.9 SEC (12.0-15.0)
[2017-09-07 23:58] VITALS: BP 106/65; PULSE 80; RESP 18; O2SAT 98
== END 2017-09-07 23:58 | disposition home or self-care (01) ==
DX: K06.8 Other specified disorders of gingiva and edentulous alveolar ridge (principal); Z79.01 Long term (current) use of anticoagulants; Z87.891 Personal history of nicotine dependence

== ENCOUNTER → 2017-10-15 | Outpatient (CLI) | payer OTHER, MEDICARE | LOC: BHLMT 14:00 | PROVIDERS: ATTEND Internal Medicine Cardiovascular Disease | DX: I48.91 Unspecified atrial fibrillation (principal); I10 Essential (primary) hypertension; I47.2 Ventricular tachycardia | CPT/HCPCS: 78452; 93017; A9500; J2785 ==

== ENCOUNTER 2017-11-12 18:33 | Emergency (ER) | payer OTHER, MEDICARE ==
[2017-11-12 18:56] VITALS: TEMP 98.2
--- NOTE | 2017-11-12 19:53 | EDPHY ---
H & P Stated Complaint: nausea, dizzy Time Seen by Provider: 11/12/17 19:49 HPI/ROS: Chief Complaint: Headache, dizzy, nausea HPI: 82-year-old woman states she has felt unwell today. She states she has had a persistent headache just after waking up this morning. At worst it is a 4 /10. Not a 2/10. Has had some associated nausea but no vomiting. Is also complaining of some dizziness in the sensation room is spinning. This is intermittent. No vomiting. She does have a history of CVA and thyroid cancer. She is currently on Coumadin. INR was checked today and was 2.6. Denies any recent falls or head injuries. No confusion. No fevers or chills. No neck pain or stiffness. No cough. Patient spoke with her physician who instructed her to come to the emergency department for further evaluation given her risk of head bleed. ROS: 10 point Review of Systems is negative except as noted in the HPI. PMH: CVA, metastatic thyroid cancer Social History: No smoking, no alcohol, no recreational drug use Family History: non-contributory Physical Exam: Gen: Awake, Alert, No Distress HEENT: Ears: She has bilateral cerumen with impaction on the right, TMs are normal after removal of the cerumen Nose: no rhinorrhea Eyes: PERRLA, EOMI Mouth: Moist mucosa Neck: Supple, no JVD Chest: nontender, lungs clear to auscultation Heart: S1, S2 normal, no murmur Abd: Soft, non-tender, no guarding Back: no CVA tenderness, no midline tenderness Ext: no edema, non-tender Skin: no rash Neuro: CN II-XII intact, Sensation grossly intact, Strength 5/5 in bilateral upper and lower extremities, no nystagmus, normal finger-nose, normal heel-kamara , normal tandem gait - Personal History Current Tetanus/Diphtheria Vaccine: No Current Tetanus Diphtheria and Acellular Pertussis (TDAP): No Tetanus Vaccine Date: 2006 - Medical/Surgical History Hx Asthma: No Hx Chronic Respiratory Disease: Yes Hx Diabetes: No Hx Cardiac Disease: Yes Hx Renal Disease: No Hx Cirrhosis: No Hx Alcoholism: No Hx HIV/AIDS: No Hx Splenectomy or Spleen Trauma: No Other PMH: Pacemaker, AFIB, HTN, DVT, STROKE, hypothyroidism/thyroid CA with mets, GERD with esophagitis, odynophagia, DVT hx, COPD mixed type, chronically anticoagulated, breast CA 2010, carpal tunnel, hysterectomy, viral pneumonia, bowel obstruction, ovarian cyst, cataract R eye, rotator cuff repair L. - Social History Smoking Status: Former smoker Constitutional: Initial Vital Signs Temperature (C) 36.8 C 11/12/17 18:54 Heart Rate 76 18 18:54 Respiratory Rate 16 11/12/17 18:54 Blood Pressure 165/97 H 11/12/17 18:54 O2 Sat (%) 93 11/12/17 18:54 O2 Delivery Mode Room Air Allergies/Adverse Reactions: amlodipine [Amlodipine] Allergy (Intermediate, Verified 11/12/17 18:52) Other-Enter Comments epinephrine [Epinephrine] Allergy (Intermediate, Verified 11/12/17 18:52) HEART RACES piperacillin sodium [From Zosyn] Allergy (Intermediate, Verified 11/12/17 18:52) Hives tazobactam sodium [From Zosyn] Allergy (Intermediate, Verified 11/12/17 18:52) Hives clarithromycin [From Biaxin] Allergy (Mild, Verified 11/12/17 18:52) moxifloxacin HCl [From Avelox] Allergy (Mild, Verified 11/12/17 18:52) niacin [From Niaspan] Allergy (Mild, Verified 11/12/17 18:52) Rash morphine Allergy (Verified 11/12/17 18:52) hallucinates omeprazole Allergy (Verified 11/12/17 18:52) vancomycin Allergy (Verified 11/12/17 18:52) ENVIRONMENTAL Allergy (Intermediate, Uncoded 11/12/17 18:52) EYES BURN AND SWELL/NASAL CONGESTION ADHESIVES Allergy (Mild, Uncoded 11/12/17 18:52) Rash Home Medications: Medication Instructions Recorded Cyanocobalamin (Vitamin B-12) 1,000 mcg IM Q30D 12/10/14 [Vitamin B-12] Budesonide/Formoterol 160/4.5 2 puffs IH BID #1 mdi 11/08/16 [Symbicort 160-4.5 Mcg Inh (*)] Ondansetron Odt [Zofran Odt 4 mg 4 mg PO Q4HRS PRN #14 tab 11/08/16 (*)] Tafluprost/Pf [Zioptan 0.0015% Eye 1 drop EACHEYE HS #60 droperette 11/08/16 Drops] Timolol 0.5% [TIMOPTIC 0.5% (*)] 1 drops EACHEYE DAILY #1 opht.btl 11/08/16 Furosemide [Lasix 20 MG (*)] 20 mg PO DAILY PRN 04/15/17 Lisinopril 5 mg PO BID 04/15/17 Levothyroxine [Synthroid 112 mcg 112 mcg PO DAILY06 04/16/17 (*)] Acetaminophen [Tylenol 325mg (*)] 162.5 mg PO Q4HRS PRN 06/16/17 Albuterol [Proventil Inhaler HFA 2 puffs IH Q4 PRN 06/16/17 (*)] Sodium Cl Nasal [[place] (*)] 1 spray EACHNARE PRN PRN 06/16/17 Warfarin Sodium [Coumadin 5MG (*)] 5 mg PO SUMOTUWEFRSA@16 06/16/17 Warfarin Sodium [Coumadin 7.5MG 7.5 mg PO TH@16 06/16/17 (*)] Metoprolol Tartrate [Lopressor 50 50 mg PO BID #60 tab 06/17/17 mg (*)] Clonazepam 11/12/17 Medical Decision Making - Diagnostics Imaging Results: Imaging Impressions Head CT 11/12/17 20:16 Impression: 1. Negative for intracranial hemorrhage. 2. Elderly brain with atrophy and probable white matter small vessel disease. 3. Old right middle cerebral artery territory infarct. Results called and discussed with Sachin Hudson MD on 11/12/2017 at 20:53 Imaging: Discussed imaging studies w/ dry molder Radiologist Procedures: Procedure: Cerumen removal. After a physical exam was performed cerumen needed to be removed from the patient's ear canal. The indication of the procedure was cerumen impaction and inability to complete the ear exam. The procedure was performed with an ear curette. The patient tolerated the procedure well. The procedure was performed by myself. ED Course/Re-evaluation: 82-year-old with dizziness, hypertension, and headache. CT scan of the head is negative. Her INR is appropriate at 2.6. She is actually improved after cerumen removal. I suspect her symptoms are likely secondary to her cerumen impaction. Headache is likely secondary to her hypertension which is resolved on its own without any specific treatment. She is feeling much better. She is tolerating p.o.. Will discharge with follow-up with primary care physician in 2 -3 days for further evaluation, return for worsening. Departure - Departure Disposition: Home, Routine, Self-Care Clinical Impression: Hypertension, Headache, Cerumen impaction, Dizziness Condition: Good Instructions: Cerumen Impaction (ED), Acute Headache (ED), Dizziness (ED) Additional Instructions: Follow up with primary care physician in 2-3 days for further evaluation. Return emergency department for worsening nausea and vomiting, worsening headache, worsening dizziness, fevers, chills, or any other concerns. Referrals: Stacy Arellano MD [Primary Care Provider] - As per Instructions
[2017-11-12 20:17] VITALS: PULSE 78; RESP 18
[2017-11-12 21:56] VITALS: BP 156/84; O2SAT 97
== END 2017-11-12 21:58 | disposition home or self-care (01) ==
PROC: F09Z3ZZ Cerumen Management Treatment (ICD-10-PCS; principal; 2017-11-12)
DX: R42 Dizziness and giddiness (principal); I10 Essential (primary) hypertension; H61.21 Impacted cerumen, right ear; J44.9 Chronic obstructive pulmonary disease, unspecified; Z79.01 Long term (current) use of anticoagulants; Z85.3 Personal history of malignant neoplasm of breast; Z87.891 Personal history of nicotine dependence; Z85.850 Personal history of malignant neoplasm of thyroid; Z86.73 Personal history of transient ischemic attack (TIA), and cerebral infarction without residual deficits

== ENCOUNTER 2018-01-08 21:09 | Emergency (ER) | payer OTHER, MEDICARE ==
--- NOTE | 2018-01-08 21:28 | CPEKG ---
Heart Rate: 73 RR Interval: 822 QRSD Interval: 146 QT Interval: 436 QTC Interval: 481 QRS [place]: -71 T Wave [place]: 105 EKG Severity - ABNORMAL ECG - EKG Impression: AFIB/FLUTTER AND VENTRICULAR-PACED RHYTHM Electronically Signed By: Sachin Hudson 09-Jan-2018 05:06:07
[2018-01-08 21:55] LABS: PLATELET COUNT 215 10^3/uL (150-400)
--- NOTE | 2018-01-08 22:09 | EDPHY ---
H & P Stated Complaint: CP/LOW BP/NAUSEA Time Seen by Provider: 01/08/18 21:50 HPI/ROS: Chief Complaint: Low blood pressure, neck pain HPI: 82-year-old woman with a history of hypertension, atrial fibrillation, CVA in the past who was recently started amlodipine in addition to her usual blood pressure medications about 2 weeks ago. Patient was feeling fatigued earlier this evening at about 6 in the evening noted that her blood pressure was 92 systolic. She has also been having some bilateral lower neck pain which is not uncommon for her. She did go to [facility] today and walked a couple of blocks. Does not have any chest pain or shortness of breath. She did forget to take her metoprolol and lisinopril this morning and did not take them today. Took her amlodipine at about 1 in the afternoon and did take her Lasix as well. The she has been having some bilateral foot swelling with some redness. She has an appoint with data miner tomorrow to evaluate for possible drug reaction. No nausea or vomiting. No cough. No increased dyspnea on exertion. ROS: 10 point Review of Systems is negative except as noted in the HPI. Family History: non-contributory Physical Exam: Gen: Awake, Alert, No Distress HEENT: Nose: no rhinorrhea Eyes: PERRLA, EOMI Mouth: Moist mucosa Neck: Supple, no JVD Chest: nontender, lungs clear to auscultation Heart: S1, S2 normal, no murmur Abd: Soft, non-tender, no guarding Back: no CVA tenderness, no midline tenderness Ext: no edema, non-tender, bilateral a erythematous is rash on bilateral dorsum of her feet, it is blanching, appears to be a drug reaction. Is not cellulitic. She has no calf pain or tenderness or swelling. Skin: no rash Neuro: CN II-XII intact, Sensation grossly intact, Strength 5/5 in bilateral upper and lower extremities - Personal History Current Tetanus Diphtheria and Acellular Pertussis (TDAP): No Tetanus Vaccine Date: 2006 - Medical/Surgical History Hx Asthma: No Hx Chronic Respiratory Disease: Yes Hx Diabetes: No Hx Cardiac Disease: Yes Hx Renal Disease: No Hx Cirrhosis: No Hx Alcoholism: No Hx HIV/AIDS: No Hx Splenectomy or Spleen Trauma: No Other PMH: Pacemaker, AFIB, HTN, DVT, STROKE, hypothyroidism/thyroid CA with mets, GERD with esophagitis, odynophagia, DVT hx, COPD mixed type, chronically anticoagulated, breast CA 2010, carpal tunnel, hysterectomy, viral pneumonia, bowel obstruction, ovarian cyst, cataract R eye, rotator cuff repair L. - Social History Smoking Status: Former smoker Constitutional: Initial Vital Signs Temperature (C) 36.8 C 01/08/18 21:17 Heart Rate 71 01/08/18 21:17 Respiratory Rate 16 01/08/18 21:17 Blood Pressure 109/70 01/08/18 21:17 O2 Sat (%) 93 01/08/18 21:17 O2 Delivery Mode Room Air Allergies/Adverse Reactions: amlodipine [Amlodipine] Allergy (Intermediate, Verified 11/12/17 18:52) Other-Enter Comments epinephrine [Epinephrine] Allergy (Intermediate, Verified 11/12/17 18:52) HEART RACES piperacillin sodium [From Zosyn] Allergy (Intermediate, Verified 11/12/17 18:52) Hives tazobactam sodium [From Zosyn] Allergy (Intermediate, Verified 11/12/17 18:52) Hives clarithromycin [From Biaxin] Allergy (Mild, Verified 11/12/17 18:52) moxifloxacin HCl [From Avelox] Allergy (Mild, Verified 11/12/17 18:52) niacin [From Niaspan] Allergy (Mild, Verified 11/12/17 18:52) Rash morphine Allergy (Verified 11/12/17 18:52) hallucinates omeprazole Allergy (Verified 11/12/17 18:52) vancomycin Allergy (Verified 11/12/17 18:52) ENVIRONMENTAL Allergy (Intermediate, Uncoded 11/12/17 18:52) EYES BURN AND SWELL/NASAL CONGESTION ADHESIVES Allergy (Mild, Uncoded 11/12/17 18:52) Rash Home Medications: Medication Instructions Recorded Cyanocobalamin (Vitamin B-12) 1,000 mcg IM Q30D 12/10/14 [Vitamin B-12] Budesonide/Formoterol 160/4.5 2 puffs IH BID #1 mdi 11/08/16 [Symbicort 160-4.5 Mcg Inh (*)] Ondansetron Odt [Zofran Odt 4 mg 4 mg PO Q4HRS PRN #14 tab 11/08/16 (*)] Tafluprost/Pf [Zioptan 0.0015% Eye 1 drop EACHEYE HS #60 droperette 11/08/16 Drops] Timolol 0.5% [TIMOPTIC 0.5% (*)] 1 drops EACHEYE DAILY #1 opht.btl 11/08/16 Furosemide [Lasix 20 MG (*)] 20 mg PO DAILY PRN 04/15/17 Lisinopril 5 mg PO BID 04/15/17 Levothyroxine [Synthroid 112 mcg 112 mcg PO DAILY06 04/16/17 (*)] Acetaminophen [Tylenol 325mg (*)] 162.5 mg PO Q4HRS PRN 06/16/17 Albuterol [Proventil Inhaler HFA 2 puffs IH Q4 PRN 06/16/17 (*)] Sodium Cl Nasal [[place] (*)] 1 spray EACHNARE PRN PRN 06/16/17 Warfarin Sodium [Coumadin 5MG (*)] 5 mg PO SUMOTUWEFRSA@16 06/16/17 Warfarin Sodium [Coumadin 7.5MG 7.5 mg PO TH@16 06/16/17 (*)] Metoprolol Tartrate [Lopressor 50 50 mg PO BID #60 tab 06/17/17 mg (*)] Clonazepam 11/12/17 Medical Decision Making - Diagnostics EKG Interpretation: ECG time 9:26 p.m., is atrial fibrillation with a ventricularly paced rhythm. Imaging Results: Imaging Impressions Chest X-Ray 01/08/18 21:50 Impression: 1. No new abnormality seen within the chest. 2. Stable distribution of bilateral pulmonary nodules compatible with underlying metastatic disease from thyroid cancer. ED Course/Re-evaluation: Patient is feeling improved. ECG shows no acute ischemic changes. Troponin is negative. No evidence of congestive heart failure at this time. I think his symptoms are likely secondary to her medications. She has an appointment with her data miner, Dr. Crowell, tomorrow. Will discharge her to home with follow-up with Dr. Petit as scheduled. - Data Points Laboratory Results: Laboratory Results 01/08/18 21:30 01/08/18 21:30 01/08/18 01/08/18 21:30 21:30 WBC 5.74 10^3/uL 10^3/uL (3.80-9.50) RBC 4.30 10^6/uL 10^6/uL (4.18-5.33) Hgb 14.3 g/dL g/dL (12.6-16.3) Hct 41.1 % % (38.0-47.0) MCV 95.6 fL fL (81.5-99.8) MCH 33.3 pg pg (27.9-34.1) MCHC 34.8 g/dL g/dL (32.4-36.7) RDW 13.1 % % (11.5-15.2) Plt Count 215 10^3/uL 10^3/uL (150-400) MPV 10.1 fL fL (8.7-11.7) Neut % (Auto) 63.3 % % (39.3-74.2) Lymph % (Auto) 20.7 % % (15.0-45.0) [place] % (Auto) 14.3 % H % (4.5-13.0) Eos % (Auto) 0.9 % % (0.6-7.6) Baso % (Auto) 0.3 % % (0.3-1.7) Nucleat RBC Rel Count 0.0 % % (0.0-0.2) Absolute Neuts (auto) 3.63 10^3/uL 10^3/uL (1.70-6.50) Absolute Lymphs (auto) 1.19 10^3/uL 10^3/uL (1.00-3.00) Absolute Monos (auto) 0.82 10^3/uL H 10^3/uL (0.30-0.80) Absolute Eos (auto) 0.05 10^3/uL 10^3/uL (0.03-0.40) Absolute Basos (auto) 0.02 10^3/uL 10^3/uL (0.02-0.10) Absolute Nucleated RBC 0.00 10^3/uL 10^3/uL (0-0.01) Immature Gran % 0.5 % % (0.0-1.1) Immature Gran # 0.03 10^3/uL 10^3/uL (0.00-0.10) Sodium 139 mEq/L mEq/L (135-145) Potassium 3.4 mEq/L L mEq/L (3.5-5.2) Chloride 98 mEq/L mEq/L (97-110) Carbon Dioxide 27 mEq/l mEq/l (22-31) Anion Gap 14 mEq/L mEq/L (8-16) BUN 21 mg/dL mg/dL (7-23) Creatinine 1.0 mg/dL mg/dL (0.6-1.0) Estimated GFR 53 Glucose 107 mg/dL H mg/dL (70-100) Calcium 8.4 mg/dL L mg/dL (8.5-10.4) Troponin I < 0.012 ng/mL ng/mL (0.000-0.034) Medications Given: Discontinued Medications Acetaminophen (Tylenol 160mg/5ml Oral Liquid) 160 mg PO EDNOW ONE Stop: 01/08/18 22:37 Last Admin: 01/08/18 22:42 Dose: 160 mg Departure - Departure Disposition: Home, Routine, Self-Care Clinical Impression: Hypotension, Dehydration, Neck pain Condition: Good Instructions: Dehydration (ED), Neck Pain (ED) Additional Instructions: Follow up with your data miner as scheduled tomorrow. Return to the emergency department for increasing pain, shortness of breath, lightheadedness, fainting, or any other concerns. Referrals: Stacy Arellano MD [Primary Care Provider] - As per Instructions Henry Crowell MD [Medical Doctor] - As per Instructions
[2018-01-08] MEDS ORDERED: ACETAMINOPHEN 500 MG TAB PO ONE (22:21)
[2018-01-08] MEDS ORDERED: ACETAMINOPHEN 160 MG/5 ML UDCUP PO ONE (22:36)
[2018-01-08 22:57] VITALS: RESP 16; O2SAT 93
[2018-01-08 23:35] VITALS: BP 107/64; PULSE 71; TEMP 97.7
== END 2018-01-08 23:33 | disposition home or self-care (01) ==
DX: M54.2 Cervicalgia (principal); I95.9 Hypotension, unspecified; E86.0 Dehydration; I10 Essential (primary) hypertension; J44.9 Chronic obstructive pulmonary disease, unspecified; Z79.01 Long term (current) use of anticoagulants; Z85.3 Personal history of malignant neoplasm of breast; Z85.850 Personal history of malignant neoplasm of thyroid; Z95.0 Presence of cardiac pacemaker; Z87.891 Personal history of nicotine dependence

== ENCOUNTER → 2018-01-24 | Outpatient (CLI) | payer OTHER, MEDICARE | LOC: BHFA 15:30 | PROVIDERS: ATTEND Internal Medicine Cardiovascular Disease | DX: I82.409 Acute embolism and thrombosis of unspecified deep veins of unspecified lower extremity (principal) ==

== ENCOUNTER → 2018-01-31 | Outpatient (CLI) | payer OTHER, MEDICARE | LOC: CIMAGING 15:47 | PROVIDERS: ATTEND Internal Medicine | DX: R10.816 Epigastric abdominal tenderness (principal); R07.81 Pleurodynia | CPT/HCPCS: 71100-PO; 76700-PO ==

== ENCOUNTER 2018-02-16 09:44 | Emergency (ER) | payer OTHER, MEDICARE ==
[2018-02-16] MEDS ORDERED: SKIN ADHESIVE (DERMABOND) 1 EACH TP ONE (10:10)
--- NOTE | 2018-02-16 11:00 | EDPHY ---
H & P Stated Complaint: missed the toilet and fell hitting head on side of tiled shower wall-no LOC Time Seen by Provider: 02/16/18 09:50 HPI/ROS: 83-year-old female presents complaining of slipped on toilet hitting her head on the corner of the shower, no loss of consciousness no nausea vomiting. She has a slight headache. She has a history of a prior CVA. She is on a blood thinner, warfarin, her last INR is 2.6. No weakness in arms or legs, no difficulty with her vision, no difficulty with her speech Review of systems As per HPI General no fever no chills no weakness HEENT no eye pain no eye discharge. No eye redness, no sore throat Respiratory no cough, no shortness of breath Cardiac no chest pain, no peripheral edema GI no abdominal pain, no diarrhea, no constipation, no nausea, no vomiting no flank pain, no hematuria, no dysuria Musculoskeletal no myalgias, no joint pain Heme positive easy bruising positive easy bleeding Endo no polyuria, no polydipsia Skin no rashes, no pruritus Neuro no syncope, no dizziness, positive headache Psych is no suicidal ideation, no homicidal ideation Source: Patient, Family - Personal History Tetanus Vaccine Date: 2006 - Medical/Surgical History Hx Asthma: No Hx Chronic Respiratory Disease: Yes Hx Diabetes: No Hx Cardiac Disease: Yes Hx Renal Disease: No Hx Cirrhosis: No Hx Alcoholism: No Hx HIV/AIDS: No Hx Splenectomy or Spleen Trauma: No Other PMH: Pacemaker, AFIB, HTN, DVT, STROKE, hypothyroidism/thyroid CA with mets, GERD with esophagitis, odynophagia, DVT hx, COPD mixed type, chronically anticoagulated, breast CA 2009, carpal tunnel, hysterectomy, viral pneumonia, bowel obstruction, ovarian cyst, cataract R eye, rotator cuff repair L. - Family History Significant Family History: No pertinent family hx - Social History Smoking Status: Former smoker Alcohol Use: None Drug Use: None - Physical Exam Exam: 83-year-old female alert and oriented no acute distress nontoxic appearance, afebrile Normocephalic Left periorbital ecchymosis, left lateral eyebrow with 1 cm non gaping superficial laceration Extraocular muscles intact, anicteric Neck supple nontender Lungs clear to auscultation bilaterally Heart regular rate and rhythm Abdomen nondistended bowel sounds present soft nontender Extremities no cyanosis clubbing edema Skin No evidence of other trauma Neuro Alert and oriented, speech coherent, gait intact, no focal weakness Constitutional: Initial Vital Signs Temperature (C) 36.6 C 02/16/18 09:56 Heart Rate 76 02/16/18 09:56 Respiratory Rate 18 02/16/18 09:56 Blood Pressure 155/87 H 02/16/18 09:56 O2 Sat (%) 96 02/16/18 09:56 O2 Delivery Mode Room Air Allergies/Adverse Reactions: amlodipine [Amlodipine] Allergy (Intermediate, Verified 11/12/17 18:52) Other-Enter Comments epinephrine [Epinephrine] Allergy (Intermediate, Verified 11/12/17 18:52) HEART RACES piperacillin sodium [From Zosyn] Allergy (Intermediate, Verified 11/12/17 18:52) Hives tazobactam sodium [From Zosyn] Allergy (Intermediate, Verified 11/12/17 18:52) Hives clarithromycin [From Biaxin] Allergy (Mild, Verified 11/12/17 18:52) moxifloxacin HCl [From Avelox] Allergy (Mild, Verified 11/12/17 18:52) niacin [From Niaspan] Allergy (Mild, Verified 11/12/17 18:52) Rash morphine Allergy (Verified 11/12/17 18:52) hallucinates omeprazole Allergy (Verified 11/12/17 18:52) vancomycin Allergy (Verified 11/12/17 18:52) ENVIRONMENTAL Allergy (Intermediate, Uncoded 11/12/17 18:52) EYES BURN AND SWELL/NASAL CONGESTION ADHESIVES Allergy (Mild, Uncoded 11/12/17 18:52) Rash Home Medications: Medication Instructions Recorded Cyanocobalamin (Vitamin B-12) 1,000 mcg IM Q30D 12/10/14 [Vitamin B-12] Budesonide/Formoterol 160/4.5 2 puffs IH BID #1 mdi 11/08/16 [Symbicort 160-4.5 Mcg Inh (*)] Ondansetron Odt [Zofran Odt 4 mg 4 mg PO Q4HRS PRN #14 tab 11/08/16 (*)] Tafluprost/Pf [Zioptan 0.0015% Eye 1 drop EACHEYE HS #60 droperette 11/08/16 Drops] Timolol 0.5% [TIMOPTIC 0.5% (*)] 1 drops EACHEYE DAILY #1 opht.btl 11/08/16 Furosemide [Lasix 20 MG (*)] 20 mg PO DAILY PRN 04/15/17 Lisinopril 5 mg PO BID 04/15/17 Levothyroxine [Synthroid 112 mcg 112 mcg PO DAILY06 04/16/17 (*)] Acetaminophen [Tylenol 325mg (*)] 162.5 mg PO Q4HRS PRN 06/16/17 Albuterol [Proventil Inhaler HFA 2 puffs IH Q4 PRN 06/16/17 (*)] Sodium Cl Nasal [[place] (*)] 1 spray EACHNARE PRN PRN 06/16/17 Warfarin Sodium [Coumadin 5MG (*)] 5 mg PO SUMOTUWEFRSA@16 06/16/17 Warfarin Sodium [Coumadin 7.5MG 7.5 mg PO TH@16 06/16/17 (*)] Metoprolol Tartrate [Lopressor 50 50 mg PO BID #60 tab 06/17/17 mg (*)] Clonazepam 11/12/17 Medical Decision Making - Diagnostics Imaging Results: Imaging Impressions Head CT 02/16/18 10:06 Findings: Again noted is encephalomalacia in the right middle cerebral artery territory not significantly changed and consistent with encephalomalacia from prior right middle cerebral artery infarct. Ventricles, cisterns, and sulci are widened consistent with atrophy. There is no hydrocephalus, midline shift/ herniation, or epidural/subdural hematoma. No intraparenchymal hemorrhage or mass effect is identified. Hypodensities are noted in the periventricular and subcortical white matter bilaterally. No acute cortical ischemia is identified. Cerebrovascular atherosclerosis is identified. A depressed skull fracture is not identified. Facial bones are reported separately. Impression: 1. Negative for intracranial hemorrhage. 2. Residua of remote right middle cerebral artery territory infarct. 3. Elderly brain with atrophy and probable white matter small vessel disease. CT of the Facial Bones (Without Contrast) Clinical Indications: Periorbital swelling in an 83-year-old female following trauma. Technique: Noncontrast axial images were obtained through the facial bones at 1.25 mm thickness. Sagittal and coronal reformations are performed. Dose reduction techniques were utilized. Findings: A fracture is not identified. The paranasal sinuses are clear. Minimal mucous membrane thickening is seen in the maxillary sinuses. The nasal septum is midline. Soft tissue swelling is noted about the left orbit. Orbital contents are intact. Impression: 1. Facial bones negative for fracture. 2. See above report for additional findings. Results called and discussed with Hazel Larios MD on 02/16/2018 at 10:[address] 02/16/18 10:08 Findings: Again noted is encephalomalacia in the right middle cerebral artery territory not significantly changed and consistent with encephalomalacia from prior right middle cerebral artery infarct. Ventricles, cisterns, and sulci are widened consistent with atrophy. There is no hydrocephalus, midline shift/ herniation, or epidural/subdural hematoma. No intraparenchymal hemorrhage or mass effect is identified. Hypodensities are noted in the periventricular and subcortical white matter bilaterally. No acute cortical ischemia is identified. Cerebrovascular atherosclerosis is identified. A depressed skull fracture is not identified. Facial bones are reported separately. Impression: 1. Negative for intracranial hemorrhage. 2. Residua of remote right middle cerebral artery territory infarct. 3. Elderly brain with atrophy and probable white matter small vessel disease. CT of the Facial Bones (Without Contrast) Clinical Indications: Periorbital swelling in an 83-year-old female following trauma. Technique: Noncontrast axial images were obtained through the facial bones at 1.25 mm thickness. Sagittal and coronal reformations are performed. Dose reduction techniques were utilized. Findings: A fracture is not identified. The paranasal sinuses are clear. Minimal mucous membrane thickening is seen in the maxillary sinuses. The nasal septum is midline. Soft tissue swelling is noted about the left orbit. Orbital contents are intact. Impression: 1. Facial bones negative for fracture. 2. See above report for additional findings. Results called and discussed with Hazel Larios MD on 02/16/2018 at 10:47 ED Course/Re-evaluation: Patient seen and evaluated for fall with left periorbital contusion and small laceration. CT brain Evidence of old infarct, no acute pathology CT face sfot tissue swelling, no fracture imp superficial laceration left eyebrow periorbital contusion plan dc home adhesive used for eyebrow lac Differential Diagnosis: Differential diagnosis considered but not limited to Intracranial bleed, facial fracture, scalp contusion, facial contusion, facial laceration Departure - Departure Disposition: Home, Routine, Self-Care Clinical Impression: Laceration of eyebrow, Contusion of face Condition: Good Instructions: Skin Adhesive Care (ED), Facial Laceration (ED) Referrals: Stacy Arellano MD [Primary Care Provider] - As per Instructions
[2018-02-16 11:15] VITALS: BP 123/64
== END 2018-02-16 11:13 | disposition home or self-care (01) ==
LOC: CED 09:44
DX: S01.112A Laceration without foreign body of left eyelid and periocular area, initial encounter (principal); I10 Essential (primary) hypertension; J44.9 Chronic obstructive pulmonary disease, unspecified; Z79.01 Long term (current) use of anticoagulants; Z87.891 Personal history of nicotine dependence; Z85.850 Personal history of malignant neoplasm of thyroid; Z85.3 Personal history of malignant neoplasm of breast; W18.11XA Fall from or off toilet without subsequent striking against object, initial encounter
CPT/HCPCS: 70450-PO; 70486-PO

== ENCOUNTER 2018-02-19 18:57 | Emergency (ER) | payer OTHER, MEDICARE ==
--- NOTE | 2018-02-19 19:31 | EDPHY ---
H & P Time Seen by Provider: 02/19/18 19:09 HPI/ROS: CHIEF COMPLAINT: Fall, headache HISTORY OF PRESENT ILLNESS: The patient is an 83-year-old female who presents emergency department with ongoing headache. The patient fell Saturday morning. Patient states that she slipped on the toilet and struck her head on the shower. She describes this is a mechanical fall. She struck the left side of her face. She continues to have a headache. She was seen in the emergency department in [place] and had a negative head CT. She was discharged home. Patient states she also has an ongoing headache. She also feels nauseated. This was not relieved with [address] Arellano ordered [address] of the head as an outpatient. When the patient completed this test she checked into the emergency department. Patient is on Coumadin and her INR on Saturday was 3.3. Patient headache is constant. It is moderate. It is fairly diffuse but more on the left than the right. She has had nausea but no vomiting. No focal weakness or numbness. No visual change. REVIEW OF SYSTEMS: My complete review of systems is negative except as mentioned in the HPI. Past Medical/Surgical History: Includes atrial fibrillation, hypertension, DVT, CVA, hypothyroidism, thyroid cancer, GERD, esophagitis, COPD, breast cancer, carpal tunnel, bowel obstruction , ovarian cyst, cataracts Past surgical history: Includes rotator cuff repair, bilateral eye surgery, hysterectomy Social history: The patient is Smoking Status: Former smoker Physical Exam: 36.7, 1 C 8/90, 75, 18, 94% on room air GENERAL: No acute distress, alert. HEENT: Eyes normal to inspection, normal pharynx, no signs of dehydration. The patient has bruising to the left side of her face. There is mild tenderness palpation. Patient's left pupil is mildly enlarged. The patient and states this is baseline. Her pupils are mildly reactive bilaterally. NECK: No thyromegaly, no lymphadenopathy, supple. No spinal tenderness. Nexus negative. RESPIRATORY: Clear to auscultation bilaterally, no rales, rhonchi or wheezing. CVS: Regular rate and rhythm, no rubs, murmurs, or gallops. ABDOMEN: Soft, nontender, nondistended, no organomegaly. BACK: Normal to inspection, no CVA tenderness. SKIN: Normal color, no rash, warm, dry. No pallor. EXTREMITIES: No pedal edema, no calf tenderness, no Homans sign or cords, no joint swelling. NEURO/PSYCH: Higher functions: Alert and Oriented x3. Normal speech and cognition. Normal mood and affect. Cranial nerves: Normal as tested. Cerebellar: Normal as tested. Good finger to nose, good [id number], normal gait. Peripheral exam: Normal motor exam. Normal sensation. Constitutional: Initial Vital Signs Temperature (C) 36.7 C 02/19/18 19:02 Heart Rate 75 02/19/18 19:02 Respiratory Rate 18 02/19/18 19:02 Blood Pressure 168/90 H 02/19/18 19:02 O2 Sat (%) 94 02/19/18 19:02 O2 Delivery Mode Room Air Allergies/Adverse Reactions: amlodipine [Amlodipine] Allergy (Intermediate, Verified 11/12/17 18:52) Other-Enter Comments epinephrine [Epinephrine] Allergy (Intermediate, Verified 11/12/17 18:52) HEART RACES piperacillin sodium [From Zosyn] Allergy (Intermediate, Verified 11/12/17 18:52) Hives tazobactam sodium [From Zosyn] Allergy (Intermediate, Verified 11/12/17 18:52) Hives clarithromycin [From Biaxin] Allergy (Mild, Verified 11/12/17 18:52) moxifloxacin HCl [From Avelox] Allergy (Mild, Verified 11/12/17 18:52) niacin [From Niaspan] Allergy (Mild, Verified 11/12/17 18:52) Rash morphine Allergy (Verified 11/12/17 18:52) hallucinates omeprazole Allergy (Verified 11/12/17 18:52) vancomycin Allergy (Verified 11/12/17 18:52) ENVIRONMENTAL Allergy (Intermediate, Uncoded 11/12/17 18:52) EYES BURN AND SWELL/NASAL CONGESTION ADHESIVES Allergy (Mild, Uncoded 11/12/17 18:52) Rash Home Medications: Medication Instructions Recorded Cyanocobalamin (Vitamin B-12) 1,000 mcg IM Q30D 12/10/14 [Vitamin B-12] Budesonide/Formoterol 160/4.5 2 puffs IH BID #1 mdi 11/08/16 [Symbicort 160-4.5 Mcg Inh (*)] Ondansetron Odt [Zofran Odt 4 mg 4 mg PO Q4HRS PRN #14 tab 11/08/16 (*)] Tafluprost/Pf [Zioptan 0.0015% Eye 1 drop EACHEYE HS #60 droperette 11/08/16 Drops] Timolol 0.5% [TIMOPTIC 0.5% (*)] 1 drops EACHEYE DAILY #1 opht.btl 11/08/16 Furosemide [Lasix 20 MG (*)] 20 mg PO DAILY PRN 04/15/17 Lisinopril 5 mg PO BID 04/15/17 Levothyroxine [Synthroid 112 mcg 112 mcg PO DAILY06 04/16/17 (*)] Acetaminophen [Tylenol 325mg (*)] 162.5 mg PO Q4HRS PRN 06/16/17 Albuterol [Proventil Inhaler HFA 2 puffs IH Q4 PRN 06/16/17 (*)] Sodium Cl Nasal [[place] (*)] 1 spray EACHNARE PRN PRN 06/16/17 Warfarin Sodium [Coumadin 5MG (*)] 5 mg PO SUMOTUWEFRSA@16 06/16/17 Warfarin Sodium [Coumadin 7.5MG 7.5 mg PO TH@16 06/16/17 (*)] Metoprolol Tartrate [Lopressor 50 50 mg PO BID #60 tab 06/17/17 mg (*)] Clonazepam 11/12/17 Ondansetron Odt [Zofran Odt 4 mg 4 mg PO Q4PRN PRN #7 tab 02/19/18 (*)] Medical Decision Making - Diagnostics Imaging Results: Imaging Impressions Head CT 02/19/18 14:30 Impression: 1. Old right middle cerebral artery territory infarct. 2. No acute hemorrhage, hydrocephalus, or mass effect. 3. Cerebrovascular atherosclerosis. 4. No definite acute infarct. 5. No epidural or subdural hematoma. 6. Moderate cerebral atrophy and moderate microvascular ischemic gliosis. 7. No sinusitis. ED Course/Re-evaluation: In the emergency department I discussed possible etiologies with the patient and her . I reviewed the CT imaging that was ordered as an outpatient. CT the brain without contrast: Please refer the dictated report by Dr. Shawn Irizarry. Patient has an old right middle cerebral arterial territory infarct. There is no acute hemorrhage, hydrocephalus or mass effect. No epidural or subdural hematoma. I discussed the results with the patient and her . I answered all her questions. They felt comfortable with discharge. Patient will be given a prescription of Zofran and a take-home pack. She does not want pain medication. I discussed head injury precautions. She was given warnings prior to leaving. Differential Diagnosis: My differential includes but is not limited to subarachnoid hemorrhage, subdural hematoma, epidural hematoma, concussion, cerebral contusion, fracture, ACS, acute [place] Departure - Departure Disposition: Home, Routine, Self-Care Clinical Impression: Headache Qualifiers: Headache type: unspecified Headache chronicity pattern: acute headache Intractability: not intractable Qualified Code(s): R51 - Headache Concussion Qualifiers: Encounter type: initial encounter Loss of consciousness presence/duration: without LOC Qualified Code(s): S06.0X0A - Concussion without loss of consciousness, initial encounter Condition: Good Instructions: Concussion (ED) Additional Instructions: Return with increasing headache, weakness, numbness or any other concerns. Referrals: Stacy Arellano MD [Primary Care Provider] - 1-2 days without fail Prescriptions: Ondansetron Odt [Zofran Odt 4 mg (*)] 4 mg PO Q4PRN PRN #7 tab PRN Reason: For Nausea & Vomiting
[2018-02-19] MEDS ORDERED: ONDANSETRON 4MG PREPACK#2 BTL TAKEHOME ONE (19:35)
[2018-02-19 19:59] VITALS: BP 153/88
== END 2018-02-19 19:58 | disposition home or self-care (01) ==
DX: S06.0X0A Concussion without loss of consciousness, initial encounter (principal); J44.9 Chronic obstructive pulmonary disease, unspecified; I10 Essential (primary) hypertension; Z86.73 Personal history of transient ischemic attack (TIA), and cerebral infarction without residual deficits; Z85.3 Personal history of malignant neoplasm of breast; Z85.850 Personal history of malignant neoplasm of thyroid; Z87.891 Personal history of nicotine dependence; Z79.01 Long term (current) use of anticoagulants; W01.198A Fall on same level from slipping, tripping and stumbling with subsequent striking against other object, initial encounter
CPT/HCPCS: 70450-PO

== ENCOUNTER 2018-03-13 21:01 | Emergency (ER) | payer OTHER, MEDICARE ==
[2018-03-13] MEDS ORDERED: ONDANSETRON 4 MG/2 ML VIAL IVP ONE ×2 (21:23→23:23)
[2018-03-13] MEDS ORDERED: NS 500 ML IV ONE (21:23)
[2018-03-13] MEDS ORDERED: HYDROmorphONE/DILAUDID 2 MG/ML INJ IVP ONE (21:23)
[2018-03-13] MEDS ORDERED: FAMOTIDINE 20 MG/NACL 50 ML IV ONE (21:23)
--- NOTE | 2018-03-13 21:37 | EDPHY ---
H & P Smoking Status: Former smoker Time Seen by Provider: 03/13/18 21:10 HPI/ROS: HPI Abdominal and back pain. 83-year-old female by private vehicle with her . This patient presents with complaint of right-sided flank pain with radiation into the right side of her abdomen and right lower quadrant. She reports that she has had similar pain for at least the last month. She has been worked up by her primary care physician Dr. Arellano. She had a right upper quadrant ultrasound a few weeks ago which her said was normal. She reports that this is the same pain she has had but worse. She denies any urinary complaints. No gross hematuria. No fever. Some nausea but no vomiting. ROS: Constitutional: No fever, no chills. No weakness. Eyes: No discharge. No changes in vision. ENT: No sore throat. No nasal congestion or rhinorrhea. Respiratory: No cough. No shortness of breath. Cardiac: No chest pain, no palpitations. Gastrointestinal: As above, no vomiting, no diarrhea. Genitourinary: No hematuria. No dysuria or increased frequency with urination. Musculoskeletal: As above. No neck pain. No myalgias or arthralgias. Skin: No rashes. Neurological: No headache. No focal weakness or altered sensation. Past medical history: Pacemaker, atrial fibrillation, DVT, hypertension, CVA, hypothyroidism, breast cancer, GERD with esophagitis, COPD, chronically anticoagulated, carpal tunnel, hysterectomy, pneumonia, bowel obstruction, cataract in the right eye, rotator cuff injury. Social history: Here with her . Nonsmoker. No alcohol. Physical Exam: General Appearance: Alert, no distress. This patient is responding to questions appropriately and in full sentences. This patient appears well- hydrated and well-nourished. Eyes: Pupils equal and round no pallor or injection. No lid edema, erythema or injection. ENT, Mouth: Mucous membranes are moist. The pharyngeal tissues are unremarkable. No edema or swelling. No asymmetry suggestive of abscess. No erythema or exudates. Respiratory: There are no retractions, lungs are clear to auscultation with good air movement bilaterally. Cardiovascular: Regular rate and rhythm. No murmur. Gastrointestinal: Abdomen is soft with vague tenderness on palpation of the right mid abdomen and lower quadrant which is mild, no masses, bowel sounds normal. No focal tenderness at McBurney's point. No Falk sign. Neurological: Motor sensory function is grossly intact. Cranial nerves are normal. Gait is normal. Skin: Warm and dry, no rashes. Musculoskeletal: Mild right-sided CVA tenderness on palpation. No left-sided CVA tenderness. Extremities are symmetrical. All joints range without pain or impingement. Psychiatric: No agitation. No depression. Database: EKG: Imaging: CT scan of abdomen and pelvis without contrast: No evidence of stone. No evidence of appendicitis. Diverticulosis present. Otherwise an unremarkable study. Results were discussed with staff radiologist Dr. Prateek Alfonso. Procedures: Emergency department course: IV placed. She was placed on a monitor. She was started on IV normal saline with 500 cc to be given over the next hour. She was initially given 0.25 mg of IV hydromorphone, 4 mg of IV Zofran and 20 mg of IV Pepcid. She consents for CT imaging to evaluate for possible ureterolithiasis. Her presentation is consistent with this etiology for her pain. 10:45 p.m., patient re-evaluated. Her workup has been unremarkable. She feels comfortable going home and I feel she is safe for discharge. She has had this pain for some time and has had extensive workup for it. She will follow up with her primary care physician tomorrow for re-evaluation. Return to emergency department precautions discussed with her. All of her questions were answered. 11:10 p.m., The patient still feels a little bit unsteady on her feet from the pain medication that was given to her earlier. We will observe her for another half an hour. Care turned over to Dr. Hudson. Dr. Hudson will re-evaluate her at that time. Differential Diagnosis: The differential diagnosis on this patient includes but is not limited to ureterolithiasis, chronic upper abdominal pain, chronic flank pain, urinary tract infection, pyelonephritis. Appendicitis, bowel obstruction/volvulus unlikely. This represents a partial list of diagnoses considered. These considerations are based on history, physical exam, past history, reassessment and diagnostic testing. (Valerie Alcaraz) Constitutional: Initial Vital Signs Temperature (C) 36.4 C 03/13/18 21:02 Heart Rate 72 03/13/18 21:02 Respiratory Rate 18 03/13/18 21:02 Blood Pressure 171/94 H 03/13/18 21:02 O2 Sat (%) 97 03/13/18 21:02 O2 Delivery Mode Room Air Allergies/Adverse Reactions: amlodipine [Amlodipine] Allergy (Intermediate, Verified 03/13/18 21:02) Other-Enter Comments epinephrine [Epinephrine] Allergy (Intermediate, Verified 03/13/18 21:02) HEART RACES piperacillin sodium [From Zosyn] Allergy (Intermediate, Verified 03/13/18 21:02) Hives tazobactam sodium [From Zosyn] Allergy (Intermediate, Verified 03/13/18 21:02) Hives clarithromycin [From Biaxin] Allergy (Mild, Verified 03/13/18 21:02) moxifloxacin HCl [From Avelox] Allergy (Mild, Verified 03/13/18 21:02) niacin [From Niaspan] Allergy (Mild, Verified 03/13/18 21:02) Rash famotidine Allergy (Verified 03/13/18 21:55) morphine Allergy (Verified 03/13/18 21:02) hallucinates omeprazole Allergy (Verified 03/13/18 21:02) vancomycin Allergy (Verified 03/13/18 21:02) ENVIRONMENTAL Allergy (Intermediate, Uncoded 11/12/17 18:52) EYES BURN AND SWELL/NASAL CONGESTION ADHESIVES Allergy (Mild, Uncoded 11/12/17 18:52) Rash Home Medications: Medication Instructions Recorded Cyanocobalamin (Vitamin B-12) 1,000 mcg IM Q30D 12/10/14 [Vitamin B-12] Budesonide/Formoterol 160/4.5 2 puffs IH BID #1 mdi 11/08/16 [Symbicort 160-4.5 Mcg Inh (*)] Ondansetron Odt [Zofran Odt 4 mg 4 mg PO Q4HRS PRN #14 tab 11/08/16 (*)] Tafluprost/Pf [Zioptan 0.0015% Eye 1 drop EACHEYE HS #60 droperette 11/08/16 Drops] Timolol 0.5% [TIMOPTIC 0.5% (*)] 1 drops EACHEYE DAILY #1 opht.btl 11/08/16 Furosemide [Lasix 20 MG (*)] 20 mg PO DAILY PRN 04/15/17 Lisinopril 5 mg PO BID 04/15/17 Levothyroxine [Synthroid 112 mcg 112 mcg PO DAILY06 04/16/17 (*)] Acetaminophen [Tylenol 325mg (*)] 162.5 mg PO Q4HRS PRN 06/16/17 Albuterol [Proventil Inhaler HFA 2 puffs IH Q4 PRN 06/16/17 (*)] Sodium Cl Nasal [[place] (*)] 1 spray EACHNARE PRN PRN 06/16/17 Warfarin Sodium [Coumadin 5MG (*)] 5 mg PO SUMOTUWEFRSA@06/16/17 Warfarin Sodium [Coumadin 7.5MG 7.5 mg PO TH@06/16/17 (*)] Metoprolol Tartrate [Lopressor 50 50 mg PO BID #60 tab 06/17/17 mg (*)] Clonazepam 11/12/17 Ondansetron Odt [Zofran Odt 4 mg 4 mg PO Q4PRN PRN #7 tab 02/19/18 (*)] Medical Decision Making Other Provider: I have re-evaluated the patient. She is feeling much better. She has ambulated with minimal assistance the emergency department. She would like to go home. Will discharge home in the care of her . She will return for any concerns. (Sachin Hudson) - Data Points Laboratory Results: Laboratory Results 03/13/18 21:44 03/13/18 21:44 Medications Given: Discontinued Medications Hydromorphone HCl (Dilaudid) 0.25 mg IVP EDNOW ONE Stop: 03/13/18 21:24 Last Admin: 03/13/18 22:16 Dose: 0.25 mg Sodium Chloride (Ns) 500 mls @ 0 mls/hr IV EDNOW ONE; Wide Open PRN Reason: Protocol Stop: 03/13/18 21:24 Last Admin: 03/13/18 21:45 Dose: 500 mls Ondansetron HCl (Zofran) 4 mg IVP EDNOW ONE Stop: 03/13/18 21:24 Last Admin: 03/13/18 21:45 Dose: 4 mg Ondansetron HCl (Zofran) 4 mg IVP EDNOW ONE Stop: 03/13/18 23:24 Last Admin: 03/13/18 23:27 Dose: 4 mg Departure - Departure Disposition: Home, Routine, Self-Care Clinical Impression: Right flank pain, Right sided abdominal pain Condition: Good Instructions: Flank Pain (ED) Additional Instructions: Read and follow provided instructions. Follow-up with your primary care physician tomorrow for re-evaluation. Continue your medications as prescribed Return to the emergency department for worsening pain, fever, vomiting, blood in your stool or other serious concerns. Referrals: Stacy Arellano MD [Primary Care Provider] - As per Instructions
[2018-03-13 22:04] LABS: PLATELET COUNT 257 10^3/uL (150-400)
[2018-03-13] MEDS ORDERED: CEPHALEXIN 500 MG CAP PO ONE (22:59)
[2018-03-13] MEDS ORDERED: HYDROmorphONE/DILAUDID 2 MG TAB PO ONE (23:05)
[2018-03-13] MEDS ORDERED: ONDANSETRON 4 MG/2 ML VIAL ONE (23:24)
[2018-03-14 01:28] VITALS: BP 158/110
== END 2018-03-14 01:43 | disposition home or self-care (01) ==
DX: R10.31 Right lower quadrant pain (principal); I10 Essential (primary) hypertension; J44.9 Chronic obstructive pulmonary disease, unspecified; E86.9 Volume depletion, unspecified; Z79.01 Long term (current) use of anticoagulants; Z85.3 Personal history of malignant neoplasm of breast; Z86.73 Personal history of transient ischemic attack (TIA), and cerebral infarction without residual deficits; Z95.0 Presence of cardiac pacemaker; Z90.710 Acquired absence of both cervix and uterus
CPT/HCPCS: 74176; 96374; 96375; 96376; 99285; J1170; J2405

== ENCOUNTER → 2018-03-17 | Outpatient (CLI) | payer OTHER, MEDICARE ==
[~2018-03-17] MED LIST: IOPAMIDOL (ISOVUE-300) 100 ML BTL ONE
== END ==
LOC: CIMAGING 13:09
PROVIDERS: ATTEND Internal Medicine
DX: K31.89 Other diseases of stomach and duodenum (principal); K57.30 Diverticulosis of large intestine without perforation or abscess without bleeding; M54.9 Dorsalgia, unspecified; C34.90 Malignant neoplasm of unspecified part of unspecified bronchus or lung
CPT/HCPCS: 74177; Q9967

== ENCOUNTER 2018-03-21 11:19 | Inpatient (IN) | payer OTHER, MEDICARE ==
--- NOTE | 2018-03-21 12:01 | CPEKG ---
Heart Rate: 70 RR Interval: 857 P-R Interval: 136 QRSD Interval: 140 QT Interval: 460 QTC Interval: 497 P [place]: 0 QRS [place]: -78 T Wave [place]: 103 EKG Severity - ABNORMAL ECG - EKG Impression: ATRIAL-VENTRICULAR DUAL-PACED RHYTHM Electronically Signed By: Anna Sanchez 21-Mar-2018 20:44:28
[2018-03-21 12:13] LABS: PLATELET COUNT 256 10^3/uL (150-400)
--- NOTE | 2018-03-21 12:20 | EDPHY ---
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 She takes Coumadin daily but her Coumadin was discontinued last week for 5 days during which time she underwent an endoscopy. She did take Lovenox 50 mg daily during that time. She restarted her Coumadin last night, 5 mg orally, and has also continued the Lovenox 50 mg. She was last seen normal at 9:00 a.m. this morning. She reports that she took a shower and afterwards felt fatigued and had mild nausea. She sat down to take a nap. Her awakened her at approximately 11:00 a.m. And found her to be confused, not making sense, using the wrong words. This lasted about [address] her to the hospital. According to both of them, her symptoms have entirely resolved. She presently has no complaints other than feeling slightly dizzy. She reports some residual left hand weakness and clumsiness following her stroke in 2016. She sometimes notices that her left leg is a bit weak also. There has been no change in these left-sided symptoms. REVIEW OF SYSTEMS: A ten point review of systems was performed and is negative with the exception of the items mentioned in the HPI. She reports a chronic dry cough, unchanged. She also describes right upper quadrant pain that radiates to the right back-- this has been present for some time and is being evaluated as an outpatient by her primary care physician. She recently underwent abdominal CT scan. No evidence of metastatic disease. Past medical history: 1. Thyroid cancer (status post surgery and radiation) metastatic to the lungs 2. CVA in 2016 3. Atrial fibrillation 4. Hypertension 5. Pacemaker 6. Breast cancer 7. GI bleed secondary to AVM 8. DVT 9. Glaucoma Past surgical history: 1. Pacemaker 2. Hysterectomy 3. Thyroidectomy 4. Breast lumpectomy 5. Left cataract surgery 6. Surgery for right retinal detachment Social history: She lives with her . She does not use tobacco products. General Appearance: Alert. Vital signs reviewed. Blood pressure 150/98. Oxygen saturation 99% on room air. Eyes: Pupils equal and round, no conjunctival injection, no discharge. Anicteric. ENT, Mouth: Mucous membranes are slightly dry, no oropharyngeal erythema or edema. Neck: No lymphadenopathy, supple. No JVD. Respiratory: Lungs with expiratory wheezes. Cardiovascular: Regular rate and rhythm; no murmur, rub, or gallop. Gastrointestinal: Abdomen is soft and nontender, no masses or organomegaly, bowel sounds normal. Skin: Warm and dry, no rashes on exposed skin, normal color. Back: Nontender to palpation over the thoracolumbar spine. No CVAT. Extremities: No lower extremity edema, no calf tenderness or swelling. Neurological: Alert and full oriented to person, place, year, and situation. Speech is fluent and clear. Moving all four extremities easily and equally. She has mild right hand billet header weakness relative to the left, otherwise normal strength throughout. Sensation intact to light touch over all 4 extremities. NIHSS zero. Psychiatric: Normal affect. - Personal History Current Tetanus Diphtheria and Acellular Pertussis (TDAP): Unsure Tetanus Vaccine Date: 2006 - Medical/Surgical History Hx Asthma: No Hx Chronic Respiratory Disease: Yes Hx Diabetes: No Hx Cardiac Disease: Yes Hx Renal Disease: No Hx Cirrhosis: No Hx Alcoholism: No Hx HIV/AIDS: No Hx Splenectomy or Spleen Trauma: No Other PMH: Pacemaker, AFIB, HTN, DVT, STROKE, hypothyroidism/thyroid CA with mets, GERD with esophagitis, odynophagia, DVT hx, COPD mixed type, chronically anticoagulated, breast CA 2009, carpal tunnel, hysterectomy, viral pneumonia, bowel obstruction, ovarian cyst, cataract R eye, rotator cuff repair L./ l arm dvt - Social History Smoking Status: Former smoker Constitutional: Initial Vital Signs Temperature (C) 36.4 C 03/21/18 11:26 Heart Rate 77 03/21/18 11:26 Respiratory Rate 17 03/21/18 11:26 Blood Pressure 158/98 H 03/21/18 11:26 O2 Sat (%) 96 03/21/18 11:26 O2 Delivery Mode Room Air Allergies/Adverse Reactions: amlodipine [Amlodipine] Allergy (Intermediate, Verified 03/21/18 11:26) Other-Enter Comments epinephrine [Epinephrine] Allergy (Intermediate, Verified 03/21/18 11:26) HEART RACES piperacillin sodium [From Zosyn] Allergy (Intermediate, Verified 03/21/18 11:26) Hives tazobactam sodium [From Zosyn] Allergy (Intermediate, Verified 03/21/18 11:26) Hives clarithromycin [From Biaxin] Allergy (Mild, Verified 03/21/18 11:26) moxifloxacin HCl [From Avelox] Allergy (Mild, Verified 03/21/18 11:26) niacin [From Niaspan] Allergy (Mild, Verified 03/21/18 11:26) Rash famotidine Allergy (Verified 03/21/18 11:26) morphine Allergy (Verified 03/21/18 11:26) hallucinates omeprazole Allergy (Verified 03/21/18 11:26) vancomycin Allergy (Verified 03/21/18 11:26) ENVIRONMENTAL Allergy (Intermediate, Uncoded 11/12/17 18:52) EYES BURN AND SWELL/NASAL CONGESTION ADHESIVES Allergy (Mild, Uncoded 11/12/17 18:52) Rash Home Medications: Medication Instructions Recorded Cyanocobalamin (Vitamin B-12) 1,000 mcg IM Q30D 12/10/14 [Vitamin B-12] Budesonide/Formoterol 160/4.5 2 puffs IH BID #1 mdi 11/08/16 [Symbicort 160-4.5 Mcg Inh (*)] Tafluprost/Pf [Zioptan 0.0015% Eye 1 drop EACHEYE HS #60 droperette 11/08/16 Drops] Timolol 0.5% [TIMOPTIC 0.5% (*)] 1 drops EACHEYE DAILY #1 opht.btl 11/08/16 Furosemide [Lasix 20 MG (*)] 40 mg PO DAILY 04/15/17 Levothyroxine [Synthroid 112 mcg 112 mcg PO DAILY06 04/16/17 (*)] Acetaminophen [Tylenol 325mg (*)] 162.5 - 650 mg PO Q4HRS PRN 06/16/17 Albuterol [Proventil Inhaler HFA 2 puffs IH Q4 PRN 06/16/17 (*)] Sodium Cl Nasal [[place] (*)] 1 spray EACHNARE HS 06/16/17 Warfarin Sodium [Coumadin 5MG (*)] 5 mg PO DAILY16 06/16/17 Metoprolol Tartrate [Lopressor 50 50 mg PO BID #60 tab 06/17/17 mg (*)] clonazePAM [Klonopin (*)] 0.5 mg PO HS 11/12/17 Cholecalciferol Vit D3 [Vitamin D3 4,000 units PO BID 03/21/18 2000 units tab (OTC)] Enoxaparin [Lovenox 60 MG (*)] 60 mg SQ HS 03/21/18 Fluticasone Nasal [Flonase Nasal 1 sprays NASAL DAILY PRN 03/21/18 [place] (RX)] Ipratropium 0.03% Nasal [Atrovent 2 sprays EACHNARE TID PRN 03/21/18 0.03% Nasal (*)] Lisinopril [Zestril 20 mg (*)] 20 mg PO BID 03/21/18 Metoprolol Tartrate [Lopressor 25 25 - 50 mg PO DAILY14 PRN 03/21/18 mg (*)] Ranitidine HCl [Zantac] 300 mg PO BID 03/21/18 Medical Decision Making - Diagnostics EKG Interpretation: 12 lead EKG is interpreted in Trace master View by emergency department physician. Paced rhythm. Imaging Results: Imaging Impressions Chest X-Ray 03/21/18 12:05 Impression: 1. Numerous pulmonary metastases with no definite change from 2 months ago. 2. No acute intrathoracic pathology. Head CT 03/21/18 12:05 Impression: 1. Negative. No acute intracranial hemorrhage or evidence of acute ischemia. 2. Old right frontal and temporal encephalomalacia, atrophy and white matter disease are unchanged. Findings discussed with Emergency Department physician, Dr. Anna Sanchez on March 21, 2018 at 1235 hours. ED Course/Re-evaluation: 5 min of confusion after napping. She has now returned to normal. I-STAT reviewed shortly after her arrival. Blood sugar normal. Hemoglobin and hematocrit within normal limits, as are electrolytes. Will check INR--she last took lovenox, 50 mg, last evening. She took 5 mg of Coumadin last evening, after being off Coumadin for 5 days. EKG reviewed--paced. She has returned to normal, with symptoms described as lasting around 5 minutes , no more than 10 minutes. She cleared prior to coming to ED. She would not be a candidate for TPA. NIHSS zero. 12:[address] reported to me by Dr. Alfonso. He compared it to a head CT done on February 16 of this year. There is no change. Specifically , no intracranial hemorrhage and no evidence of acute ischemic stroke. There is evidence of an old MCA territory infarct on the right. I reviewed the images. 12:45 p.m.. Patient re-evaluated. I relayed the results of the CT scan to her. She was re-examined and remains neurologically intact. INR 0.96. I am recommending hospitalization. It seems that she has had a TIA in the setting of having discontinued her Coumadin to undergo a procedure. She resumed her Coumadin last night. She has been taking Lovenox but relatively low dose, 50 mg daily. She has a history of atrial fibrillation. Differential Diagnosis: Altered mental status including but not limited to hypoglycemia, infectious process, electrolyte abnormality, CVA, head injury/intracranial hemorrhage, and intoxicants. - Data Points Laboratory Results: Laboratory Results 03/21/18 12:00 03/21/18 12:00 03/21/18 03/21/18 03/21/18 12:08 12:00 12:00 WBC RBC Hgb POC Hgb 16.0 gm/dL gm/dL (12.6-16.3) Hct POC Hct 47 % % (38-47) MCV MCH MCHC RDW Plt Count MPV Neut % (Auto) Lymph % (Auto) [place] % (Auto) Eos % (Auto) Baso % (Auto) Nucleat RBC Rel Count Absolute Neuts (auto) Absolute Lymphs (auto) Absolute Monos (auto) Absolute Eos (auto) Absolute Basos (auto) Absolute Nucleated RBC Immature Gran % Immature Gran # PT 13.0 SEC SEC (12.0-15.0) INR 0.96 (0.83-1.16) APTT 30.3 SEC SEC (23.0-38.0) POC Sodium 136 mEq/L mEq/L (135-145) Sodium 136 mEq/L mEq/L (135-145) POC Potassium 3.9 mEq/L mEq/L (3.3-5.0) Potassium 4.3 mEq/L mEq/L (3.3-5.0) POC Chloride 96 mEq/L L mEq/L (97-110) Chloride 97 mEq/L mEq/L (97-110) Carbon Dioxide 28 mEq/l mEq/l (22-31) Anion Gap 11 mEq/L mEq/L (8-16) POC BUN 17 mg/dL mg/dL (7-23) BUN 17 mg/dL mg/dL (7-23) Creatinine 0.7 mg/dL mg/dL (0.6-1.0) POC Creatinine 0.8 mg/dL mg/dL (0.6-1.0) Estimated GFR > 60 Glucose 82 mg/dL mg/dL (70-100) POC Glucose 90 mg/dL mg/dL (70-100) Calcium 9.1 mg/dL mg/dL (8.5-10.4) Troponin I < 0.012 ng/mL ng/mL (0.000-0.034) 03/21/18 12:00 WBC 7.75 10^3/uL 10^3/uL (3.80-9.50) RBC 4.80 10^6/uL 10^6/uL (4.18-5.33) Hgb 15.8 g/dL g/dL (12.6-16.3) POC Hgb Hct 46.4 % % (38.0-47.0) POC Hct MCV 96.7 fL fL (81.5-99.8) MCH 32.9 pg pg (27.9-34.1) MCHC 34.1 g/dL g/dL (32.4-36.7) RDW 12.1 % % (11.5-15.2) Plt Count 256 10^3/uL 10^3/uL (150-400) MPV 9.3 fL fL (8.7-11.7) Neut % (Auto) 75.0 % H % (39.3-74.2) Lymph % (Auto) 12.9 % L % (15.0-45.0) [place] % (Auto) 10.8 % % (4.5-13.0) Eos % (Auto) 0.5 % L % (0.6-7.6) Baso % (Auto) 0.4 % % (0.3-1.7) Nucleat RBC Rel Count 0.0 % % (0.0-0.2) Absolute Neuts (auto) 5.81 10^3/uL 10^3/uL (1.70-6.50) Absolute Lymphs (auto) 1.00 10^3/uL 10^3/uL (1.00-3.00) Absolute Monos (auto) 0.84 10^3/uL H 10^3/uL (0.30-0.80) Absolute Eos (auto) 0.04 10^3/uL 10^3/uL (0.03-0.40) Absolute Basos (auto) 0.03 10^3/uL 10^3/uL (0.02-0.10) Absolute Nucleated RBC 0.00 10^3/uL 10^3/uL (0-0.01) Immature Gran % 0.4 % % (0.0-1.1) Immature Gran # 0.03 10^3/uL 10^3/uL (0.00-0.10) PT INR APTT POC Sodium Sodium POC Potassium Potassium POC Chloride Chloride Carbon Dioxide Anion Gap POC BUN BUN Creatinine POC Creatinine Estimated GFR Glucose POC Glucose Calcium Troponin I Medications Given: Acetaminophen (Tylenol) 162.5 - 650 mg PO Q4HRS PRN PRN Reason: Pain, Mild/Fever, Can Take PO Stop: 09/17/18 15:52 Last Admin: 03/21/18 16:56 Dose: 650 mg Budesonide/Formoterol Fumarate (Symbicort 160-4.5 Mcg Inhaler) 2 puffs IH BID [facility] Stop: 09/17/18 20:59 Last Admin: 03/21/18 20:14 Dose: 2 puffs Cholecalciferol (Vitamin D) 4,000 units PO BID [facility] Stop: 09/17/18 20:59 Last Admin: 03/21/18 20:52 Dose: 4,000 units Clonazepam (Klonopin) 0.5 mg PO HS [facility] Stop: 09/17/18 20:59 Last Admin: 03/21/18 20:52 Dose: 0.5 mg Enoxaparin Sodium (Lovenox) 70 mg SC HS [facility] Stop: 09/17/18 20:59 Last Admin: 03/21/18 20:51 Dose: 70 mg Metoprolol Tartrate (Lopressor) 50 mg PO BID [facility] Stop: 09/17/18 20:59 Last Admin: 03/21/18 20:52 Dose: 50 mg Miscellaneous Medication (Tafluprost/Pf [Zioptan 0.0015% Eye Drops]) 1 drop [facility]YE [facility] Stop: 09/17/18 20:59 Last Admin: 03/21/18 21:37 Dose: 1 drop Ranitidine HCl (Zantac) 300 mg PO BID [facility] Stop: 09/17/18 20:59 Last Admin: 03/21/18 21:13 Dose: 300 mg Sodium Chloride ([place]) 1 spray EACHNARE [facility] Stop: 09/17/18 20:59 Last Admin: 03/21/18 21:17 Dose: Not Given Warfarin Sodium (Coumadin) 5 mg PO DAILY16 [facility] Stop: 09/17/18 15:59 Last Admin: 03/21/18 16:56 Dose: 5 mg Point of Care Test Results: 03/21/18 12:08 POC Sodium 136 POC Potassium 3.9 POC Chloride 96 L POC BUN 17 POC Creatinine 0.8 POC Glucose 90 Departure - Departure Disposition: [facility] Inpatient Acute Clinical Impression: Transient ischemic attack (TIA) Qualifiers: Transient cerebral ischemia type: other Qualified Code(s): G45.8 - Other transient cerebral ischemic attacks and related syndromes Condition: Good
[2018-03-21 12:25] LABS: INR 0.96 (0.83-1.16)
[2018-03-21] MEDS ORDERED: ACETAMINOPHEN 500 MG TAB ONE (13:45)
[2018-03-21] MEDS ORDERED: ALBUTEROL 60 PUFFS/8 GM MDI IH PRN (15:53)
[2018-03-21] MEDS ORDERED: FLUTICASONE NASAL 120 SPRAYS/16 GM MDI EACHNARE PRN (15:53)
[2018-03-21] MEDS ORDERED: METOPROLOL TARTRATE 25 MG TAB PO PRN (15:53)
[2018-03-21] MEDS ORDERED: IPRATROPIUM 0.03% NASAL SPRAY EACHNARE PRN (15:53)
[2018-03-21] MEDS ORDERED: NON-FORMULARY NEW DRUG (Cyanocobalamin (Vitamin B-12) [Vitamin B-12] 1,000 MCG) IM SCH (16:00)
[2018-03-21] MEDS: ACETAMINOPHEN 325 MG TAB PO PRN (16:56)
[2018-03-21] MEDS: WARFARIN SODIUM 5 MG TAB PO SCH (16:56)
--- NOTE | 2018-03-21 16:59 | GHP ---
[f rep st] HISTORY AND PHYSICAL DATE OF ADMISSION: 03/21/2018 CHIEF COMPLAINT: Difficulty speaking. HISTORY OF PRESENT ILLNESS: This is an 83-year-old female with both atrial fibrillation as well as a previous stroke who has recently been worked up for some abdominal pain. She underwent an upper end oscopy a few days ago. Prior to this, she had been instructed to hold her Coumadin and had been brid ged with Lovenox. She was either taking 50 or 60 mg daily once of the Lovenox. She weighs 48.4 kg. Endoscopy showed some gastritis per her report. She was started on Zantac. She presented to the em ergency department today when she took a nap, awoke, and had some difficulty speaking. She denies an y confusion or any focal weakness. She was just unable to get the words out. Her witnessed this. The event lasted about 10 minutes and then resolved. When I am seeing her, her speech is quit e fluent. She does have a history of a previous right MCA stroke with residual left-sided weakness. This was in 2016. PAST MEDICAL/SURGICAL HISTORY: 1. Atrial fibrillation, on chronic anticoagulation. 2. Right MCA stroke in 2016. 3. History of a DVT in the setting of an inguinal hematoma. 4. GI bleed due to an AVM. 5. Breast cancer. 6. Thyroid cancer with lung nodule status post radiation. 7. Glaucoma. MEDICATIONS: Please see medication reconciliation. ALLERGIES: Amlodipine, epinephrine, Zosyn, clarithromycin, moxifloxacin, niacin, famotidine, morphin e, omeprazole, vancomycin, and other environmental allergies. FAMILY HISTORY: Reviewed and noncontributory. SOCIAL HISTORY: She does not drink or smoke. She lives with her . REVIEW OF SYSTEMS: A 10-point review of systems is conducted and is negative except per HPI. PHYSICAL EXAM: VITAL SIGNS: Blood pressure 151/89, heart rate 72, respiration rate 12, saturating 9 6% on room air. Temperature is 36.8. GENERAL: The patient is a very pleasant female who is resting comfortably in no acute distress. HEENT: Normocephalic, atraumatic. CARDIOVASCULAR: Irregularly irregular. There are no murmurs, rubs, or gallops. PULMONARY: Lungs clear to auscultation bilatera lly. ABDOMEN: Soft, nontender, nondistended. SKIN: No rash. : No March. NEUROLOGIC: Alert a nd oriented x3. She has no pronator drift. She is able to repeat short sentences. Cranial nerves 2 -12 are intact. Motor is 5/5 in the right upper extremity, 4/5 in her hands and her left upper extre mity. Otherwise, she has 5/5 in upper and lower extremities. Sensation to light touch is intact in upper and lower extremities bilaterally. PSYCHIATRIC: Normal mood and affect. LABS: CBC is normal. INR 0.96. Basic metabolic panel is normal. DATA: 1. I reviewed her chart. 2. I reviewed her head CT scan that shows negative for anything acute. It does show some chronic en cephalomalacia. 3. Chest x-ray, which I personally viewed and interpreted, shows diffuse lung nodules. She has a no rmal-sized heart. She has a 2-lead pacemaker in place. 4. ECG, which I personally viewed and interpreted, shows an atrial ventricular paced rhythm. IMPRESSION AND PLAN: 1. Possible transient ischemic attack: This did occur in the setting of being off Coumadin. She is on a slightly low therapeutic dose of Lovenox. Given this, I think a 1.5 mg/kg dose daily is approp riate for her this comes to approximately 70 mg per day given her weight of 48 kg. I have made this change to start tonight. Otherwise, we will continue her Coumadin. If this is a vascular event, lik rakesh etiology would be atrial fibrillation. I will go ahead and get an ultrasound of her carotids. W e will check lipid panel. I do not think an echocardiogram would be helpful at this point, but we wi ll defer to Neurology. I have placed a Neurology consult for tomorrow morning. 2. Atrial fibrillation: She is anticoagulated as above and currently rate controlled and paced. 3. Thyroid cancer with numerous nodules: Reported as grossly stable on her chest x-ray from today. 4. She would like to be full code, full tube. Her would be her medical durable power of att morris. /[id number]/MODL
[2018-03-21] MEDS: BUDESONIDE/FORMOTEROL 160/4.5 60 PUFFS/MDI IH SCH (20:14)
[2018-03-21] MEDS: ENOXAPARIN 80 MG/0.8 ML SYR SC SCH (20:51)
[2018-03-21] MEDS: CHOLECALCIFEROL VIT D3 2,000 UNITS TAB/CAP PO SCH (20:52)
[2018-03-21] MEDS: METOPROLOL TARTRATE 50 MG TAB PO SCH (20:52)
[2018-03-21] MEDS: clonazePAM 0.5 MG TAB PO SCH (20:52)
[2018-03-21] MEDS ORDERED: ENOXAPARIN 80 MG/0.8 ML SYR SC SCH (21:00)
[2018-03-21] MEDS ORDERED: ENOXAPARIN 60 MG/0.6 ML SYR SC SCH (21:00)
[2018-03-21] MEDS ORDERED: NON-FORMULARY NEW DRUG (Ranitidine Hcl [Zantac] 300 MG) PO SCH (21:00)
[2018-03-21] MEDS: RANITIDINE HCL 150 MG/10 ML UDCUP PO SCH (21:13)
[2018-03-21] MEDS: SODIUM CL NASAL 45 ML BTL EACHNARE SCH (21:17)
[2018-03-21] MEDS: Tafluprost/Pf [Zioptan 0.0015% Eye Drops] EACHEYE SCH (21:37)
[2018-03-22] MEDS: ONDANSETRON DISINTEGRATING 4 MG TAB PO PRN ×2 (02:20→18:29)
[2018-03-22 04:32] LABS: INR 1.08 (0.83-1.16); PROTIME(PATIENT) 14.2 SEC (12.0-15.0)
[2018-03-22] MEDS: LEVOTHYROXINE 112 MCG TAB PO SCH (05:51)
[2018-03-22] MEDS: BUDESONIDE/FORMOTEROL 160/4.5 60 PUFFS/MDI IH SCH ×2 (09:00→20:34)
[2018-03-22] MEDS: ACETAMINOPHEN 325 MG TAB PO PRN ×2 (09:24→22:10)
[2018-03-22] MEDS: METOPROLOL TARTRATE 50 MG TAB PO SCH ×2 (09:25→22:09)
[2018-03-22] MEDS: FUROSEMIDE 40 MG TAB PO SCH (09:25)
[2018-03-22] MEDS: CHOLECALCIFEROL VIT D3 2,000 UNITS TAB/CAP PO SCH ×2 (09:25→22:10)
[2018-03-22] MEDS: TIMOLOL 0.5% 15 ML OPHT.BTL EACHEYE SCH (09:26)
[2018-03-22] MEDS: RANITIDINE HCL 150 MG/10 ML UDCUP PO SCH ×2 (09:26→21:58)
[2018-03-22] MEDS: LISINOPRIL 20 MG TAB PO SCH (09:26)
--- NOTE | 2018-03-22 12:50 | HOSPPROG ---
Hospitalist Progress Note Assessment/Plan: 83 yo female who was admitted for possible TIA and difficulty speaking. #Possible TIA -Likely due to have a subtherapeutic Lovenox while off Coumadin -Lovenox has been increased -Coumadin restarted but still needing Lovenox bridge -seen by Neuro today and no additional w/u is needed, cleared for discharge -no acute findings on CT brain -no significant stenosis on Carotid doppler #Afib and chronic AC -Home meds -Lovenox/Coumadin #Thyroid cancer with mets -We discussed that the doppler showed a 2.2 x 1.6 x1 cm mass. They reports that mets and mass is known and have a follow up appointment with Dr. Sutton in the near future. We will hold off on further imaging #HLD -We recommended a Statin as her LDL is 131. She has been previously been on one before but she says her Procurement Accountant stopped it. She does not want it until she discussed with her Procurement Accountant at f/u -She understands the risk of not starting this Plan: The original plan is for her to be discharged. This was discussed with the patient and her family and members of the team and the family was in agreement with discharge. However, her is reporting that he is not comfortable with a low INR despite the Lovenox and we have been requested to keep overnight. Subjective: no further symptoms. no Cp or sob. no neurological deficits Objective: Vital Signs Temp Pulse Resp BP Pulse Ox 36.9 C 70 18 133/76 H 94 03/22/18 08:29 03/22/18 09:00 03/22/18 09:00 03/22/18 08:29 03/22/18 09:00 03/21/18 03/22/18 03/23/18 05:59 05:59 05:59 Intake Total 350 Balance 350 PT 14.2 SEC (12.0-15.0) 03/22/18 03:12 INR 1.08 (0.83-1.16) 03/22/18 03:12 - Physical Exam Constitutional: no apparent distress, not in pain Eyes: PERRL, EOMI Ears, Nose, Mouth, Throat: moist mucous membranes, hearing normal, ears appear normal Cardiovascular: regular rate and rhythym, no murmur, rub, or gallop, systolic murmur Respiratory: no respiratory distress, no rales or rhonchi Gastrointestinal: normoactive bowel sounds, soft, non-tender abdomen Skin: warm Musculoskeletal: full muscle strength Neurologic: AAOx3 Psychiatric: interacting appropriately, not anxious, not encephalopathic Lymph, Heme, Immunologic: No petechiae ICD10 Worksheet Patient Problems: Problems Problem Status Onset Transient ischemic attack (TIA) Acute Afib - Atrial fibrillation Active Abdominal pain Acute Acute anterior epistaxis Acute CHF (congestive heart failure) Acute Chronic Disease Mgmt/Transitional Care Acute GI bleed Acute Headache Acute Hemoptysis Acute Hypertension Acute Melena Acute Pleural effusion Acute Radiation pneumonitis Acute Recurrent thyroid cancer Acute Small bowel obstruction Acute Status post cardiac pacemaker procedure Acute Vomiting Acute
--- NOTE | 2018-03-22 12:53 | NEUROPROG ---
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 She underwent an endoscopy a few days prior to 03/21/18 so she had been holding her coumadin and taking a Lovenox bridge. The Lovenox dosing, per H&P, was slightly low therapeutic dose. She reported she took a nap on 03/21/18 and when she awoke from a nap noted some problems speaking for 10 minutes. She denied any focal weakness or confusion. She presented to [facility] where she had normal speech. She was admitted for TIA evaluation. Head CT showed no acute changes. I initially saw the patient on . She had returned to her baseline. Neurologic exam on 03/22/18 was nonfocal (left pupil > right pupil which patient said was a chronic finding associated with prior eye surgery) but patient subjectively reported a prior stroke with residual left sided weakness (very mild and not detected on exam). She felt back to normal. I spoke with her and her son and they both declined any additional testing (brain MRI, etc) other than changing Lovenox to full anticoagulation dosing and beginning a statin for LDL goal < 70 (131). Pt will f/u in outpatient clinic with me 1-4 weeks after hospital discharge. - PMHx: afib on anticoagulation, R MCA stroke 2016, DVT, GI bleed due to AVM, BRCA , thyroid cancer, glaucoma - Home Meds: symbicort, timolol, zioptan, lasix, synthroid, proventil, coumadin, lopressor, clonazepam, lisinopril, lovenox, atrovent, flonase, zantac, vit D - SHx: no tobacco FHx: NC - ROS: Pt denied acute fever, total vision loss, active severe chest pain, respiratory failure, total body severe rash, total bowel/bladder incontinence, psychosis, active seizures, or active bleeding - O: VS reviewed General: Alert Eyes: Fundoscopic exam not able to visualize optic disks CV: Heart RRR, no murmur, no carotid bruit Lungs: Clear to auscultation bilaterally, no rhonchi or rales Neuro: - Mental: . Oriented x person/place/date . concentration appears normal . speech fluency/comprehension normal . memory appears normal . fund of knowledge appear intact - Cranial Nerves: . II: Pupils asymmetric (left > right) which patient says is a chronic finding associated with eye surgery, VFFTC . III/IV/: EOMI, no nystagmus, normal smooth pursuits, no Ptosis . V: facial sensation intact to LT . VII: face symmetric to eye closure and smile . VIII: hearing intact to conversation . IX/X: uvula raises symmetrically . XI: SCM 5/5 B/L strength . XII: tongue protrudes midline w/nl strength - Motor: . Tone: normal tone in all 4 extremity . Strength: no pronator drift, strength 5/5 throughout - Reflexes: B/L bic 2/4 - Sensory: all 4 extremity intact to light touch - Coord: [id number] wnl, ADELAIDA wnl - Gait: deferred - NIH SS 0 - Labs: 03/21/18- CBC unremarkable, INR 0.96, Chem wnl 03/22/18- LDL 131H - Rads: 03/21/18- Head CT: no acute changes, old R frontal and temporal encephalomalacia (I personally visualized the images on 03/22/18) 03/21/18- Carotid U/S: less than 50% stenosis in either carotid artery - Assessment: 1. TIA causing 10 minutes of speech disturbance on 03/21/18: Neurologic exam on was unremarkable (other than pupil asymmetric which pt said chronic and present since prior eye surgery). Pt with known afib and prior stroke was on subtherapeutic dose of Lovenox (used as bridge for coumadin which was briefly held for endoscopy). Speech issue resolved and no new deficits other than baseline subjective sense of left sided weakness from prior MCA stroke in 2016. I recommend using therapeutic dosing of Lovenox until patient therapeutic on coumadin. Also recommend starting a statin with LDL goal < 70. I do not feel she needs an echocardiogram or brain MRI as she has known stroke from prior afib so I cannot see these studies changing current management recommendations unless she has new symptoms (Patient and her son agreed with no pursuing these tests). - 2. Cancer with mets seen on CXR and likely on carotid U/S: Defer management to her oncology team outpatient - Plan: - Adjust lovenox dosing so it is therapeutic until therapeutic on oral coumadin - Begin statin with LDL goal < 70 - Blood pressure < 140/90 - Work with outpatient PCM to ensure H1AC < 7.0 - F/U in neurology clinic in 1-4 weeks after discharge - No further neurologic w/u needed, neurology will sign off Objective: Vital Signs Temp Pulse Resp BP Pulse Ox 36.6 C 73 14 117/73 92 03/22/18 12:40 03/22/18 12:40 03/22/18 12:40 03/22/18 12:40 03/22/18 12:40 03/21/18 03/22/18 03/23/18 05:59 05:59 05:59 Intake Total 350 Balance 350 PT 14.2 SEC (12.0-15.0) 03/22/18 03:12 INR 1.08 (0.83-1.16) 03/22/18 03:12 Allergies/Adverse Reactions: amlodipine [Amlodipine] Allergy (Intermediate, Verified 03/21/18 11:26) Other-Enter Comments epinephrine [Epinephrine] Allergy (Intermediate, Verified 03/21/18 11:26) HEART RACES piperacillin sodium [From Zosyn] Allergy (Intermediate, Verified 03/21/18 11:26) Hives tazobactam sodium [From Zosyn] Allergy (Intermediate, Verified 03/21/18 11:26) Hives clarithromycin [From Biaxin] Allergy (Mild, Verified 03/21/18 11:26) moxifloxacin HCl [From Avelox] Allergy (Mild, Verified 03/21/18 11:26) niacin [From Niaspan] Allergy (Mild, Verified 03/21/18 11:26) Rash famotidine Allergy (Verified 03/21/18 11:26) morphine Allergy (Verified 03/21/18 11:26) hallucinates omeprazole Allergy (Verified 03/21/18 11:26) vancomycin Allergy (Verified 03/21/18 11:26) ENVIRONMENTAL Allergy (Intermediate, Uncoded 11/12/17 18:52) EYES BURN AND SWELL/NASAL CONGESTION ADHESIVES Allergy (Mild, Uncoded 11/12/17 18:52) Rash
--- NOTE | 2018-03-22 13:16 | PDMN ---
Medical Necessity Medical necessity: C/M review: est. > 2 MN LOS for eval and TX of possible acute TIA, difficulty speaking likely due to having subtheraputic Lovenox (and INR) while off Coumadin requiring Neurology consult, bilateral carotid Doppler US, brain CT and ongoing increased subcutaneous Lovenox dose daily at hour of sleep, restarted daily oral Coumadin bit still needing Lovenox bridge, acute inpt ST, comorbid atrial fibrillation and chronic anticoagulation, thyroid cancer with metastasis, hyperlipidemia per 03/22/2018 Hospitalist progress note.
[2018-03-22] MEDS: WARFARIN SODIUM 5 MG TAB PO SCH (16:08)
[2018-03-22] MEDS: CALCIUM CARBONATE 500 MG CHEWABLE TAB PO PRN (18:42)
--- NOTE | 2018-03-22 18:46 | ASMTCMCOM ---
CM Note CM Note Notes: Discussed pt in rounds today. She lives at home w/. DC needs not clear, possibly home w/no needs but will need to confirm on Saturday. Date Signed: 03/22/2018 06:45 PM Electronically Signed By:Emily Rico RN
[2018-03-22] MEDS: ENOXAPARIN 80 MG/0.8 ML SYR SC SCH (21:58)
[2018-03-22] MEDS: Tafluprost/Pf [Zioptan 0.0015% Eye Drops] EACHEYE SCH (22:09)
[2018-03-22] MEDS: clonazePAM 0.5 MG TAB PO SCH (22:10)
[2018-03-22] MEDS: SODIUM CL NASAL 45 ML BTL EACHNARE SCH (22:12)
[2018-03-22] MEDS ORDERED: SUCRALFATE/DIPHENHYDR/MAALOX 240 ML BOTTLE PO PRN (23:37)
[2018-03-23 04:44] LABS: INR 1.24 (0.83-1.16); PROTIME(PATIENT) 15.8 SEC (12.0-15.0)
[2018-03-23] MEDS: LEVOTHYROXINE 112 MCG TAB PO SCH (05:58)
[2018-03-23] MEDS: RANITIDINE HCL 150 MG/10 ML UDCUP PO SCH (08:54)
[2018-03-23] MEDS: METOPROLOL TARTRATE 50 MG TAB PO SCH (08:55)
[2018-03-23] MEDS: LISINOPRIL 20 MG TAB PO SCH (08:55)
[2018-03-23] MEDS: FUROSEMIDE 40 MG TAB PO SCH (08:55)
[2018-03-23] MEDS: CHOLECALCIFEROL VIT D3 2,000 UNITS TAB/CAP PO SCH (08:55)
[2018-03-23] MEDS: CALCIUM CARBONATE 500 MG CHEWABLE TAB PO PRN (09:03)
[2018-03-23] MEDS: TIMOLOL 0.5% 15 ML OPHT.BTL EACHEYE SCH (09:03)
[2018-03-23] MEDS: BUDESONIDE/FORMOTEROL 160/4.5 60 PUFFS/MDI IH SCH (09:55)
[2018-03-23 11:30] VITALS: BP 116/64
[2018-03-23] MEDS ORDERED: ENOXAPARIN 60 MG/0.6 ML SYR SC ONE (12:15)
--- NOTE | 2018-03-23 13:02 | PDDCSUM ---
Discharge Summary Discharge Summary: HPI/HOSPITAL COURSE 83 yo female who was admitted for possible TIA and difficulty speaking. Sx's had resolved at the time she arrived to the E.D.. She is on Coumadin longterm and this was stopped for an endoscopy recently. She was started on Lovenox bridge but this was not dose at therapeutic levels. She likely had a TIA due to insufficient anticoagulation. Her INR on admission was not therapeutic. She was admitted and Neuro consulted. They have cleared her for discharge. Lovenox dosing has been increased to 50mg BID. She will cont Coumadin. She will f/u with her PCP next week for INR check and f/u. she does have HLD and a Statin was recommended but she wants to f/u with her PCP prior to starting she has known metastatic disease and she has good f/u with her Oncologist DDX: #Possible TIA -Likely due to have a subtherapeutic Lovenox while off Coumadin -Lovenox has been increased -Coumadin restarted but still needing Lovenox bridge -seen by Neuro and no additional w/u is needed, cleared for discharge -no acute findings on CT brain -no significant stenosis on Carotid doppler #Afib and chronic AC -Home meds -Lovenox/Coumadin #Thyroid cancer with mets -We discussed that the doppler showed a 2.2 x 1.6 x1 cm mass. They reports that mets and mass is known and have a follow up appointment with Dr. Sutton in the near future. We will hold off on further imaging #HLD -We recommended a Statin as her LDL is 131. She has been previously been on one before but she says her Data Manager stopped it. She does not want it until she discussed with her Data Manager at f/u -She understands the risk of not starting this Exam: NAD AAOX3 RRR CTAB S/NT/ND NO LE EDEMA MEDS: SEE MED REC F/U: WITH PCP IN ONE WEEK TOTAL TIME SPENT ON D/C IS 35 MINS. PLAN WAS D/W PT, HER , HER SON, PHARMACY, NURSING, CM, AND ALL AGREE WITH THE PLAN FOR D/C
--- NOTE | 2018-03-23 13:19 | ASMTLACE ---
LACE Length of stay for Answers: 2 days current admission Acuity / Level of Answers: Yes Care: Did the patient have an inpatient admission? Comorbidities - select Answers: Cerebrovascular disease all that apply (CVA, TIA, aneurysms, vasc ular dementia) Congestive heart failure Coronary Artery Disease # of Emergency department Answers: 1-2 visits in the last 6 months Score: 11 Date Signed: 03/23/2018 01:19 PM Electronically Signed By:Nicole Meza RN
--- NOTE | 2018-03-23 13:23 | ASMTCMCOM ---
CM Note CM Note Notes: Chart reviewed. Discussed patient status in rounds. Medically cleared for discharge home with Lovenox bridge as patient has had in past. Her is comfortable administering injections. IM form signed. CM available should other needs arise. Plan: Home independent Date Signed: 03/23/2018 01:23 PM Electronically Signed By:Nicole Meza RN
[2018-04-04] MEDS ORDERED: CYANO/VITAMIN B12 1000 MCG/ML VIAL IM SCH ×2 (09:00→16:45)
== END 2018-03-23 14:56 | disposition home or self-care (01) | DRG 69 ==
LOC: OBSVTOIN 13:15 → F2W 14:33
PROVIDERS: ADMIT Student in an Organized Health Care Education/Training Program; ATTEND Family Medicine
DX: G45.9 Transient cerebral ischemic attack, unspecified (principal); T45.516A Underdosing of anticoagulants, initial encounter; I48.91 Unspecified atrial fibrillation; Z79.01 Long term (current) use of anticoagulants; Z95.0 Presence of cardiac pacemaker; C73 Malignant neoplasm of thyroid gland; C78.00 Secondary malignant neoplasm of unspecified lung; Z92.3 Personal history of irradiation; I69.354 Hemiplegia and hemiparesis following cerebral infarction affecting left non-dominant side; E78.5 Hyperlipidemia, unspecified; K21.9 Gastro-esophageal reflux disease without esophagitis; H40.9 Unspecified glaucoma; Z85.3 Personal history of malignant neoplasm of breast
CPT/HCPCS: 82947-QW; 92523-GN; G0378; G8999-GN-CH; G9158-GN-CH; G9186-GN-CH; J1650

== ENCOUNTER 2018-04-08 14:08 | Emergency (ER) | payer OTHER, MEDICARE ==
[2018-04-08] MEDS ORDERED: ALBUTEROL 3 ML DEYVIAL ONE (15:31)
[2018-04-08] MEDS ORDERED: LIDOCAINE 4%/MENTHOL 1% PATCH TD ONE (16:04)
[2018-04-08] MEDS ORDERED: ACETAMINOPHEN 325 MG TAB ONE (17:00)
--- NOTE | 2018-04-09 23:01 | EDPHY ---
H & P Time Seen by Provider: 04/08/18 14:10 HPI/ROS: Chief complaint: Generalized weakness HPI: This patient is brought in by her daughter, a dialysis nurse with feeling of generalized weakness. She reports that she has had this generalized weakness over the past 3 weeks since being discharged from the hospital post TIA. She also reports associated mild nausea and decreased appetite. She has fatigue and reports that she wants to sleep all day which is not usual for her. In terms of medication changes she was started on spironolactone as well as Lasix for hypertension and CHF. She started having hand cramping last week after a call to her synthetic resin operator, Dr. Socrates peralta decided to make her Lasix every other day. However potassium check was normal last week. She also complains of right side pain I found have a soft tissue mass that is causing radiculopathy the thoracic region wrap around her belly. She reports decreased sleep due to this pain. Her daughter thinks that the decreased sleep is contributing the rest of her symptoms. ROS: Constitutional: She felt warm over the past couple days but no real fevers. Fatigue as above. Otherwise negative HEENT: Mild coryza she attributes to seasonal allergies. No sore throat or ear pain. Pulmonary: Mild wheezing which is somewhat chronic for her attributed to her lung cancer and reactive airway disease. No coughing. No respiratory distress. No hemoptysis. Cardiovascular: She reports lightheadedness. No syncope. No chest pain. GI: No abdominal pain other than the referred pain from the thoracic lesion. : No urinary symptoms or other complaints Skin: No rash or other complaints new line neuro: No headache. No focal numbness tingling weakness. No confusion. Past medical history: Atrial fibrillation with ablation and pacemaker Hypertension Thyroid cancer Breast cancer DVT Recent upper GI was normal per daughter Social history: Nonsmoker, nondrinker, no drug use, lives with her . Physical exam: Vital signs are normal General is a pleasant elderly female no acute distress HEENT: Eyes: Pupils equal react to light extra motions are intact. Minimal conjunctival injection without purulent discharge. Lids and lashes are normal no scleral icterus. Nose: Normal oropharynx: No pharyngeal erythema, exudates or dysphonia. Pulmonary: She has wheezing right-sided more than left-sided moderate expiratory. No rales or rhonchi. No increased work of breathing is appreciated. Cardiovascular: Regular rate and rhythm with no murmur gallop rub. No peripheral edema. No calf swelling or tenderness. She has delayed capillary refill and skin tenting GI: Hyperactive bowel sounds, soft, nontender Back: No CVA tenderness Integumentary: No skin lesions or rash. Positive skin tenting. Neuro: GCS 15 without focal deficits appreciated. Initial differential diagnosis: Dehydration, electrolyte abnormalities, musculoskeletal pain causing sleep loss, anemia, UTI ED course: Albuterol neb with increased aeration decreased wheeze. 500 cc normal saline bolus with resolution of nausea. Patient felt improved. Back pain is treated with Lidoderm patch and Tylenol with mild improvement. Studies: Basic metabolic panel reveals a low sodium at 131 The rest of the metabolic panel is normal exception of a low chloride at 88. Her urine dip is normal. The patient's CBC is normal. Her INR was 3.1 yesterday Discussion: Patient with thoracic back pain causing decreased sleep and I think spironolactone causing low sodium and chloride. I counseled daughter regarding these findings. We ruled out anemia, ruled out UTI. No other red flag findings on today's workup. Smoking Status: Former smoker Allergies/Adverse Reactions: amlodipine [Amlodipine] Allergy (Intermediate, Verified 03/21/18 11:26) Other-Enter Comments epinephrine [Epinephrine] Allergy (Intermediate, Verified 03/21/18 11:26) HEART RACES piperacillin sodium [From Zosyn] Allergy (Intermediate, Verified 03/21/18 11:26) Hives tazobactam sodium [From Zosyn] Allergy (Intermediate, Verified 03/21/18 11:26) Hives clarithromycin [From Biaxin] Allergy (Mild, Verified 03/21/18 11:26) moxifloxacin HCl [From Avelox] Allergy (Mild, Verified 03/21/18 11:26) niacin [From Niaspan] Allergy (Mild, Verified 03/21/18 11:26) Rash famotidine Allergy (Verified 03/21/18 11:26) morphine Allergy (Verified 03/21/18 11:26) hallucinates omeprazole Allergy (Verified 03/21/18 11:26) vancomycin Allergy (Verified 03/21/18 11:26) ENVIRONMENTAL Allergy (Intermediate, Uncoded 11/12/17 18:52) EYES BURN AND SWELL/NASAL CONGESTION ADHESIVES Allergy (Mild, Uncoded 11/12/17 18:52) Rash Home Medications: Medication Instructions Recorded Cyanocobalamin (Vitamin B-12) 1,000 mcg IM Q30D 12/10/14 [Vitamin B-12] Budesonide/Formoterol 160/4.5 2 puffs IH BID #1 mdi 11/08/16 [Symbicort 160-4.5 Mcg Inh (*)] Tafluprost/Pf [Zioptan 0.0015% Eye 1 drop EACHEYE HS #60 droperette 11/08/16 Drops] Timolol 0.5% [TIMOPTIC 0.5% (*)] 1 drops EACHEYE DAILY #1 opht.btl 11/08/16 Furosemide [Lasix 20 MG (*)] 40 mg PO DAILY 04/15/17 Levothyroxine [Synthroid 112 mcg 112 mcg PO DAILY06 04/16/17 (*)] Acetaminophen [Tylenol 325mg (*)] 162.5 - 650 mg PO Q4HRS PRN 06/16/17 Albuterol [Proventil Inhaler HFA 2 puffs IH Q4 PRN 06/16/17 (*)] Sodium Cl Nasal [[place] (*)] 1 spray EACHNARE HS 06/16/17 Warfarin Sodium [Coumadin 5MG (*)] 5 mg PO DAILY16 06/16/17 Metoprolol Tartrate [Lopressor 50 50 mg PO BID #60 tab 06/17/17 mg (*)] clonazePAM [Klonopin (*)] 0.5 mg PO HS 11/12/17 Cholecalciferol Vit D3 [Vitamin D3 4,000 units PO BID 03/21/18 2000 units tab (OTC)] Fluticasone Nasal [Flonase Nasal 1 sprays NASAL DAILY PRN 03/21/18 [place]] Ipratropium 0.03% Nasal [Atrovent 2 sprays EACHNARE TID PRN 03/21/18 0.03% Nasal (*)] Lisinopril [Zestril 20 mg (*)] 20 mg PO BID 03/21/18 Metoprolol Tartrate [Lopressor 25 25 - 50 mg PO DAILY14 PRN 03/21/18 mg (*)] Ranitidine HCl [Zantac] 300 mg PO BID 03/21/18 Enoxaparin [Lovenox 60 MG (*)] 50 mg SQ BID 7 Days #1 syr 03/23/18 MDM/Departure - Depart Disposition: Home, Routine, Self-Care Clinical Impression: 1. hyponatremia2. thoracic pain, Hyponatremia Condition: Good Additional Instructions: Diagnoses: Thoracic pain 2. Hyponatremia Plan: Cut spironolactone dose down to 25 mg a day or stop it altogether Continue Lasix Plenty of salt in diet Tylenol, Lidoderm and methocarbamol for back pain with follow up with Neurosurgery for further evaluation of back Referrals: Unknown,Unknown [Primary Care Provider] - As per Instructions
[2018-04-10 08:28] LABS: INR 2.08 (0.83-1.16); PROTIME(PATIENT) 23.4 SEC (12.0-15.0)
[2018-04-10 09:57] LABS: PLATELET COUNT 282 10^3/uL (150-400)
== END 2018-04-08 17:37 | disposition home or self-care (01) ==
LOC: CED 14:08
DX: E87.1 Hypo-osmolality and hyponatremia (principal); M54.6 Pain in thoracic spine; I10 Essential (primary) hypertension; Z79.01 Long term (current) use of anticoagulants; Z85.3 Personal history of malignant neoplasm of breast; Z85.850 Personal history of malignant neoplasm of thyroid; Z87.891 Personal history of nicotine dependence
CPT/HCPCS: 99283; J7613; 80048-PO

== ENCOUNTER 2018-05-05 15:45 | Emergency (ER) | payer OTHER, MEDICARE ==
[2018-05-05] MEDS ORDERED: HYDROmorphONE/DILAUDID 2 MG/ML INJ IM ONE (16:18)
[2018-05-05] MEDS ORDERED: PROMETHAZINE HCL 25 MG/ML INJ IM ONE (16:20)
--- NOTE | 2018-05-05 17:03 | EDPHY ---
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 Patient is scheduled for a nerve block procedure on Saturday but decided to seek medical attention because she could not tolerate the pain and her was frustrated that they could not get her pain controlled at home. Patient has been using ice without relief. She has also been taking Percocet and Tylenol but no more then 1/4 of a tab of Percocet and 1/2 of a tablet of Tylenol every 6 hr. She has not gotten any relief from this. She does not want to take larger doses because she gets nauseated and she is afraid of falling. She has Zofran at home but has not taken this with her pain medications. The patient denies the pain being worse than usual and says it has been even worse in the past but says her insisted she come today. She denies any loss of bowel or bladder control though she has been constipated. She denies any leg weakness or radiating pain. REVIEW OF SYSTEMS: As in HPI, and all other systems reviewed and are negative Smoking Status: Former smoker Physical Exam: General Appearance: Alert, uncomfortable appearing, tearful. Head: Normocephalic, atraumatic Eyes: Pupils equal and round, no pallor or injection. ENT, Mouth: Mucous membranes moist. Neck: No bony tenderness, full range of motion Gastrointestinal: Abdomen is soft and nontender, no masses, bowel sounds normal. Neurological: Awake, alert and oriented x 3, , normal gait, no pronator drift, DTRs 2+ and equal bilaterally in knees and ankles, full motor equal bilaterally lower extremities Back: No bony tenderness, positive lidocaine patches in place, no obvious deformity Skin: Warm and dry, no rashes. Musculoskeletal: Neck is supple, FROM, nontender. Extremities: symmetrical, full range of motion. Psychiatric: Patient has normal affect, there is no agitation. Constitutional: Initial Vital Signs Temperature (C) 36.9 C 05/05/18 16:00 Heart Rate 71 05/05/18 16:00 Respiratory Rate 16 05/05/18 16:00 Blood Pressure 148/89 H 05/05/18 16:00 O2 Sat (%) 94 05/05/18 16:00 O2 Delivery Mode Room Air O2 (L/minute) 2 Allergies/Adverse Reactions: amlodipine [Amlodipine] Allergy (Intermediate, Verified 05/05/18 15:54) Other-Enter Comments epinephrine [Epinephrine] Allergy (Intermediate, Verified 05/05/18 15:54) HEART RACES piperacillin sodium [From Zosyn] Allergy (Intermediate, Verified 05/05/18 15:54) Hives tazobactam sodium [From Zosyn] Allergy (Intermediate, Verified 05/05/18 15:54) Hives clarithromycin [From Biaxin] Allergy (Mild, Verified 05/05/18 15:54) moxifloxacin HCl [From Avelox] Allergy (Mild, Verified 05/05/18 15:54) niacin [From Niaspan] Allergy (Mild, Verified 05/05/18 15:54) Rash famotidine Allergy (Verified 05/05/18 15:54) morphine Allergy (Verified 05/05/18 15:54) hallucinates omeprazole Allergy (Verified 05/05/18 15:54) vancomycin Allergy (Verified 03/21/18 11:26) ENVIRONMENTAL Allergy (Intermediate, Uncoded 11/12/17 18:52) EYES BURN AND SWELL/NASAL CONGESTION ADHESIVES Allergy (Mild, Uncoded 11/12/17 18:52) Rash Home Medications: Medication Instructions Recorded Cyanocobalamin (Vitamin B-12) 1,000 mcg IM Q30D 12/10/14 [Vitamin B-12] Budesonide/Formoterol 160/4.5 2 puffs IH BID #1 mdi 11/08/16 [Symbicort 160-4.5 Mcg Inh (*)] Tafluprost/Pf [Zioptan 0.0015% Eye 1 drop EACHEYE HS #60 droperette 11/08/16 Drops] Timolol 0.5% [TIMOPTIC 0.5% (*)] 1 drops EACHEYE DAILY #1 opht.btl 11/08/16 Furosemide [Lasix 20 MG (*)] 40 mg PO DAILY 04/15/17 Levothyroxine [Synthroid 112 mcg 112 mcg PO DAILY06 04/16/17 (*)] Acetaminophen [Tylenol 325mg (*)] 162.5 - 650 mg PO Q4HRS PRN 06/16/17 Albuterol [Proventil Inhaler HFA 2 puffs IH Q4 PRN 06/16/17 (*)] Sodium Cl Nasal [[place] (*)] 1 spray EACHNARE HS 06/16/17 Warfarin Sodium [Coumadin 5MG (*)] 5 mg PO DAILY16 06/16/17 Metoprolol Tartrate [Lopressor 50 50 mg PO BID #60 tab 06/17/17 mg (*)] clonazePAM [Klonopin (*)] 0.5 mg PO HS 11/12/17 Cholecalciferol Vit D3 [Vitamin D3 4,000 units PO BID 03/21/18 2000 units tab (OTC)] Fluticasone Nasal [Flonase Nasal 1 sprays NASAL DAILY PRN 03/21/18 [place]] Ipratropium 0.03% Nasal [Atrovent 2 sprays EACHNARE TID PRN 03/21/18 0.03% Nasal (*)] Lisinopril [Zestril 20 mg (*)] 20 mg PO BID 03/21/18 Metoprolol Tartrate [Lopressor 25 25 - 50 mg PO DAILY14 PRN 03/21/18 mg (*)] Ranitidine HCl [Zantac] 300 mg PO BID 03/21/18 Enoxaparin [Lovenox 60 MG (*)] 50 mg SQ BID 7 Days #1 syr 03/23/18 Spironolactone 05/05/18 MDM/Departure - MDM Medications Given: Discontinued Medications Hydromorphone HCl (Dilaudid) 1 mg IM EDNOW ONE Stop: 05/05/18 16:19 Last Admin: 05/05/18 16:48 Dose: 1 mg Promethazine HCl (Phenergan) 25 mg IM ONCE ONE Stop: 05/05/18 16:21 Last Admin: 05/05/18 16:46 Dose: 25 mg ED Course/Re-evaluation: 83-year-old woman with known spinal lesion and chronic pain due for nerve block in 4 days presents with inadequate analgesia at home. We discussed strategies for getting better pain control at home by taking higher doses of her medication. Patient was extremely uncomfortable here and I offered her IM shot of Dilaudid and Phenergan which she accepted and did get some relief from. We did observe her in the emergency department for up to 30 min after the medications and she became but was able to maintain oxygen saturations on room air and ambulate on her own. She has been given written instructions for how to take her doses of Percocet and acetaminophen at home. She is to follow up for her nerve block on Saturday and return sooner to the ED if worse. In addition because the patient's spouse is doing all of her home care which is significant and includes also given her Lovenox shots every referral has been made to case management. - Depart Disposition: Home, Routine, Self-Care Clinical Impression: Back pain Qualifiers: Back pain location: thoracic back pain Chronicity: chronic Back pain laterality : right Qualified Code(s): M54.6 - Pain in thoracic spine Condition: Fair Instructions: Back Pain (ED) Additional Instructions: You were seen by Dr. Eva Fountain today. Follow up with your physician as scheduled on Saturday for the nerve block procedure. For pain control at home, take Zofran 10-15 minutes before taking pain medicine to avoid nausea and vomiting, then take try 1 whole Percocet tablet plus 2 tablets of Tylenol (acetaminophen) 325 mg every 6 hr. If this is still inadequate pain relief, then take 2 Percocet tablets +1 tablet of Tylenol 325 mg every 6 hr. Avoid taking Percocet at the same time as your clonazepam. Return for any worsening or new concerns. Referrals: Stacy Arellano MD [Primary Care Provider] - As per Instructions
[2018-05-05 18:30] VITALS: BP 161/89
== END 2018-05-05 18:26 | disposition home or self-care (01) ==
LOC: CED 15:45
DX: M54.6 Pain in thoracic spine (principal); G89.29 Other chronic pain; Z79.01 Long term (current) use of anticoagulants; Z87.891 Personal history of nicotine dependence
CPT/HCPCS: 96372; 99284; J1170; J2550

== ENCOUNTER 2018-05-06 18:40 | Emergency (ER) | payer OTHER, MEDICARE ==
[2018-05-06 18:58] VITALS: BP 148/96
--- NOTE | 2018-05-06 19:06 | EDPHY ---
H & P Stated Complaint: Bruising and swelling at Lovenox site LLQ Time Seen by Provider: 05/06/18 18:51 HPI/ROS: Chief Complaint: Lump in left lower abdomen HPI: 83-year-old woman has a history of atrial fibrillation on Coumadin. She is scheduled for a spinal procedure on Saturday and has been taking Lovenox injections as a bridge for her Coumadin. has been administering these. He noticed a small lump in her left lower abdomen this morning when he gave her her injection. This evening he noticed that it was larger and moderately painful. No deep abdominal pain. No nausea or vomiting. No other bleeding or bruising. She did have some back pain was seen here yesterday but is feeling better from that complaint. ROS: 10 point Review of Systems is negative except as noted in the HPI. Social History: No smoking, no alcohol, no recreational drug use Family History: non-contributory Physical Exam: Gen: Awake, Alert, No Distress HEENT: Nose: no rhinorrhea Eyes: PERRLA, EOMI Mouth: Moist mucosa Neck: Supple, no JVD Chest: nontender, lungs clear to auscultation Heart: S1, S2 normal, no murmur Abd: Soft, patient has a 10 x 7 cm left lower abdominal wall hematoma which is mildly tender. There is no intra-abdominal tenderness, no guarding Back: no CVA tenderness, no midline tenderness Ext: no edema, non-tender Skin: no rash Neuro: CN II-XII intact, Sensation grossly intact, Strength 5/5 in bilateral upper and lower extremities - Personal History Current Tetanus/Diphtheria Vaccine: No Current Tetanus Diphtheria and Acellular Pertussis (TDAP): No Tetanus Vaccine Date: 2006 - Medical/Surgical History Hx Asthma: No Hx Chronic Respiratory Disease: Yes Hx Diabetes: No Hx Cardiac Disease: Yes Hx Renal Disease: No Hx Cirrhosis: No Hx Alcoholism: No Hx HIV/AIDS: No Hx Splenectomy or Spleen Trauma: No Other PMH: Pacemaker, AFIB, HTN, DVT, STROKE, hypothyroidism/thyroid CA with mets, GERD with esophagitis, odynophagia, DVT hx, COPD mixed type, chronically anticoagulated, breast CA 2009, carpal tunnel, hysterectomy, viral pneumonia, bowel obstruction, ovarian cyst, cataract R eye, rotator cuff repair L./ l arm dvt - Social History Smoking Status: Former smoker Constitutional: Initial Vital Signs Temperature (C) 36.9 C 05/06/18 18:45 Heart Rate 82 05/06/18 18:45 Respiratory Rate 16 18 18:45 Blood Pressure 148/96 H 05/06/18 18:45 O2 Sat (%) 93 05/06/18 18:45 O2 Delivery Mode Room Air Allergies/Adverse Reactions: amlodipine [Amlodipine] Allergy (Intermediate, Verified 05/06/18 18:59) Other-Enter Comments epinephrine [Epinephrine] Allergy (Intermediate, Verified 05/06/18 18:59) HEART RACES piperacillin sodium [From Zosyn] Allergy (Intermediate, Verified 05/06/18 18:59) Hives tazobactam sodium [From Zosyn] Allergy (Intermediate, Verified 05/06/18 18:59) Hives clarithromycin [From Biaxin] Allergy (Mild, Verified 05/06/18 18:59) moxifloxacin HCl [From Avelox] Allergy (Mild, Verified 05/06/18 18:59) niacin [From Niaspan] Allergy (Mild, Verified 05/06/18 18:59) Rash famotidine Allergy (Verified 05/06/18 18:59) morphine Allergy (Verified 05/06/18 18:59) hallucinates omeprazole Allergy (Verified 05/06/18 18:59) vancomycin Allergy (Verified 05/06/18 18:59) ENVIRONMENTAL Allergy (Intermediate, Uncoded 11/12/17 18:52) EYES BURN AND SWELL/NASAL CONGESTION ADHESIVES Allergy (Mild, Uncoded 11/12/17 18:52) Rash Home Medications: Medication Instructions Recorded Cyanocobalamin (Vitamin B-12) 1,000 mcg IM Q30D 12/10/14 [Vitamin B-12] Budesonide/Formoterol 160/4.5 2 puffs IH BID #1 mdi 11/08/16 [Symbicort 160-4.5 Mcg Inh (*)] Tafluprost/Pf [Zioptan 0.0015% Eye 1 drop EACHEYE HS #60 droperette 11/08/16 Drops] Timolol 0.5% [TIMOPTIC 0.5% (*)] 1 drops EACHEYE DAILY #1 opht.btl 11/08/16 Furosemide [Lasix 20 MG (*)] 40 mg PO DAILY 04/15/17 Levothyroxine [Synthroid 112 mcg 112 mcg PO DAILY06 04/16/17 (*)] Acetaminophen [Tylenol 325mg (*)] 162.5 - 650 mg PO Q4HRS PRN 06/16/17 Albuterol [Proventil Inhaler HFA 2 puffs IH Q4 PRN 06/16/17 (*)] Sodium Cl Nasal [[place] (*)] 1 spray EACHNARE HS 06/16/17 Warfarin Sodium [Coumadin 5MG (*)] 5 mg PO DAILY16 06/16/17 Metoprolol Tartrate [Lopressor 50 50 mg PO BID #60 tab 06/17/17 mg (*)] clonazePAM [Klonopin (*)] 0.5 mg PO HS 11/12/17 Cholecalciferol Vit D3 [Vitamin D3 4,000 units PO BID 03/21/18 2000 units tab (OTC)] Fluticasone Nasal [Flonase Nasal 1 sprays NASAL DAILY PRN 03/21/18 [place]] Ipratropium 0.03% Nasal [Atrovent 2 sprays EACHNARE TID PRN 03/21/18 0.03% Nasal (*)] Lisinopril [Zestril 20 mg (*)] 20 mg PO BID 03/21/18 Metoprolol Tartrate [Lopressor 25 25 - 50 mg PO DAILY14 PRN 03/21/18 mg (*)] Ranitidine HCl [Zantac] 300 mg PO BID 03/21/18 Enoxaparin [Lovenox 60 MG (*)] 50 mg SQ BID 7 Days #1 syr 03/23/18 Spironolactone 05/05/18 Medical Decision Making ED Course/Re-evaluation: Patient has an abdominal wall hematoma secondary to her Lovenox injections. She has a soft otherwise benign abdomen. I do not think there is any intra- abdominal process. They have been given further instructions by nursing staff on in injecting Lovenox. I have reassured them that this is a common side effect of Lovenox. There is no other evidence of bleeding. They have been reassured. They will continue to give the Lovenox on the other side. They will follow up with primary care physician for further evaluation. Departure - Departure Disposition: Home, Routine, Self-Care Clinical Impression: Abdominal wall hematoma Condition: Good Instructions: Hematoma (ED) Additional Instructions: May apply ice for 15 min of every hour while awake. Continue administering the Lovenox on the right side of her abdomen. Follow up with primary care physician in 2-3 days for further evaluation. Referrals: Stacy Arellano MD [Primary Care Provider] - As per Instructions
== END 2018-05-06 19:35 | disposition home or self-care (01) ==
LOC: CED 18:40
DX: M79.81 Nontraumatic hematoma of soft tissue (principal); I10 Essential (primary) hypertension; J44.9 Chronic obstructive pulmonary disease, unspecified; Z79.01 Long term (current) use of anticoagulants; Z85.3 Personal history of malignant neoplasm of breast; Z85.850 Personal history of malignant neoplasm of thyroid; Z87.891 Personal history of nicotine dependence; Z95.0 Presence of cardiac pacemaker

== ENCOUNTER 2018-05-07 03:16 | Inpatient (IN) | payer OTHER, MEDICARE ==
--- NOTE | 2018-05-07 03:37 | EDPHY ---
H & P Stated Complaint: INCREASED PAIN AND SWELLING LOVENOX SITE LEFT ABD, SEEN [facility] Time Seen by Provider: 05/07/18 03:34 HPI/ROS: HPI CHIEF COMPLAINT: Increased abdominal pain, and swelling and Lovenox site. Seen earlier. HISTORY OF PRESENT ILLNESS: This patient very pleasant 83-year-old female, she presents emergency room with increasing swelling and pain to the left lower quadrant. She has been getting Lovenox shots there, she was seen early emergency room [facility] was reassured with cool compresses that should go down. However it was told if it got bigger more painful to return emergency room. Patient states since leaving the emergency room earlier yesterday the area has gotten more swollen more painful. She presents emergency room with a rather large left lower quadrant tender indurated area hematoma. The right side her abdomen is not tender. She is not vomiting. No fever. Past Medical History: Multiple chronic medical problems including AFib on Coumadin, hypertension, CVA, , GERD breast cancer Past Surgical History: Previous multiple surgeries. Social History: Denies drugs alcohol tobacco. Family History: Noncontributory ROS REVIEW OF SYSTEMS: A comprehensive 10 point review of systems is otherwise negative aside from elements mentioned in the history of present illness. Exam Constitutional nontoxic appearing in no acute distress but frail and elderly triage nursing summary reviewed, vital signs reviewed, awake/alert. Eyes normal conjunctivae and sclera, EOMI, PERRLA. HENT normal inspection, atraumatic, moist mucus membranes, no epistaxis, neck supple/ no meningismus, no raccoon eyes. Respiratory clear to auscultation bilaterally, normal breath sounds, no respiratory distress, no wheezing. Cardiovascular rate normal, regular rhythm, no murmur, no edema, distal pulses normal. Gastrointestinal: Soft, left lower quadrant noted to be a rather large palpable hematoma that is indurated ecchymotic. Otherwise her abdomen is soft nontender no peritoneal signs. Genitourinary no CVA tenderness. Musculoskeletal no midline vertebral tenderness, full range of motion, no calf swelling, no tenderness of extremities, no meningismus, good pulses, neurovascularly intact. Skin ecchymosis hematoma left lower quadrant abdominal wall. Neurologic awake, alert and oriented x 3, AAOx3, moves all 4 extremities equally, motor intact, sensory intact, CN II-XII intact, normal cerebellar, normal vision, normal speech. Psychiatric normal mood/affect. Heme/Lymph/Immune no lymphadenopathy. Differential Diagnosis: Includes but is not limited to in a particular order rather large intra-abdominal wall hematoma, infection, abscess, hernia Medical Decision Making: Plan for this patient check basic blood work, CBC, coags, CT scan abdomen pelvis with IV contrast to help delineate this rather large abdominal wall hematoma. Re-evaluate. Re-evaluation: CT scan abdomen pelvis with IV contrast: Shows a left lower quadrant abdominal wall hematoma rather large 12.4 cm x 5.5 cm x 8.4. There is a small active extravasation on CT concerning for active bleed. This was called to me by Dr. Lundberg. Additionally the patient has a low sodium. I will consult the hospitalist service and surgery for evaluation of this. 0504: Spoke with Dr. Ovalles, agrees to admit the patient for left lower abdominal wall hematoma. 0504: Did speak with Dr. Kasper. Recommends abdominal wall warm compresses and abdominal binder for pressure. Will recommend abdominal binder, warm compress. Watch H&H watch blood pressure. If hematoma gets larger her abdominal becomes more distended or she becomes unstable will need to speak with surgery. Source: Patient - Personal History Current Tetanus/Diphtheria Vaccine: No Tetanus Vaccine Date: 2006 - Medical/Surgical History Hx Asthma: No Hx Chronic Respiratory Disease: Yes Hx Diabetes: No Hx Cardiac Disease: Yes Hx Renal Disease: No Hx Cirrhosis: No Hx Alcoholism: No Hx HIV/AIDS: No Hx Splenectomy or Spleen Trauma: No Other PMH: Pacemaker, AFIB, HTN, DVT, STROKE, hypothyroidism/thyroid CA with mets, GERD with esophagitis, odynophagia, DVT hx, COPD mixed type, chronically anticoagulated, breast CA 2009, carpal tunnel, hysterectomy, viral pneumonia, bowel obstruction, ovarian cyst, cataract R eye, rotator cuff repair L./ l arm dvt - Social History Smoking Status: Former smoker Constitutional: Initial Vital Signs Temperature (C) 36.6 C 05/07/18 03:28 Heart Rate 75 05/07/18 03:28 Respiratory Rate 20 05/07/18 03:28 Blood Pressure 133/84 H 05/07/18 03:28 O2 Sat (%) 95 05/07/18 03:28 O2 Delivery Mode Nasal Cannula O2 (L/minute) 2 Allergies/Adverse Reactions: amlodipine [Amlodipine] Allergy (Intermediate, Verified 05/07/18 03:22) Other-Enter Comments epinephrine [Epinephrine] Allergy (Intermediate, Verified 05/07/18 03:22) HEART RACES piperacillin sodium [From Zosyn] Allergy (Intermediate, Verified 05/07/18 03:22) Hives tazobactam sodium [From Zosyn] Allergy (Intermediate, Verified 05/07/18 03:22) Hives clarithromycin [From Biaxin] Allergy (Mild, Verified 05/07/18 03:22) moxifloxacin HCl [From Avelox] Allergy (Mild, Verified 05/07/18 03:22) niacin [From Niaspan] Allergy (Mild, Verified 05/07/18 03:22) Rash famotidine Allergy (Verified 05/07/18 03:22) morphine Allergy (Verified 05/07/18 03:22) hallucinates omeprazole Allergy (Verified 05/07/18 03:22) vancomycin Allergy (Verified 05/07/18 03:22) ENVIRONMENTAL Allergy (Intermediate, Uncoded 05/07/18 03:22) EYES BURN AND SWELL/NASAL CONGESTION ADHESIVES Allergy (Mild, Uncoded 05/07/18 03:22) Rash Home Medications: Medication Instructions Recorded Cyanocobalamin (Vitamin B-12) 1,000 mcg IM Q30D 12/10/14 [Vitamin B-12] Budesonide/Formoterol 160/4.5 2 puffs IH BID #1 mdi 11/08/16 [Symbicort 160-4.5 Mcg Inh (*)] Tafluprost/Pf [Zioptan 0.0015% Eye 1 drop EACHEYE HS #60 droperette 11/08/16 Drops] Timolol 0.5% [TIMOPTIC 0.5% (*)] 1 drops EACHEYE DAILY #1 opht.btl 11/08/16 Furosemide [Lasix 20 MG (*)] 20 mg PO Q2D 04/15/17 Acetaminophen [Tylenol 325mg (*)] 162.5 - 650 mg PO Q4HRS PRN 06/16/17 Albuterol [Proventil Inhaler HFA 2 puffs IH Q4 PRN 06/16/17 (*)] Sodium Cl Nasal [[place] (*)] 1 spray EACHNARE HS 06/16/17 Metoprolol Tartrate [Lopressor 50 50 mg PO BID #60 tab 06/17/17 mg (*)] clonazePAM [Klonopin (*)] 0.5 mg PO HS 11/12/17 Cholecalciferol Vit D3 [Vitamin D3 4,000 units PO BID 03/21/18 2000 units tab (OTC)] Fluticasone Nasal [Flonase Nasal 1 sprays NASAL DAILY PRN 03/21/18 [place]] Ipratropium 0.03% Nasal [Atrovent 2 sprays EACHNARE TID PRN 03/21/18 0.03% Nasal (*)] Lisinopril [Zestril 20 mg (*)] 20 mg PO BID 03/21/18 Metoprolol Tartrate [Lopressor 25 25 - 50 mg PO DAILY14 PRN 03/21/18 mg (*)] Enoxaparin [Lovenox 60 MG (*)] 50 mg SQ BID 7 Days #1 syr 03/23/18 Spironolactone [Aldactone 25 MG 25 mg PO DAILY@14 05/05/18 (*)] Levothyroxine [Synthroid 125 mcg 125 mcg PO DAILY06 05/07/18 (*)] oxyCODONE/APAP 5/325 [Percocet 1 tab PO Q6HRS PRN 05/07/18 5/325 (*)] Medical Decision Making - Data Points Laboratory Results: Laboratory Results 05/07/18 03:40 05/07/18 03:40 Medications Given: Acetaminophen (Tylenol) 650 mg PO Q4HRS PRN PRN Reason: Pain, Mild/Fever, Can Take PO Stop: 11/03/18 05:33 Last Admin: 05/07/18 08:48 Dose: 650 mg Budesonide/Formoterol Fumarate (Symbicort 160-4.5 Mcg Inhaler) 2 puffs IH BID FR[place]ISCA Stop: 11/03/18 08:59 Last Admin: 05/07/18 20:57 Dose: 2 puffs Cholecalciferol (Vitamin D) 4,000 units PO BID FRANCISCA Stop: 11/03/18 08:59 Last Admin: 05/07/18 20:54 Dose: 4,000 units Clonazepam (Klonopin) 0.5 mg PO HS [place]IS[place] Stop: 11/03/18 20:59 Last Admin: 05/07/18 23:15 Dose: Not Given Sodium Chloride (Ns) 1,000 mls @ 75 mls/hr IV CONT [facility] Stop: 11/03/18 05:44 Last Admin: 05/07/18 21:28 Dose: 1,000 mls Levothyroxine Sodium (Synthroid) 125 mcg PO DAILY06 [facility] Stop: 11/03/18 14:29 Last Admin: 05/07/18 14:46 Dose: 125 mcg Lisinopril (Zestril) 20 mg PO BID [facility] Stop: 11/03/18 08:59 Last Admin: 05/07/18 20:55 Dose: 20 mg Metoprolol Tartrate (Lopressor) 50 mg PO BID [facility] Stop: 11/03/18 08:59 Last Admin: 05/07/18 20:54 Dose: 50 mg Miscellaneous Information (Patch Removal) 1 ea TD DAILY21 [facility] Stop: 11/03/18 20:59 Last Admin: 05/07/18 23:15 Dose: 1 ea Miscellaneous Medication (Icy Hot Lidocaine/Menthol 4%/1% Patch) 1 patch TD DAILY [facility] Stop: 11/03/18 08:59 Last Admin: 05/07/18 08:48 Dose: 1 patch Miscellaneous Medication (Tafluprost/Pf [Zioptan 0.0015% Eye Drops]) 1 drop EACHEYE HS [facility] Stop: 11/03/18 20:59 Last Admin: 05/07/18 20:44 Dose: 1 drop Ondansetron HCl (Zofran) 4 mg IVP Q4HRS PRN PRN Reason: Nausea/Vomiting, Can't Take PO Stop: 11/03/18 05:33 Last Admin: 05/07/18 09:50 Dose: 4 mg Oxycodone HCl (Oxycodone Ir) 5 - 10 mg PO Q4HRS PRN PRN Reason: Pain, Severe Able to Take PO Stop: 05/17/18 12:25 Last Admin: 05/07/18 23:02 Dose: 7.5 mg Sodium Chloride ([place]) 1 spray EACHNARE HS [facility] Stop: 11/03/18 20:59 Last Admin: 05/07/18 21:09 Dose: 1 spray Timolol Maleate (Timoptic 0.5%) 1 drops EACHEYE DAILY [facility] Stop: 11/03/18 08:59 Last Admin: 05/07/18 11:11 Dose: 1 drop Tramadol HCl (Ultram) 50 mg PO Q6H [facility] Stop: 11/03/18 14:59 Last Admin: 05/08/18 02:54 Dose: 50 mg Discontinued Medications Hydromorphone HCl (Dilaudid) 0.5 mg IVP EDNOW ONE Stop: 05/07/18 03:42 Last Admin: 05/07/18 03:51 Dose: 0.5 mg Sodium Chloride (Ns) 500 mls @ 0 mls/hr IV ONCE ONE PRN Reason: Wide Open Stop: 05/07/18 03:43 Last Admin: 05/07/18 03:50 Dose: 500 mls Ondansetron HCl (Zofran) 4 mg IVP EDNOW ONE Stop: 05/07/18 03:42 Last Admin: 05/07/18 03:50 Dose: 4 mg Tramadol HCl (Ultram) 50 mg PO Q6HRS [facility] Stop: 11/03/18 12:29 Last Admin: 05/07/18 13:47 Dose: Not Given Departure - Departure Disposition: [facility] Clinical Impression: Hyponatremia Abdominal wall hematoma Qualifiers: Encounter type: initial encounter Qualified Code(s): S30.1XXA - Contusion of abdominal wall, initial encounter
[2018-05-07] MEDS ORDERED: HYDROmorphONE/DILAUDID 2 MG/ML INJ IVP ONE (03:41)
[2018-05-07] MEDS ORDERED: ONDANSETRON 4 MG/2 ML VIAL IVP ONE (03:41)
[2018-05-07] MEDS ORDERED: NS 500 ML IV ONE (03:42)
[2018-05-07 03:58] LABS: PLATELET COUNT 246 10^3/uL (150-400)
[2018-05-07 04:08] LABS: INR 0.91 (0.83-1.16); PROTIME(PATIENT) 12.5 SEC (12.0-15.0)
[2018-05-07] MEDS ORDERED: IOPAMIDOL (ISOVUE-300) 100 ML BTL ONE (04:11)
--- NOTE | 2018-05-07 08:07 | GHP ---
[f rep st] HISTORY AND PHYSICAL DATE OF ADMISSION: 05/07/2018 SOURCE: Patient provides history and appears reliable. Her is at bedside, supplements majority of the details as patient is uncomfortable and fatigued. They bring in, also, a copy of their [facility] paperwork and records. EMR was reviewed and case discussed with ED provider. CHIEF COMPLAINT: Abdominal pain. HISTORY OF PRESENT ILLNESS: This is a very pleasant 83-year-old female with past medical history significant for CHF, paroxysmal atrial fibrillation on anticoagulation previously with Coumadin transitioned to Lovenox in anticipation of an epidural injection. History of right MCA stroke 2016, TIA earlier this year. History of DVT in the lower extremity, breast cancer in remission, thyroid cancer with listed metastatic disease, glaucoma, restless legs syndrome, gastritis, hypothyroidism, hypertension, hyperlipidemia, pulmonary hypertension, COPD, who presents to the emergency department for the 3rd day in a row; today, with complaints of left lower quadrant abdominal pain and swelling. The patient presented to the ED initially for back pain, and yesterday she presented to the ED with complaints of this new finding of lower abdominal pain and swelling. The patient was diagnosed with an abdominal wall hematoma. She is on Lovenox for anticoagulation given her history of CVA, DVT, and TIA recently. The patient had continued on with her therapeutic dosing of Lovenox twice daily, and has continued to have increasing abdominal distention, pain, and so presented to the emergency department this morning. Patient denies any fevers or chills. She denies any nausea, vomiting. No diarrhea. She reports that she has had increasing pain and increasing discomfort with any kind of movement. Rest seems to help her. She has also complained of a fair appetite at home, and has been eating and drinking well until this morning. She states that she, overall, feels weakened and fatigued. She was assisted to the bedside commode in the ED and reports that this movement has exacerbated her pain, although it was improving after a dose of Dilaudid. REVIEW OF SYSTEMS: Ten-point review of systems negative except as noted above. ALLERGIES: Multiple as per EMR: Amlodipine, epinephrine, piperacillin, clarithromycin, erythromycin, moxifloxacin, niacin, famotidine, morphine, omeprazole, vancomycin, environmental allergies, adhesive tape. HOME MEDICATIONS: Vitamin B12, Symbicort 16/4.5 mcg inhaled 2 puffs b.i.d., Zioptan 0.0015% in each eye at h.s., timolol 0.5% in each eye daily, Lasix 40 mg p.o. daily, levothyroxine 112 mcg p.o. daily in the morning, Tylenol 162.5 to 650 mg p.o. q.4 hours p.r.n., albuterol HFA 2 puffs inhaled q.4 hours p.r.n. , sodium chloride nasal spray h.s., Coumadin 5 mg p.o. daily, which has been held in transition to subcutaneous Lovenox as noted in HPI. Patient on therapeutic dosing of Lovenox b.i.d., metoprolol tartrate 50 mg p.o. b.i.d., clonazepam 0.5 mg p.o. h.s., vitamin D3 at 4000 units p.o. b.i.d., Flonase 1 spray daily p.r.n., Atrovent 2 sprays in the each nostril t.i.d. p.r.n., lisinopril 20 mg p.o. b.i.d., metoprolol tartrate 25-50 mg p.o. daily at 1400 p.r.n., ranitidine 300 mg p.o. b.i.d., spironolactone. PAST MEDICAL HISTORY: Significant for paroxysmal atrial fibrillation on anticoagulation normally with Coumadin, currently transitioned to therapeutic Lovenox pre-procedurally. History of right MCA stroke in 2016 with minimal residual symptoms. History of GI bleeding secondary to AVM, history of DVT in the right lower extremity, status post thrombectomy, inguinal hernia repair on the right, breast cancer status post lumpectomy and radiation, thyroid cancer with metastatic disease, glaucoma, CHF, ovarian cyst, bowel obstruction, restless legs syndrome, gastritis, chronic back pain, hypothyroidism, benign essential hypertension, hyperlipidemia, pulmonary hypertension, COPD, glaucoma. PAST SURGICAL HISTORY: Hysterectomy, carpal tunnel release, rotator cuff repair , EGD, ablation, vitrectomy, cataract extraction with lens placement, lumpectomy , pacer placement. FAMILY HISTORY: Significant for cancer in sister with history of MS and CAD. SOCIAL HISTORY: Patient is . She does not smoke, drink, or do drugs. She did quit tobacco remotely. CODE STATUS: Full. PHYSICAL EXAMINATION: VITAL SIGNS: Upon arrival to the emergency department, blood pressure 133/84, heart rate 75, respiratory rate 20, O2 saturation 94% on room air with temperature 36.6. Current vitals blood pressure of 134/90, heart rate 80, respiratory rate 18, O2 saturation 97% on 2 L by nasal cannula. GENERAL: No acute distress. Pleasant, frail, elderly appearing female who is lying quietly in bed. She does appear to be uncomfortable, but is able to lie quite still and quietly. is at bedside. HEAD: Normocephalic, atraumatic. EYES: Extraocular muscles are grossly intact. Pupils equal, round , with decreased reactivity to light bilaterally, but symmetric. No scleral icterus, conjunctival injection. Bilateral lens reflexes appreciated. ENT: Mucous membranes appear quite dry. No nasal discharge. No oropharyngeal erythema or exudates. NECK: Supple. Trachea midline. CARDIOVASCULAR: Regular rate and rhythm. Slightly distant heart sounds, but no murmurs, rubs, or gallops are appreciated. RESPIRATORY: Diminished at the bases. No wheezes , rales, or rhonchi appreciated. EXTREMITIES: No cyanosis, clubbing, or edema appreciated. Patient with 1+ pedal pulses bilaterally and symmetric. MUSCULOSKELETAL: Generalized weakness and deconditioning in all extremities. Patient is able to sit up independently, however. Grossly nonfocal no facial drooping. Moves all extremities as noted above. PSYCHIATRIC: Affect quite flat, but patient does appear quite uncomfortable and still. LABORATORY STUDIES: WBC is 8.83, H and H is 13.6 and 38.6, MCV 93.9, platelet count is 246, no bands. PT is 12.5, INR 0.91, PTT is 35.9. Sodium 124, potassium 5.0, chloride 91, CO2 is 24, anion gap of 9, BUN 16, creatinine 0.6, GFR greater than 60, glucose is 100, calcium is 8.6. IMAGING: CT abdomen and pelvis report: Preliminary report is present, but the images were reviewed myself. Showing new large left abdominal wall hematoma with active extravasation 8.4 x 12.4 x 5.4. Stable pulmonary metastasis with metastatic disease along the right hemidiaphragm. Numerous uncomplicated diverticula in the sigmoid colon. ASSESSMENT AND PLAN: This is a very pleasant 83-year-old female on chronic anticoagulation for history of atrial fibrillation, deep vein thrombosis, and stroke in the past who presents now with left lower quadrant abdominal pain and swelling. 1. Left abdominal wall hematoma, which is quite large in size, and has evidence of active bleeding. Her Lovenox will be held. Myself and the emergency room provider spoke with the patient's several times to advise that Lovenox currently contraindicated given her active bleeding. He is quite concerned regarding her history of stroke in the past as well as extensive deep vein thrombosis in the right lower extremity, which required thrombectomy. Again reassured the patient's that risk of bleeding outweighs risk of deep vein thrombosis, and she does not have any current evidence of this at this time as well. We will plan to monitor quite closely. We will place patient on cardiac monitoring for now as she does have a history of paroxysmal atrial fibrillation, per his report. Surgery was consulted, although there is nothing that requires active surgical intervention. An abdominal binder was recommended along with heat. K-pad has been ordered. The patient is currently in an abdominal binder and reports that this does seem to improve some of her symptoms. She still remains quite uncomfortable, and is quite fatigued wants to sleep. Her H and H is currently stable at this time, but she did receive some IV fluid hydration. She does still appear to be dehydrated. We will plan to continue IV fluids. 2. Hyponatremia, likely due to hypovolemia. Patient's blood pressures, however , are acceptable at this time, but the patient does appear to be dry. We will plan to continue IV fluids and repeat a BMP here in a few hours to monitor correction, but suspect that this is likely acute in nature given her acute onset of abdominal pain. CHRONIC MEDICAL PROBLEMS: 1. Paroxysmal atrial fibrillation, on exam. Patient currently does sound regular. We will place her on cardiac monitors given her history, and she will be off anticoagulation. She currently denies any palpitations or shortness of breath. She complains of her abdominal pain. 2. History of multiple DVTs, most recently in the right lower extremity. Again , discussed with the and tried to reassure that risk of active bleeding outweighs current risk of DVT. He is understanding of this, but would like to resume anticoagulation once it is safe to do so. 3. Chronic pain. Supportive care pain medications have been ordered number. 4. History of gastritis with gastrointestinal bleed due to AVM. Continue patient's GI medications. 5. Benign essential hypertension. Resume patient's home medications of beta sebastian, diuretic. Blood pressure is currently acceptable. Lisinopril, furosemide. 6. Hyperlipidemia not currently on statin therapy. Followup with PCP. 7. Pulmonary hypertensions. Supplemental oxygen p.r.n. COPD management as per home medications with no evidence of exacerbation. 8. Restless legs syndrome. Monitor electrolytes. Replace if needed. 9. History of breast cancer. 10. History of metastatic thyroid cancer with metastasis to the lung. 11. Glaucoma. Resume home drops. 12. History of right MCA stroke without evidence of residual but generalized weakness. Consider PT, OT after patient has been able to rest and pain is under control. 13. Fluids, electrolytes and nutrition. IV fluids for gentle hydration, monitoring electrolytes as noted above. Cardiac diet as tolerated. 14. Prophylaxis. Sequential compression devices, holding anticoagulation in setting of acute bleeding. 15. COR status is full. DISPOSITION: The patient has been admitted to observation status at this time for close monitoring of her actively bleeding abdominal hematoma, generalized weakness, or hyponatremia. The patient will be monitored on remote telemetry. /[id number]/MODL MTDD
[2018-05-07] MEDS ORDERED: IPRATROPIUM 0.03% NASAL SPRAY EACHNARE PRN (08:08)
[2018-05-07] MEDS ORDERED: FLUTICASONE NASAL 120 SPRAYS/16 GM MDI EACHNARE PRN (08:08)
[2018-05-07] MEDS ORDERED: ALBUTEROL 60 PUFFS/8 GM MDI IH PRN (08:08)
--- NOTE | 2018-05-07 08:33 | ASMTLACE ---
LACE Comorbidities - select Answers: Any tumor (including all that apply lymphoma or leukemia) Cerebrovascular disease (CVA, TIA, aneurysms, vasc ular dementia) Chronic pulmonary disease Congestive heart failure Other Notes: AFib; HTN; GERD; Hx of DVT # of Emergency department Answers: 9-12 visits in the last 6 months Score: 13 Date Signed: 05/07/2018 08:33 AM Electronically Signed By:Milly Kaplan
[2018-05-07] MEDS: LIDOCAINE 4%/MENTHOL 1% PATCH TD SCH (08:48)
[2018-05-07] MEDS: ACETAMINOPHEN 325 MG TAB PO PRN (08:48)
[2018-05-07] MEDS: NS 1,000 ML IV SCH ×2 (08:49→21:28)
[2018-05-07 08:54] LABS: PLATELET COUNT 221 10^3/uL (150-400)
[2018-05-07] MEDS: BUDESONIDE/FORMOTEROL 160/4.5 60 PUFFS/MDI IH SCH ×2 (09:22→20:57)
[2018-05-07] MEDS: ONDANSETRON 4 MG/2 ML VIAL IVP PRN (09:50)
[2018-05-07] MEDS: LISINOPRIL 20 MG TAB PO SCH ×2 (11:10→20:55)
[2018-05-07] MEDS: CHOLECALCIFEROL VIT D3 2,000 UNITS TAB/CAP PO SCH ×2 (11:11→20:54)
[2018-05-07] MEDS: METOPROLOL TARTRATE 50 MG TAB PO SCH ×2 (11:11→20:54)
[2018-05-07] MEDS: TIMOLOL 0.5% 15 ML OPHT.BTL EACHEYE SCH (11:11)
--- NOTE | 2018-05-07 11:30 | ASMTCMCOM ---
CM Note CM Note Notes: CM reviewed Pt's chart for D/C planning. Pt is an 83 y/o female with an abdominal wall hematoma. It is quite large in size and has evidence of abnormal bleeding. Pt has an extensive medical hx with a rt MCA stroke in 2016 and a TIA earlier this year. Hx of DVT in the lower extremity, breast cancer in remission, thyroid cancer with listed matastatic disease, glaucoma, restless legs syndrome, gastritis, hypothyroidism, hypertension, hyperlipidemia, pulmonary hypertension and COPD. CM needs are unknown at this time. Pt does live with his , Patel #[phone], #[phone]. CM will follow. D/C Plan: TBD Date Signed: 05/07/2018 11:29 AM Electronically Signed By:Virginie Foster
[2018-05-07] MEDS ORDERED: oxyCODONE IR 5 MG TAB PO PRN (12:26)
[2018-05-07] MEDS ORDERED: traMADol 50 MG TAB PO SCH (12:30)
[2018-05-07] MEDS: oxyCODONE IR 5 MG TAB PO PRN ×3 (13:21→23:02)
[2018-05-07] MEDS: LEVOTHYROXINE 125 MCG TAB PO SCH (14:46)
[2018-05-07] MEDS: traMADol 50 MG TAB PO SCH ×2 (15:01→20:55)
--- NOTE | 2018-05-07 15:11 | HOSPPROG ---
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; originally scheduled for an injection for nerve block 2 days from now * The differential diagnosis from the radiologist on the CT scan yesterday includes schwannoma, meningioma, metastatic disease * history of metastatic thyroid cancer * Recent CT scan of chest April 28 showed increase in size of some lung nodules , but there was no current residual disease in the neck on a CT scan of the neck * acute hyponatremia in approximately euvolemic patient * Question if due to Aldactone, verses SIADH related to tumors or other cause * Oral intake may also be poor * Urine sodiums from yesterday will not be helpful in the setting of use of 2 diuretics of different mechanism * remote history of breast cancer status post lumpectomy and secondary treatments * history of DVT requiring thrombectomy * history of GI bleed from an arteriovenous malformation * history of CHF currently compensated * history of pulmonary hypertension * history of benign essential hypertension The patient was seen by me for 2 visits during this day of her admission, with totaling more than 35 min of bedside time with the patient and family in addition to this time spent earlier today by Dr. Ovalles for her admission. At this time the patient will need ongoing hospital management of her enlarging hematoma, monitoring for possible thromboembolic or stroke events, and management of her pain. Will change to inpatient. PLANS: * Continue with compression band on abdomen over her hematoma and follow that closely * Continue off anticoagulation at this time * Will review with Dr. Crowell her litigation associate * Will increase pain medicine and nausea medicine at this time * SCDs for DVT prophylaxis * Continue proton pump inhibitor SUBJECTIVE: Ongoing severe pain at the site of her hematoma Ongoing pain at the site of her neuropathic pain from the nerve sheath tumor OBJECTIVE Vitals reviewed: Normal vital signs without fever Exam: alert oriented , somewhat anxious about her situation and does look uncomfortable at this time skin warm dry color ok resps not labored lungs clear BSs heart regular abd soft, bowel sounds present; there is an obvious large hematoma at the lower left abdominal wall which is tender, this feels slightly enlarged to me in terms of its dimensions than what I saw described from previous notes and what I see on her CT scan images limbs warm, no edema iv site ok Laboratory data: On repeat chemistry sodium slightly better 125 On repeat CBC slight drop in hemoglobin at 12.5 Objective: Vital Signs Temp Pulse Resp BP Pulse Ox 36.6 C 91 20 123/68 H 98 05/07/18 11:01 05/07/18 11:11 05/07/18 11:01 05/07/18 11:11 05/07/18 11:01 Laboratory Results 05/07/18 08:48 05/07/18 08:48 05/06/18 05/07/18 05/08/18 06:59 06:59 06:59 Intake Total 600 Output Total 50 Balance 600 -50 PT 12.5 SEC (12.0-15.0) 05/07/18 03:40 INR 0.91 (0.83-1.16) 05/07/18 03:40 - Time Spent With Patient Time Spent with Patient: greater than 35 minutes Time Spent with Patient: Greater than 35 minutes spent on this patients care, greater than 50% of time spent counseling, educating, and coordinating care regarding the above mentioned plan. ICD10 Worksheet Patient Problems: Problems Problem Status Onset Abdominal wall hematoma Acute Hyponatremia Acute Afib - Atrial fibrillation Active Abdominal pain Acute Acute anterior epistaxis Acute CHF (congestive heart failure) Acute Chronic Disease Mgmt/Transitional Care Acute GI bleed Acute Headache Acute Hemoptysis Acute Hypertension Acute Melena Acute Pleural effusion Acute Radiation pneumonitis Acute Recurrent thyroid cancer Acute Small bowel obstruction Acute Status post cardiac pacemaker procedure Acute Transient ischemic attack (TIA) Acute Vomiting Acute
[2018-05-07] MEDS: Tafluprost/Pf [Zioptan 0.0015% Eye Drops] 1 DROP EACHEYE SCH (20:44)
[2018-05-07] MEDS: SODIUM CL NASAL 45 ML BTL EACHNARE SCH (21:09)
[2018-05-07] MEDS: clonazePAM 0.5 MG TAB PO SCH (23:15)
[2018-05-07] MEDS: PATCH REMOVAL 1 EA PATCH TD SCH (23:15)
[2018-05-08] MEDS: traMADol 50 MG TAB PO SCH ×2 (02:54→11:38)
[2018-05-08] MEDS: LEVOTHYROXINE 125 MCG TAB PO SCH (06:19)
[2018-05-08] MEDS ORDERED: FUROSEMIDE 20 MG TAB PO SCH (09:00)
[2018-05-08] MEDS: TIMOLOL 0.5% 15 ML OPHT.BTL EACHEYE SCH (09:22)
[2018-05-08] MEDS: CHOLECALCIFEROL VIT D3 2,000 UNITS TAB/CAP PO SCH ×2 (09:27→21:20)
[2018-05-08] MEDS: NS 1,000 ML IV SCH (09:33)
[2018-05-08] MEDS: SODIUM CL NASAL 45 ML BTL EACHNARE SCH ×2 (09:33→21:27)
[2018-05-08] MEDS: BUDESONIDE/FORMOTEROL 160/4.5 60 PUFFS/MDI IH SCH ×2 (09:49→20:20)
[2018-05-08] MEDS: LIDOCAINE 4%/MENTHOL 1% PATCH TD SCH (11:08)
[2018-05-08] MEDS: LISINOPRIL 20 MG TAB PO SCH (11:09)
[2018-05-08] MEDS: ACETAMINOPHEN 325 MG TAB PO PRN ×2 (11:42→17:17)
[2018-05-08] MEDS: METOPROLOL TARTRATE 50 MG TAB PO SCH (11:45)
[2018-05-08] MEDS: ONDANSETRON 4 MG/2 ML VIAL IVP PRN (11:45)
[2018-05-08] MEDS ORDERED: POLYETHYLENE GLYCOL 3350 17 GM PKT PO PRN (12:46)
[2018-05-08] MEDS ORDERED: BISACODYL 10 MG SUPP PR PRN (12:46)
[2018-05-08] MEDS ORDERED: traMADol 50 MG TAB PO PRN (12:49)
[2018-05-08] MEDS ORDERED: METOPROLOL TARTRATE 50 MG TAB PO SCH (12:49)
--- NOTE | 2018-05-08 13:06 | HOSPPROG ---
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; * The differential diagnosis from the radiologist on the CT scan yesterday includes schwannoma, meningioma, metastatic disease * history of metastatic thyroid cancer * Recent CT scan of chest April 28 showed increase in size of some lung nodules , but there was no current residual disease in the neck on a CT scan of the neck * acute hyponatremia * acute blood loss anemia * remote history of breast cancer status post lumpectomy and secondary treatments * history of DVT requiring thrombectomy * 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 Appears to be improving. Less painful today -Decrease BB. Hold Diuretics and Lisinopril -SCD's -Will try to have IR do SAMY once she is medically stable Subjective: no cp or sob. some confusion. Hgb has dropped Objective: Vital Signs Temp Pulse Resp BP Pulse Ox 36.6 C 70 16 124/68 H 99 05/08/18 11:12 05/08/18 11:12 05/08/18 11:12 05/08/18 11:12 05/08/18 11:12 Laboratory Results 05/08/18 09:59 05/07/18 08:48 05/07/18 05/08/18 05/09/18 05:59 05:59 05:59 Intake Total 2100 Output Total 475 Balance 1625 PT 12.5 SEC (12.0-15.0) 05/07/18 03:40 INR 0.91 (0.83-1.16) 05/07/18 03:40 - Physical Exam Constitutional: no apparent distress, appears nourished Eyes: PERRL Ears, Nose, Mouth, Throat: moist mucous membranes Cardiovascular: regular rate and rhythym, No edema Respiratory: no respiratory distress, no rales or rhonchi, clear to auscultation , reduced air movement Gastrointestinal: tenderness, No guarding, No rebound, No distension Skin: warm Musculoskeletal: generalized weakness Neurologic: AAOx3 Psychiatric: interacting appropriately, not anxious, not encephalopathic Lymph, Heme, Immunologic: No petechiae ICD10 Worksheet Patient Problems: Problems Problem Status Onset Abdominal wall hematoma Acute Hyponatremia Acute Afib - Atrial fibrillation Active Abdominal pain Acute Acute anterior epistaxis Acute CHF (congestive heart failure) Acute Chronic Disease Mgmt/Transitional Care Acute GI bleed Acute Headache Acute Hemoptysis Acute Hypertension Acute Melena Acute Pleural effusion Acute Radiation pneumonitis Acute Recurrent thyroid cancer Acute Small bowel obstruction Acute Status post cardiac pacemaker procedure Acute Transient ischemic attack (TIA) Acute Vomiting Acute
--- NOTE | 2018-05-08 15:35 | PDMN ---
Medical Necessity Medical necessity: change to IP; los>2mn for acute abd wall hematoma r/t Lovenox use, pain, r/t erosive tumor lower thoracic spine area, acute blood loss anemia and hyponatremia; requires continued abd binder/compression, follow hgb, transfuse hgb<8, hold AC, adjust meds, and SAMY per IR when medically stable ; hx afib, TIA, VTE's, met thyroid CA, breast CA, DVT s/p thrombectomy, GIB, CHF , pulm htn, and essential htn; per order and progress note 05/08/18
[2018-05-08] MEDS: oxyCODONE IR 5 MG TAB PO PRN (18:52)
[2018-05-08] MEDS: Tafluprost/Pf [Zioptan 0.0015% Eye Drops] 1 DROP EACHEYE SCH (21:19)
[2018-05-08] MEDS: SENNOSIDES/DOCUSATE SODIUM TAB PO SCH (21:20)
[2018-05-08] MEDS: PATCH REMOVAL 1 EA PATCH TD SCH (21:20)
[2018-05-09] MEDS: clonazePAM 0.5 MG TAB PO SCH ×2 (03:25→20:07)
[2018-05-09] MEDS: ACETAMINOPHEN 325 MG TAB PO PRN ×2 (03:51→11:14)
[2018-05-09] MEDS: LEVOTHYROXINE 125 MCG TAB PO SCH (03:58)
[2018-05-09 04:39] LABS: PLATELET COUNT 191 10^3/uL (150-400)
[2018-05-09] MEDS: oxyCODONE IR 5 MG TAB PO PRN ×3 (07:15→21:44)
[2018-05-09] MEDS ORDERED: NS 500 ML IV ONE (08:23)
[2018-05-09] MEDS: SENNOSIDES/DOCUSATE SODIUM TAB PO SCH ×2 (09:16→20:06)
[2018-05-09] MEDS: CHOLECALCIFEROL VIT D3 2,000 UNITS TAB/CAP PO SCH ×2 (09:16→20:06)
[2018-05-09] MEDS: LIDOCAINE 4%/MENTHOL 1% PATCH TD SCH (09:17)
[2018-05-09] MEDS: BUDESONIDE/FORMOTEROL 160/4.5 60 PUFFS/MDI IH SCH ×2 (09:21→20:53)
[2018-05-09 09:27] LABS: INR 0.94 (0.83-1.16); PROTIME(PATIENT) 12.8 SEC (12.0-15.0)
[2018-05-09] MEDS: TIMOLOL 0.5% 15 ML OPHT.BTL EACHEYE SCH ×2 (09:33→11:24)
[2018-05-09] MEDS: SODIUM CL NASAL 45 ML BTL EACHNARE SCH ×2 (11:21→20:21)
--- NOTE | 2018-05-09 12:17 | ASMTCMCOM ---
CM Note CM Note Notes: Pts case discussed in tx rounds. Pts H&H is low. Pt will get another unit of blood today. The plan remains the same. Pt will d/c without any needs. Pt reports that her mobility is good. No other needs identified at this time. CM available for changes. Plan: Independent Date Signed: 05/09/2018 12:17 PM Electronically Signed By:ROBINSON Vargas
--- NOTE | 2018-05-09 12:38 | HOSPPROG ---
Hospitalist Progress Note Assessment/Plan: The patient has had an acute drop in BP at 89/68. A repeat shows BP of mid 70's systolic. Hgb has decreased from yesterday and is 8.4 today. 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; * The differential diagnosis from the radiologist on the CT scan yesterday includes schwannoma, meningioma, metastatic disease * history of metastatic thyroid cancer * Recent CT scan of chest April 28 showed increase in size of some lung nodules , but there was no current residual disease in the neck on a CT scan of the neck * acute hyponatremia * acute blood loss anemia * remote history of breast cancer status post lumpectomy and secondary treatments * history of DVT requiring thrombectomy * history of GI bleed from an arteriovenous malformation * history of CHF currently compensated * history of pulmonary hypertension * history of benign essential hypertension Plan: -Stat IVF -Stat PRBC transfusion -Stat repeat H/H -Hold up on repeat CT abd for now -Hold diuretics. Hold BB. Hold Lisinopril further reccs pending clinical response and w/u per above SCD's Subjective: abrupt drop in BP. no cp or sob. intermittent confusion Objective: Vital Signs Temp Pulse Resp BP Pulse Ox 36.8 C 86 13 117/58 L 100 05/09/18 11:23 05/09/18 11:23 05/09/18 11:23 05/09/18 11:23 05/09/18 11:23 Laboratory Results 05/09/18 09:00 05/09/18 03:20 05/08/18 05/09/18 05/10/18 05:59 05:59 05:59 Intake Total 1100 Balance 1100 PT 12.8 SEC (12.0-15.0) 05/09/18 09:00 INR 0.94 (0.83-1.16) 05/09/18 09:00 - Physical Exam Constitutional: no apparent distress Eyes: PERRL, EOMI Ears, Nose, Mouth, Throat: moist mucous membranes Cardiovascular: regular rate and rhythym, No edema Respiratory: no respiratory distress, no rales or rhonchi, clear to auscultation Gastrointestinal: tenderness, distension Skin: warm Neurologic: AAOx3 Psychiatric: interacting appropriately, not anxious, not encephalopathic ICD10 Worksheet Patient Problems: Problems Problem Status Onset Abdominal wall hematoma Acute Hyponatremia Acute Afib - Atrial fibrillation Active Abdominal pain Acute Acute anterior epistaxis Acute CHF (congestive heart failure) Acute Chronic Disease Mgmt/Transitional Care Acute GI bleed Acute Headache Acute Hemoptysis Acute Hypertension Acute Melena Acute Pleural effusion Acute Radiation pneumonitis Acute Recurrent thyroid cancer Acute Small bowel obstruction Acute Status post cardiac pacemaker procedure Acute Transient ischemic attack (TIA) Acute Vomiting Acute
[2018-05-09] MEDS: ONDANSETRON 4 MG/2 ML VIAL IVP PRN (13:23)
[2018-05-09] MEDS: Tafluprost/Pf [Zioptan 0.0015% Eye Drops] 1 DROP EACHEYE SCH (20:23)
[2018-05-10] MEDS: oxyCODONE IR 5 MG TAB PO PRN ×2 (02:23→23:13)
[2018-05-10] MEDS: PATCH REMOVAL 1 EA PATCH TD SCH ×2 (02:25→21:16)
[2018-05-10 03:52] LABS: PLATELET COUNT 205 10^3/uL (150-400)
[2018-05-10] MEDS: LEVOTHYROXINE 125 MCG TAB PO SCH (06:18)
[2018-05-10] MEDS: ACETAMINOPHEN 325 MG TAB PO PRN ×3 (06:41→20:57)
[2018-05-10] MEDS: BUDESONIDE/FORMOTEROL 160/4.5 60 PUFFS/MDI IH SCH ×2 (09:32→22:07)
[2018-05-10] MEDS: SENNOSIDES/DOCUSATE SODIUM TAB PO SCH ×2 (10:00→20:58)
[2018-05-10] MEDS: CHOLECALCIFEROL VIT D3 2,000 UNITS TAB/CAP PO SCH ×2 (10:00→20:58)
[2018-05-10] MEDS: LIDOCAINE 4%/MENTHOL 1% PATCH TD SCH (10:01)
[2018-05-10] MEDS: TIMOLOL 0.5% 15 ML OPHT.BTL EACHEYE SCH (10:05)
--- NOTE | 2018-05-10 12:46 | HOSPPROG ---
Hospitalist Progress Note Assessment/Plan: 83 yo female with mmp admitted with acute abd wall hematoma due to Lovenox use. *Acute Hypotension, resolved * acute abdominal wall hematoma related to use of Lovenox -significantly improved -will remove abd binder *acute blood loss anemia -s/p PRBC transfusion on 05/09 -will recheck H/H in a.m. * history of AFib and history of TIA; stable at present -will restart BB today. 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 I will d/w with IR * acute hyponatremia -studies suggestive of SiADH but improving almost w/i normal ranges -cont to follow * remote history of breast cancer status post lumpectomy and secondary treatments * history of DVT requiring thrombectomy * history of GI bleed from an arteriovenous malformation * history of CHF currently compensated * history of pulmonary hypertension * history of benign essential hypertension Plan: -Keep overnight, consider d/c tomorrow if stable, Hgb ok -will d/w with IR possibility of SAMY over the weekend -restart BB -cont to hold Furosemide and Lisinopril. She appears Euvolemic. -consider restarting AC soon for hx of Afib and VTE's on lifelong AC SCD's Subjective: no cp or sob. feels better. Objective: Vital Signs Temp Pulse Resp BP Pulse Ox 36.7 C 74 14 137/68 H 97 05/10/18 12:00 05/10/18 12:00 05/10/18 12:00 05/10/18 12:00 05/10/18 12:00 Laboratory Results 05/10/18 03:04 05/10/18 03:04 05/09/18 05/10/18 05/11/18 05:59 05:59 05:59 Intake Total 1100 950 Output Total 550 150 Balance 1100 400 -150 PT 12.8 SEC (12.0-15.0) 05/09/18 09:00 INR 0.94 (0.83-1.16) 05/09/18 09:00 - Physical Exam Constitutional: no apparent distress Eyes: PERRL Ears, Nose, Mouth, Throat: moist mucous membranes, hearing normal, ears appear normal Cardiovascular: regular rate and rhythym, No edema Respiratory: no respiratory distress Gastrointestinal: normoactive bowel sounds Genitourinary: no bladder fullness Skin: warm Musculoskeletal: generalized weakness Neurologic: AAOx3 Psychiatric: interacting appropriately, not anxious, not encephalopathic Lymph, Heme, Immunologic: No petechiae ICD10 Worksheet Patient Problems: Problems Problem Status Onset Abdominal wall hematoma Acute Hyponatremia Acute Afib - Atrial fibrillation Active Abdominal pain Acute Acute anterior epistaxis Acute CHF (congestive heart failure) Acute Chronic Disease Mgmt/Transitional Care Acute GI bleed Acute Headache Acute Hemoptysis Acute Hypertension Acute Melena Acute Pleural effusion Acute Radiation pneumonitis Acute Recurrent thyroid cancer Acute Small bowel obstruction Acute Status post cardiac pacemaker procedure Acute Transient ischemic attack (TIA) Acute Vomiting Acute
--- NOTE | 2018-05-10 13:46 | ASMTCMCOM ---
CM Note CM Note Notes: PT is recommending home care. Discussed with pt and her . They have had [facility] in the past and would like to have them again. Referral sent via [employer]. D/C date unclear at this time. CM will continue to follow. Date Signed: 05/10/2018 01:45 PM Electronically Signed By:MING Chavez
[2018-05-10] MEDS: METOPROLOL TARTRATE 25 MG TAB PO SCH ×2 (14:15→20:57)
[2018-05-10] MEDS: SODIUM CL NASAL 45 ML BTL EACHNARE SCH (21:09)
[2018-05-10] MEDS: Tafluprost/Pf [Zioptan 0.0015% Eye Drops] 1 DROP EACHEYE SCH (21:13)
[2018-05-10] MEDS: clonazePAM 0.5 MG TAB PO SCH (21:30)
[2018-05-10] MEDS: ONDANSETRON 4 MG/2 ML VIAL IVP PRN (23:01)
[2018-05-11] MEDS: oxyCODONE IR 5 MG TAB PO PRN ×4 (03:25→20:08)
[2018-05-11] MEDS: LEVOTHYROXINE 125 MCG TAB PO SCH (05:12)
[2018-05-11] MEDS: BUDESONIDE/FORMOTEROL 160/4.5 60 PUFFS/MDI IH SCH ×2 (09:39→20:47)
--- NOTE | 2018-05-11 09:42 | HOSPPROG ---
Hospitalist Progress Note Assessment/Plan: 83 yo female with mmp admitted with acute abd wall hematoma due to Lovenox use. *Acute Hypotension, resolved * acute abdominal wall hematoma related to use of Lovenox * improving *acute blood loss anemia -s/p PRBC transfusion on 05/09 * history of AFib and history of TIA; stable at present -will restart BB today. 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 Will probably start heparin gtt and coumadin tomorrow. 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 not sleeping. will try trazodone for sleep before starting SSRI * remote history of breast cancer status post lumpectomy and secondary treatments * history of DVT requiring thrombectomy * history of GI bleed from an arteriovenous malformation * history of CHF currently compensated * history of pulmonary hypertension * history of benign essential hypertension Subjective: feeling anxious. having pain in abd and back - about the same. also urinary frequency. trouble sleeping Objective: Vital Signs Temp Pulse Resp BP Pulse Ox 36.8 C 85 14 161/93 H 95 05/11/18 07:46 05/11/18 07:46 05/11/18 07:46 05/11/18 07:46 05/11/18 07:46 Laboratory Results 05/11/18 03:04 05/11/18 03:04 05/10/18 05/11/18 05/12/18 05:59 05:59 05:59 Intake Total 950 830 Output Total 550 1250 150 Balance 400 -420 -150 PT 12.8 SEC (12.0-15.0) 05/09/18 09:00 INR 0.94 (0.83-1.16) 05/09/18 09:00 - Physical Exam Constitutional: no apparent distress, appears nourished, not in pain Eyes: anicteric sclera, EOMI Cardiovascular: regular rate and rhythym Respiratory: no respiratory distress Gastrointestinal: other (large and wall hematoma, improving per nursing) Neurologic: AAOx3 Psychiatric: interacting appropriately, anxious ICD10 Worksheet Patient Problems: Problems Problem Status Onset Abdominal wall hematoma Acute Hyponatremia Acute Afib - Atrial fibrillation Active Abdominal pain Acute Acute anterior epistaxis Acute CHF (congestive heart failure) Acute Chronic Disease Mgmt/Transitional Care Acute GI bleed Acute Headache Acute Hemoptysis Acute Hypertension Acute Melena Acute Pleural effusion Acute Radiation pneumonitis Acute Recurrent thyroid cancer Acute Small bowel obstruction Acute Status post cardiac pacemaker procedure Acute Transient ischemic attack (TIA) Acute Vomiting Acute
[2018-05-11] MEDS: METOPROLOL TARTRATE 25 MG TAB PO SCH ×2 (09:47→20:07)
[2018-05-11] MEDS: SENNOSIDES/DOCUSATE SODIUM TAB PO SCH ×2 (09:48→21:42)
[2018-05-11] MEDS: CHOLECALCIFEROL VIT D3 2,000 UNITS TAB/CAP PO SCH ×2 (09:49→20:08)
[2018-05-11] MEDS: TIMOLOL 0.5% 15 ML OPHT.BTL EACHEYE SCH (09:49)
[2018-05-11] MEDS: LIDOCAINE 4%/MENTHOL 1% PATCH TD SCH (09:50)
[2018-05-11] MEDS: ONDANSETRON 4 MG/2 ML VIAL IVP PRN (09:59)
--- NOTE | 2018-05-11 13:00 | ASMTCMCOM ---
CM Note CM Note Notes: Reviewed in rounds. For back injection this afternoon. Hematoma better. Will need heparin bridge for her coumadin. HHC ordered. CM to follow. Plan: Home with [facility] services when medically cleared for discharge. Date Signed: 05/11/2018 12:59 PM Electronically Signed By:Nicole Meza RN
[2018-05-11] MEDS: ACETAMINOPHEN 325 MG TAB PO PRN (13:10)
[2018-05-11] MEDS ORDERED: TRIAMCINOLONE ACETONIDE 200 MG/5 ML MDV IM ONE (13:56)
[2018-05-11] MEDS ORDERED: LIDOCAINE 1% 300 MG/30 ML SDV ONE (13:56)
[2018-05-11] MEDS ORDERED: IOPAMIDOL (ISOVUE-M 300) 15 ML VIAL ONE (13:56)
[2018-05-11] MEDS ORDERED: NALOXONE HCL 0.4 MG/ML INJ ONE (14:17)
[2018-05-11] MEDS ORDERED: fentaNYL 100 MCG/2 ML INJ ONE (14:18)
[2018-05-11] MEDS ORDERED: NALOXONE HCL 0.4 MG/ML INJ IVP PRN (14:23)
[2018-05-11] MEDS ORDERED: fentaNYL 100 MCG/2 ML INJ IVP PRN (14:23)
[2018-05-11] MEDS: clonazePAM 0.5 MG TAB PO SCH (21:41)
[2018-05-11] MEDS: PATCH REMOVAL 1 EA PATCH TD SCH (21:41)
[2018-05-11] MEDS: SODIUM CL NASAL 45 ML BTL EACHNARE SCH (21:42)
[2018-05-11] MEDS: Tafluprost/Pf [Zioptan 0.0015% Eye Drops] 1 DROP EACHEYE SCH (21:50)
[2018-05-11] MEDS: traZODone 50 MG TAB PO SCH (21:50)
[2018-05-12] MEDS: oxyCODONE IR 5 MG TAB PO PRN ×3 (00:08→20:57)
[2018-05-12] MEDS: LEVOTHYROXINE 125 MCG TAB PO SCH (06:17)
[2018-05-12] MEDS: BUDESONIDE/FORMOTEROL 160/4.5 60 PUFFS/MDI IH SCH ×2 (08:29→22:01)
[2018-05-12] MEDS: ACETAMINOPHEN 325 MG TAB PO PRN ×2 (10:20→14:23)
[2018-05-12] MEDS: CHOLECALCIFEROL VIT D3 2,000 UNITS TAB/CAP PO SCH ×2 (10:21→20:41)
[2018-05-12] MEDS: SENNOSIDES/DOCUSATE SODIUM TAB PO SCH ×2 (10:21→20:42)
[2018-05-12] MEDS: METOPROLOL TARTRATE 25 MG TAB PO SCH ×2 (10:21→20:41)
[2018-05-12] MEDS: LIDOCAINE 4%/MENTHOL 1% PATCH TD SCH (10:27)
[2018-05-12] MEDS: TIMOLOL 0.5% 15 ML OPHT.BTL EACHEYE SCH (10:28)
[2018-05-12] MEDS ORDERED: HEPARIN 10,000 UNIT/10 ML MDV (1,000 UNIT/ML) IVP PRN (11:00)
[2018-05-12 11:57] LABS: INR 0.98 (0.83-1.16); PROTIME(PATIENT) 13.2 SEC (12.0-15.0)
[2018-05-12 12:15] LABS: PLATELET COUNT 332 10^3/uL (150-400)
--- NOTE | 2018-05-12 14:28 | ASMTCMCOM ---
CM Note CM Note Notes: 05/12/2018 Case Management Note Met w/pt and to discuss d/c needs. Faxed updates to [facility]. Anticipating d/c mid to late week. Case Management d/c poc: [facility] director of home care hospice and PT. Case Management to follow. Date Signed: 05/12/2018 02:28 PM Electronically Signed By:Bell Sy RN
--- NOTE | 2018-05-12 14:41 | HOSPPROG ---
Hospitalist Progress Note Assessment/Plan: 83 yo female with hx of metastatic thyroid cancer, DVT adn CHF admitted with acute abd wall hematoma due to Lovenox use. 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 not sleeping. 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 Old records reviewed and summarized as above. Further hx obtained from patients present at bedside. Subjective: no significant overnight events, patient is extremely exhausted and anxious, tearful intermittently, abdominal pain is improved Objective: Vital Signs Temp Pulse Resp BP Pulse Ox 36.9 C 83 17 154/82 H 93 05/12/18 12:00 05/12/18 12:00 05/12/18 12:00 05/12/18 12:00 05/12/18 12:00 Laboratory Results 05/12/18 11:22 05/11/18 03:04 05/11/18 05/12/18 05/13/18 05:59 05:59 05:59 Intake Total 830 250 Output Total 1250 850 Balance -420 -600 PT 13.2 SEC (12.0-15.0) 05/12/18 11:22 INR 0.98 (0.83-1.16) 05/12/18 11:22 awake alert anicteric op clear rrr no mrg cta b dec bs at bases hematoma llq firm and ttp decreased from outline bs present no cce warm dry well perfused oriented appropriate tearful - Time Spent With Patient Time Spent with Patient: greater than 35 minutes Time Spent with Patient: Greater than 35 minutes spent on this patients care, greater than 50% of time spent counseling, educating, and coordinating care regarding the above mentioned plan. ICD10 Worksheet Patient Problems: Problems Problem Status Onset Abdominal wall hematoma Acute Hyponatremia Acute Afib - Atrial fibrillation Active Abdominal pain Acute Acute anterior epistaxis Acute CHF (congestive heart failure) Acute Chronic Disease [facility]/Transitional Care Acute GI bleed Acute Headache Acute Hemoptysis Acute Hypertension Acute Melena Acute Pleural effusion Acute Radiation pneumonitis Acute Recurrent thyroid cancer Acute Small bowel obstruction Acute Status post cardiac pacemaker procedure Acute Transient ischemic attack (TIA) Acute Vomiting Acute
[2018-05-12] MEDS ORDERED: WARFARIN SODIUM 5 MG TAB PO ONE (16:00)
[2018-05-12] MEDS: WARFARIN SODIUM 5 MG TAB PO SCH (16:15)
[2018-05-12] MEDS: SODIUM CL NASAL 45 ML BTL EACHNARE SCH (20:40)
[2018-05-12] MEDS: clonazePAM 0.5 MG TAB PO SCH ×2 (20:40→20:42)
[2018-05-12] MEDS: traZODone 50 MG TAB PO SCH (20:41)
[2018-05-12] MEDS: LACTULOSE 20 GM/30 ML UDCUP PO PRN (21:00)
[2018-05-12] MEDS: Tafluprost/Pf [Zioptan 0.0015% Eye Drops] 1 DROP EACHEYE SCH (21:00)
[2018-05-12] MEDS: PATCH REMOVAL 1 EA PATCH TD SCH (21:31)
[2018-05-12 22:56] LABS: PLATELET COUNT 390 10^3/uL (150-400)
[2018-05-13] MEDS: oxyCODONE IR 5 MG TAB PO PRN ×3 (01:55→21:48)
[2018-05-13] MEDS: traZODone 50 MG TAB PO SCH ×2 (01:57→21:48)
[2018-05-13] MEDS: LEVOTHYROXINE 125 MCG TAB PO SCH (07:15)
[2018-05-13] MEDS: LACTULOSE 20 GM/30 ML UDCUP PO PRN (07:15)
[2018-05-13 08:32] LABS: PLATELET COUNT 380 10^3/uL (150-400)
[2018-05-13 08:43] LABS: INR 1.01 (0.83-1.16); PROTIME(PATIENT) 13.5 SEC (12.0-15.0)
[2018-05-13] MEDS: ONDANSETRON 4 MG/2 ML VIAL IVP PRN (09:13)
[2018-05-13] MEDS: LIDOCAINE 4%/MENTHOL 1% PATCH TD SCH (09:13)
[2018-05-13] MEDS: METOPROLOL TARTRATE 25 MG TAB PO SCH ×2 (09:14→21:47)
[2018-05-13] MEDS: SENNOSIDES/DOCUSATE SODIUM TAB PO SCH ×2 (09:14→22:00)
[2018-05-13] MEDS: CHOLECALCIFEROL VIT D3 2,000 UNITS TAB/CAP PO SCH ×2 (09:15→21:59)
[2018-05-13] MEDS: BUDESONIDE/FORMOTEROL 160/4.5 60 PUFFS/MDI IH SCH ×2 (09:15→20:02)
[2018-05-13] MEDS: TIMOLOL 0.5% 15 ML OPHT.BTL EACHEYE SCH (09:24)
[2018-05-13] MEDS ORDERED: clonazePAM 0.5 MG TAB PO SCH (11:26)
[2018-05-13] MEDS: RANITIDINE HCL 150 MG/10 ML UDCUP PO SCH (12:02)
[2018-05-13] MEDS: MAGNESIUM HYDROXIDE 30 ML UDCUP PO PRN (12:03)
[2018-05-13] MEDS: WARFARIN SODIUM 5 MG TAB PO SCH (16:14)
[2018-05-13] MEDS: SPIRONOLACTONE 25 MG TAB PO SCH (16:14)
[2018-05-13] MEDS: HEPARIN/DEXTROSE 500 ML IV SCH (16:16)
--- NOTE | 2018-05-13 20:59 | HOSPPROG ---
Hospitalist Progress Note Assessment/Plan: 83 yo female with hx of metastatic thyroid cancer, DVT adn CHF admitted with acute abd wall hematoma due to Lovenox use. 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 not sleeping. 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 Old records reviewed and summarized as above. Further hx obtained from patients present at bedside. Subjective: no significant overnight events, again had issues with sleep Objective: Vital Signs Temp Pulse Resp BP Pulse Ox 36.9 C 80 18 135/74 H 94 05/13/18 19:54 05/13/18 20:04 05/13/18 20:04 05/13/18 19:54 05/13/18 19:54 Laboratory Results 05/13/18 08:12 05/13/18 08:12 05/12/18 05/13/18 05/14/18 05:59 05:59 05:59 Intake Total 250 690 350 Output Total 850 2050 1000 Balance -600 -1360 -650 PT 13.5 SEC (12.0-15.0) 05/13/18 08:12 INR 1.01 (0.83-1.16) 05/13/18 08:12 awake alert anicteric op clear rrr no mrg cta b dec bs at bases hematoma llq firm and ttp decreased from outline bs present no cce warm dry well perfused oriented appropriate tearful - Time Spent With Patient ICD10 Worksheet Patient Problems: Problems Problem Status Onset Abdominal wall hematoma Acute Hyponatremia Acute Afib - Atrial fibrillation Active Abdominal pain Acute Acute anterior epistaxis Acute CHF (congestive heart failure) Acute Chronic Disease Mgmt/Transitional Care Acute GI bleed Acute Headache Acute Hemoptysis Acute Hypertension Acute Melena Acute Pleural effusion Acute Radiation pneumonitis Acute Recurrent thyroid cancer Acute Small bowel obstruction Acute Status post cardiac pacemaker procedure Acute Transient ischemic attack (TIA) Acute Vomiting Acute
[2018-05-13] MEDS: PATCH REMOVAL 1 EA PATCH TD SCH (21:51)
[2018-05-13] MEDS: SODIUM CL NASAL 45 ML BTL EACHNARE SCH (22:00)
[2018-05-13] MEDS: Tafluprost/Pf [Zioptan 0.0015% Eye Drops] 1 DROP EACHEYE SCH (22:08)
[2018-05-14 06:21] LABS: INR 1.11 (0.83-1.16); PROTIME(PATIENT) 14.5 SEC (12.0-15.0)
[2018-05-14] MEDS: LEVOTHYROXINE 125 MCG TAB PO SCH (08:56)
[2018-05-14] MEDS: LIDOCAINE 4%/MENTHOL 1% PATCH TD SCH (09:43)
[2018-05-14] MEDS: RANITIDINE HCL 150 MG/10 ML UDCUP PO SCH ×2 (09:46→22:30)
[2018-05-14] MEDS: METOPROLOL TARTRATE 25 MG TAB PO SCH ×2 (09:48→22:31)
[2018-05-14] MEDS: CHOLECALCIFEROL VIT D3 2,000 UNITS TAB/CAP PO SCH ×2 (09:56→22:31)
[2018-05-14] MEDS: SENNOSIDES/DOCUSATE SODIUM TAB PO SCH ×2 (09:57→22:30)
[2018-05-14] MEDS: ACETAMINOPHEN 325 MG TAB PO PRN ×3 (09:58→19:36)
[2018-05-14] MEDS: TIMOLOL 0.5% 15 ML OPHT.BTL EACHEYE SCH (10:15)
[2018-05-14] MEDS: BUDESONIDE/FORMOTEROL 160/4.5 60 PUFFS/MDI IH SCH ×2 (10:41→21:28)
[2018-05-14] MEDS: ONDANSETRON 4 MG/2 ML VIAL IVP PRN (13:51)
--- NOTE | 2018-05-14 15:18 | HOSPPROG ---
Hospitalist Progress Note Assessment/Plan: 83 yo female with hx of metastatic thyroid cancer, DVT adn CHF admitted with acute abd wall hematoma due to Lovenox use. 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 * Anxiety: with associated insomnia, initially felt as though trazodone helped but now feels it may be wiping her out. Will trial ativan which worked for her in the past. 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 Subjective: patient with very little sleep overnight, still feeling anxious Objective: Vital Signs Temp Pulse Resp BP Pulse Ox 36.6 C 72 16 115/76 93 05/14/18 12:00 05/14/18 12:00 05/14/18 12:00 05/14/18 12:00 05/14/18 12:00 Laboratory Results 05/14/18 06:06 05/13/18 08:12 05/13/18 05/14/18 05/15/18 05:59 05:59 05:59 Intake Total 690 600 Output Total 2049 2049 600 Balance -1360 -1450 -600 PT 14.5 SEC (12.0-15.0) 05/14/18 06:06 INR 1.11 (0.83-1.16) 05/14/18 06:06 awake alert anicteric op clear rrr no mrg cta b dec bs at bases hematoma llq firm and ttp decreased from outline bs present no cce warm dry well perfused oriented appropriate tearful ICD10 Worksheet Patient Problems: Problems Problem Status Onset Abdominal wall hematoma Acute Hyponatremia Acute Afib - Atrial fibrillation Active Abdominal pain Acute Acute anterior epistaxis Acute CHF (congestive heart failure) Acute Chronic Disease Mgmt/Transitional Care Acute GI bleed Acute Headache Acute Hemoptysis Acute Hypertension Acute Melena Acute Pleural effusion Acute Radiation pneumonitis Acute Recurrent thyroid cancer Acute Small bowel obstruction Acute Status post cardiac pacemaker procedure Acute Transient ischemic attack (TIA) Acute Vomiting Acute
[2018-05-14] MEDS: SPIRONOLACTONE 25 MG TAB PO SCH (15:32)
[2018-05-14] MEDS ORDERED: WARFARIN SODIUM 7.5 MG TAB PO ONE (16:00)
[2018-05-14] MEDS: HEPARIN/DEXTROSE 500 ML IV SCH (17:21)
[2018-05-14] MEDS ORDERED: clonazePAM 1 MG TAB PO SCH (21:00)
[2018-05-14] MEDS: LORazepam 0.5 MG TAB PO PRN (22:30)
[2018-05-14] MEDS: PATCH REMOVAL 1 EA PATCH TD SCH (22:32)
[2018-05-14] MEDS: SODIUM CL NASAL 45 ML BTL EACHNARE SCH (22:36)
[2018-05-14] MEDS: Tafluprost/Pf [Zioptan 0.0015% Eye Drops] 1 DROP EACHEYE SCH (22:39)
[2018-05-15] MEDS: oxyCODONE IR 5 MG TAB PO PRN ×2 (00:55→20:42)
[2018-05-15 04:22] LABS: INR 1.2 (0.83-1.16); PROTIME(PATIENT) 15.4 SEC (12.0-15.0)
[2018-05-15 04:25] LABS: PLATELET COUNT 425 10^3/uL (150-400)
[2018-05-15] MEDS: LIDOCAINE 4%/MENTHOL 1% PATCH TD SCH (05:00)
[2018-05-15] MEDS: LEVOTHYROXINE 125 MCG TAB PO SCH (05:00)
[2018-05-15] MEDS: ACETAMINOPHEN 325 MG TAB PO PRN ×2 (09:55→17:23)
[2018-05-15] MEDS: CHOLECALCIFEROL VIT D3 2,000 UNITS TAB/CAP PO SCH ×2 (09:55→20:43)
[2018-05-15] MEDS: SENNOSIDES/DOCUSATE SODIUM TAB PO SCH ×2 (09:56→20:48)
[2018-05-15] MEDS: METOPROLOL TARTRATE 25 MG TAB PO SCH ×2 (09:56→20:39)
[2018-05-15] MEDS: RANITIDINE HCL 150 MG/10 ML UDCUP PO SCH ×2 (09:57→20:40)
--- NOTE | 2018-05-15 11:41 | ASMTCMCOM ---
CM Note CM Note Notes: Pts case discussed in tx rounds. Pts INR is a 1.2 today. Updates sent to [facility]. Pt is not ready for a palliative talk at this point according to Dr. Kathleen. CM to follow. Plan: [facility]; PT, RN Date Signed: 05/15/2018 11:40 AM Electronically Signed By:ROBINSON Vargas
[2018-05-15] MEDS: TIMOLOL 0.5% 15 ML OPHT.BTL EACHEYE SCH (11:48)
[2018-05-15] MEDS: BUDESONIDE/FORMOTEROL 160/4.5 60 PUFFS/MDI IH SCH ×2 (13:23→20:39)
[2018-05-15] MEDS: ONDANSETRON 4 MG/2 ML VIAL IVP PRN ×2 (13:28→18:54)
[2018-05-15] MEDS: SPIRONOLACTONE 25 MG TAB PO SCH (13:53)
--- NOTE | 2018-05-15 14:32 | HOSPPROG ---
Hospitalist Progress Note Assessment/Plan: 83 yo female with hx of metastatic thyroid cancer, DVT adn CHF admitted with acute abd wall hematoma due to Lovenox use. 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 * Anxiety: with associated insomnia, initially felt as though trazodone helped but now feels it may be wiping her out. Discontinued trazodone and clonazepam in favor of ativan and doing much better, slept last night and did not feel wiped out this morning * metastatic thyroid cancer: with multiple pulmonary mets as well as erosive tumor in thoracic spine as above as well as solid mass in neck noted on US * history of breast cancer status post lumpectomy and secondary treatments * history of DVT requiring thrombectomy * history of GI bleed from an arteriovenous malformation * history of CHF currently compensated * history of pulmonary hypertension * history of hypertension IP status Further hx obtained from patients present at bedside. Subjective: no significant overnight events, patient notes that she slept last night finally Objective: Vital Signs Temp Pulse Resp BP Pulse Ox 36.3 C 71 18 149/88 H 96 05/15/18 12:03 05/15/18 12:03 05/15/18 12:03 05/15/18 12:03 05/15/18 12:03 Laboratory Results 05/15/18 03:13 05/15/18 03:13 05/14/18 05/15/18 05/16/18 05:59 05:59 05:59 Intake Total 600 828 Output Total 2050 2320 750 Balance -1450 -1492 -750 PT 15.4 SEC (12.0-15.0) H 05/15/18 03:13 INR 1.20 (0.83-1.16) H 05/15/18 03:13 awake alert anicteric op clear rrr no mrg cta b dec bs at bases hematoma llq firm and ttp decreased from outline bs present no cce warm dry well perfused oriented appropriate tearful ICD10 Worksheet Patient Problems: Problems Problem Status Onset Abdominal wall hematoma Acute Hyponatremia Acute Afib - Atrial fibrillation Active Abdominal pain Acute Acute anterior epistaxis Acute CHF (congestive heart failure) Acute Chronic Disease Mgmt/Transitional Care Acute GI bleed Acute Headache Acute Hemoptysis Acute Hypertension Acute Melena Acute Pleural effusion Acute Radiation pneumonitis Acute Recurrent thyroid cancer Acute Small bowel obstruction Acute Status post cardiac pacemaker procedure Acute Transient ischemic attack (TIA) Acute Vomiting Acute
[2018-05-15] MEDS ORDERED: WARFARIN SODIUM 7.5 MG TAB PO ONE (16:00)
[2018-05-15] MEDS: CALCIUM CARBONATE 500 MG CHEWABLE TAB PO PRN (16:40)
[2018-05-15] MEDS: HEPARIN/DEXTROSE 500 ML IV SCH (17:22)
[2018-05-15] MEDS: LORazepam 0.5 MG TAB PO PRN (20:45)
[2018-05-15] MEDS: Tafluprost/Pf [Zioptan 0.0015% Eye Drops] 1 DROP EACHEYE SCH (20:54)
[2018-05-15] MEDS: SODIUM CL NASAL 45 ML BTL EACHNARE SCH (20:56)
[2018-05-15] MEDS: PATCH REMOVAL 1 EA PATCH TD SCH (20:57)
[2018-05-16] MEDS: PROMETHAZINE HCL 25 MG TAB PO PRN ×2 (03:21→17:19)
[2018-05-16] MEDS: oxyCODONE IR 5 MG TAB PO PRN ×4 (03:22→21:49)
[2018-05-16 03:54] LABS: INR 1.51 (0.83-1.16); PROTIME(PATIENT) 18.4 SEC (12.0-15.0)
[2018-05-16] MEDS: LEVOTHYROXINE 125 MCG TAB PO SCH (09:04)
[2018-05-16] MEDS: LIDOCAINE 4%/MENTHOL 1% PATCH TD SCH (09:09)
[2018-05-16] MEDS: BUDESONIDE/FORMOTEROL 160/4.5 60 PUFFS/MDI IH SCH ×2 (10:00→21:29)
[2018-05-16] MEDS: TIMOLOL 0.5% 15 ML OPHT.BTL EACHEYE SCH (10:19)
[2018-05-16] MEDS: RANITIDINE HCL 150 MG/10 ML UDCUP PO SCH ×2 (10:20→19:40)
[2018-05-16] MEDS: CHOLECALCIFEROL VIT D3 2,000 UNITS TAB/CAP PO SCH ×2 (10:20→19:39)
[2018-05-16] MEDS: METOPROLOL TARTRATE 25 MG TAB PO SCH ×2 (10:20→19:39)
[2018-05-16] MEDS: SENNOSIDES/DOCUSATE SODIUM TAB PO SCH ×2 (10:21→22:57)
[2018-05-16] MEDS: SPIRONOLACTONE 25 MG TAB PO SCH (14:27)
--- NOTE | 2018-05-16 14:39 | ASMTCMCOM ---
CM Note CM Note Notes: 05/16/2018 Case Management Note Met w/pt and to discuss d/c needs. At request changed home care agency from [facility] to [facility]. Notified [facility] via phone, accepted pt. Notified [facility]. Case Management d/c poc: [facility] RN and PT Case Management to follow. Date Signed: 05/16/2018 02:39 PM Electronically Signed By:Bell Sy RN
--- NOTE | 2018-05-16 15:43 | HOSPPROG ---
Hospitalist Progress Note Assessment/Plan: 83 yo female with hx of metastatic thyroid cancer, DVT adn CHF admitted with acute abd wall hematoma due to Lovenox use. 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 Subjective: patient notes much improved sleep and feeling overall much better today Objective: Vital Signs Temp Pulse Resp BP Pulse Ox 36.8 C 86 17 134/79 H 93 05/16/18 11:10 05/16/18 11:03 05/16/18 11:03 05/16/18 11:10 05/16/18 11:03 Laboratory Results 05/15/18 03:13 05/15/18 03:13 05/15/18 05/16/18 05/17/18 05:59 05:59 05:59 Intake Total 828 578 210 Output Total 2320 750 Balance -1492 -172 210 PT 18.4 SEC (12.0-15.0) H 05/16/18 03:11 INR 1.51 (0.83-1.16) H 05/16/18 03:11 awake alert anicteric op clear rrr no mrg cta b dec bs at bases hematoma llq firm and ttp decreased from outline bs present no cce warm dry well perfused oriented appropriate tearful ICD10 Worksheet Patient Problems: Problems Problem Status Onset Abdominal wall hematoma Acute Hyponatremia Acute Afib - Atrial fibrillation Active Abdominal pain Acute Acute anterior epistaxis Acute CHF (congestive heart failure) Acute Chronic Disease Mgmt/Transitional Care Acute GI bleed Acute Headache Acute Hemoptysis Acute Hypertension Acute Melena Acute Pleural effusion Acute Radiation pneumonitis Acute Recurrent thyroid cancer Acute Small bowel obstruction Acute Status post cardiac pacemaker procedure Acute Transient ischemic attack (TIA) Acute Vomiting Acute
[2018-05-16] MEDS: ONDANSETRON 4 MG/2 ML VIAL IVP PRN (15:51)
[2018-05-16] MEDS ORDERED: WARFARIN SODIUM 7.5 MG TAB PO ONE (16:00)
[2018-05-16] MEDS: LORazepam 0.5 MG TAB PO PRN ×2 (17:20→21:49)
[2018-05-16] MEDS: HEPARIN/DEXTROSE 500 ML IV SCH (19:37)
[2018-05-16] MEDS: CALCIUM CARBONATE 500 MG CHEWABLE TAB PO PRN (21:48)
[2018-05-16] MEDS: Tafluprost/Pf [Zioptan 0.0015% Eye Drops] 1 DROP EACHEYE SCH (21:49)
[2018-05-16] MEDS: PATCH REMOVAL 1 EA PATCH TD SCH (22:56)
[2018-05-16] MEDS: SODIUM CL NASAL 45 ML BTL EACHNARE SCH (22:57)
[2018-05-17 04:11] LABS: INR 2.19 (0.83-1.16); PROTIME(PATIENT) 24.4 SEC (12.0-15.0)
[2018-05-17] MEDS: oxyCODONE IR 5 MG TAB PO PRN ×5 (06:29→20:12)
[2018-05-17] MEDS: LEVOTHYROXINE 125 MCG TAB PO SCH (06:30)
[2018-05-17] MEDS: BUDESONIDE/FORMOTEROL 160/4.5 60 PUFFS/MDI IH SCH ×2 (08:32→21:34)
[2018-05-17] MEDS: SENNOSIDES/DOCUSATE SODIUM TAB PO SCH ×2 (09:07→20:09)
[2018-05-17] MEDS: METOPROLOL TARTRATE 25 MG TAB PO SCH ×2 (09:08→20:13)
[2018-05-17] MEDS: CHOLECALCIFEROL VIT D3 2,000 UNITS TAB/CAP PO SCH ×2 (09:08→20:12)
[2018-05-17] MEDS: LIDOCAINE 4%/MENTHOL 1% PATCH TD SCH (09:08)
[2018-05-17] MEDS: RANITIDINE HCL 150 MG/10 ML UDCUP PO SCH ×2 (09:08→20:11)
[2018-05-17] MEDS: ONDANSETRON 4 MG/2 ML VIAL IVP PRN (09:13)
--- NOTE | 2018-05-17 10:58 | HOSPPROG ---
Hospitalist Progress Note Assessment/Plan: # abd wall hematoma - d/t lovenox - s/p heparin gtt bridge (dc today) - INR therapeutic on warfarin (started on 05/14) - will need to decrease dose tonight - surgical I&D not indicated # ABLA s/p 1U PRBC - stable # back pain d/t erosive lesion lesion s/p steroid injection - saw Dr Frey as outpatient - surgery too risky - cont oxy, lidoderm # metastatic thyroid cancer - pulm nodules, spinal lesion, mass in neck - follow with Dr Sutton # a-fib/ppm - warfarin, now therapeutic; cont metop # hx DVT requiring thrombectomy - warfarin # hx CVA - warfarin, not on statin # hx GIB d/t AVM # hx CHF/pulm-htm - compensated # htn - cont metop # hypothyroid - synthroid Subjective: pain better but still present in her LLQ; pain continues in her back; no significant LLE weakness Objective: Vital Signs Temp Pulse Resp BP Pulse Ox 36.7 C 102 H 14 158/84 H 95 05/17/18 06:57 05/17/18 08:33 05/17/18 08:33 05/17/18 06:57 05/17/18 08:33 Laboratory Results 05/17/18 06:34 05/15/18 03:13 05/16/18 05/17/18 05/18/18 05:59 05:59 05:59 Intake Total 578 708 Output Total 750 Balance -172 708 PT 24.4 SEC (12.0-15.0) H 05/17/18 03:07 INR 2.19 (0.83-1.16) H 05/17/18 03:[address] abd reviewed CXR personally reviewed - Physical Exam Constitutional: no apparent distress, appears nourished Cardiovascular: regular rate and rhythym, no murmur, rub, or gallop Respiratory: no respiratory distress, no rales or rhonchi, clear to auscultation Gastrointestinal: other (soft, marked LLQ distension, very TTP) ICD10 Worksheet Patient Problems: Problems Problem Status Onset Afib - Atrial fibrillation Active Recurrent thyroid cancer Acute Radiation pneumonitis Acute Status post cardiac pacemaker procedure Acute Acute anterior epistaxis Acute GI bleed Acute Melena Acute CHF (congestive heart failure) Acute Pleural effusion Acute Chronic Disease Mgmt/Transitional Care Acute Hemoptysis Acute Small bowel obstruction Acute Abdominal pain Acute Vomiting Acute Headache Acute Hypertension Acute Transient ischemic attack (TIA) Acute Abdominal wall hematoma Acute Hyponatremia Acute
[2018-05-17] MEDS: LORazepam 0.5 MG TAB PO PRN ×2 (11:57→20:16)
[2018-05-17] MEDS: TIMOLOL 0.5% 15 ML OPHT.BTL EACHEYE SCH (12:01)
[2018-05-17] MEDS: WARFARIN SODIUM 5 MG TAB PO SCH (16:34)
[2018-05-17] MEDS: SPIRONOLACTONE 25 MG TAB PO SCH (16:38)
[2018-05-17] MEDS: Tafluprost/Pf [Zioptan 0.0015% Eye Drops] 1 DROP EACHEYE SCH (20:17)
[2018-05-17] MEDS: SODIUM CL NASAL 45 ML BTL EACHNARE SCH (20:17)
[2018-05-17] MEDS: PATCH REMOVAL 1 EA PATCH TD SCH (20:18)
[2018-05-18] MEDS: LEVOTHYROXINE 125 MCG TAB PO SCH (04:04)
[2018-05-18] MEDS: oxyCODONE IR 5 MG TAB PO PRN ×5 (04:04→19:48)
[2018-05-18 04:13] LABS: INR 2.22 (0.83-1.16); PROTIME(PATIENT) 24.6 SEC (12.0-15.0)
[2018-05-18] MEDS: METOPROLOL TARTRATE 25 MG TAB PO SCH ×2 (08:45→20:57)
[2018-05-18] MEDS: CHOLECALCIFEROL VIT D3 2,000 UNITS TAB/CAP PO SCH ×2 (08:46→20:57)
[2018-05-18] MEDS: RANITIDINE HCL 150 MG/10 ML UDCUP PO SCH ×2 (08:46→20:56)
[2018-05-18] MEDS: LIDOCAINE 4%/MENTHOL 1% PATCH TD SCH (08:47)
[2018-05-18] MEDS: SENNOSIDES/DOCUSATE SODIUM TAB PO SCH ×2 (08:47→20:57)
[2018-05-18] MEDS: TIMOLOL 0.5% 15 ML OPHT.BTL EACHEYE SCH (09:07)
[2018-05-18] MEDS: BUDESONIDE/FORMOTEROL 160/4.5 60 PUFFS/MDI IH SCH ×2 (10:29→21:44)
[2018-05-18] MEDS: ONDANSETRON DISINTEGRATING 4 MG TAB PO PRN (11:36)
--- NOTE | 2018-05-18 13:57 | HOSPPROG ---
Hospitalist Progress Note Assessment/Plan: # abd wall hematoma - d/t lovenox - cont warfarin with therapeutic INR (bridged with heparin gtt) - surgical I&D not indicated # ABLA s/p 1U PRBC - stable # back pain d/t erosive lesion lesion s/p steroid injection - saw Dr Frey as outpatient - surgery too risky - discussed with Dr Horton - oncology will consult related to potential treatments; may need bx - cont oxy, lidoderm # metastatic thyroid cancer - pulm nodules, spinal lesion, mass in neck - follow with Dr Sutton # a-fib/ppm - warfarin, now therapeutic; cont metop # hx DVT requiring thrombectomy - warfarin # hx CVA - warfarin, not on statin # hx GIB d/t AVM # hx CHF/pulm-htm - compensated # htn - cont metop # hypothyroid - synthroid Subjective: ongoing back pain; LLQ pain Objective: Vital Signs Temp Pulse Resp BP Pulse Ox 36.7 C 70 14 132/74 H 94 05/18/18 11:00 05/18/18 11:00 05/18/18 11:00 05/18/18 11:00 05/18/18 11:00 Laboratory Results 05/17/18 06:34 05/18/18 03:06 05/17/18 05/18/18 05/19/18 05:59 05:59 05:59 Intake Total 708 1230 Output Total 650 Balance 708 580 PT 24.6 SEC (12.0-15.0) H 05/18/18 03:06 INR 2.22 (0.83-1.16) H 05/18/18 03:[address] Horton - Time Spent With Patient Time Spent with Patient: greater than 35 minutes Time Spent with Patient: Greater than 35 minutes spent on this patients care, greater than 50% of time spent counseling, educating, and coordinating care regarding the above mentioned plan. - Physical Exam Constitutional: no apparent distress, appears nourished Cardiovascular: regular rate and rhythym, no murmur, rub, or gallop Respiratory: no respiratory distress, no rales or rhonchi, clear to auscultation Gastrointestinal: other (LLQ hematoma; TTP over R lower ribs), No guarding, No rebound ICD10 Worksheet Patient Problems: Problems Problem Status Onset Afib - Atrial fibrillation Active Recurrent thyroid cancer Acute Radiation pneumonitis Acute Status post cardiac pacemaker procedure Acute Acute anterior epistaxis Acute GI bleed Acute Melena Acute CHF (congestive heart failure) Acute Pleural effusion Acute Chronic Disease Mgmt/Transitional Care Acute Hemoptysis Acute Small bowel obstruction Acute Abdominal pain Acute Vomiting Acute Headache Acute Hypertension Acute Transient ischemic attack (TIA) Acute Abdominal wall hematoma Acute Hyponatremia Acute
[2018-05-18] MEDS ORDERED: NS 1,000 ML IV SCH (14:00)
[2018-05-18] MEDS: LORazepam 0.5 MG TAB PO PRN ×2 (15:10→21:02)
[2018-05-18] MEDS: SPIRONOLACTONE 25 MG TAB PO SCH (15:18)
[2018-05-18] MEDS: WARFARIN SODIUM 5 MG TAB PO SCH ×2 (17:32→17:34)
[2018-05-18] MEDS: ONDANSETRON 4 MG/2 ML VIAL IVP PRN (19:48)
[2018-05-18] MEDS: Tafluprost/Pf [Zioptan 0.0015% Eye Drops] 1 DROP EACHEYE SCH (20:56)
[2018-05-18] MEDS: PATCH REMOVAL 1 EA PATCH TD SCH (22:17)
[2018-05-18] MEDS: SODIUM CL NASAL 45 ML BTL EACHNARE SCH (22:18)
[2018-05-19 05:00] LABS: INR 2.28 (0.83-1.16); PROTIME(PATIENT) 25.1 SEC (12.0-15.0)
[2018-05-19] MEDS: LEVOTHYROXINE 125 MCG TAB PO SCH (05:58)
[2018-05-19] MEDS: METOPROLOL TARTRATE 25 MG TAB PO SCH ×2 (08:05→20:45)
[2018-05-19] MEDS: oxyCODONE IR 5 MG TAB PO PRN ×5 (08:05→22:12)
[2018-05-19] MEDS: SENNOSIDES/DOCUSATE SODIUM TAB PO SCH ×2 (08:06→20:45)
[2018-05-19] MEDS: CHOLECALCIFEROL VIT D3 2,000 UNITS TAB/CAP PO SCH ×2 (08:06→20:45)
[2018-05-19] MEDS: RANITIDINE HCL 150 MG/10 ML UDCUP PO SCH ×2 (08:08→20:45)
[2018-05-19] MEDS: LIDOCAINE 4%/MENTHOL 1% PATCH TD SCH (08:08)
[2018-05-19] MEDS: TIMOLOL 0.5% 15 ML OPHT.BTL EACHEYE SCH (08:09)
[2018-05-19] MEDS: LORazepam 0.5 MG TAB PO PRN ×2 (08:21→20:46)
[2018-05-19] MEDS: BUDESONIDE/FORMOTEROL 160/4.5 60 PUFFS/MDI IH SCH ×2 (08:21→20:14)
[2018-05-19] MEDS: MAGNESIUM HYDROXIDE 30 ML UDCUP PO PRN (10:58)
--- NOTE | 2018-05-19 11:06 | GCON ---
[f rep st] CONSULTATION MEDICAL ONCOLOGY FOLLOWUP CONSULTATION DATE OF CONSULTATION: 05/19/2018 REFERRING PHYSICIAN: Antonio Velazquez MD REASON FOR CONSULTATION: Further evaluation and management of metastatic thyroid cancer. RECOMMENDATIONS: 1. I would obtain a chest CT to further evaluate her main complaint of radicular pain in the T9-T10 distribution. This area is not well imaged on her abdominal and pelvic CT. She is not a candidate f or an MRI because of her pacemaker. 2. I think that we may be able to distinguish between the question of a benign lesion versus metasta tic thyroid cancer with a radioactive iodine scan. I would be sure to verbally communicate with the radiologist regarding the aim of the scan. We are trying to avoid a biopsy of her erosive lesion on her back. The radioactive iodine scan may be able to help us determine whether this is related to th yroid cancer or not. If it is related to thyroid cancer, radiation may be of benefit. Whether this would be radioactive iodine-131 or an external beam radiation therapeutic course would be subject to discussion with her general assembler installer, Dr. West Sutton. ASSESSMENT: This 83-year-old woman, who is well known to our practice, who is cared for by Dr. Kristin Gutierrez, is now admitted with a left abdominal wall hematoma, but also with persistent radicular pain in approximately the T9-T10 distribution on the right. The hematoma was on the left. She has been bothered with this pain since February of 2018. The abdominal hematoma was felt to be secondary to a Love nox injection. The CT of her abdomen and pelvis revealed a stable erosive lesion centered around the right neural foramen at T11-T12. There was question of whether this was metastatic deposit from her thyroid cancer, or if this represents meningioma or schwannoma. She is not a candidate for an MRI b ecause of her pacemaker. Steroid injection into the T11-T12 area has not been of benefit thus far. It was done on the April. Her physical exam, however, and history is more consistent with a lesion higher. The CT scan may help to delineate whether there is any lesion that would be responsible for her pain at the T9-T10 level. A radioactive iodine scan may be also of benefit to help delineate the etiology of the process without having to resort to a biopsy, which is problematic for her in view of her ant icoagulation and recent hematoma. Therapeutic options are yet to be determined depending on the overall clinical picture and determinat ion of the site of her metastatic disease. HISTORY OF PRESENT ILLNESS: Please see assessment. PAST MEDICAL HISTORY: Remarkable for her thyroid cancer, which was diagnosed in 2004. 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 She was treated with thyroidectomy, and subsequently, radiation and iodine-131 therapy. She also had stereotactic radios urgery in 2012. This was to a right hilar lesion. 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 She was treated with a lum pectomy, adjuvant radiation and anastrozole for that between the anastrozole and subsequently tamoxif en. The patient was treated with anastrozole from April of 2010 to July of 2012, and then with frank oxifen from July 2012 until March of 2014. She also has atrial fibrillation, has been on chronic warfarin, and she also had a CVA in August of 2016. PAST SURGICAL HISTORY: Remarkable for her thyroid surgery, as well as for ovarian cyst removal in . She had bowel obstructions in 1951 and 1961 and a hysterectomy in 1970. She had carpal tunnel s urgery in 1984, rotator cuff repair in 2001, vitrectomy in 2008, cataract surgery in 2009, and her reed mpectomy of her right breast in 2009. FAMILY HISTORY: Mother at age 96. Father at age 59 of complications of colon cancer. She has a brother with prostate cancer. SOCIAL HISTORY: The patient has not used tobacco products or alcohol. She formerly worked in a [employer] office. REVIEW OF SYSTEMS: Primarily remarkable for pain in her left abdomen and also in her right upper preet drant in a radicular pattern just under her lower costal margin. A 10-system review is otherwise unr emarkable. PHYSICAL EXAMINATION: GENERAL: Reveals an alert, thin woman who appears mildly uncomfortable. LUNG S: Show diffuse rubs and rhonchi. CARDIAC: Currently regular. ABDOMEN: Her abdominal exam shows a large swelling in her left abdominal wall consistent with the known hematoma. She also has some mi ld tenderness to palpation of a lower portion of her ribcage on the right and in her right upper quad rant. EXTREMITIES: No edema. She has normal bowel sounds. Thank you very much for allowing us to participate in this pleasant woman's care. We look forward to assisting with her management. /[id number]/MODL
[2018-05-19] MEDS: SPIRONOLACTONE 25 MG TAB PO SCH (12:24)
[2018-05-19] MEDS ORDERED: IOPAMIDOL (ISOVUE-300) 100 ML BTL ONE (13:41)
--- NOTE | 2018-05-19 14:01 | HOSPPROG ---
Hospitalist Progress Note Assessment/Plan: # abd wall hematoma - d/t lovenox - cont warfarin with therapeutic INR (bridged with heparin gtt) - surgical I&D not indicated # ABLA s/p 1U PRBC - stable # back pain d/t erosive lesion lesion s/p steroid injection - saw Dr Frey as outpatient - surgery too risky - long discussion with Dr forresetr - his rec is for a NM iodine uptake scan to determine if the lesion is metastatic - this is difficult as we do not have thyrogen which is part of the protocol I have placed a call to Dr Sutton to discuss further - cont oxy, lidoderm - empiric trial of steroids # metastatic thyroid cancer - pulm nodules, spinal lesion, mass in neck - follows with Zainab Sutton and Matt # a-fib/ppm - warfarin, now therapeutic; cont metop # hx DVT requiring thrombectomy - warfarin # hx CVA - warfarin, not on statin # hx GIB d/t AVM # hx CHF/pulm-htm - compensated # htn - cont metop # hypothyroid - synthroid Subjective: discussed at length with Dr Forrester , patient and ; call placed to Dr Sutton Objective: Vital Signs Temp Pulse Resp BP Pulse Ox 36.6 C 74 15 149/78 H 96 05/19/18 12:00 05/19/18 12:00 05/19/18 12:00 05/19/18 12:00 05/19/18 12:00 Laboratory Results 05/17/18 06:34 05/19/18 03:20 05/18/18 05/19/18 05/20/18 05:59 05:59 05:59 Intake Total 1230 750 300 Output Total 650 400 250 Balance 580 350 50 PT 25.1 SEC (12.0-15.0) H 05/19/18 03:20 INR 2.28 (0.83-1.16) H 05/19/18 03:20 - Time Spent With Patient Time Spent with Patient: greater than 35 minutes Time Spent with Patient: Greater than 35 minutes spent on this patients care, greater than 50% of time spent counseling, educating, and coordinating care regarding the above mentioned plan. - Physical Exam Constitutional: no apparent distress, appears nourished, other (falling asleep) ICD10 Worksheet Patient Problems: Problems Problem Status Onset Afib - Atrial fibrillation Active Recurrent thyroid cancer Acute Radiation pneumonitis Acute Status post cardiac pacemaker procedure Acute Acute anterior epistaxis Acute GI bleed Acute Melena Acute CHF (congestive heart failure) Acute Pleural effusion Acute Chronic Disease Mgmt/Transitional Care Acute Hemoptysis Acute Small bowel obstruction Acute Abdominal pain Acute Vomiting Acute Headache Acute Hypertension Acute Transient ischemic attack (TIA) Acute Abdominal wall hematoma Acute Hyponatremia Acute
[2018-05-19] MEDS: WARFARIN SODIUM 5 MG TAB PO SCH (17:57)
[2018-05-19] MEDS: SODIUM CL NASAL 45 ML BTL EACHNARE SCH (22:08)
[2018-05-19] MEDS: Tafluprost/Pf [Zioptan 0.0015% Eye Drops] 1 DROP EACHEYE SCH (22:09)
[2018-05-19] MEDS: PATCH REMOVAL 1 EA PATCH TD SCH (23:50)
[2018-05-20] MEDS: LEVOTHYROXINE 125 MCG TAB PO SCH (06:30)
[2018-05-20] MEDS: oxyCODONE IR 5 MG TAB PO PRN ×2 (06:45→12:24)
[2018-05-20 07:45] LABS: INR 1.72 (0.83-1.16); PROTIME(PATIENT) 20.3 SEC (12.0-15.0)
[2018-05-20] MEDS: BUDESONIDE/FORMOTEROL 160/4.5 60 PUFFS/MDI IH SCH ×2 (09:52→21:10)
[2018-05-20] MEDS: SENNOSIDES/DOCUSATE SODIUM TAB PO SCH ×2 (10:26→22:17)
[2018-05-20] MEDS: RANITIDINE HCL 150 MG/10 ML UDCUP PO SCH ×2 (10:26→22:11)
[2018-05-20] MEDS: METOPROLOL TARTRATE 25 MG TAB PO SCH ×2 (10:26→22:11)
[2018-05-20] MEDS: LIDOCAINE 4%/MENTHOL 1% PATCH TD SCH (10:27)
[2018-05-20] MEDS: CHOLECALCIFEROL VIT D3 2,000 UNITS TAB/CAP PO SCH ×2 (10:27→22:16)
[2018-05-20] MEDS: ONDANSETRON DISINTEGRATING 4 MG TAB PO PRN (10:31)
[2018-05-20] MEDS: TIMOLOL 0.5% 15 ML OPHT.BTL EACHEYE SCH (10:32)
[2018-05-20] MEDS ORDERED: *PHM DO NOT USE-DEXAMETHASONE 0.2 MG/ML IV PED/NEWBORN SYR IV ONE (10:36)
[2018-05-20] MEDS ORDERED: DEXAMETHASONE 4 MG/ML VIAL IVP ONE (10:45)
[2018-05-20] MEDS: LORazepam 0.5 MG TAB PO PRN ×2 (10:48→22:21)
--- NOTE | 2018-05-20 12:15 | SOAPPROG ---
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 West Sutton - current question is whether or not her current symptoms of pain in R low anterior chest is related to metastatic thyroid CA or not. Apparently, a total body thyroid scan can not be done at this time due to recent IV iodinated contrast. - Pain - etiology unclear. Empiric dexamethasone started. - Hx of breast CA Plan: - agree with trial of dexamethasone - She should follow up with my partner, Dr. Lizzie Gutierrez next week to discuss further work up. Subjective: Still has pain especially in R low anterior chest. Objective: Vital Signs Temp Pulse Resp BP Pulse Ox 36.9 C 76 12 129/75 H 95 05/20/18 08:00 05/20/18 09:55 05/20/18 09:55 05/20/18 08:00 05/20/18 09:55 Laboratory Results 05/20/18 06:40 05/20/18 06:40 05/18/18 05/19/18 05/20/18 23:59 23:59 23:59 Intake Total 1000 750 100 Output Total 400 1350 1050 Balance 600 -600 -950 PT 20.3 SEC (12.0-15.0) H 05/20/18 06:40 INR 1.72 (0.83-1.16) H 05/20/18 06:40 Physical Exam - Physical Exam General Appearance: alert, mild distress ICD10 Worksheet Patient Problems: Problems Problem Status Onset Abdominal wall hematoma Acute Hyponatremia Acute Afib - Atrial fibrillation Active Abdominal pain Acute Acute anterior epistaxis Acute CHF (congestive heart failure) Acute Chronic Disease Mgmt/Transitional Care Acute GI bleed Acute Headache Acute Hemoptysis Acute Hypertension Acute Melena Acute Pleural effusion Acute Radiation pneumonitis Acute Recurrent thyroid cancer Acute Small bowel obstruction Acute Status post cardiac pacemaker procedure Acute Transient ischemic attack (TIA) Acute Vomiting Acute
[2018-05-20] MEDS: SODIUM CHLORIDE 1,000 MG TAB PO SCH ×3 (12:25→18:10)
--- NOTE | 2018-05-20 14:03 | HOSPPROG ---
Hospitalist Progress Note Assessment/Plan: # abd wall hematoma - d/t lovenox - cont warfarin with therapeutic INR (bridged with heparin gtt) - has been stable since re-anticoagulated - surgical I&D not indicated # ABLA s/p 1U PRBC - stable # back pain d/t erosive lesion lesion s/p steroid injection - it is not clear exactly what this lesion represents (benign vs malignant) - i am giving her a trial of steroids - so far she seems to have slight improvement - saw Dr Frey as outpatient - surgery too risky - i have discussed at length with Zainab Sutton and [place] - she would not want further invasive procedures like a biopsy at this point ; per onc, would not do XRT without a clear diagnosis # metastatic thyroid cancer - pulm nodules, spinal lesion, mass in neck - follows with Zainab Sutton and Matt # hypoNa - previous Ulytes c/w SIADH; i have started fluid restriction and Na tabs # a-fib/ppm - warfarin, now therapeutic; cont metop # hx DVT requiring thrombectomy - warfarin # hx CVA - warfarin, not on statin # hx GIB d/t AVM # hx CHF/pulm-htm - compensated # htn - cont metop # hypothyroid - synthroid # dispo - she would like to gauge her response to steroids today; she will likely be ready for dc tomorrow to home with HC Subjective: pain slightly better after decadron this morning Objective: Vital Signs Temp Pulse Resp BP Pulse Ox 36.9 C 76 12 129/75 H 95 05/20/18 08:00 05/20/18 09:55 05/20/18 09:55 05/20/18 08:00 05/20/18 09:55 Laboratory Results 05/20/18 06:40 05/19/18 05/20/18 05/21/18 05:59 05:59 05:59 Intake Total 750 750 100 Output Total 400 1900 500 Balance 350 -1150 -400 PT 20.3 SEC (12.0-15.0) H 05/20/18 06:40 INR 1.72 (0.83-1.16) H 05/20/18 06:[address] Reid - Time Spent With Patient Time Spent with Patient: greater than 25 minutes Time Spent with Patient: Greater than 25 minutes spent on this patients care, greater than 50% of time spent counseling, educating, and coordinating care regarding the above mentioned plan. - Physical Exam Constitutional: no apparent distress, appears nourished Ears, Nose, Mouth, Throat: hearing normal Cardiovascular: No edema Respiratory: no respiratory distress ICD10 Worksheet Patient Problems: Problems Problem Status Onset Afib - Atrial fibrillation Active Recurrent thyroid cancer Acute Radiation pneumonitis Acute Status post cardiac pacemaker procedure Acute Acute anterior epistaxis Acute GI bleed Acute Melena Acute CHF (congestive heart failure) Acute Pleural effusion Acute Chronic Disease Mgmt/Transitional Care Acute Hemoptysis Acute Small bowel obstruction Acute Abdominal pain Acute Vomiting Acute Headache Acute Hypertension Acute Transient ischemic attack (TIA) Acute Abdominal wall hematoma Acute Hyponatremia Acute
[2018-05-20] MEDS: SPIRONOLACTONE 25 MG TAB PO SCH (14:42)
--- NOTE | 2018-05-20 15:05 | ASMTCMCOM ---
CM Note CM Note Notes: 05/20/2018 Case Management Note Discussed pt during rounds this morning. Discussed with PT. PT recommending home PT. Anticipating d/c tomorrow. Case Management d/c poc: [facility] RN and PT Case Management to follow. 05/16/2018 Case Management Note Met w/pt and to discuss d/c needs. At request changed home care agency from [facility] to [facility]. Notified [facility] via phone, accepted pt. Notified [facility]. Case Management d/c poc: [facility] RN and PT Case Management to follow. Date Signed: 05/20/2018 03:05 PM Electronically Signed By:Bell Sy RN
[2018-05-20] MEDS ORDERED: WARFARIN SODIUM 7.5 MG TAB PO SCH (16:00)
[2018-05-20] MEDS: DEXAMETHASONE 4 MG TAB PO SCH ×2 (18:10→22:18)
[2018-05-20] MEDS: ACETAMINOPHEN 325 MG TAB PO PRN ×2 (18:10→22:21)
[2018-05-20] MEDS: PATCH REMOVAL 1 EA PATCH TD SCH (22:32)
[2018-05-20] MEDS: SODIUM CL NASAL 45 ML BTL EACHNARE SCH (22:33)
[2018-05-20] MEDS: Tafluprost/Pf [Zioptan 0.0015% Eye Drops] 1 DROP EACHEYE SCH (22:39)
[2018-05-21 04:07] LABS: INR 2.24 (0.83-1.16); PROTIME(PATIENT) 24.8 SEC (12.0-15.0)
[2018-05-21] MEDS: LEVOTHYROXINE 125 MCG TAB PO SCH (05:45)
[2018-05-21] MEDS: DEXAMETHASONE 4 MG TAB PO SCH ×2 (05:45→13:16)
[2018-05-21 08:32] VITALS: BP 161/84
[2018-05-21] MEDS: ONDANSETRON DISINTEGRATING 4 MG TAB PO PRN (08:39)
[2018-05-21] MEDS: ACETAMINOPHEN 500 MG TAB PO SCH ×2 (09:33→15:13)
[2018-05-21] MEDS: SENNOSIDES/DOCUSATE SODIUM TAB PO SCH (09:34)
[2018-05-21] MEDS: CHOLECALCIFEROL VIT D3 2,000 UNITS TAB/CAP PO SCH (09:34)
[2018-05-21] MEDS: RANITIDINE HCL 150 MG/10 ML UDCUP PO SCH (09:34)
[2018-05-21] MEDS: METOPROLOL TARTRATE 25 MG TAB PO SCH (09:34)
[2018-05-21] MEDS: LIDOCAINE 4%/MENTHOL 1% PATCH TD SCH (09:35)
[2018-05-21] MEDS: SODIUM CHLORIDE 1,000 MG TAB PO SCH ×2 (09:35→13:15)
[2018-05-21] MEDS: TIMOLOL 0.5% 15 ML OPHT.BTL EACHEYE SCH (09:36)
--- NOTE | 2018-05-21 09:36 | ASDISCHSUM ---
Discharge Information Plan Status:Home with Home Health Medically Cleared to Leave:05/21/2018 Discharge Date:05/21/2018 CM D/C Disposition: ADT D/C Disposition:Home Health Service Projected Discharge Date:05/21/2018 11:00 AM Transportation at D/C: Discharge Delay Reason: Follow-Up Date:05/21/2018 11:00 AM Discharge Slot: Final Diagnosis: Placement Information Referral Type:*Home Health Care Services Referral ID:[id number] Provider [facility] [address] Address 2: City:[place] Selection Factors: State:[place] Referral Type:Palliative Care Referral ID:[id number] Provider Name:[facility] Address 1:[address] [place] Address 2: City:[place] Selection Factors: State:[place] Patient Contact Information Contact Name:STEPHEN Relationship: Address:[address] [place] [address] City:[place] Alternate Phone: [facility]/Zip Code:[place] [address] Email: Financial Information Financial Class:Medicare Primary Plan Desc:MEDICARE INPATIENT Primary Plan Number:[id number] Secondary Plan Desc:NILDA/GAGE SUPPLEMENT Secondary Plan Number:[id number] Assessment Information LACE LACE Comorbidities - select Answers: Any tumor (including all that apply lymphoma or leukemia) Cerebrovascular disease (CVA, TIA, aneurysms, vasc ular dementia) Chronic pulmonary disease Congestive heart failure Other Notes: AFib; HTN; GERD; Hx of DVT # of Emergency department Answers: 9-12 visits in the last 6 months Score: 13 Date Signed: 05/07/2018 08:33 AM Electronically Signed By:Milly Kaplan [facility] CM Progress Note CM Note CM Note Notes: CM reviewed Pt's chart for D/C planning. Pt is an 83 y/o female with an abdominal wall hematoma. It is quite large in size and has evidence of abnormal bleeding. Pt has an extensive medical hx with a rt MCA stroke in 2016 and a TIA earlier this year. Hx of DVT in the lower extremity, breast cancer in remission, thyroid cancer with listed matastatic disease, glaucoma, restless legs syndrome, gastritis, hypothyroidism, hypertension, hyperlipidemia, pulmonary hypertension and COPD. CM needs are unknown at this time. Pt does live with his , Patel #[phone], #[phone]. CM will follow. D/C Plan: TBD Date Signed: 05/07/2018 11:29 AM Electronically Signed By:Virginie Foster [facility] CM Progress Note CM Note CM Note Notes: Pts case discussed in tx rounds. Pts H&H is low. Pt will get another unit of blood today. The plan remains the same. Pt will d/c without any needs. Pt reports that her mobility is good. No other needs identified at this time. CM available for changes. Plan: Independent Date Signed: 05/09/2018 12:17 PM Electronically Signed By:ROBINSON Vargas [facility] CM Progress Note CM Note CM Note Notes: PT is recommending home care. Discussed with pt and her . They have had [facility] in the past and would like to have them again. Referral sent via [employer]. D/C date unclear at this time. CM will continue to follow. Date Signed: 05/10/2018 01:45 PM Electronically Signed By:MING Chavez [facility] Progress Note CM Note CM Note Notes: Reviewed in rounds. For back injection this afternoon. Hematoma better. Will need heparin bridge for her coumadin. HHC ordered. CM to follow. Plan: Home with HHC services when medically cleared for discharge. Date Signed: 05/11/2018 12:59 PM Electronically Signed By:Nicole Meza RN [facility] CM Progress Note CM Note CM Note Notes: 05/12/2018 Case Management Note Met w/pt and to discuss d/c needs. Faxed updates to [facility]. Anticipating d/c mid to late week. Case Management d/c poc: [facility] healthcare and PT. Case Management to follow. Date Signed: 05/12/2018 02:28 PM Electronically Signed By:Bell Sy RN [facility] CM Progress Note CM Note CM Note Notes: Pts case discussed in tx rounds. Pts INR is a 1.2 today. Updates sent to [facility]. Pt is not ready for a palliative talk at this point according to Dr. Kathleen. CM to follow. Plan: [facility]; PT, RN Date Signed: 05/15/2018 11:40 AM Electronically Signed By:ROBINSON Vargas [facility] Progress Note CM Note CM Note Notes: 05/16/2018 Case Management Note Met w/pt and to discuss d/c needs. At request changed home care agency from [facility] to [facility]. Notified [facility] via phone, accepted pt. Notified [facility]. Case Management d/c poc: [facility] RN and PT Case Management to follow. Date Signed: 05/16/2018 02:39 PM Electronically Signed By:Bell Sy RN [facility] Progress Note CM Note CM Note Notes: 05/20/2018 Case Management Note Discussed pt during rounds this morning. Discussed with PT. PT recommending home PT. Anticipating d/c tomorrow. Case Management d/c poc: [facility] RN and PT Case Management to follow. 05/16/2018 Case Management Note Met w/pt and to discuss d/c needs. At request changed home care agency from [facility] to [facility]. Notified [facility] via phone, accepted pt. Notified [facility]. Case Management d/c poc: [facility] RN and PT Case Management to follow. Date Signed: 05/20/2018 03:05 PM Electronically Signed By:Bell Sy RN Case Management Discharge Plan Note Case Management Discharge Discharge Order Complete? Answers: Yes Patient to Obtain Answers: via [facility] Transportation Arranged Answers: Family/Friends EMTALA Complete Answers: No Case Management Transport Answers: No Form Complete Faxed Final Orders Answers: Yes Agency/Facility Transfer Answers: Yes Report Printed & Faxed to Receiving Agency Family Notified Answers: No Discharge Comments Notes: CM spoke to CYNDI Spring regarding d/c POC. Pt is being discharged today. DC orders sent. provided CYNDI Spring w/ phone number to give report. Pt and pts is requesting a [facility] hospital bed. Dr. Goss wrote the prescription. sent it to [facility] along w/ supportive documents, per their request. CM available for changes. Plan: [facility]; RN + PT Date Signed: 05/21/2018 11:41 AM Electronically Signed By:ROBINSON Vargas [facility] Progress Note CM Note CM Note Notes: KAREL spoke to chris Peoples/ rd project manager of spiritual care. Pt has agreed to an outpatient palliative. They have chosen [facility]. Referral made to [facility]. [facility] will follow up w/ family at home. Date Signed: 05/21/2018 01:42 PM Electronically Signed By:ROBINSON Vargas Intervention Information Intervention Type:*GAO-Signed Date of Service:05/07/2018 01:59 PM Patient Type:Observation Staff Member:Milly Kaplan Hours: Discipline: Severity: Comment: Intervention Type:*IM-Signed Date of Service:05/16/2018 02:45 PM Patient Type:Inpatient Staff Member:Milly Kaplan Hours: Discipline: Severity: Comment: Intervention Type:*IM-Signed Date of Service:05/21/2018 10:28 AM Patient Type:Inpatient Staff Member:Milly Kaplan Hours: Discipline: Severity: Comment:
[2018-05-21] MEDS: BUDESONIDE/FORMOTEROL 160/4.5 60 PUFFS/MDI IH SCH (09:37)
[2018-05-21] MEDS: LORazepam 0.5 MG TAB PO PRN (11:21)
--- NOTE | 2018-05-21 11:41 | ASMTDCNOTE ---
Case Management Discharge Discharge Order Complete? Answers: Yes Patient to Obtain Answers: via Family Medications Transportation Arranged Answers: Family/Friends EMTALA Complete Answers: No Case Management Transport Answers: No Form Complete Faxed Final Orders Answers: Yes Agency/Facility Transfer Answers: Yes Report Printed & Faxed to Receiving Agency Family Notified Answers: No Discharge Comments Notes: CM spoke to CYNDI Spring regarding d/c POC. Pt is being discharged today. DC orders sent. provided CYNDI Spring w/ phone number to give report. Pt and pts is requesting a [facility] bed. Dr. Goss wrote the prescription. [facility] w/ supportive documents, per their request. CM available for changes. Plan: [facility]; RN + PT Date Signed: 05/21/2018 11:41 AM Electronically Signed By:ROBINSON Vargas
--- NOTE | 2018-05-21 12:10 | PDIAF ---
- Diagnosis Diagnosis: abdominal wall hematoma Code Status: Full Code - Medication Management Discharge Medications: Medications to Continue on Transfer Cyanocobalamin (Vitamin B-12) [Vitamin B-12] 1,000 mcg IM Q30D 12/10/14 [Last Taken 05/17/17] Budesonide/Formoterol 160/4.5 [Symbicort 160-4.5 Mcg Inh (*)] 2 puffs IH BID #1 mdi 11/08/16 [Last Taken 05/06/18 20:00] Tafluprost/Pf [Zioptan 0.0015% Eye Drops] 1 drop EACHEYE HS #60 droperette 11/08 [Last Taken 05/06/18] Timolol 0.5% [TIMOPTIC 0.5% (*)] 1 drops EACHEYE DAILY #1 opht.btl 11/08/16 [ Last Taken 05/06/18] Furosemide [Lasix 20 MG (*)] 20 mg PO Q2D 04/15/17 [Last Taken 05/06/18] Albuterol [Proventil Inhaler HFA (*)] 2 puffs IH Q4 PRN 06/16/17 [Last Taken ] Sodium Cl Nasal [[place] (*)] 1 spray EACHNARE HS 06/16/17 [Last Taken 05/06] Metoprolol Tartrate [Lopressor 50 mg (*)] 50 mg PO BID #60 tab 06/17/17 [Last Taken 05/06/18 20:00] clonazePAM [Klonopin (*)] 0.5 mg PO HS 11/12/17 [Last Taken 05/05/18] Cholecalciferol Vit D3 [Vitamin D3 2000 units tab (OTC)] 4,000 units PO BID [Last Taken 05/06/18 20:00] Fluticasone Nasal [Flonase Nasal [place]] 1 sprays NASAL DAILY PRN 03/21/18 [Last Taken Unknown] Ipratropium 0.03% Nasal [Atrovent 0.03% Nasal (*)] 2 sprays EACH[place]ARE TID PRN [Last Taken Unknown] Metoprolol Tartrate [Lopressor 25 mg (*)] 25 - 50 mg PO DAILY14 PRN 03/21/18 [ Last Taken Unknown] Spironolactone [Aldactone 25 MG (*)] 25 mg PO DAILY@14 05/05/18 [Last Taken 08/14] Levothyroxine [Synthroid 125 mcg (*)] 125 mcg PO DAILY06 05/07/18 [Last Taken ] Acetaminophen [Tylenol ES 500 mg (*)] 1,000 mg PO TID tab 05/21/18 [Last Taken Unknown] Dexamethasone [Decadron 4 MG (*)] 4 mg PO TID #30 tab 05/21/18 [Last Taken Unknown] Lidocaine 4%/Menthol 1% [Icy Hot Lidocaine/Menthol 4%/1% Patch (*)] 1 patch TD DAILY patch 05/21/18 [Last Taken Unknown] Lisinopril 10 mg PO DAILY #30 tablet 05/21/18 [Last Taken Unknown] Ondansetron Odt [Zofran Odt 4 mg (*)] 4 mg PO Q6HRS PRN #30 tab 05/21/18 [Last Taken Unknown] Patch Removal 1 ea TD DAILY21 patch 05/21/18 [Last Taken Unknown] Ranitidine HCl [Zantac] 150 mg PO BID #60 udcup 05/21/18 [Last Taken Unknown] Sennosides/Docusate Sodium [Senokot-S] 1 - 2 tab PO BID tab 05/21/18 [Last Taken Unknown] Sodium Chloride [Salt Tablet] 1,000 mg PO TIDMEAL #90 tab 05/21/18 [Last Taken Unknown] Warfarin Sodium [Coumadin 5MG (*)] 5 mg PO DAILY #30 tab 05/21/18 [Last Taken Unknown] traMADol [Ultram 50 mg (*)] 25 mg PO Q6H PRN #20 tab 05/21/18 [Last Taken Unknown] Discharge Medications: Refer to the Discharge Home Medication list for PRN reason. - Orders Services needed: Home Care, Registered Nurse, Physical Therapy Home Care Face to Face: I certify that this patient was under my care and that I had the required [id number] encounter meeting the encounter requirements on the discharge day. My findings support the fact that the patient is homebound as defined in Home Care Face to Face Continued: CMS Chapter 7 Medicare Benefits Manual 30.1.1 , The condition of the patient is such that there exists a normal inability to leave home and consequently, leaving home would require a considerable and taxing effort. Isolation Type: None Diet Recommendation: no restrictions on diet Additional Instructions: For pain: Tylenol 1,000 mg three times daily, scheduled. Lidoderm patch. PRN Tramadol if the previous 2 medications do not control your pain. For your low sodium level: Continue salt tablets. Follow up with your PCP to recheck a sodium level in 1 week. Follow up with Dr. Sutton regarding further evaluation of the tumor. Home health care and palliative care services are ordered. - Follow Up Care Current Providers and Referrals: Lizzie Gutierrez MD [Medical Doctor] - George Sutton MD [Medical Doctor] - Stacy Arellano MD [Primary Care Provider] - As per Instructions
--- NOTE | 2018-05-21 13:43 | ASMTCMCOM ---
CM Note CM Note Notes: CM spoke to chris Peoples/ systems development manager of spiritual care. Pt has agreed to an outpatient palliative. They have chosen [facility]. Referral made to [facility]. [facility] will follow up w/ family at home. Date Signed: 05/21/2018 01:42 PM Electronically Signed By:ROBINSON Vargas
[2018-05-21] MEDS: SPIRONOLACTONE 25 MG TAB PO SCH (15:14)
[2018-05-21] MEDS ORDERED: WARFARIN SODIUM 5 MG TAB PO SCH (16:00)
--- NOTE | 2018-05-21 16:57 | GDS ---
[f rep st] DISCHARGE SUMMARY DISCHARGE DIAGNOSES: 1. Abdominal wall hematoma. 2. Acute blood loss anemia. 3. Chronic anticoagulation. 4. Hyponatremia secondary to syndrome of inappropriate antidiuretic hormone. 5. 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 6. Metastatic thyroid cancer with pulmonary nodules, spinal lesion, and a mass in the neck. 7. Atrial fibrillation with presence of a pacemaker. 8. History of deep vein thrombosis, requiring thrombectomy. 9. History of cerebrovascular accident. 10. History of gastrointestinal bleed secondary to arteriovenous malformation. 11. History of heart failure, compensated. 12. Hypertension. 13. Hypothyroidism. CONSULTANTS: 1. Dr. Mindy Barry, interventional radiology. 2. Dr. Neri Reid, oncology. PROCEDURES: Epidural spinal injection, May 11, 2018 to T11-T12, performed by Dr. Mindy Barry. HISTORY: For details, please see the history and physical dated May 07, 2018. In brief, the patient is an 83-year-old female with history of metastatic thyroid cancer and chronic anticoagulation for a prior DVT, who presented to the emergency department with abdominal pain. She was found to have abdominal wall hematoma and was admitted to the hospital for further management. HOSPITAL COURSE: Initial workup with a CT abdomen and pelvis revealed a large left abdominal wall hematoma measuring 8 x 12 cm. Surgery was consulted through the emergency department, and there was no indication for operative intervention. Her Lovenox was held due to concern for active bleeding. She did receive a 1 unit transfusion of packed red blood cells. Her hemoglobin has remained stable at 12.6 at the time of discharge. Once it was deemed safe, she was started on a heparin drip. She had no further issues with bleeding. Therefore, she was transitioned to Coumadin, and her INR at discharge was 2.24. She also complained of back pain during the hospitalization, and this was thought to be secondary to an erosive tumor in the thoracic spine area. She underwent epidural spinal injection, which did offer some slight improvement. However, she had persistent pain. Oncology consult was obtained. She was started on dexamethasone, and she will discharge on 4 mg 3 times daily. I recommend she have close followup with Oncology to determine a taper plan. In addition, it is recommended she follow up with her nurse monitoring for consideration of a radioactive iodine scan to determine if her back lesion is related to metastatic disease from her thyroid cancer. Per Oncology consultation, if this is related to thyroid cancer, radiation may be an option. She did undergo a chest CT, which showed stable to mild progression of diffuse pulmonary metastatic disease, but no new destructive osseous lesions were seen. Upon further discussions with her care team, it sounds like she would not want any further invasive procedures like a biopsy, and thus, radiation would likely be deferred without a clear diagnosis. Outpatient palliative care will be arranged for assistance with ongoing symptom management and to continue to address goals of care. With respect to her hyponatremia, she was started on salt tablets and fluid restricted. She should have a followup sodium level in 1 week. It is noted the patient will require a hospital bed at home to achieve positioning which will alleviate pain as a hospital bed can reposition in a way that a regular bed cannot. In addition, home health services are ordered, including PT and RN. The patient is advised she should have close followup with Dr. Gutierrez and Dr. Sutton, as well as primary care. DISPOSITION: Patient is discharged home with home health care in stable condition. FOLLOWUP: 1. Dr. Stacy Arellano, primary care. 2. Dr. [place] Sutton, endocrinology. 3. Dr. Lizzie Gutierrez, oncology. DISCHARGE MEDICATIONS: Please see [facility] completed outpatient medication list. New medications on discharge include: 1. Dexamethasone 4 mg p.o. t.i.d., #30 no refills. Follow up with Oncology for further taper plan. 2. Lidoderm patch. 3. Tylenol 1000 mg p.o. t.i.d. daily. 4. Zofran 4 mg p.o. q.6 hours p.r.n., #30, no refills. 5. Zantac 150 mg p.o. b.i.d., #60, no refills. 6. Senokot 1-2 tabs p.o. b.i.d. p.r.n. 7. Salt tablets 1000 mg p.o. t.i.d., #90, no refills. 8. Tramadol 25 mg p.o. q.6 hours p.r.n., #20, for breakthrough pain. 9. Warfarin 5 mg p.o. daily, #30, no refills. 10. Lisinopril is decreased to 10 mg p.o. daily, #30, no refills. Follow up with primary care to recheck blood pressure and up titrate as indicated. Discontinued medications: Percocet, Lovenox. Lisinopril 20 mg p.o. b.i.d. is decreased to 10 mg daily. /[id number]/MODL MTDD
[2018-05-27] MEDS ORDERED: CYANO/VITAMIN B12 1000 MCG/ML VIAL IM SCH (08:15)
== END 2018-05-21 15:59 | disposition home health service (06) | DRG 605 ==
LOC: F1N 06:29 → F2W 18:53 → OBSVTOIN 05-08 13:09
PROVIDERS: ADMIT Family Medicine; ATTEND Family Medicine
PROC: 30233N1 Transfusion of Nonautologous Red Blood Cells into Peripheral Vein, Percutaneous Approach (ICD-10-PCS; 2018-05-09)
PROC: 3E0S33Z Introduction of Anti-inflammatory into Epidural Space, Percutaneous Approach (ICD-10-PCS; principal; 2018-05-11)
DX: S30.1XXA Contusion of abdominal wall, initial encounter (principal); T45.515A Adverse effect of anticoagulants, initial encounter; I48.0 Paroxysmal atrial fibrillation; Z79.01 Long term (current) use of anticoagulants; D62 Acute posthemorrhagic anemia; E22.2 Syndrome of inappropriate secretion of antidiuretic hormone; C79.51 Secondary malignant neoplasm of bone; C78.00 Secondary malignant neoplasm of unspecified lung; C79.89 Secondary malignant neoplasm of other specified sites; G47.00 Insomnia, unspecified; I95.9 Hypotension, unspecified; F41.9 Anxiety disorder, unspecified; I10 Essential (primary) hypertension; H40.9 Unspecified glaucoma; J44.9 Chronic obstructive pulmonary disease, unspecified; Z85.3 Personal history of malignant neoplasm of breast; Z85.850 Personal history of malignant neoplasm of thyroid; Z92.3 Personal history of irradiation; E03.9 Hypothyroidism, unspecified; Z86.73 Personal history of transient ischemic attack (TIA), and cerebral infarction without residual deficits; Z86.718 Personal history of other venous thrombosis and embolism; Z95.0 Presence of cardiac pacemaker; Z87.891 Personal history of nicotine dependence; Z87.01 Personal history of pneumonia (recurrent)
CPT/HCPCS: 85520-90; 96374; 97116-GP; 97161-GP; 97530-GP; G0378; G8978-GP-CI; G8979-GP-CI; G8980-GP-CI; J1100; J1170; J1644; J2310; J2405; J2550; J3010; J3301; P9016; Q9967

== ENCOUNTER 2018-07-04 16:12 | Emergency (ER) | payer OTHER, MEDICARE ==
[2018-07-04 16:34] VITALS: BP 176/104
--- NOTE | 2018-07-04 16:47 | EDPHY ---
H & P Time Seen by Provider: 07/04/18 16:17 Smoking Status: Former smoker Constitutional: Initial Vital Signs Temperature (C) 37 C 07/04/18 16:33 Heart Rate 85 07/04/18 16:33 Respiratory Rate 18 07/04/18 16:33 Blood Pressure 176/104 H 07/04/18 16:33 O2 Sat (%) 94 09 16:33 O2 Delivery Mode Room Air Allergies/Adverse Reactions: amlodipine [Amlodipine] Allergy (Intermediate, Verified 06/02/18 16:28) Other-Enter Comments epinephrine [Epinephrine] Allergy (Intermediate, Verified 06/02/18 16:28) HEART RACES piperacillin sodium [From Zosyn] Allergy (Intermediate, Verified 06/02/18 16:28) Hives tazobactam sodium [From Zosyn] Allergy (Intermediate, Verified 06/02/18 16:28) Hives moxifloxacin HCl [From Avelox] Allergy (Mild, Verified 06/02/18 16:28) clarithromycin Allergy (Unknown, Verified 06/02/18 16:28) niacin Allergy (Unknown, Verified 06/02/18 16:28) Rash famotidine Allergy (Verified 06/02/18 16:28) morphine Allergy (Verified 06/02/18 16:28) hallucinates omeprazole Allergy (Verified 06/02/18 16:28) vancomycin Allergy (Verified 06/02/18 16:28) ENVIRONMENTAL Allergy (Intermediate, Uncoded 06/02/18 16:28) EYES BURN AND SWELL/NASAL CONGESTION ADHESIVES Allergy (Mild, Uncoded 06/02/18 16:28) Rash moxifloxacin HCl Allergy (Unknown, Uncoded 06/02/18 16:28) piperacillin sodium Allergy (Unknown, Uncoded 06/02/18 16:28) Hives tazobactam sodium Allergy (Unknown, Uncoded 06/02/18 16:28) Hives Home Medications: Medication Instructions Recorded Cyanocobalamin (Vitamin B-12) 1,000 mcg IM Q30D 12/10/14 [Vitamin B-12] Budesonide/Formoterol 160/4.5 2 puffs IH BID #1 mdi 11/08/16 [Symbicort 160-4.5 Mcg Inh (*)] Tafluprost/Pf [Zioptan 0.0015% Eye 1 drop EACHEYE HS #60 droperette 11/08/16 Drops] Timolol 0.5% [TIMOPTIC 0.5% (*)] 1 drops EACHEYE DAILY #1 opht.btl 11/08/16 Furosemide [Lasix 20 MG (*)] 20 mg PO Q2D 04/15/17 Albuterol [Proventil Inhaler HFA 2 puffs IH Q4 PRN 06/16/17 (*)] Sodium Cl Nasal [[place] (*)] 1 spray EACHNARE HS 06/16/17 Metoprolol Tartrate [Lopressor 50 50 mg PO BID #60 tab 06/17/17 mg (*)] clonazePAM [Klonopin (*)] 0.5 mg PO HS 11/12/17 Cholecalciferol Vit D3 [Vitamin D3 4,000 units PO BID 03/21/18 2000 units tab (OTC)] Fluticasone Nasal [Flonase Nasal 1 sprays NASAL DAILY PRN 03/21/18 [place]] Ipratropium 0.03% Nasal [Atrovent 2 sprays EACH[place]ARE TID PRN 03/21/18 0.03% Nasal (*)] Metoprolol Tartrate [Lopressor 25 25 - 50 mg PO DAILY14 PRN 03/21/18 mg (*)] Spironolactone [Aldactone 25 MG 25 mg PO DAILY@14 05/05/18 (*)] Levothyroxine [Synthroid 125 mcg 125 mcg PO DAILY06 05/07/18 (*)] Acetaminophen [Tylenol ES 500 mg 1,000 mg PO TID tab 05/21/18 (*)] Dexamethasone [Decadron 4 MG (*)] 4 mg PO TID #30 tab 05/21/18 Lidocaine 4%/Menthol 1% [Icy Hot 1 patch TD DAILY patch 05/21/18 Lidocaine/Menthol 4%/1% Patch (*)] Lisinopril 10 mg PO DAILY #30 tablet 05/21/18 Ondansetron Odt [Zofran Odt 4 mg 4 mg PO Q6HRS PRN #30 tab 05/21/18 (*)] Patch Removal 1 ea TD DAILY21 patch 05/21/18 Ranitidine HCl [Zantac] 150 mg PO BID #60 udcup 05/21/18 Sennosides/Docusate Sodium 1 - 2 tab PO BID tab 05/21/18 [Senokot-S] Sodium Chloride [Salt Tablet] 1,000 mg PO TIDMEAL #90 tab 05/21/18 Warfarin Sodium [Coumadin 5MG (*)] 5 mg PO DAILY #30 tab 05/21/18 traMADol [Ultram 50 mg (*)] 25 mg PO Q6H PRN #20 tab 05/21/18 Medical Decision Making ED Course/Re-evaluation: Patient presented to the emergency department for complaints of constipation. Prior to my evaluation patient went to the restroom and was able to have a successful bowel movement. No longer requesting medical evaluation. Departure - Departure Clinical Impression: Constipation Qualifiers: Constipation type: unspecified constipation type Qualified Code(s): K59.00 - Constipation, unspecified Condition: Good Instructions: Constipation (ED) Referrals: Stacy Arellano MD [Primary Care Provider] - As per Instructions
== END 2018-07-04 16:55 | disposition left against medical advice (07) ==
LOC: CED 16:12
DX: K59.00 Constipation, unspecified (principal); Z87.891 Personal history of nicotine dependence

== ENCOUNTER → 2018-07-31 | Outpatient (CLI) | payer OTHER, MEDICARE | LOC: CIMAGING 13:59 | PROVIDERS: ATTEND Internal Medicine | DX: R07.89 Other chest pain (principal); M89.8X8 Other specified disorders of bone, other site | CPT/HCPCS: 71120-PO ==

== ENCOUNTER 2018-08-15 01:28 | Inpatient (IN) | payer OTHER, MEDICARE ==
[2018-08-15] MEDS ORDERED: NS 1,000 ML IV ONE (01:44)
--- NOTE | 2018-08-15 01:44 | EDPHY ---
H & P Stated Complaint: nausea, abdominal pain Time Seen by Provider: 08/15/18 01:44 HPI/ROS: HPI CHIEF COMPLAINT: Nausea and back pain. HISTORY OF PRESENT ILLNESS: Very pleasant 83-year-old female with multitude chronic medical problems including AFib on Coumadin, history of hypertension, CVA, GERD, UTI, breast cancer, presents emergency room stating that she has chronic back pain. She has been taking oxycodone without much relief. Pain got worse this evening and she felt nauseous so she decided come the emergency room the pain is located right low back right CVA region. States she suffers chronically from this. She denies any chest pain shortness of breath, denies fever. She additionally reports that she is being currently treated for urinary tract infection with ciprofloxacin. She distally reports to me that she thinks the recent addition of the antibiotic ciprofloxacin and oxycodone have been upsetting her stomach. Patient requesting IV pain control here in the emergency room. Past Medical History: Multiple chronic medical problems including AFib, CVA, hypertension, GERD, breast cancer, UTI. Past Surgical History: No recent surgical history Social History: Denies drugs alcohol tobacco. Family History: Noncontributory ROS REVIEW OF SYSTEMS: 10 Systems were reviewed and negative with the exception of the elements mentioned in the history of present illness. Exam Constitutional elderly, frail, nontoxic triage nursing summary reviewed, vital signs reviewed, awake/alert. Eyes normal conjunctivae and sclera, EOMI, PERRLA. HENT normal inspection, atraumatic, moist mucus membranes, no epistaxis, neck supple/ no meningismus, no raccoon eyes. Respiratory clear to auscultation bilaterally, normal breath sounds, no respiratory distress, no wheezing. Cardiovascular rate normal, regular rhythm, no murmur, no edema, distal pulses normal. Gastrointestinal abdominal wall hematoma left side of the abdomen, soft, non- tender, no rebound, no guarding, normal bowel sounds, no distension, no pulsatile mass. Genitourinary no significant CVA tenderness on exam. Lidocaine patch over the right CVA region. Musculoskeletal no midline vertebral tenderness, full range of motion, no calf swelling, no tenderness of extremities, no meningismus, good pulses, neurovascularly intact. Skin pink, warm, & dry, no rash, skin atraumatic. Neurologic awake, alert and oriented x 3, AAOx3, moves all 4 extremities equally, motor intact, sensory intact, CN II-XII intact, normal cerebellar, normal vision, normal speech. Psychiatric normal mood/affect. Heme/Lymph/Immune no lymphadenopathy. Differential Diagnosis: Includes but is not limited to in a particular order acute on chronic pain, nausea vomiting, UTI, dehydration, electrolyte disturbance, infection Medical Decision Making: Plan for this patient IV establishment with IV fluid bolus, Dilaudid for pain control 0.5 Zofran for nausea, basic electrolytes and blood urinalysis. Re-evaluation: 040: Patient's blood work, urinalysis reviewed she does have nitrite positive. She does states she just completed a course of ciprofloxacin for urinary tract infection. I have sent a urine culture. Additionally I have given her 1 g of Rocephin IV. Additionally she had a CT scan for ongoing back pain right-sided flank pain and nausea. This actually shows a partial small-bowel obstruction. She is not vomiting here. She does report some she had a bowel movement yesterday. Unclear if this is an ileus versus partial small-bowel obstruction. Plan for this patient will be admission to the hospital for observation IV fluids, IV Rocephin nausea pain control. Will re-examine. I will observe her overnight. Source: Patient - Personal History Tetanus Vaccine Date: 2006 - Medical/Surgical History Hx Asthma: No Hx Chronic Respiratory Disease: Yes Hx Diabetes: No Hx Cardiac Disease: Yes Hx Renal Disease: No Hx Cirrhosis: No Hx Alcoholism: No Hx HIV/AIDS: No Hx Splenectomy or Spleen Trauma: No Other PMH: Pacemaker, AFIB, HTN, DVT, STROKE, hypothyroidism/thyroid CA with mets, GERD with esophagitis, odynophagia, DVT hx, COPD mixed type, chronically anticoagulated, breast CA 2009, carpal tunnel, hysterectomy, viral pneumonia, bowel obstruction, ovarian cyst, cataract R eye, rotator cuff repair L./ l arm dvt - Social History Smoking Status: Former smoker Constitutional: Initial Vital Signs Temperature (C) 36.7 C 08/15/18 01:33 Heart Rate 76 08/15/18 01:33 Respiratory Rate 18 08/15/18 01:33 Blood Pressure 149/87 H 08/15/18 01:33 O2 Sat (%) 88 L 08/15/18 01:33 O2 Delivery Mode Nasal Cannula O2 (L/minute) 1 Allergies/Adverse Reactions: amlodipine [Amlodipine] Allergy (Intermediate, Verified 08/15/18 01:32) Other-Enter Comments epinephrine [Epinephrine] Allergy (Intermediate, Verified 08/15/18 01:32) HEART RACES piperacillin sodium [From Zosyn] Allergy (Intermediate, Verified 08/15/18 01:32) Hives tazobactam sodium [From Zosyn] Allergy (Intermediate, Verified 08/15/18 01:32) Hives moxifloxacin HCl [From Avelox] Allergy (Mild, Verified 08/15/18 01:32) clarithromycin Allergy (Unknown, Verified 08/15/18 01:32) niacin Allergy (Unknown, Verified 08/15/18 01:32) Rash famotidine Allergy (Verified 08/15/18 01:32) morphine Allergy (Verified 08/15/18 01:32) hallucinates omeprazole Allergy (Verified 08/15/18 01:32) vancomycin Allergy (Verified 08/15/18 01:32) ENVIRONMENTAL Allergy (Intermediate, Uncoded 06/02/18 16:28) EYES BURN AND SWELL/NASAL CONGESTION ADHESIVES Allergy (Mild, Uncoded 06/02/18 16:28) Rash moxifloxacin HCl Allergy (Unknown, Uncoded 06/02/18 16:28) piperacillin sodium Allergy (Unknown, Uncoded 06/02/18 16:28) Hives tazobactam sodium Allergy (Unknown, Uncoded 06/02/18 16:28) Hives Home Medications: Medication Instructions Recorded Cyanocobalamin (Vitamin B-12) 1,000 mcg IM Q30D 12/10/14 [Vitamin B-12] Budesonide/Formoterol 160/4.5 2 puffs IH BID #1 mdi 11/08/16 [Symbicort 160-4.5 Mcg Inh (*)] Timolol 0.5% [TIMOPTIC 0.5% (*)] 1 drops EACHEYE DAILY #1 opht.btl 11/08/16 Furosemide [Lasix 20 MG (*)] 20 mg PO BID 04/15/17 Albuterol [Proventil Inhaler HFA 2 puffs IH Q4-6PRN PRN 06/16/17 (*)] Metoprolol Tartrate [Lopressor 50 50 mg PO BID #60 tab 06/17/17 mg (*)] Cholecalciferol Vit D3 [Vitamin D3 4,000 units PO DAILY 03/21/18 2000 units tab (OTC)] Fluticasone Nasal [Flonase Nasal 1 sprays NASAL DAILY PRN 03/21/18 [place]] Ipratropium 0.03% Nasal [Atrovent 2 sprays EACHNARE TID PRN 03/21/18 0.03% Nasal (*)] Metoprolol Tartrate [Lopressor 25 25 - 50 mg PO DAILY14 PRN 03/21/18 mg (*)] Levothyroxine [Synthroid 125 mcg 125 mcg PO DAILY06 05/07/18 (*)] Acetaminophen [Tylenol ES 500 mg 1,000 mg PO TID tab 05/21/18 (*)] Lidocaine 4%/Menthol 1% [Icy Hot 1 patch TD DAILY patch 05/21/18 Lidocaine/Menthol 4%/1% Patch (*)] Sennosides/Docusate Sodium 1 - 2 tab PO BID tab 05/21/18 [Senokot-S] Acetaminophen [Tylenol ES 500 mg 1,000 mg PO Q6HRS PRN 08/15/18 (*)] Carboxymethylcellulose Sodium 1 - 2 drops OP Q2 PRN 08/15/18 [Refresh Tears] LORazepam [Ativan (*)] 0.5 mg PO BID PRN 08/15/18 Ondansetron Odt [Zofran Odt 4 mg 4 mg PO BID 08/15/18 (*)] Perforomist 20mcg/2ml Neb 2 ml IH BID 08/15/18 Phenazopyridine HCl [Pyridium] 200 mg PO HS PRN 08/15/18 Tafluprost/Pf [Zioptan 0.0015% Eye 1 each EACHEYE DAILY 08/15/18 Drops] Warfarin Sodium [Coumadin 2.5MG 1.25 mg PO MOTH 08/15/18 (*)] Warfarin Sodium [Coumadin 2.5MG 2.5 mg PO SUTUWEFRSA 08/15/18 (*)] oxyCODONE/APAP 5/325 [Percocet 1 tab PO Q6HRS PRN 08/15/18 5/325 (*)] Medical Decision Making - Data Points Laboratory Results: Laboratory Results 08/15/18 01:55 08/15/18 01:55 Microbiology Results: MICROBIOLOGY 08/15/18 03:10 Urine,Clean Catch Urine Culture - Final Three [place] Types Medications Given: Acetaminophen (Tylenol) 1,000 mg PO TID [facility] Stop: 02/11/19 15:59 Last Admin: 08/17/18 09:37 Dose: 1,000 mg Albuterol/Ipratropium (Duoneb) 3 ml IH Q6HRS PRN PRN Reason: Short of Breath/Dyspnea Stop: 02/11/19 08:20 Last Admin: 08/15/18 09:32 Dose: 3 ml Bisacodyl (Dulcolax Rectal) 10 mg MT DAILY PRN PRN Reason: Constipation Stop: 02/12/19 12:20 Last Admin: 08/16/18 13:06 Dose: 10 mg Budesonide/Formoterol Fumarate (Symbicort 160-4.5 Mcg Inhaler) 2 puffs IH BID [facility]IS[facility] Stop: 02/11/19 20:59 Last Admin: 08/17/18 08:51 Dose: 2 puffs Cholecalciferol (Vitamin D) 4,000 units PO DAILY [facility]IS[facility] Stop: 02/12/19 08:59 Last Admin: 08/17/18 09:36 Dose: 4,000 units Hydromorphone HCl (Dilaudid) 0.25 - 0.5 mg IVP Q2HRS PRN PRN Reason: Pain, Severe Unable to Take PO Stop: 08/25/18 06:00 Last Admin: 08/16/18 23:22 Dose: 0.5 mg Potassium Chloride/Sodium Chloride (Ns W/ 20 Kcl/L) 1,000 mls @ 75 mls/hr IV CONT FRANCISCA Stop: 02/13/19 06:14 Last Admin: 08/17/18 06:13 Dose: 1,000 mls Levothyroxine Sodium (Synthroid) 125 mcg PO DAILY06 [facility] Stop: 02/12/19 05:59 Last Admin: 08/17/18 05:41 Dose: 125 mcg Lorazepam (Ativan Injection) 0.25 - 0.5 mg IVP Q8HRS PRN PRN Reason: Anxiety, Unable to Take PO Stop: 02/11/19 08:20 Last Admin: 08/16/18 07:29 Dose: 0.5 mg Lorazepam (Ativan) 0.5 mg PO BID PRN PRN Reason: Anxiety Stop: 02/11/19 15:49 Last Admin: 08/17/18 07:12 Dose: 0.5 mg Metoprolol Tartrate (Lopressor) 50 mg PO BID [facility] Stop: 02/11/19 20:59 Last Admin: 08/17/18 09:36 Dose: 50 mg Miscellaneous Medication (Icy Hot Lidocaine/Menthol 4%/1% Patch) 1 patch TD DAILY [facility] Stop: 02/12/19 08:59 Last Admin: 08/17/18 09:34 Dose: 1 patch Miscellaneous Medication (Perforomist 20mcg/2ml Neb) 2 ml IH BID [facility] Stop: 02/11/19 20:59 Last Admin: 08/17/18 07:05 Dose: Not Given Ondansetron HCl (Zofran) 4 mg IVP Q4HRS PRN PRN Reason: Nausea/Vomiting, Can't Take PO Stop: 02/11/19 04:24 Last Admin: 08/15/18 10:54 Dose: 4 mg Ondansetron HCl (Zofran Odt) 4 mg PO Q4HRS PRN PRN Reason: Nausea/Vomiting, Use 1st Stop: 02/11/19 04:24 Last Admin: 08/17/18 13:14 Dose: 4 mg Senna/Docusate Sodium (Senokot-S) 1 - 2 tab PO BID [facility] Stop: 02/11/19 20:59 Last Admin: 08/17/18 07:05 Dose: Not Given Throat Lozenges (Cepacol Lozenge) 1 ea PO PRN PRN PRN Reason: Sore Throat Stop: 02/12/19 11:41 Last Admin: 08/16/18 17:52 Dose: 1 ea Timolol Maleate (Timoptic 0.5%) 1 drops EACHEYE DAILY [facility] Stop: 02/12/19 08:59 Last Admin: 08/17/18 11:49 Dose: 1 drops Warfarin Sodium (Coumadin) 2.5 mg PO SUTUWEFRSA [facility] Stop: 02/11/19 15:59 Last Admin: 08/16/18 16:28 Dose: 2.5 mg Discontinued Medications Fluconazole (Diflucan) 150 mg PO ONCE ONE Stop: 08/17/18 12:10 Last Admin: 08/17/18 12:44 Dose: 150 mg Hydromorphone HCl (Dilaudid) 0.5 mg IVP EDNOW ONE Stop: 08/15/18 01:50 Last Admin: 08/15/18 02:04 Dose: 0.5 mg Hydromorphone HCl (Dilaudid) 0.5 mg IVP EDNOW ONE Stop: 08/15/18 03:33 Last Admin: 08/15/18 03:37 Dose: 0.5 mg Sodium Chloride (Ns) 1,000 mls @ 0 mls/hr IV EDNOW ONE; Wide Open PRN Reason: Protocol Stop: 08/15/18 01:45 Last Admin: 08/15/18 02:04 Dose: 1,000 mls Ceftriaxone Sodium/Dextrose (Rocephin 1 Gm (Premix)) 50 mls @ 100 mls/hr IV EDNOW ONE PRN Reason: Protocol Stop: 08/15/18 04:02 Last Admin: 08/15/18 03:39 Dose: 50 mls Sodium Chloride (Ns) 1,000 mls @ 50 mls/hr IV CONT FRANCISCA Stop: 02/11/19 04:29 Last Admin: 08/17/18 05:03 Dose: 1,000 mls Potassium Chloride (Potassium Cl 10 Meq (Premix)) 100 mls @ 100 mls/hr IV Q1H [facility] Stop: 08/17/18 08:59 Last Admin: 08/17/18 09:32 Dose: 100 mls Influenza Virus Vaccine Quadrival (Flulaval Quad [id number] (6mo+)) 0.5 ml IM .ONCE ONE Stop: 08/16/18 12:01 Last Admin: 08/16/18 12:13 Dose: 0.5 ml Lorazepam (Ativan) 0.5 mg PO ONCE ONE Stop: 08/16/18 20:31 Last Admin: 08/16/18 20:45 Dose: 0.5 mg Miscellaneous Medication (Tafluprost/Pf [Zioptan 0.0015% Eye Drops]) 1 each EACHEYE DAILY [facility] Stop: 02/12/19 08:59 Last Admin: 08/16/18 12:17 Dose: Not Given Ondansetron HCl (Zofran) 4 mg IVP EDNOW ONE Stop: 08/15/18 01:50 Last Admin: 08/15/18 02:04 Dose: 4 mg Departure - Departure Disposition: [facility] In[facility] Acute Clinical Impression: Flank pain UTI (urinary tract infection) Qualifiers: Urinary tract infection type: acute cystitis Hematuria presence: with hematuria Qualified Code(s): N30.01 - Acute cystitis with hematuria Condition: Fair
[2018-08-15] MEDS ORDERED: HYDROmorphONE/DILAUDID 2 MG/ML INJ IVP ONE ×2 (01:49→03:32)
[2018-08-15] MEDS ORDERED: ONDANSETRON 4 MG/2 ML VIAL IVP ONE (01:49)
[2018-08-15 02:08] LABS: PLATELET COUNT 310 10^3/uL (150-400)
[2018-08-15 02:16] LABS: INR 2.19 (0.83-1.16); PROTIME(PATIENT) 24.4 SEC (12.0-15.0)
[2018-08-15] MEDS ORDERED: HYDROmorphONE/DILAUDID 1 MG/ML INJ ONE (03:34)
[2018-08-15] MEDS ORDERED: ACETAMINOPHEN 650 MG SUPP PR PRN (04:25)
[2018-08-15] MEDS ORDERED: ACETAMINOPHEN 325 MG TAB PO PRN (04:25)
[2018-08-15] MEDS: NS 1,000 ML IV SCH (05:33)
[2018-08-15] MEDS: ONDANSETRON 4 MG/2 ML VIAL IVP PRN ×2 (05:39→10:54)
[2018-08-15] MEDS: HYDROmorphONE/DILAUDID 1 MG/ML INJ IVP PRN (06:52)
[2018-08-15] MEDS ORDERED: LORazepam 2 MG/ML INJ IVP PRN (08:21)
[2018-08-15] MEDS ORDERED: IPRATROPIUM/ALBUTEROL 3 ML DEYVIAL IH PRN (08:21)
--- NOTE | 2018-08-15 08:42 | ASMTLACE ---
[facility]AB[facility] Comorbidities - select Answers: Cerebrovascular disease all that apply (CVA, TIA, aneurysms, vasc ular dementia) Chronic pulmonary disease Opioid dependence / Chronic pain Other Notes: AFib; HTN; GERD # of Emergency department Answers: 12+ visits in the last 6 months Score: 14 Date Signed: 08/15/2018 08:41 AM Electronically Signed By:Milly Kaplan
[2018-08-15 09:26] LABS: INR 2.39 (0.83-1.16); PROTIME(PATIENT) 26.1 SEC (12.0-15.0)
--- NOTE | 2018-08-15 10:17 | GHP ---
DATE OF ADMISSION: 08/15/2018 SOURCE: Patient provides history, appears reliable. EMR was reviewed and case discussed with ED pro vider. CHIEF COMPLAINT: Abdominal pain, flank pain, and nausea. HISTORY OF PRESENT ILLNESS: This is a very pleasant 83-year-old lady with a past medical history com plicated with history of paroxysmal atrial fibrillation on Coumadin, remote history of a right MCA st roke in 2016 with minimal residual, history of GI bleed due to an AVM, DVT, history of breast cancer status post lumpectomy and radiation, metastatic thyroid cancer with metastases to the lung, spine an d neck, chronic back pain related to metastatic disease and listed erosive lesion after epidural, rec urrent UTIs, currently on her ciprofloxacin, as well as history of SIADH, who presents to the emergen cy department today with a 2-day history of increasing nausea and abdominal pain and flank pain. The patient reports that this began with intermittent cramping back pain that eventually radiated into h er right lower abdomen. She has had some nausea and intractable vomiting. She reports she has had b iliary emesis but no hematemesis. Her last BM was yesterday, but she reports she had 2 good bowel mo vements that were soft. She does have a history of constipation related to her chronic opiate use. She also has a remote history of a bowel obstruction. The patient was most recently hospitalized 09/2018 until 05/21/2018, due to complications of an abdominal wall hematoma while on anticoagulation . Since her discharge, patient reports that she has had improvement in her constipation. She has aguilar d increasing pain, however, related to her cancer and metastatic disease. She even notes that she aguilar s had a discussion with some of her providers regarding cessation of any additional palliative treatm ent and she desires to focus on palliative measures. REVIEW OF SYSTEMS: GENERAL: Negative for fevers, chills. : No current dysuria or hematuria. HE ME: Patient reports that her INR has been elevated recently due to being placed on ciprofloxacin. S he states her INR was most recently greater than 4. She denies any complaints of bleeding or increas ed bruising. Remainder of review of systems is negative except as noted above. Ten systems reviewed. ALLERGIES: Multiple, as per EMR: Amlodipine, epinephrine, Zosyn, moxifloxacin, erythromycin, niacin , famotidine, morphine, omeprazole, vancomycin, adhesives. HOME MEDICATIONS: For specific dosing and see EMR: Tramadol, clonazepam, Coumadin, Timop tic, Zioptan, spironolactone, salt tab, [place] spray, Senokot, Zantac, Lidoderm, Zofran, metoprolol, l isinopril, levothyroxine, Atrovent, Lasix, Flonase, previously on Decadron at discharge, vitamin D3, Symbicort, albuterol, Tylenol p.r.n. PAST MEDICAL HISTORY: Extensive including paroxysmal atrial fibrillation on Coumadin; history of rig ht MCA stroke in 2005 with minimal residual affects; GI bleed with history of AVM; DVT in right lower extremity status post thrombectomy; right inguinal hernia repair; breast cancer status post lumpecto my and radiation; thyroid cancer with metastatic disease to the lungs, spine, neck; glaucoma; CHF; ov ifrah cyst; bowel obstruction; restless legs syndrome; gastritis; chronic back pain on chronic opiate therapy; hypothyroidism; benign essential hypertension; hyperlipidemia; pulmonary hypertension; COPD ; history of transfusion with recent hospital stay in April for abdominal wall hematoma; SIADH with as sociated hyponatremia; chronic back pain with erosive lesions due to epidural and metastatic disease; recurrent UTIs. PAST SURGICAL HISTORY: Significant for hysterectomy, carpal tunnel release, rotator cuff surgery, an EGD ablation, cataract surgery, bilateral lens placement, lumpectomy, pacer placement. FAMILY HISTORY: Sister with cancer, [place], and coronary artery disease. SOCIAL HISTORY: Patient is , lives with her . She does not smoke, drink, or utilize a ny drugs. She did smoke cigarettes remotely in the 70s. CODE STATUS: DNR/DNI. Patient reports that she recently completed advanced directives with her PCP. PHYSICAL EXAM: VITALS: On arrival to the ED, blood pressure 147/87, heart rate 76, respiratory rate 18, O2 sat 88% on room air, temperature 36.7. Current vitals, blood pressure 119/56, heart rate 72, respiratory rate 16, O2 saturation 95% on 3 L with a temperature 36.3. GENERAL: No acute distress. Cachectic, frail, elderly-appearing female who is sitting up in bed. She appears fatigued and unco mfortable but in no acute distress. HEAD: Normocephalic, atraumatic. EYES: Extraocular muscles ar e grossly intact. Pupils equal, round, react to light bilaterally and symmetric. Lens reflex apprec iated bilaterally. No scleral icterus or conjunctival injection. ENT: Mucous membranes appear dry. Dentition intact. No nasal discharge. Nasal cannula in place. NECK: Supple. Trachea midline. CV: Regular rate and rhythm. Slightly distant heart sounds. No murmurs, rubs, or gallops appreciat ed. RESPIRATORY: Diffusely, the patient has inspiratory and expiratory wheezing. No respiratory di stress. No crackles or rhonchi appreciated bilaterally. ABDOMEN: Slightly hypoactive bowel sounds. Patient's abdomen is slightly distended. Minimal tenderness to palpation in the lower abdomen. No suprapubic tenderness to palpation. : No March catheter in place. EXTREMITIES: Generalized dec onditioning weakness but moves all extremities and sits up independently. NEURO: Grossly nonfocal. No facial drooping. Moves all extremities as noted above. PSYCH: Patient awake, alert, and orient ed x3. She is a little bit anxious but pleasant and cooperative. LABORATORY DATA: WBC 13.81, H and H 14.1 and 41.9, platelet count 310, and neutrophil percent 83.2, no bands. PT is 24.4, INR is 2.19, PTT is 35.4. Lactate is 2.0. Sodium 137, potassium 3.5, chlorid e 94, CO2 34, anion gap 9, BUN 20, creatinine 0.6, GFR greater than 60, glucose 125, calcium is 9.3, total bilirubin is 1.4, ALT 25, AST 24, alkaline phosphatase 81, total protein 6.7, albumin 3.7, lipa se 46. UA specific gravity 1.008, pH 7.0, positive nitrites, 1-3 WBCs, otherwise negative. Urine cu lture pending. IMAGING: CT abdomen and pelvis: Partial small bowel obstruction in jejunum, pulmonary nodules due t o metastatic disease. Stable lesion in the right neural foramen T11-12. No hydro or stone. Final r eport is pending. ASSESSMENT AND PLAN: A pleasant 83-year-old female with multiple chronic medical issues as noted in history of present illness, who presents to the emergency department with complaints of right flank p ain, right abdominal pain, intractable nausea and vomiting. 1. Partial small-bowel obstruction. The patient has not had any flatus or a bowl movement in a day. We will keep her n.p.o. at this time managed conservatively balancing pain in the setting of obstru ction. At this point, she does not require nasogastric tube placement. We will continue Zofran p.r. n. additional evaluation by surgery as per day team. 2. Urinary tract infection. Patient with recent treatment on ciprofloxacin. Urinalysis is pending. Nitrites are positive but low white blood cells. The patient received a dose of Rocephin in the em ergency department. Continue pending results of the culture. 3. Intractable nausea and vomiting. Antiemetics as noted above. 4. Supratherapeutic INR. Patient reports that there has been measured outpatient greater than 4 sec ondary to her receiving ciprofloxacin. Repeat INR has been ordered and pending. 5. Acute abdominal pain. The patient is currently n.p.o., chronically on Oxy at home, p.r.n. low-do se Dilaudid and Ativan p.r.n. 6. Leukocytosis. WBC is 13.8. It is likely reactive in setting of small bowel obstruction, nausea, vomiting, dehydration. Continue with intravenous fluids. Do not feel it is elevated secondary to a urinary tract infection. She has been on antibiotic therapy. Will continue with Rocephin for cover age pending culture. 7. Chronic medical issues: a. Chronic back pain. Continue Lidoderm patch and pain management as noted above while n.p.o. b. Paroxysmal atrial fibrillation. Can check INR and continue Coumadin as appropriate. Resume jaclyn ent's metoprolol when her diet is advanced. May require p.r.n.'s. Will monitor on telemetry. c. Metastatic thyroid cancer. Patient no longer pursuing palliative therapy and focusing on comfort measures. Her code status is now do not resuscitate/do not intubate. d. Congestive heart failure, not otherwise specified. The patient does appear dry at this time. Wi ll continue with intravenous fluids to supplement while she continues to have nausea and vomiting. W e will monitor her fluid status closely. e. Severe protein-calorie malnutrition. Patient with significantly low body mass index. She has aguilar d continued weight loss by her report. Her body mass index is currently 15.9. Dietary consultation will be requested. f. Hypothyroidism. Resume levothyroxine supplementation when diet advanced. g. Glaucoma. Resume home medications. h. Anxiety. Continue with Ativan p.r.n. intravenous while n.p.o. i. History of syndrome of inappropriate antidiuretic hormone and hyponatremia. Will monitor closely . Currently, sodium is normal. 8. Fluid, electrolyte, nutrition. Intravenous fluids as noted above electrolyte monitoring and repl acement if needed. Diet n.p.o. 9. Prophylaxis. Sequential compression devices as patient requested even though her INR was reporte d to be significantly elevated. Will monitor PT/INR. Continue Coumadin. 10. Code status: Do not resuscitate/do not intubate. Patient has completed advanced directives with her primary care physician. 11. Disposition. Patient admitted to observation status at this time pending fluid resuscitation, p ain management, antiemetics, and reassessment. /[id number]/MODL
--- NOTE | 2018-08-15 12:11 | ASMTCMCOM ---
CM Note CM Note Notes: Pts case discussed w/ CYNDI Hewitt. Pt is a 83 y/o female admitted for nausea/vomiting. Pt has a long medical history (please see H&P). No therapies ordered at this time. Needs are TBD at this time. CM available for changes. Plan: TBD Date Signed: 08/15/2018 12:11 PM Electronically Signed By:ROBINSON Vargas
[2018-08-15] MEDS ORDERED: IPRATROPIUM 0.03% NASAL SPRAY EACHNARE PRN (15:29)
[2018-08-15] MEDS ORDERED: CARBOXYMETHYLCELLULOSE SODIUM OP PRN (15:29)
[2018-08-15] MEDS ORDERED: ALBUTEROL 60 PUFFS/8 GM MDI IH PRN (15:29)
[2018-08-15] MEDS ORDERED: FLUTICASONE NASAL 120 SPRAYS/16 GM MDI EACHNARE PRN (15:29)
[2018-08-15] MEDS ORDERED: PHENAZOPYRIDINE HCL 200 MG TAB PO PRN (15:50)
--- NOTE | 2018-08-15 16:08 | HOSPPROG ---
Hospitalist Progress Note Assessment/Plan: # pSBO - will try conservative management based on goals of care # abd wall hematoma - much improved # back pain d/t erosive lesion lesion s/p SAMY, XRT - will try pharmacologic measures # metastatic thyroid cancer - pulm nodules, spinal lesion, mass in neck - follows with Zainab Sutton and Matt # a-fib/ppm - warfarin, now therapeutic; cont metop # hx DVT requiring thrombectomy - warfarin # hx CVA - warfarin, not on statin # hx GIB d/t AVM # hx CHF/pulm-htm - compensated # htn - cont metop # hypothyroid - synthroid # goals of care - follows with Dr Huang as outpatient; not interested in surgery even if absolutely necessary; will place palliative care order Subjective: seen with patient's ; abd pain improving, still some nasuea ; no BM Objective: Vital Signs Temp Pulse Resp BP Pulse Ox 36.6 C 72 16 119/56 L 95 08/15/18 07:12 08/15/18 07:12 08/15/18 07:12 08/15/18 07:12 08/15/18 07:12 08/14/18 08/15/18 08/16/18 05:59 05:59 05:59 Intake Total 1000 Balance 1000 PT 26.1 SEC (12.0-15.0) H 08/15/18 08:50 INR 2.39 (0.83-1.16) H 08/15/18 08:50 35 minutes of direct patient care time - Physical Exam Gastrointestinal: soft, non-tender abdomen, other (abd wall hematoma firm; slightly high pitched bowel sounds) ICD10 Worksheet Patient Problems: Problems Problem Status Onset Flank pain Acute UTI (urinary tract infection) Acute Afib - Atrial fibrillation Active Abdominal pain Acute Abdominal wall hematoma Acute Acute anterior epistaxis Acute CHF (congestive heart failure) Acute Chronic Disease Mgmt/Transitional Care Acute GI bleed Acute Headache Acute Hemoptysis Acute Hypertension Acute Hyponatremia Acute Melena Acute Pleural effusion Acute Radiation pneumonitis Acute Recurrent thyroid cancer Acute Small bowel obstruction Acute Status post cardiac pacemaker procedure Acute Transient ischemic attack (TIA) Acute Vomiting Acute
[2018-08-15] MEDS ORDERED: LIDOCAINE 4%/MENTHOL 1% PATCH TD ONE (17:26)
[2018-08-15] MEDS: LIDOCAINE 4%/MENTHOL 1% PATCH TD SCH (17:34)
[2018-08-15] MEDS: WARFARIN SODIUM 2.5 MG TAB PO SCH (17:37)
[2018-08-15] MEDS: ACETAMINOPHEN 500 MG TAB PO SCH ×2 (17:37→21:06)
[2018-08-15] MEDS: LORazepam 0.5 MG TAB PO PRN (17:39)
[2018-08-15] MEDS: BUDESONIDE/FORMOTEROL 160/4.5 60 PUFFS/MDI IH SCH (20:00)
[2018-08-15] MEDS: METOPROLOL TARTRATE 50 MG TAB PO SCH (21:06)
[2018-08-15] MEDS: SENNOSIDES/DOCUSATE SODIUM TAB PO SCH (21:06)
[2018-08-15] MEDS: PERFOROMIST 20 MCG/2 ML IH SCH (21:13)
[2018-08-16] MEDS: LEVOTHYROXINE 125 MCG TAB PO SCH (05:09)
[2018-08-16] MEDS ORDERED: TAFLUPROST EACHEYE SCH (09:00)
--- NOTE | 2018-08-16 09:26 | PDMN ---
Medical Necessity Medical necessity: [facility] R210 Intestinal Obstruction: 83 yo partial bowel obstruction and UTI, N/V, back pain. Elevated WBC, Attempting conservative management for obstruction, pt cont to need IVF, IV antiemetics and IV opioids, NPO, urine cx pending, palliative care ordered. Anticipate>2MN for ongoing management of the above. Hx extensive including paroxysmal afib on Coumadin, hx R MCA stroke in 2005, GIB w/ hx AVM, DVT RLE s/p thrombectomy, breast ca, thyroid ca w/ mets to lungs/spin/neck, CHF, SIADH. Change to IP status per MD order 08/15/18 @7528
[2018-08-16] MEDS: SENNOSIDES/DOCUSATE SODIUM TAB PO SCH ×2 (09:39→20:45)
[2018-08-16] MEDS: CHOLECALCIFEROL VIT D3 2,000 UNITS TAB/CAP PO SCH (09:40)
[2018-08-16] MEDS: ACETAMINOPHEN 500 MG TAB PO SCH ×3 (09:41→20:45)
[2018-08-16] MEDS: METOPROLOL TARTRATE 50 MG TAB PO SCH ×2 (09:44→20:45)
[2018-08-16] MEDS: TIMOLOL 0.5% 15 ML OPHT.BTL EACHEYE SCH (09:52)
[2018-08-16] MEDS: LIDOCAINE 4%/MENTHOL 1% PATCH TD SCH (09:58)
[2018-08-16] MEDS: BUDESONIDE/FORMOTEROL 160/4.5 60 PUFFS/MDI IH SCH ×2 (10:10→20:26)
[2018-08-16] MEDS: NS 1,000 ML IV SCH (11:22)
[2018-08-16] MEDS: CEPACOL LOZENGE PO PRN ×2 (12:14→17:52)
[2018-08-16] MEDS ORDERED: BISACODYL 10 MG SUPP PR PRN (12:21)
--- NOTE | 2018-08-16 12:24 | HOSPPROG ---
Hospitalist Progress Note Assessment/Plan: # pSBO - will try conservative management based on goals of care - check AXR again tomorrow # constipation - suppository today # abd wall hematoma - much improved # back pain d/t erosive lesion lesion s/p SAMY, XRT - will try pharmacologic measures # metastatic thyroid cancer - pulm nodules, spinal lesion, mass in neck - follows with Zainab Sutton and Matt # a-fib/ppm - warfarin, now therapeutic; cont metop # hx DVT requiring thrombectomy - warfarin # hx CVA - warfarin, not on statin # hx GIB d/t AVM # hx CHF/pulm-htm - compensated # htn - cont metop # hypothyroid - synthroid # goals of care - follows with Dr Huang as outpatient; not interested in surgery even if absolutely necessary; palliative care order placed Subjective: abd pain better; small BM today Objective: Vital Signs Temp Pulse Resp BP Pulse Ox 36.3 C 70 16 99/63 L 92 08/16/18 07:07 08/16/18 09:44 08/16/18 07:07 08/16/18 09:44 08/16/18 07:07 Laboratory Results 08/16/18 10:26 08/15/18 08/16/18 08/17/18 05:59 05:59 05:59 Intake Total 450 Output Total 100 Balance 450 -100 PT 26.1 SEC (12.0-15.0) H 08/15/18 08:50 INR 2.39 (0.83-1.16) H 08/15/18 08:50 AXR personally reviewed - Physical Exam Constitutional: chronically ill appearing Cardiovascular: regular rate and rhythym, no murmur, rub, or gallop Respiratory: no respiratory distress, no rales or rhonchi, clear to auscultation Gastrointestinal: other (normal BS; soft; L sided hematoma; mild LLQ TTP) ICD10 Worksheet Patient Problems: Problems Problem Status Onset Afib - Atrial fibrillation Active Recurrent thyroid cancer Acute Radiation pneumonitis Acute Status post cardiac pacemaker procedure Acute Acute anterior epistaxis Acute GI bleed Acute Melena Acute CHF (congestive heart failure) Acute Pleural effusion Acute Chronic Disease Mgmt/Transitional Care Acute Hemoptysis Acute Small bowel obstruction Acute Abdominal pain Acute Vomiting Acute Headache Acute Hypertension Acute Transient ischemic attack (TIA) Acute Abdominal wall hematoma Acute Hyponatremia Acute Flank pain Acute UTI (urinary tract infection) Acute
[2018-08-16] MEDS: PERFOROMIST 20 MCG/2 ML IH SCH ×2 (13:39→21:40)
[2018-08-16] MEDS: ONDANSETRON DISINTEGRATING 4 MG TAB PO PRN (13:39)
[2018-08-16] MEDS: LORazepam 0.5 MG TAB PO PRN (15:46)
[2018-08-16] MEDS: WARFARIN SODIUM 2.5 MG TAB PO SCH (16:28)
[2018-08-16] MEDS ORDERED: LORazepam 0.5 MG TAB PO ONE (20:30)
[2018-08-16] MEDS: HYDROmorphONE/DILAUDID 1 MG/ML INJ IVP PRN (23:22)
[2018-08-17 04:27] LABS: INR 3.05 (0.83-1.16); PROTIME(PATIENT) 31.4 SEC (12.0-15.0)
[2018-08-17] MEDS: NS 1,000 ML IV SCH (05:03)
[2018-08-17] MEDS: POTASSIUM Cl (KCl) 100 ML IV SCH ×4 (05:05→09:32)
[2018-08-17] MEDS: LEVOTHYROXINE 125 MCG TAB PO SCH (05:41)
[2018-08-17] MEDS: NS W/ 20 KCl/L 1,000 ML IV SCH (06:13)
[2018-08-17] MEDS: PERFOROMIST 20 MCG/2 ML IH SCH ×2 (07:05→21:10)
[2018-08-17] MEDS: SENNOSIDES/DOCUSATE SODIUM TAB PO SCH ×2 (07:05→21:11)
[2018-08-17] MEDS: ONDANSETRON DISINTEGRATING 4 MG TAB PO PRN ×3 (07:10→21:08)
[2018-08-17] MEDS: LORazepam 0.5 MG TAB PO PRN ×3 (07:12→21:37)
[2018-08-17] MEDS: BUDESONIDE/FORMOTEROL 160/4.5 60 PUFFS/MDI IH SCH ×2 (08:51→20:30)
--- NOTE | 2018-08-17 09:17 | ASMTCMCOM ---
CM Note CM Note Notes: Chart reviewed. Patient well know to [facility]. Chronically ill 83 year old female who is here with SBO. Per MD notes treating conservatively as patient does not want surgical intervention. MD placed order for palliative care and referral placed in [facility] to [facility]. CM to follow. Plan: TBD Date Signed: 08/17/2018 09:16 AM Electronically Signed By:Nicole Meza RN
[2018-08-17] MEDS: LIDOCAINE 4%/MENTHOL 1% PATCH TD SCH (09:34)
[2018-08-17] MEDS: METOPROLOL TARTRATE 50 MG TAB PO SCH ×2 (09:36→20:53)
[2018-08-17] MEDS: CHOLECALCIFEROL VIT D3 2,000 UNITS TAB/CAP PO SCH (09:36)
[2018-08-17] MEDS: ACETAMINOPHEN 500 MG TAB PO SCH ×3 (09:37→20:53)
[2018-08-17] MEDS: TIMOLOL 0.5% 15 ML OPHT.BTL EACHEYE SCH (11:49)
[2018-08-17] MEDS ORDERED: FLUCONAZOLE 150 MG TAB PO ONE (12:09)
--- NOTE | 2018-08-17 12:31 | HOSPPROG ---
Hospitalist Progress Note Assessment/Plan: # pSBO - will try conservative management based on goals of care - will check SBFT - advance to clears today # constipation - much improved with a suppository # abd wall hematoma - much improved # back pain d/t erosive lesion lesion s/p SAMY, XRT - will try pharmacologic measures # metastatic thyroid cancer - pulm nodules, spinal lesion, mass in neck - follows with Zainab Sutton and Matt # a-fib/ppm - warfarin, now therapeutic; cont metop - hold warfarin tonight as slightly elevated and getting a dose of diflucan # hx DVT requiring thrombectomy - warfarin as above # hx CVA - warfarin (as above), not on statin # hx GIB d/t AVM # hx CHF/pulm-htm - compensated # htn - cont metop # hypothyroid - synthroid # goals of care - follows with Dr Huang as outpatient; not interested in surgery even if absolutely necessary; palliative care order placed Subjective: had BMx2 last night; abd pain better Objective: Vital Signs Temp Pulse Resp BP Pulse Ox 36.6 C 71 16 134/74 H 92 08/17/18 07:15 08/17/18 08:58 08/17/18 08:58 08/17/18 07:15 08/17/18 08:58 Laboratory Results 08/17/18 03:40 08/16/18 08/17/18 08/18/18 05:59 05:59 05:59 Intake Total 1050 1300 300 Output Total 450 100 Balance 1050 850 200 PT 31.4 SEC (12.0-15.0) H 08/17/18 03:40 INR 3.05 (0.83-1.16) H 08/17/18 03:40 AXR personally reviewed - Physical Exam Constitutional: chronically ill appearing Cardiovascular: regular rate and rhythym, no murmur, rub, or gallop Respiratory: no respiratory distress, no rales or rhonchi, clear to auscultation Gastrointestinal: soft, non-tender abdomen, other (hematoma), No rebound, No distension ICD10 Worksheet Patient Problems: Problems Problem Status Onset Afib - Atrial fibrillation Active Recurrent thyroid cancer Acute Radiation pneumonitis Acute Status post cardiac pacemaker procedure Acute Acute anterior epistaxis Acute GI bleed Acute Melena Acute CHF (congestive heart failure) Acute Pleural effusion Acute Chronic Disease Mgmt/Transitional Care Acute Hemoptysis Acute Small bowel obstruction Acute Abdominal pain Acute Vomiting Acute Headache Acute Hypertension Acute Transient ischemic attack (TIA) Acute Abdominal wall hematoma Acute Hyponatremia Acute Flank pain Acute UTI (urinary tract infection) Acute
[2018-08-17] MEDS ORDERED: LORazepam 0.5 MG TAB PO ONE (23:55)
[2018-08-18] MEDS: LEVOTHYROXINE 125 MCG TAB PO SCH (04:03)
[2018-08-18 04:37] LABS: PLATELET COUNT 250 10^3/uL (150-400)
[2018-08-18 04:44] LABS: INR 3.13 (0.83-1.16)
[2018-08-18] MEDS: ACETAMINOPHEN 500 MG TAB PO SCH ×3 (09:26→21:04)
[2018-08-18] MEDS: METOPROLOL TARTRATE 50 MG TAB PO SCH ×2 (09:27→21:04)
[2018-08-18] MEDS: CHOLECALCIFEROL VIT D3 2,000 UNITS TAB/CAP PO SCH (09:27)
[2018-08-18] MEDS: LIDOCAINE 4%/MENTHOL 1% PATCH TD SCH ×2 (09:28→21:13)
[2018-08-18] MEDS: TIMOLOL 0.5% 15 ML OPHT.BTL EACHEYE SCH (09:29)
[2018-08-18] MEDS: SENNOSIDES/DOCUSATE SODIUM TAB PO SCH ×2 (09:32→21:05)
[2018-08-18] MEDS: ONDANSETRON DISINTEGRATING 4 MG TAB PO PRN ×2 (09:42→18:39)
[2018-08-18] MEDS: LORazepam 0.5 MG TAB PO PRN (09:43)
[2018-08-18] MEDS: NS W/ 20 KCl/L 1,000 ML IV SCH ×2 (10:40→20:35)
[2018-08-18] MEDS: BUDESONIDE/FORMOTEROL 160/4.5 60 PUFFS/MDI IH SCH ×3 (14:19→21:58)
[2018-08-18] MEDS: PERFOROMIST 20 MCG/2 ML IH SCH ×2 (15:09→21:59)
[2018-08-18] MEDS ORDERED: WARFARIN SODIUM 2.5 MG TAB PO SCH (15:50)
[2018-08-18] MEDS ORDERED: LORazepam 1 MG TAB PO PRN (17:14)
--- NOTE | 2018-08-18 17:24 | HOSPPROG ---
Hospitalist Progress Note Assessment/Plan: # pSBO - resolved on SBFT - advance diet # constipation - much improved with a suppository # abd wall hematoma - much improved # back pain d/t erosive lesion lesion s/p SAMY, XRT - will try pharmacologic measures # metastatic thyroid cancer - pulm nodules, spinal lesion, mass in neck - follows with Zainab Sutton and Matt # a-fib/ppm - warfarin, now therapeutic; cont metop - hold warfarin tonight as slightly elevated and getting a dose of diflucan # hx DVT requiring thrombectomy - warfarin as above # hx CVA - warfarin (as above), not on statin # hx GIB d/t AVM # hx CHF/pulm-htm - compensated # htn - cont metop # hypothyroid - synthroid # goals of care - follows with Dr Huang as outpatient; not interested in surgery even if absolutely necessary; palliative care order placed # dispo - possibly tomorrow if tolerates PO Subjective: did not sleep well last night; complaining of leg and hand spasms Objective: Vital Signs Temp Pulse Resp BP Pulse Ox 36.6 C 67 18 146/80 H 96 08/18/18 12:17 08/18/18 12:17 08/18/18 12:17 08/18/18 12:17 08/18/18 12:17 Laboratory Results 08/18/18 04:03 08/18/18 04:03 08/17/18 08/18/18 08/19/18 05:59 05:59 05:59 Intake Total 1300 2495 Output Total 450 100 650 Balance 850 2395 -650 PT 32.0 SEC (12.0-15.0) H 08/18/18 04:03 INR 3.13 (0.83-1.16) H 08/18/18 04:03 SBFT reviewed - Physical Exam Constitutional: uncomfortable Eyes: anicteric sclera Ears, Nose, Mouth, Throat: hearing normal Cardiovascular: No edema Respiratory: no respiratory distress Gastrointestinal: No distension Genitourinary: No rubio in urethra Skin: warm Musculoskeletal: full muscle strength Neurologic: AAOx3 Psychiatric: anxious ICD10 Worksheet Patient Problems: Problems Problem Status Onset Afib - Atrial fibrillation Active Recurrent thyroid cancer Acute Radiation pneumonitis Acute Status post cardiac pacemaker procedure Acute Acute anterior epistaxis Acute GI bleed Acute Melena Acute CHF (congestive heart failure) Acute Pleural effusion Acute Chronic Disease Mgmt/Transitional Care Acute Hemoptysis Acute Small bowel obstruction Acute Abdominal pain Acute Vomiting Acute Headache Acute Hypertension Acute Transient ischemic attack (TIA) Acute Abdominal wall hematoma Acute Hyponatremia Acute Flank pain Acute UTI (urinary tract infection) Acute
[2018-08-18] MEDS: MELATONIN 3 MG TAB PO SCH ×2 (21:05)
[2018-08-18] MEDS: HYDROmorphONE/DILAUDID 1 MG/ML INJ IVP PRN (21:12)
[2018-08-19] MEDS: LEVOTHYROXINE 125 MCG TAB PO SCH (04:25)
[2018-08-19] MEDS: ACETAMINOPHEN 500 MG TAB PO PRN ×2 (04:26→14:19)
[2018-08-19] MEDS: BUDESONIDE/FORMOTEROL 160/4.5 60 PUFFS/MDI IH SCH (09:21)
[2018-08-19 10:04] LABS: INR 2.74 (0.83-1.16); PROTIME(PATIENT) 28.9 SEC (12.0-15.0)
[2018-08-19] MEDS ORDERED: POLYETHYLENE GLYCOL 3350 17 GM PKT PO SCH (10:15)
--- NOTE | 2018-08-19 10:52 | ASMTCMCOM ---
CM Note CM Note Notes: Referral sent to [facility] per [facility]. Referral was sent to [facility] 08/17 however pt would like [facility]. [facility] notified. Hospitalist has asked for home care PT/OT and RN. Pt had [facility] in the past and would like them again. [facility] has accepted. CM will continue to follow. Pt to be d/dewayne today. D/C Plan: Home with [facility] and [facility] PT/OT/ RN. Date Signed: 08/19/2018 10:52 AM Electronically Signed By:Virginie Foster
--- NOTE | 2018-08-19 10:54 | ASMTDCNOTE ---
Case Management Discharge Discharge Order Complete? Answers: Yes Patient to Obtain Answers: via Family Medications Transportation Arranged Answers: Family/Friends Faxed Final Orders Answers: Yes Agency/Facility Transfer Answers: Yes Report Printed & Faxed to Receiving Agency Family Notified Answers: Yes Discharge Comments Notes: Pt d/dewayne with [facility] and [facility] PT/OT/RN. Date Signed: 08/19/2018 10:53 AM Electronically Signed By:Virginie Foster
[2018-08-19] MEDS: SENNOSIDES/DOCUSATE SODIUM TAB PO SCH (11:38)
[2018-08-19] MEDS: CHOLECALCIFEROL VIT D3 2,000 UNITS TAB/CAP PO SCH (11:38)
[2018-08-19] MEDS: METOPROLOL TARTRATE 50 MG TAB PO SCH (11:39)
[2018-08-19] MEDS: LIDOCAINE 4%/MENTHOL 1% PATCH TD SCH (11:39)
[2018-08-19] MEDS: ACETAMINOPHEN 500 MG TAB PO SCH (11:41)
[2018-08-19] MEDS: TIMOLOL 0.5% 15 ML OPHT.BTL EACHEYE SCH (11:50)
--- NOTE | 2018-08-19 12:00 | PDIAF ---
- Diagnosis Diagnosis: Small bowel obstruction Code Status: Do Not Resuscitate - Medication Management Discharge Medications: Medications to Continue on Transfer Cyanocobalamin (Vitamin B-12) [Vitamin B-12] 1,000 mcg IM Q30D 12/10/14 [Last Taken 05/17/17] Budesonide/Formoterol 160/4.5 [Symbicort 160-4.5 Mcg Inh (*)] 2 puffs IH BID #1 mdi 11/08/16 [Last Taken 05/06/18 20:00] Timolol 0.5% [TIMOPTIC 0.5% (*)] 1 drops EACHEYE DAILY #1 opht.btl 11/08/16 [ Last Taken 05/06/18] Furosemide [Lasix 20 MG (*)] 20 mg PO BID 04/15/17 [Last Taken 05/06/18] Albuterol [Proventil Inhaler HFA (*)] 2 puffs IH Q4-6PRN PRN 06/16/17 [Last Taken 06/15/17] Metoprolol Tartrate [Lopressor 50 mg (*)] 50 mg PO BID #60 tab 06/17/17 [Last Taken 05/06/18 20:00] Cholecalciferol Vit D3 [Vitamin D3 2000 units tab (OTC)] 4,000 units PO DAILY [Last Taken 05/06/18 20:00] Fluticasone Nasal [Flonase Nasal [place]] 1 sprays NASAL DAILY PRN 03/21/18 [Last Taken Unknown] Ipratropium 0.03% Nasal [Atrovent 0.03% Nasal (*)] 2 sprays EACHNARE TID PRN [Last Taken Unknown] Levothyroxine [Synthroid 125 mcg (*)] 125 mcg PO DAILY06 05/07/18 [Last Taken ] Lidocaine 4%/Menthol 1% [Icy Hot Lidocaine/Menthol 4%/1% Patch (*)] 1 patch TD DAILY patch 05/21/18 [Last Taken Unknown] Acetaminophen [Tylenol ES 500 mg (*)] 1,000 mg PO Q6HRS PRN 08/15/18 [Last Taken Unknown] Carboxymethylcellulose Sodium [Refresh Tears] 1 - 2 drops OP Q2 PRN 08/15/18 [ Last Taken Unknown] LORazepam [Ativan (*)] 0.5 mg PO BID PRN 08/15/18 [Last Taken Unknown] Ondansetron Odt [Zofran Odt 4 mg (*)] 4 mg PO BID 08/15/18 [Last Taken Unknown] Perforomist 20mcg/2ml Neb 2 ml IH BID 08/15/18 [Last Taken Unknown] Phenazopyridine HCl [Pyridium] 200 mg PO HS PRN 08/15/18 [Last Taken Unknown] Tafluprost/Pf [Zioptan 0.0015% Eye Drops] 1 each EACHEYE DAILY 08/15/18 [Last Taken Unknown] Warfarin Sodium [Coumadin 2.5MG (*)] 1.25 mg PO MOTH 08/15/18 [Last Taken Unknown] Warfarin Sodium [Coumadin 2.5MG (*)] 2.5 mg PO SUTUWEFRSA 08/15/18 [Last Taken Unknown] oxyCODONE/APAP 5/325 [Percocet 5/325 (*)] 1 tab PO Q6HRS PRN 08/15/18 [Last Taken Unknown] Acetaminophen [Tylenol ES 500 mg (*)] 1,000 mg PO TID #90 tab 08/19/18 [Last Taken Unknown] LORazepam [Ativan (*)] 0.5 - 1 mg PO HS PRN #60 tab 08/19/18 [Last Taken Unknown ] Melatonin [Melatonin 3 MG (*)] 6 mg PO HS #60 tab 08/19/18 [Last Taken Unknown] Polyethylene Glycol 3350 [Miralax 17 gm (*)] 17 gm PO BID #60 pkt 08/19/18 [ Last Taken Unknown] Sennosides/Docusate Sodium [Senokot-S] 1 tab PO BID #0 tab 08/19/18 [Last Taken Unknown] Discharge Medications: Refer to the Discharge Home Medication list for PRN reason. PICC Care - Routine: N/A - Orders Services needed: Home Care, Registered Nurse, Physical Therapy Home Care Face to Face: I certify that this patient was under my care and that I had the required [id number] encounter meeting the encounter requirements on the discharge day. My findings support the fact that the patient is homebound as defined in Home Care Face to Face Continued: CMS Chapter 7 Medicare Benefits Manual 30.1.1 , The condition of the patient is such that there exists a normal inability to leave home and consequently, leaving home would require a considerable and taxing effort. Isolation Type: None Oxygen: NA Diet Recommendation: no restrictions on diet Weigh Patient: weekly March: Not applicable Activity/Weight Bearing Restrictions: as tolerated Additional Instructions: Please discuss pain management and bowel movement regularity with [facility] (Dr. Huang) If not achieving daily BMs with twice daily miralax, increase to three times daily - Labs/Radiology PT/INR Date: 08/25/18 Call or Fax Lab and Imaging Results to: Dr. Arellano - Follow Up Care Current Providers and Referrals: Stacy Arellano MD [Primary Care Provider] - follow up in 1 week
[2018-08-19 15:09] VITALS: BP 117/71
--- NOTE | 2018-08-19 16:26 | PDDCSUM ---
Discharge Summary Discharge Summary: DISCHARGE SUMMARY FOLLOW-UP ITEMS: Ongoing outpatient pain management through outpatient palliative care DATE OF ADMISSION: 08/15/2018 DATE OF DISCHARGE: 08/19/2018 DISCHARGE DIAGNOSES: 1. Acute partial small-bowel obstruction 2. Abdominal wall hematoma 3. Chronic back pain 4. Metastatic thyroid cancer 5. Paroxysmal atrial fibrillation 6. Severe protein calorie malnutrition 7. Chronic diastolic congestive heart failure CONSULTATIONS: Palliative PROCEDURES / IMAGING: CT demonstrating partial small-bowel obstruction located in the jejunum Small-bowel follow-through on 08/18/2018 demonstrating resolution CHIEF COMPLAINT: Acute abdominal pain, constipation SUBJECTIVE: Patient is feeling well at time discharge, she has had some intermittent, self- resolving dizziness and intermittent nausea, but is feeling safe for discharge home at this time, she is eating and drinking PHYSICAL EXAM ON DISCHARGE: Systolic blood pressure 130, heart rate 70, afebrile night, satting well on room air, alert awake oriented x3, thin appearing, proximal muscle wasting, cachectic, left upper abdomen firm, nontender hematoma, right abdomen soft, bowel sounds present, nontender, lungs are clear to auscultation bilaterally, negative orthostatic vital signs LABS ON DISCHARGE: Serum sodium 141, creatinine 0.4, INR 2.74 HOSPITAL COURSE BY PROBLEM: The patient presented with acute abdominal symptoms most likely secondary to partial small-bowel obstruction in the setting of metastatic thyroid cancer and intermittent opiate use as an outpatient. She was made NPO, received IV fluids and pain management, and her bowel obstruction resolved without any surgical intervention. She had a small-bowel follow-through on 08/18 which demonstrated resolution, and she moved her bowels. She was eating and drinking on 08/19 and received counseling regarding her home bowel regiment. I recommended that she continue her scheduled Senokot S twice daily and increase her MiraLax from nightly to twice daily, and consider increasing to 3 times daily if she does not experience a daily bowel movement. She also received a palliative consultation and has established outpatient palliative care with [facility], and will discuss ongoing pain management with their physician as an outpatient. She has chronic lower back pain which has been refractory to radiation therapy, steroid injection, gabapentin. She did report supportive relief with 1000 mg of Tylenol at night plus p.r.n. Ativan 0.5 mg, and prescriptions were written for both these medications. Of note, the patient does have severe protein calorie malnutrition with low BMI of 15.9, evidenced by 12% weight loss in the past 2 months, subcutaneous fat loss in the orbital region as well as clavicular protrusions. She received dietary consultation and should receive ongoing outpatient nutritional consultation, depending on her goals of care through [facility]. She also has a history of chronic diastolic congestive heart failure, but was well compensated throughout the hospital stay and she was maintaining a net negative status prior to discharge, to compensate for IV fluids received earlier on in her hospitalization. Regarding her paroxysmal atrial fibrillation, her Coumadin was initially held and now that her INR is back within therapeutic range, can be re-initiated with outpatient PT and INR next Saturday. She will have mobile home laborer and PT ordered time of discharge. DISCHARGE MEDICATIONS: Please see official discharge medication reconciliation sheet in chart , continue home medications with the addition of Ativan as needed at bedtime, Tylenol 1000 mg at night, MiraLax scheduled twice daily to be up titrated to 3 times daily if needed for daily bowel movement. DISCHARGE INSTRUCTIONS: Please follow up with [facility], as well as her outpatient providers. TIME SPENT: Greater than 30 minutes were spent on direct patient care, as well as discharge planning and preparation.
--- NOTE | 2018-08-20 15:42 | ASDISCHSUM ---
Discharge Information Plan Status:Home with Home Health Medically Cleared to Leave:08/19/2018 Discharge Date:08/19/2018 03:38 PM D/C Disposition: ADT D/C Disposition:Home Health Service Projected Discharge Date:08/19/2018 11:00 AM Transportation at D/C: Discharge Delay Reason: Follow-Up Date:08/19/2018 11:00 AM Discharge Slot: Final Diagnosis: Placement Information Referral Type:Palliative Care Referral ID:[id number] Provider Name: Address 1: Phone Number: Address 2: Fax Number: City: Selection Factors: State: Referral Type:Palliative Care Referral ID:[id number] Provider Name:[facility] Address 1:[address] Address 2: City:[place] Selection Factors: State:[place] Referral Type:*Home Health Care Services Referral ID:[id number] Provider Name:[facility] Address 1:[address] Address 2: City:[place] Selection Factors: State:[place] Patient Contact Information Contact Name:STEPHEN Relationship: Address:[address] City:[place] Alternate Phone: [facility]/Zip Code:[place] [address] Email: Financial Information Financial Class:Medicare Primary Plan Desc:MEDICARE INPATIENT Primary Plan Number:[id number] Secondary Plan Desc:NILDA/GAGE SUPPLEMENT Secondary Plan Number:[id number] Assessment Information LACE LACE Comorbidities - select Answers: Cerebrovascular disease all that apply (CVA, TIA, aneurysms, vasc ular dementia) Chronic pulmonary disease Opioid dependence / Chronic pain Other Notes: AFib; HTN; GERD # of Emergency department Answers: 12+ visits in the last 6 months Score: 14 Date Signed: 08/15/2018 08:41 AM Electronically Signed By:Milly Kaplan [facility] CM Progress Note CM Note CM Note Notes: Pts case discussed w/ CYNDI Hewitt. Pt is a 83 y/o female admitted for nausea/vomiting. Pt has a long medical history (please see H&P). No therapies ordered at this time. Needs are TBD at this time. CM available for changes. Plan: TBD Date Signed: 08/15/2018 12:11 PM Electronically Signed By:ROBINSON Vargas [facility] CM Progress Note CM Note CM Note Notes: Chart reviewed. Patient well know to [facility]. Chronically ill 83 year old female who is here with SBO. Per MD notes treating conservatively as patient does not want surgical intervention. MD placed order for palliative care and [facility] to [facility]. CM to follow. Plan: TBD Date Signed: 08/17/2018 09:16 AM Electronically Signed By:Nicole Meza RN [facility] CM Progress Note CM Note CM Note Notes: Referral sent to [facility] per [facility]. Referral was sent to [facility] 08/17 however pt would like [facility]. [facility] notified. Hospitalist has asked for home care PT/OT and RN. Pt had [facility] in the past and would like them again. [facility] has accepted. CM will continue to follow. Pt to be d/dewayne today. D/C Plan: Home with [facility] and [facility] PT/OT/ RN. Date Signed: 08/19/2018 10:52 AM Electronically Signed By:Virginie Foster Case Management Discharge Plan Note Case Management Discharge Discharge Order Complete? Answers: Yes Patient to Obtain Answers: via Family Medications Transportation Arranged Answers: Family/Friends Faxed Final Orders Answers: Yes Agency/Facility Transfer Answers: Yes Report Printed & Faxed to Receiving Agency Family Notified Answers: Yes Discharge Comments Notes: Pt d/dewayne with [facility] and [facility] PT/OT/RN. Date Signed: 08/19/2018 10:53 AM Electronically Signed By:Virginie Foster Intervention Information Intervention Type:*GAO-Signed Date of Service:08/15/2018 03:05 PM Patient Type:Observation Staff Member:Milly Kaplan Hours: Discipline: Severity: Comment: Intervention Type:*IM-Signed Date of Service:08/19/2018 10:41 AM Patient Type:Inpatient Staff Member:Milly Kaplan Hours: Discipline: Severity: Comment:
[2018-08-29] MEDS ORDERED: CYANO/VITAMIN B12 1000 MCG/ML VIAL IM SCH (16:30)
== END 2018-08-19 15:38 | disposition home health service (06) | DRG 388 ==
LOC: F2W 05:00 → OBSVTOIN 16:09
PROVIDERS: ADMIT Family Medicine; ATTEND Family Medicine
DX: K56.600 Partial intestinal obstruction, unspecified as to cause (principal); E43 Unspecified severe protein-calorie malnutrition; C79.89 Secondary malignant neoplasm of other specified sites; C78.00 Secondary malignant neoplasm of unspecified lung; C79.51 Secondary malignant neoplasm of bone; I50.32 Chronic diastolic (congestive) heart failure; N39.0 Urinary tract infection, site not specified; E86.9 Volume depletion, unspecified; K59.00 Constipation, unspecified; I48.0 Paroxysmal atrial fibrillation; M79.81 Nontraumatic hematoma of soft tissue; G89.29 Other chronic pain; E03.9 Hypothyroidism, unspecified; H40.9 Unspecified glaucoma; Z23 Encounter for immunization; Z79.01 Long term (current) use of anticoagulants; Z85.3 Personal history of malignant neoplasm of breast; Z95.0 Presence of cardiac pacemaker; Z66 Do not resuscitate; Z85.850 Personal history of malignant neoplasm of thyroid
CPT/HCPCS: 96365; 97116-GP; 97161-GP; 97530-GP; G0008; G8978-GP-CJ; G8979-GP-CI; G8980-GP-CI; J0696; J1170; J2060; J2405; J3480

== ENCOUNTER 2018-09-10 19:25 | Observation (INO) | payer OTHER, MEDICARE ==
--- NOTE | 2018-09-10 19:29 | EDPHY ---
H & P Time Seen by Provider: 09/10/18 19:29 HPI/ROS: HPI CHIEF COMPLAINT: Altered mental status. HISTORY OF PRESENT ILLNESS: 83-year-old female, who I am familiar with, history of abdominal wall hematoma, chronic pain, AFib on Eliquis, history of CVA, thyroid cancer metastatic, presents emergency room altered mental status. Per the at bedside the patient was acting normal and had a normal day today around 2:00 a.m. This afternoon she went take a nap. Around 630 this evening he went to check on her and found her rather obtunded. Altered. Minimally responsive. 911 was called. Brought here to the ER to room 7. I did Greet her and her family. She arrives rather lethargic. Does not follow commands to respond. MOST form reviewed: DNR, Comfort only. Discussed at length with family about what they would like done they are fine with IV fluids and basic medical care. Nothing aggressive. No CPR no shock no intubation. Of note reports recent UTI. Past Medical History: Significant medical history for partial small-bowel obstruction, chronic back pain, AFib, chronic diastolic heart failure, hypertension, CVA, abdominal wall hematoma Past Surgical History: No recent surgical history Social History: Denies drugs alcohol tobacco. Family History: Noncontributory ROS REVIEW OF SYSTEMS: 10 Systems were reviewed and negative with the exception of the elements mentioned in the history of present illness. Exam Constitutional elderly and frail, triage nursing summary reviewed, vital signs reviewed, lethargic, dehydrated Eyes normal conjunctivae and sclera, EOMI, PERRLA. HENT normal inspection, atraumatic, moist mucus membranes, no epistaxis, neck supple/ no meningismus, no raccoon eyes. Respiratory clear to auscultation bilaterally, normal breath sounds, no respiratory distress, no wheezing. Cardiovascular rate normal, regular rhythm, no murmur, no edema, distal pulses normal. Gastrointestinal abdominal wall left lower quadrant hematoma,, no rebound, no guarding, normal bowel sounds, no distension, no pulsatile mass. Genitourinary no CVA tenderness. Musculoskeletal no midline vertebral tenderness, full range of motion, no calf swelling, no tenderness of extremities, no meningismus, good pulses, neurovascularly intact. Skin pink, warm, & dry, no rash, skin atraumatic. Neurologic lethargic does not follow commands. Psychiatric normal mood/affect. Heme/Lymph/Immune no lymphadenopathy. Differential Diagnosis: Includes but is not limited to in a particular order dehydration, electrolyte disturbance, infection, sepsis, pneumonia, UTI, intracranial bleed Medical Decision Making: Plan for this patient IV establishment with blood draw , check UA, chest x-ray, EKG, electrolytes, CT scan head without contrast due to altered mental status rule out bleed, and re-evaluate. Re-evaluation: EKG interpretation by me on record in [place] system. Impression time of EKG 1952, ventricularly paced rhythm rate of 70. No signs of acute ischemia. Patient's drug screen positive for benzodiazepines. Patient's urinalysis shows nitrite positive. Urine culture sent. 1 g Rocephin ordered. Patient need to be admitted for altered dull status. CT scan head without contrast this is negative for acute bleed. Atrophy present. Called to me by Dr. Zavala. Patient has a nitrite positive UTI. Additionally patient's drug screen is positive for benzodiazepine. Patient takes Ativan intermittently. This may be contributing to her sedated state. Additionally the patient has nitrite positive UTI will be contributing to possible altered mental status. Plan for hospital admission spoke with Dr. Ovalles who agrees to admit. Source: Patient, EMS - Personal History Tetanus Vaccine Date: 2006 - Medical/Surgical History Hx Asthma: No Hx Chronic Respiratory Disease: Yes Hx Diabetes: No Hx Cardiac Disease: Yes Hx Renal Disease: No Hx Cirrhosis: No Hx Alcoholism: No Hx HIV/AIDS: No Hx Splenectomy or Spleen Trauma: No Other PMH: Pacemaker, AFIB, HTN, DVT, STROKE, hypothyroidism/thyroid CA with mets, GERD with esophagitis, odynophagia, DVT hx, COPD mixed type, chronically anticoagulated, breast CA 2009, carpal tunnel, hysterectomy, viral pneumonia, bowel obstruction, ovarian cyst, cataract R eye, rotator cuff repair L./ l arm dvt - Social History Smoking Status: Former smoker Constitutional: Initial Vital Signs Temperature (C) 36.5 C 09/10/18 19:40 Heart Rate 70 09/10/18 19:40 Respiratory Rate 16 09/10/18 19:40 Blood Pressure 112/74 09/10/18 19:40 O2 Sat (%) 97 09/10/18 19:40 O2 Delivery Mode Room Air Allergies/Adverse Reactions: amlodipine [Amlodipine] Allergy (Intermediate, Verified 09/10/18 22:05) Other-Enter Comments epinephrine [Epinephrine] Allergy (Intermediate, Verified 09/10/18 22:05) HEART RACES piperacillin sodium [From Zosyn] Allergy (Intermediate, Verified 09/10/18 22:05) Hives tazobactam sodium [From Zosyn] Allergy (Intermediate, Verified 09/10/18 22:05) Hives moxifloxacin HCl [From Avelox] Allergy (Mild, Verified 09/10/18 22:05) clarithromycin Allergy (Unknown, Unverified 09/10/18 22:05) niacin Allergy (Unknown, Unverified 09/10/18 22:05) Rash famotidine Allergy (Verified 09/10/18 22:05) morphine Allergy (Verified 09/10/18 22:05) hallucinates omeprazole Allergy (Verified 09/10/18 22:05) vancomycin Allergy (Verified 09/10/18 22:05) ENVIRONMENTAL Allergy (Intermediate, Uncoded 09/10/18 22:05) EYES BURN AND SWELL/NASAL CONGESTION ADHESIVES Allergy (Mild, Uncoded 09/10/18 22:05) Rash moxifloxacin HCl Allergy (Unknown, Uncoded 09/10/18 22:05) piperacillin sodium Allergy (Unknown, Uncoded 09/10/18 22:05) Hives tazobactam sodium Allergy (Unknown, Uncoded 09/10/18 22:05) Hives Home Medications: Medication Instructions Recorded Cyanocobalamin (Vitamin B-12) 1,000 mcg IM Q30D 12/10/14 [Vitamin B-12] Budesonide/Formoterol 160/4.5 2 puffs IH BID #1 mdi 11/08/16 [Symbicort 160-4.5 Mcg Inh (*)] Timolol 0.5% [TIMOPTIC 0.5% (*)] 1 drops EACHEYE DAILY #1 opht.btl 11/08/16 Furosemide [Lasix 20 MG (*)] 20 mg PO Q2D PRN 04/15/17 Metoprolol Tartrate [Lopressor 50 50 mg PO BID #60 tab 06/17/17 mg (*)] Cholecalciferol Vit D3 [Vitamin D3 4,000 units PO DAILY 03/21/18 2000 units tab (OTC)] Fluticasone Nasal [Flonase Nasal 1 sprays NASAL DAILY 03/21/18 [place]] Levothyroxine [Synthroid 125 mcg 125 mcg PO DAILY06 05/07/18 (*)] LORazepam [Ativan (*)] 0.5 mg PO HS PRN 08/15/18 Ondansetron Odt [Zofran Odt 4 mg 4 mg PO TID PRN 08/15/18 (*)] Perforomist 20mcg/2ml Neb 2 ml NEB BID 08/15/18 oxyCODONE/APAP 5/325 [Percocet 1 tab PO Q6HRS PRN 08/15/18 5/325 (*)] Sennosides/Docusate Sodium 1 tab PO BID #0 tab 08/19/18 [Senokot-S] Acetaminophen [Tylenol 325mg (*)] 325 mg PO BID PRN 09/10/18 Albuterol Sulfate [Proair Hfa] 2 puffs IH Q6H PRN 09/10/18 Apixaban [Eliquis] 2.5 mg PO BID 09/10/18 Carboxymethylcellulose Sodium 1 - 2 drops OP DAILY PRN 09/10/18 [Refresh Tears] Herbals/Supplements -Info Only 1 ea PO DAILY 09/10/18 Ipratropium [Atrovent Hfa (*)] 2 puffs IH DAILY PRN 09/10/18 LORazepam [Ativan (*)] 0.25 mg PO DAILY PRN 09/10/18 Polyethylene Glycol 3350 [Miralax 17 gm PO DAILY 09/10/18 17 gm (*)] Medical Decision Making - Data Points Laboratory Results: Laboratory Results 09/10/18 19:20 09/10/18 19:20 Microbiology Results: MICROBIOLOGY 09/10/18 20:44 Urine,Clean Catch Urine Culture - Preliminary Medications Given: Hydromorphone HCl (Dilaudid) 0.4 mg IVP Q2HRS PRN PRN Reason: Pain, Severe Unable to Take PO Stop: 09/21/18 19:24 Last Admin: 09/11/18 20:03 Dose: 0.4 mg Dextrose/Sodium Chloride (D5w Ns) 1,000 mls @ 75 mls/hr IV CONT FRANCISCA Stop: 03/10/19 10:44 Last Admin: 09/11/18 11:52 Dose: 1,000 mls Miscellaneous Medication (Icy Hot Lidocaine/Menthol 4%/1% Patch) 2 patch TD DAILY FRANCISCA Stop: 03/10/19 10:59 Last Admin: 09/11/18 12:59 Dose: 1 patch Discontinued Medications Hydromorphone HCl (Dilaudid) 0.2 mg IVP Q2HRS PRN PRN Reason: Pain, Severe Unable to Take PO Stop: 09/21/18 17:22 Last Admin: 09/11/18 18:00 Dose: 0.2 mg Sodium Chloride (Ns) 1,000 mls @ 0 mls/hr IV EDNOW ONE; Wide Open PRN Reason: Protocol Stop: 09/10/18 19:42 Last Admin: 09/10/18 20:17 Dose: 1,000 mls Ceftriaxone Sodium/Dextrose (Rocephin 1 Gm (Premix)) 50 mls @ 100 mls/hr IV EDNOW ONE PRN Reason: Protocol Stop: 09/10/18 22:26 Last Admin: 09/10/18 22:42 Dose: 50 mls Sodium Chloride (Ns) 1,000 mls @ 100 mls/hr IV CONT FRANCISCA Stop: 09/11/18 08:44 Last Admin: 09/10/18 23:51 Dose: 1,000 mls Miscellaneous Medication (Icy Hot Lidocaine/Menthol 4%/1% Patch) 1 patch TD DAILY [facility] Stop: 03/10/19 10:59 Last Admin: 09/11/18 13:02 Dose: Not Given Miscellaneous Medication (Icy Hot Lidocaine/Menthol 4%/1% Patch) 1 patch TD ONCE ONE Stop: 09/11/18 12:46 Last Admin: 09/11/18 12:57 Dose: 1 patch Point of Care Test Results: Chemistry 09/10/18 20:21 POC Troponin I 0.01 ng/mL ng/mL (0.00-0.08) Departure - Departure Disposition: [facility] Inpatient Acute Clinical Impression: Altered mental status Qualifiers: Altered mental status type: unspecified Qualified Code(s): R41.82 - Altered mental status, unspecified UTI (urinary tract infection) Qualifiers: Urinary tract infection type: acute cystitis Hematuria presence: with hematuria Qualified Code(s): N30.01 - Acute cystitis with hematuria Condition: Fair
[2018-09-10] MEDS ORDERED: NS 1,000 ML IV ONE (19:41)
[2018-09-10 19:56] LABS: PLATELET COUNT 373 10^3/uL (150-400)
[2018-09-10 20:04] LABS: INR 1.11 (0.83-1.16); PROTIME(PATIENT) 14.5 SEC (12.0-15.0)
[2018-09-10] MEDS ORDERED: cefTRIAXone 1 GM/DEXTROSE 1 GM/50 ML BAG IV ONE (22:40)
[2018-09-10] MEDS ORDERED: ONDANSETRON DISINTEGRATING 4 MG TAB PO PRN (22:41)
[2018-09-10] MEDS ORDERED: ACETAMINOPHEN 325 MG TAB PO PRN (22:41)
[2018-09-10] MEDS ORDERED: ONDANSETRON 4 MG/2 ML VIAL IVP PRN (22:41)
[2018-09-10] MEDS ORDERED: NS 1,000 ML IV SCH (22:45)
--- NOTE | 2018-09-11 04:55 | PDGENHP ---
History and Physical - Chief Complaint Altered mental status - History of Present Illness Source-patient currently obtunded in unable to provide history. Fen is at bedside and provides history. EMR was also reviewed and case discussed with ED provider. HPI - this is a pleasant 83-year-old female with a PMHx complicated by history PAF on Eliquis, remote history of right MCA stroke 2005 with minimal residual symptoms, history GI bleed due to AVM, DVT, history of breast cancer status post lumpectomy radiation, metastatic thyroid cancer with mets to lung spine and neck, new suspicious for primary liver malignancy, history of UTI, chronic back pain related to metastatic disease, chronic constipation who presents emergency department today via EMS after her had trouble waking her from her nap this evening. Patient was recently discharged in July following the hospitalization for partial small bowel obstruction. Patient was managed conservatively and discharged home with palliative care services. She has had progressive decline per the and as far as weight and strength she has progressively decline. Patient has made it known she does not want any additional care regarding her cancer diagnosis. She also noted previously and concurs patient's wishes were to be DNR with focus increasingly on comfort care. Patient reports that they had another discussion with the palliative care team with considerations for transition into hospice based care. reports that this evening patient was feeling a little tired and so she went upstairs to bed while we waited for their [id number] to visit with a cook to meal. had a difficult time arousing the patient in so he called 911. Prior to this he had called for the patient to have her last rights. Patient has denied any acute illnesses in the last several days. She has not reported any fevers or chills to the . Overall she has had a poor appetite with weight decline and strength. Patient's reports that she has been undergoing treatment for UTI. Several weeks ago she was treated with Cipro. She subsequently developed urgency and frequency and she had another UA with her PCP which revealed she had a persistent UTI. She with subsequently started on Macrobid and completed her course yesterday morning. It is unknown if patient has been experiencing urgency for or urinary frequency. During the interview when asked if patient had been taking in any additional or new medications he reports that although he does try to keep a close eye on the pills and administers to the to the patient he has caught her on taking additional Ativan or oxycodone when he will going to another part of the house. He is unsure if today if that is the case and patient took additional sedatives before going for her nap. History Information - Allergies/Home Medication List Allergies/Adverse Reactions: amlodipine [Amlodipine] Allergy (Intermediate, Verified 09/10/18 22:05) Other-Enter Comments epinephrine [Epinephrine] Allergy (Intermediate, Verified 09/10/18 22:05) HEART RACES piperacillin sodium [From Zosyn] Allergy (Intermediate, Verified 09/10/18 22:05) Hives tazobactam sodium [From Zosyn] Allergy (Intermediate, Verified 09/10/18 22:05) Hives moxifloxacin HCl [From Avelox] Allergy (Mild, Verified 09/10/18 22:05) clarithromycin Allergy (Unknown, Unverified 09/10/18 22:05) niacin Allergy (Unknown, Unverified 09/10/18 22:05) Rash famotidine Allergy (Verified 09/10/18 22:05) morphine Allergy (Verified 09/10/18 22:05) hallucinates omeprazole Allergy (Verified 09/10/18 22:05) vancomycin Allergy (Verified 09/10/18 22:05) ENVIRONMENTAL Allergy (Intermediate, Uncoded 09/10/18 22:05) EYES BURN AND SWELL/NASAL CONGESTION ADHESIVES Allergy (Mild, Uncoded 09/10/18 22:05) Rash moxifloxacin HCl Allergy (Unknown, Uncoded 09/10/18 22:05) piperacillin sodium Allergy (Unknown, Uncoded 09/10/18 22:05) Hives tazobactam sodium Allergy (Unknown, Uncoded 09/10/18 22:05) Hives Home Medications: Cyanocobalamin (Vitamin B-12) [Vitamin B-12] 1,000 mcg IM Q30D 12/10/14 [Last Taken 05/17/17] Furosemide [Lasix 20 MG (*)] 20 mg PO Q2D PRN 04/15/17 [Last Taken 05/06/18] Cholecalciferol Vit D3 [Vitamin D3 2000 units tab (OTC)] 4,000 units PO DAILY [Last Taken 05/06/18 20:00] Fluticasone Nasal [Flonase Nasal Sayner] 1 sprays NASAL DAILY 03/21/18 [Last Taken Unknown] Levothyroxine [Synthroid 125 mcg (*)] 125 mcg PO DAILY06 05/07/18 [Last Taken ] LORazepam [Ativan (*)] 0.5 mg PO HS PRN 08/15/18 [Last Taken 09/09/18] Ondansetron Odt [Zofran Odt 4 mg (*)] 4 mg PO TID PRN 08/15/18 [Last Taken Unknown] Perforomist 20mcg/2ml Neb 2 ml NEB BID 08/15/18 [Last Taken Unknown] oxyCODONE/APAP 5/325 [Percocet 5/325 (*)] 1 tab PO Q6HRS PRN 08/15/18 [Last Taken 09/10/18] Acetaminophen [Tylenol 325mg (*)] 325 mg PO BID PRN 09/10/18 [Last Taken Unknown ] Albuterol Sulfate [Proair Hfa] 2 puffs IH Q6H PRN 09/10/18 [Last Taken Unknown] Apixaban [Eliquis] 2.5 mg PO BID 09/10/18 [Last Taken 09/10/18 AM] Carboxymethylcellulose Sodium [Refresh Tears] 1 - 2 drops OP DAILY PRN 09/10/18 [Last Taken Unknown] Herbals/Supplements -Info Only 1 ea PO DAILY 09/10/18 [Last Taken Unknown] Ipratropium [Atrovent Hfa (*)] 2 puffs IH DAILY PRN 09/10/18 [Last Taken Unknown ] LORazepam [Ativan (*)] 0.25 mg PO DAILY PRN 09/10/18 [Last Taken 09/10/18] Polyethylene Glycol 3350 [Miralax 17 gm (*)] 17 gm PO DAILY 09/10/18 [Last Taken Unknown] I have personally reviewed and updated: family history, medical history, social history, surgical history Past Medical History: Atrial fibrillation on Eliquis, right MCA stroke in 2005 with minimal residual affects, DVT right lower extremity status post thrombectomy, GI bleed is 2/2 AVM, pneumonia, breast CA status post lumpectomy and radiation therapy, thyroid CA with metastatic disease to lungs, spine, neck ; diastolic CHF, glaucoma, hypertension, ovarian cyst, bowel obstruction, carpal tunnel syndrome, restless leg syndrome, gastritis, chronic pain on chronic opiate therapy, hypothyroidism, benign essential, HTN, COPD, history transfusion during recent hospital stay April 2018 for abdominal wall hematoma, SIADH with associated hyponatremia, recurrent UTI - Surgical History Additional surgical history: pacemaker, ablation, hysterectomy, left rotator cuff repair, exploratory laparotomy for small bowel obstruction, carpal tunnel release, cataract surgery with lens placement, lumpectomy - Family History Additional family history: Sister with cancer, mi and coronary artery disease - Social History Smoking Status: Former smoker (Quit in 1970s) Alcohol Use: None Drug Use: None Additional social history: Patient is and lives with her . Cor status-DNR DNI. Review of Systems Review of Systems: ROS: 10pt was reviewed & negative except for what was stated in HPI & below ( Unable to obtain from the patient as she is obtunded. Limited review of systems discussed with the as noted in HPI.) Physical Exam Physical Exam: Selected Entries 09/10/18 19:40 Blood Pressure Automatic Method Heart Rate 70 Respiratory 16 Rate O2 Sat (%) 97 Temperature (C) 36.5 C Blood Pressure 112/74 Mean Arterial 86 Pressure (MAP) O2 Delivery Room Air Mode Temperature Oral Source Temp Pulse Resp BP Pulse Ox 36.2 C 70 14 114/60 96 09/10/18 23:33 09/10/18 23:33 09/10/18 23:33 09/10/18 23:33 09/10/18 23:33 Constitutional: no apparent distress, chronically ill appearing, cachectic, other (Chronically ill-appearing, elderly and frail female is lying quietly in bed. She is difficult to arouse and only moans and response.) Eyes: PERRL (Decreased reactivity light bilaterally but symmetric), anicteric sclera, other (Eyes or dry), No scleral injection Ears, Nose, Mouth, Throat: dry mucous membranes, other (No nasal discharge), No poor dentition Cardiovascular: regular rate and rhythym, no murmur, rub, or gallop, systolic murmur, No edema Peripheral Pulses: 1+: dorsalis-pedis (R), dorsalis-pedis (L) Respiratory: no respiratory distress, no rales or rhonchi, clear to auscultation , reduced air movement (Decreased air movement bibasilarly. Patient with poor inspiratory effort her) Gastrointestinal: normoactive bowel sounds, soft, non-tender abdomen, No no palpable masses (Patient with a left lower mass consistent with location of her previous hematoma.), No distension Genitourinary: no bladder tenderness, rubio in urethra ([place]-colored dark urine.) Skin: warm, normal color, no rashes or abrasions Musculoskeletal: generalized weakness, other (Patient is cachectic with apparent diffuse generalized weakness. She is able to move her upper extremities) Neurologic: other (Limited exam secondary to patient's mental status changes. She is able to move all her extremities but exam is quite limited as she is not able to follow any commands.), No AAOx3, No facial droop Psychiatric: other (Patient is altered and slightly restless but not agitated.) , No agitated Lab Data & Imaging Review 09/10/18 19:20 09/10/18 19:20 WBC 13.61 10^3/uL (3.80-9.50) H 09/10/18 19:20 RBC 3.89 10^6/uL (4.18-5.33) L 09/10/18 19:20 Hgb 12.4 g/dL (12.6-16.3) L 09/10/18 19:20 Hct 38.3 % (38.0-47.0) 09/10/18 19:20 MCV 98.5 fL (81.5-99.8) 09/10/18 19:20 MCH 31.9 pg (27.9-34.1) 09/10/18 19:20 MCHC 32.4 g/dL (32.4-36.7) 09/10/18 19:20 RDW 12.4 % (11.5-15.2) 09/10/18 19:20 Plt Count 373 10^3/uL (150-400) 09/10/18 19:20 MPV 9.9 fL (8.7-11.7) 09/10/18 19:20 Neut % (Auto) 79.7 % (39.3-74.2) H 09/10/18 19:20 Lymph % (Auto) 9.6 % (15.0-45.0) L 09/10/18 19:20 [place] % (Auto) 8.5 % (4.5-13.0) 09/10/18 19:20 Eos % (Auto) 0.8 % (0.6-7.6) 09/10/18 19:20 Baso % (Auto) 0.3 % (0.3-1.7) 09/10/18 19:20 Nucleat RBC Rel Count 0.0 % (0.0-0.2) 09/10/18 19:20 Absolute Neuts (auto) 10.85 10^3/uL (1.70-6.50) H 09/10/18 19:20 Absolute Lymphs (auto) 1.30 10^3/uL (1.00-3.00) 09/10/18 19:20 Absolute Monos (auto) 1.16 10^3/uL (0.30-0.80) H 09/10/18 19:20 Absolute Eos (auto) 0.11 10^3/uL (0.03-0.40) 09/10/18 19:20 Absolute Basos (auto) 0.04 10^3/uL (0.02-0.10) 09/10/18 19:20 Absolute Nucleated RBC 0.00 10^3/uL (0-0.01) 09/10/18 19:20 Immature Gran % 1.1 % (0.0-1.1) 09/10/18 19:20 Immature Gran # 0.15 10^3/uL (0.00-0.10) H 09/10/18 19:20 PT 14.5 SEC (12.0-15.0) 09/10/18 19:20 INR 1.11 (0.83-1.16) 09/10/18 19:20 APTT 34.7 SEC (23.0-38.0) 09/10/18 19:20 Sodium 139 mEq/L (135-145) 09/10/18 19:20 Potassium 4.7 mEq/L (3.3-5.0) 09/10/18 19:20 Chloride 104 mEq/L (97-110) 09/10/18 19:20 Carbon Dioxide 31 mEq/l (22-31) 09/10/18 19:20 Anion Gap 4 mEq/L (6-14) L 09/10/18 19:20 BUN 20 mg/dL (7-23) 09/10/18 19:20 Creatinine 0.7 mg/dL (0.6-1.0) 09/10/18 19:20 Estimated GFR > 60 09/10/18 19:20 Glucose 93 mg/dL (70-100) 09/10/18 19:20 Calcium 9.6 mg/dL (8.5-10.4) 09/10/18 19:20 Magnesium 2.7 mg/dL (1.6-2.3) H 09/10/18 19:20 Total Bilirubin 0.9 mg/dL (0.1-1.4) 09/10/18 19:20 Conjugated Bilirubin 0.0 mg/dL (0.0-0.5) 09/10/18 19:20 Unconjugated Bilirubin 0.9 mg/dL (0.0-1.1) 09/10/18 19:20 AST 18 IU/L (14-46) 09/10/18 19:20 ALT 17 IU/L (9-52) 09/10/18 19:20 Alkaline Phosphatase 100 IU/L (38-126) 09/10/18 19:20 POC Troponin I 0.01 ng/mL (0.00-0.08) 09/10/18 20:21 NT-Pro-B Natriuret Pep 3580 pg/mL (0-450) H 09/10/18 19:20 Total Protein 6.1 g/dL (6.3-8.2) L 09/10/18 19:20 Albumin 3.3 g/dL (3.5-5.0) L 09/10/18 19:20 Urine Color JENNIFER 09/10/18 20:44 Urine Appearance CLEAR 09/10/18 20:44 Urine pH 6.0 (5.0-7.5) 09/10/18 20:44 Ur Specific [place] 1.006 (1.002-1.030) 09/10/18 20:44 Urine Protein NEGATIVE (NEGATIVE) 09/10/18 20:44 Urine Ketones NEGATIVE (NEGATIVE) 09/10/18 20:44 Urine Blood NEGATIVE (NEGATIVE) 09/10/18 20:44 Urine Nitrate POSITIVE (NEGATIVE) H 09/10/18 20:44 Urine Bilirubin NEGATIVE (NEGATIVE) 09/10/18 20:44 Urine Urobilinogen 4.0 EU (0.2-1.0) H 09/10/18 20:44 Ur Leukocyte Esterase NEGATIVE (NEGATIVE) 09/10/18 20:44 Urine RBC NONE SEEN /hpf (0-3) 09/10/18 20:44 Urine WBC 1-3 /hpf (0-3) 09/10/18 20:44 Ur Epithelial Cells NONE SEEN /lpf (NONE-1+) 09/10/18 20:44 Urine Mucus TRACE /lpf (NONE-1+) 09/10/18 20:44 Urine Glucose 1+ (NEGATIVE) H 09/10/18 20:44 Urine Opiates Screen NEGATIVE (NEGATIVE) 09/10/18 20:44 Urine Barbiturates NEGATIVE (NEGATIVE) 09/10/18 20:44 Ur Phencyclidine Scrn NEGATIVE (NEGATIVE) 09/10/18 20:44 Ur Amphetamine Screen NEGATIVE (NEGATIVE) 09/10/18 20:44 U Benzodiazepines Scrn NON-NEGATIVE (NEGATIVE) H 09/10/18 20:44 Urine Cocaine Screen NEGATIVE (NEGATIVE) 09/10/18 20:44 U Marijuana (THC) Screen NEGATIVE (NEGATIVE) 09/10/18 20:44 Imaging Review: ortable AP Upright Chest, at 7:57 PM Clinical History: 83-year-old female in the ED with chest pain. The patient also has a prior history of metastatic thyroid cancer. Comparison Studies: Contrast-enhanced CT scan of the chest, dated 05/19/18, and chest radiography dated 03/21/2018. Findings: There is stable positioning of a dual-lead left subclavian pacemaker , terminating in the right atrium and right ventricle. Telemetry monitoring lead lines are present. There are surgical clips projected over the right axilla and the right upper quadrant of the abdomen. The cardiac silhouette is mildly enlarged, and there is peribronchial thickening with some mild left basilar subsegmental atelectasis.. Mild biapical pleural fibrosis. There are persistent bilateral nodular metastatic parenchymal nodules, marginally progressive. The osseous structures are age-appropriate. There is no evidence of a pneumothorax or pleural effusion. Impression: 1. Cardiomegaly with peribronchial thickening, and mild left basilar subsegmental atelectasis. 2. Marginally progressive pulmonary nodular metastatic disease. Dictated By: Sachin Zavala MD CT Scan of the Head (Without Contrast) Clinical History: 83-year-old female with a history of thyroid cancer and confusion. Technique: Axial unenhanced images were obtained from the vertex through the skull base, reformatted at 5.00 and 1.50 mm increments, and reviewed in bone, brain, and subdural windows. Images were reprocessed in parasagittal and paracoronal planes. Dose reduction techniques were utilized. The DFOV is 25.0 cm. The patient is not a candidate for MR imaging because of the presence of a pacemaker. Comparison Study: Unenhanced CT scan of the head, dated 03/21/2018. Findings: The ventricles and basilar cisterns are again noted to be prominent in size, with cortical sulcal widening, consistent with underlying advanced cerebral cortical atrophy. There is periventricular diminished attenuation, consistent with chronic microvascular ischemic gliosis. There is some localized encephalomalacia once again seen involving the posterior right frontotemporal lobes with mild ipsilateral dilatation of the right sylvian fissure. The volume loss is also accompanied by more pronounced CSF in the right frontal subdural space compared to the left , also a stable finding. There is an old stable tiny lacunar infarct just beyond the genu of the left internal capsule. There is no midline shift, or new evidence of mass effect. There is no acute/ subacute intra or extra-axial blood collection. The paranasal sinuses and the mastoids are patent. The craniocervical junction, pineal gland, and the orbits are within normal limits. There is a partially empty sella turcica. There is no acute calvarial fracture, or osteolytic or blastic lesion. There is mural atherosclerotic calcification of the vertebral and cavernous carotid arteries. Impression: Senescent features, with no acute intracranial abnormality identified on this unenhanced CT evaluation, or substantial change from 03/21/2018 Visualized and Interpreted imaging results: Yes Visualized and Interpreted EKG results: Yes EKG additional interpertation: V paced rhythm in the 70s. Assessment & Plan Assessment: 83-year-old female with multiple chronic medical issues as noted in HPI who presents to the ED with acute altered mental status #Altered mental status (Acute) - suspected due to an acute encephalopathy related either to medication toxicity or UTI. Patient had a sudden decline in her mental status in so suspect an acute insult. Additional items on differential includes less likely CVA patient does have a previous history with in setting of AFib not on anticoagulation. She has been taking her Eliquis up until on this evening which became altered. She is able to move all her extremities and has no evidence of facial drooping or focal deficits. Will monitor her closely as has elected to hold her evening anticoagulation. He is quite concerned that she will be off of this and inquires about heparin drip. I reviewed risks benefits of heparin drip versus delaying a 12 hr dose and waiting until patient's mentation improves such that she is safe to swallow. After consideration agrees that given patient's continuing decline and likely transition into hospice that the risks of bleeding and complications outweigh the benefit of weed eating a few hours to evaluate if patient's condition will improve slightly such that she can take her meds orally. #UTI (urinary tract infection) (Acute) - urine cultures pending. Patient has been started on Rocephin. Will review patient's historical stays for previous culture sensitivities. Chronic medical issues # paroxysmal atrial fibrillation - resume patient's Eliquis and metoprolol when her mentation improves and she can safely swallow her pills. Patient currently sounds regular on exam and is V paced at this time. Rate is controlled. # metastatic thyroid cancer - patient no longer pursuing palliative therapy in instead is focusing on comfort measures. reports that they were under discussion to transition to hospice care shortly. # chronic compensated diastolic CHF - gentle IV fluid hydration has been ordered. Has been reports that patient has had poor oral intake and hydration over the last several weeks since her discharge. Will monitor fluid status closely in DC fluids if any concerns for decompensation. # severe protein calorie malnutrition - poor oral intake with decline. Dietary consult. # hypothyroidism resume levothyroxine supplementation when diet can be advanced. # glaucoma - resume drops as tolerated # anxiety - hold off on sedatives and anxiolytics at this time 2/2 AMS. # SIADH - sodium adequate at this time. Continue to monitor closely. FEN - IV fluids for gentle hydration overnight monitoring fluid status closely. Electrolyte monitoring replacement if needed. Diet NPO at this time as patient is too confused to swallow safely. PPX - resume Eliquis when patient can safely take pills. SCDs. Patient currently agitated restless on bed alarm roll belt p.r.n. She is pulling out all her lines and her Rubio recurrently. COR - DNR DNI. Dispo - patient admitted to observation status at this time on the medical floor to see if hydration time will help patient recover her baseline mentation.
[2018-09-11 06:05] LABS: PLATELET COUNT 325 10^3/uL (150-400)
[2018-09-11] MEDS ORDERED: D5W NS 1,000 ML IV SCH (10:45)
[2018-09-11] MEDS ORDERED: LIDOCAINE 4%/MENTHOL 1% PATCH TD SCH (11:00)
[2018-09-11] MEDS ORDERED: LIDOCAINE 4%/MENTHOL 1% PATCH TD ONE (12:45)
[2018-09-11] MEDS: LIDOCAINE 4%/MENTHOL 1% PATCH TD SCH (12:59)
[2018-09-11] MEDS ORDERED: ALBUTEROL 60 PUFFS/8 GM MDI IH PRN (14:00)
--- NOTE | 2018-09-11 14:24 | ASMTCMCOM ---
CM Note CM Note Notes: Plan of care reviewed in am rounds. Castro is a chronically ill female who is now referred to hospice care. Per the notes the admission nurse from [facility] hospice will come and meet with family. She was current with [facility]. Plan of care TBD at this time pending hospice meeting. CM available for needs. Plan: TBD Date Signed: 09/11/2018 02:23 PM Electronically Signed By:Nicole Meza RN
--- NOTE | 2018-09-11 16:35 | HOSPPROG ---
Hospitalist Progress Note Assessment/Plan: #Acute toxic encephalopathy: abrupt onset. Has improved since morning. Suspect took additional opioid/BZ. Afebrile. Family denies infectious sxs. UTI treated with Cipro and Macrobid in past 2 weeks. CTH negative #h/o TIA: Lovenox #Metastatic thyroid cancer with mets to back: holding opioids with AMS #Chronic pain with opioid dependence: Lidoderm patch, IV morphine #Leukocytosis: stress response. CXR negative. Hold abx until culture back since just completed Macrobid #Hypoglycemia: D5NS #Recent SBO: hospitalized Jul. #Severe protein caloric malnutrition: dietary consulted #h/o MCA stroke: 2005. #Atrial fibrillation: Lovenox. Eliquis/BB when taking PO. #h/o GIB bleed: 2/2 AVM #Hypothyroidism: home meds when taking PO #h/o left leg DVT: lovenox #Compensated diastolic HF: caution with IVFs #Goals: plan for discharge to hospice tomorrow. Comfort measures here. Pain control Additional direct time spent: 30 min discussing comfort measures with daughter, pain control. Coordinating hospice (1700:17:[id number]) Subjective: speaking a bit more this afternoon Objective: Vital Signs Temp Pulse Resp BP Pulse Ox 37.1 C 79 16 145/78 H 98 09/11/18 15:51 09/11/18 15:51 09/11/18 15:51 09/11/18 15:51 09/11/18 15:51 Laboratory Results 09/11/18 05:18 09/11/18 05:18 09/10/18 09/11/18 09/12/18 05:59 05:59 05:59 Intake Total 1502 Output Total 1500 Balance 2 PT 14.5 SEC (12.0-15.0) 09/10/18 19:20 INR 1.11 (0.83-1.16) 09/10/18 19:20 - Time Spent With Patient Time Spent with Patient: greater than 35 minutes Time Spent with Patient: Greater than 35 minutes spent on this patients care, greater than 50% of time spent counseling, educating, and coordinating care regarding the above mentioned plan. - Physical Exam Constitutional: cachectic Eyes: PERRL Ears, Nose, Mouth, Throat: moist mucous membranes Cardiovascular: regular rate and rhythym Respiratory: no respiratory distress Gastrointestinal: normoactive bowel sounds Genitourinary: rubio in urethra Skin: warm Musculoskeletal: generalized weakness Neurologic: other (opens eyes to voice. Slurry speech, but improved on second visit this afternoon. 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 ) Psychiatric: encephalopathic ICD10 Worksheet Patient Problems: Problems Problem Status Onset Afib - Atrial fibrillation Active Abdominal pain Acute Abdominal wall hematoma Acute Acute anterior epistaxis Acute Altered mental status Acute CHF (congestive heart failure) Acute Chronic Disease Mgmt/Transitional Care Acute Flank pain Acute GI bleed Acute Headache Acute Hemoptysis Acute Hypertension Acute Hyponatremia Acute Melena Acute Pleural effusion Acute Radiation pneumonitis Acute Recurrent thyroid cancer Acute Small bowel obstruction Acute Status post cardiac pacemaker procedure Acute Transient ischemic attack (TIA) Acute UTI (urinary tract infection) Acute Vomiting Acute
[2018-09-11] MEDS ORDERED: KETOROLAC 30 MG/1 ML SDV IVP PRN (17:05)
[2018-09-11] MEDS ORDERED: PROMETHAZINE HCL 25 MG/ML INJ IVP PRN (17:22)
[2018-09-11] MEDS ORDERED: HALOPERIDOL LACT 5 MG/ML INJ IVP PRN (17:22)
[2018-09-11] MEDS ORDERED: HYDROmorphONE/DILAUDID 1 MG/ML INJ IVP PRN (17:23)
[2018-09-11] MEDS: HYDROmorphONE/DILAUDID 1 MG/ML INJ IVP PRN (20:03)
[2018-09-11] MEDS ORDERED: PATCH REMOVAL 1 EA PATCH TD SCH (21:00)
[2018-09-11] MEDS: ENOXAPARIN 40 MG/0.4 ML SYR SC SCH (21:38)
[2018-09-11] MEDS: PERFOROMIST 20 MCG/2 ML NEB SCH (22:40)
[2018-09-12] MEDS: HYDROmorphONE/DILAUDID 1 MG/ML INJ IVP PRN (01:35)
[2018-09-12] MEDS: HYDROmorphONE/DILAUDID 2 MG/ML INJ IVP PRN ×3 (06:19→12:25)
[2018-09-12] MEDS: ENOXAPARIN 40 MG/0.4 ML SYR SC SCH (08:46)
[2018-09-12] MEDS: LIDOCAINE 4%/MENTHOL 1% PATCH TD SCH (08:50)
[2018-09-12 08:59] VITALS: BP 128/69
[2018-09-12] MEDS ORDERED: TIMOLOL 0.5% 15 ML OPHT.BTL EACHEYE SCH (09:00)
[2018-09-12] MEDS: PERFOROMIST 20 MCG/2 ML NEB SCH (10:07)
--- NOTE | 2018-09-12 11:51 | PDIAF ---
- Diagnosis Diagnosis: metastatic thyroid cancer Code Status: Do Not Resuscitate - Medication Management Discharge Medications: electronically signed and located in the Home Medication List. - Orders Services needed: Registered Nurse, Certified Chemical Equipment Sales Engineer, Master Tape Recording Machine Operator Isolation Type: None Diet Recommendation: no restrictions on diet - Follow Up Care Current Providers and Referrals: Stacy Arellano MD [Primary Care Provider] - As per Instructions
--- NOTE | 2018-09-12 11:55 | ASMTLACE ---
LACE Length of stay for Answers: 1 day current admission Comorbidities - select Answers: Any tumor (including all that apply lymphoma or leukemia) Cerebrovascular disease (CVA, TIA, aneurysms, vasc ular dementia) Chronic pulmonary disease Opioid dependence / Chronic pain Other Notes: AFib; Abdominal wall hematoma; DVT # of Emergency department Answers: 5-8 visits in the last 6 months Score: 15 Date Signed: 09/12/2018 11:40 AM Electronically Signed By:Nicole Meza RN
--- NOTE | 2018-09-12 12:31 | ASMTCMCOM ---
CM Note CM Note Notes: Patient has been accepted to hospice inpatient care center for management of severe pain. The family homes she will achieve pain control and go home with hospice. Final orders and medications via allscripts. CM available should other needs arise. Plan: Dc to inpatient hospice. Date Signed: 09/12/2018 12:12 PM Electronically Signed By:Nicole Meza RN
--- NOTE | 2018-09-12 13:17 | GDS ---
ALL DIAGNOSES: 1. Metabolic encephalopathy. 2. History of transient ischemic attack. 3. Metastatic thyroid cancer. 4. Chronic pain, on continuous narcotics. 5. Hypoglycemia. 6. Recent small bowel obstruction. 7. Severe protein-calorie malnutrition. 8. History of an middle cerebral artery stroke in 2016. 9. Atrial fibrillation. 10. History of a gastrointestinal bleed. 11. Hypothyroid. 12. History of left leg deep vein thrombosis. 13. Compensated diastolic congestive heart failure. HOSPITAL COURSE: This is an 83-year-old female with multiple recent admissions, followed by [facility], who presented with altered mental status. It is not clear exactly what triggered this; santos gurpreet, suspicion is due to narcotic pain meds, as well as benzodiazepine. She significantly improved 2 days after admission. She is mostly complaining of significant back pain, which is likely pathologi c. She was seen by [facility]. Plan will be to discharge her to inpatient care center for ongoing pain control. Family's eventual goal is to go home with hospice. She is discharged in guarded cond ition with appropriate medications to control her pain. Discussed this with the patient's , a s well as daughter. BILLING: I spent more than 30 minutes on the day of discharge coordinating care. /[id number]/MODL
--- NOTE | 2018-09-14 09:20 | ASDISCHSUM ---
Discharge Information Plan Status:Hospice-Inpatient Medically Cleared to Leave:09/11/2018 Discharge Date:09/12/2018 01:10 PM D/C Disposition:Hospice Facility [facility] D/C Disposition:Home, Routine, Self-Care Projected Discharge Date:09/12/2018 11:00 AM Transportation at D/C: Discharge Delay Reason: Follow-Up Date:09/12/2018 11:00 AM Discharge Slot: Final Diagnosis: Placement Information Referral Type:*Hospice Referral ID:[id number] Provider Name:[facility] Address 1:[address] [place] Address 2: City:[place] Selection Factors: State:[place] Patient Contact Information Contact Name:STEPHEN Relationship: Address:[address] [place] [address] City:[place] Alternate Phone: State/Zip Code:[place] [address] Email: Financial Information Financial Class:Medicare Primary Plan Desc:MEDICARE OUTPATIENT Primary Plan Number:[id number] Secondary Plan Desc:[employer]/MDR SUPPLEMENT Secondary Plan Number:[id number] Assessment Information LACE LACE Length of stay for Answers: 1 day current admission Comorbidities - select Answers: Any tumor (including all that apply lymphoma or leukemia) Cerebrovascular disease (CVA, TIA, aneurysms, vasc ular dementia) Chronic pulmonary disease Opioid dependence / Chronic pain Other Notes: AFib; Abdominal wall hematoma; DVT # of Emergency department Answers: 5-8 visits in the last 6 months Score: 15 Date Signed: 09/12/2018 11:40 AM Electronically Signed By:Nicole Meza RN [facility] Progress Note CM Note CM Note Notes: Plan of care reviewed in am rounds. Castro is a chronically ill female who is now referred to hospice care. Per the notes the admission nurse from [facility] hospice will come and meet with family. She was current with [facility]. Plan of care TBD at this time pending hospice meeting. CM available for needs. Plan: TBD Date Signed: 09/11/2018 02:23 PM Electronically Signed By:Nicole Meza RN [facility] CM Progress Note CM Note CM Note Notes: Patient has been accepted to hospice inpatient care center for management of severe pain. The family homes she will achieve pain control and go home with hospice. Final orders and medications via allscripts. CM available should other needs arise. Plan: Dc to inpatient hospice. Date Signed: 09/12/2018 12:12 PM Electronically Signed By:Nicole Meza RN Intervention Information Intervention Type:*Incorrect Registration Date of Service:09/10/2018 08:54 AM Patient Type:Inpatient Staff Member:CYNDI Falk Courtney Hours: Discipline: Severity: Comment: Intervention Type:*GAO-Signed Date of Service:09/11/2018 11:20 AM Patient Type:Observation Staff Member:Milly Kaplan Hours: Discipline: Severity: Comment:
--- NOTE | 2018-09-17 07:05 | CPEKG ---
Test Reason : OPEN Blood Pressure : / mmHG Vent. Rate : 070 BPM Atrial Rate : 000 BPM P-R Int : 074 ms QRS Dur : 149 ms QT Int : 457 ms P-R-T Axes : 000 -74 097 degrees QTc Int : 494 ms Ventricular-paced rhythm Confirmed by Stanislav Corye ([id number]) on 09/17/2018 7:04:59 AM Referred By: Confirmed By:Stanislav Corey
== END 2018-09-12 13:10 | disposition hospice, home (50) ==
LOC: EDUNIT# → OBSVTOIN 22:39 → INTOOBSV 22:39 → F1N 23:22
PROVIDERS: ADMIT Family Medicine; ATTEND Student in an Organized Health Care Education/Training Program
DX: G93.41 Metabolic encephalopathy (principal); N39.0 Urinary tract infection, site not specified; E86.9 Volume depletion, unspecified; C73 Malignant neoplasm of thyroid gland; C78.00 Secondary malignant neoplasm of unspecified lung; C79.51 Secondary malignant neoplasm of bone; C79.89 Secondary malignant neoplasm of other specified sites; E16.2 Hypoglycemia, unspecified; D72.829 Elevated white blood cell count, unspecified; E22.2 Syndrome of inappropriate secretion of antidiuretic hormone; E43 Unspecified severe protein-calorie malnutrition; M54.9 Dorsalgia, unspecified; G89.29 Other chronic pain; I48.0 Paroxysmal atrial fibrillation; K59.00 Constipation, unspecified; E03.9 Hypothyroidism, unspecified; I50.32 Chronic diastolic (congestive) heart failure; I11.0 Hypertensive heart disease with heart failure; J44.9 Chronic obstructive pulmonary disease, unspecified; K21.9 Gastro-esophageal reflux disease without esophagitis; H40.9 Unspecified glaucoma; F41.9 Anxiety disorder, unspecified; Z79.01 Long term (current) use of anticoagulants; Z79.891 Long term (current) use of opiate analgesic; Z86.718 Personal history of other venous thrombosis and embolism; Z85.3 Personal history of malignant neoplasm of breast; Z87.891 Personal history of nicotine dependence; Z87.19 Personal history of other diseases of the digestive system; Z87.440 Personal history of urinary (tract) infections; Z86.73 Personal history of transient ischemic attack (TIA), and cerebral infarction without residual deficits; Z95.0 Presence of cardiac pacemaker; Z66 Do not resuscitate
CPT/HCPCS: 70450; 71045; G0378; J0696; J1170; J1650; 80305; 84484-PO